=== PATIENT | male | born 1950 | race Caucasian/White ===

== ENCOUNTER 2016-12-11 07:31 | Emergency (ER) | payer MEDICARE, OTHER ==
[2016-12-11 07:42] VITALS: RESP 18
--- NOTE | 2016-12-11 08:14 | ED ---
Male Urogenital HPI - General Chief complaint: Urogenital Stated complaint: passing blood Time Seen by Provider: 12/11/16 08:03 Source: patient, family, RN notes reviewed Mode of arrival: ambulatory Limitations: no limitations - History of Present Illness Initial comments: 56-year-old male presents emergency Department with chief complaint of hematuria. Patient states that he woke up this morning felt fine states he was showering looked down and saw blood coming from his penis. Patient states he was not urinating sutures just dripping blood. Patient states this has continued up until coming to the emergency department. Patient states at this time appears to have stopped. Patient states that he did urinate this morning with no difficulty. Patient states that he has no abdominal pain denies any pain with urination denies fever, chills. Patient states that her prostate checked last year which was normal. Patient also colonoscopy with no abnormalities. Patient states she had no history of hematuria no history kidney stones. Denies any nausea, vomiting, diarrhea constipation. - Related Data Home Medications Medication Instructions Recorded Confirmed Carbidopa/Levodopa [Sinemet CR 1 tab PO HS 12/11/16 12/11/16 50-200 mg] Celecoxib 400 mg PO DAILY PRN 12/11/16 12/11/16 Citalopram Hydrobromide [CeleXA] 20 mg PO DAILY 12/11/16 12/11/16 Insulin NPL/Insulin Lispro 65 unit SQ BID 12/11/16 12/11/16 [humaLOG MIX 75-25 VIAL] Multivitamins, Thera [Multivitamin 1 tab PO DAILY 12/11/16 12/11/16 (formulary)] Simvastatin [Zocor] 20 mg PO DAILY 12/11/16 12/11/16 Ubidecarenone [Co Q-10] 200 mg PO DAILY 12/11/16 12/11/16 traMADol HCL [Ultram] 50 mg PO TID 12/11/16 12/11/16 Allergies Allergy/AdvReac Type Severity Reaction Status Date / Time No Known Allergies Allergy Unverified 12/11/16 08:56 Review of Systems ROS Statement: Those systems with pertinent positive or pertinent negative responses have been documented in the HPI. ROS Other: All systems not noted in ROS Statement are negative. Past Medical History Past Medical History: Diabetes Mellitus, Hyperlipidemia, Hypertension Additional Past Medical History / Comment(s): Neuropathy History of Any Multi-Drug Resistant Organisms: None Reported Past Surgical History: Adenoidectomy Additional Past Surgical History / Comment(s): Circumcision 2016 Past Psychological History: No Psychological Hx Reported Smoking Status: Former smoker Past Alcohol Use History: None Reported Past Drug Use History: None Reported General Exam Limitations: no limitations General appearance: alert, in no apparent distress Respiratory exam: Present: normal lung sounds bilaterally. Absent: respiratory distress, wheezes, rales, rhonchi, stridor Cardiovascular Exam: Present: regular rate, normal rhythm, normal heart sounds. Absent: systolic murmur, diastolic murmur, rubs, gallop, clicks GI/Abdominal exam: Present: soft, normal bowel sounds. Absent: distended, tenderness, guarding, rebound, rigid exam: Present: normal inspection. Absent: testicular tenderness, urethral discharge, scrotal swelling Back exam: Absent: CVA tenderness (R), CVA tenderness (L) Course Vital Signs 12/11/16 07:35 Temperature 98.1 F Pulse Rate 68 Respiratory 18 Rate Blood Pressure 156/74 O2 Sat by Pulse 97 Oximetry Medical Decision Making - Medical Decision Making 66-year-old male presented emergency department for blood from his penis. Patient lab work within normal other than hyperglycemia. Patient is known diabetic. Patient was informed his blood sugar was 336. Patient's urinalysis is essentially normal other than his ketones and glucose. He was informed of this also. Patient will follow-up with urology for cystoscopy and further workup as felt necessary. Patient agrees to plan return parameters were discussed. - Lab Data Result diagrams: 12/11/16 08:15 12/11/16 08:15 Lab Results 12/11/16 12/11/16 12/11/16 Range/Units 08:15 08:15 08:15 WBC 7.1 (3.8-10.6) k/uL RBC 5.34 (4.30-5.90) m/uL Hgb 16.5 (13.0-17.5) gm/dL Hct 49.7 (39.0-53.0) % MCV 93.0 (80.0-100.0) fL MCH 30.8 (25.0-35.0) pg MCHC 33.2 (31.0-37.0) g/dL RDW 13.5 (11.5-15.5) % Plt Count 183 (150-450) k/uL Neutrophils % 62 % Lymphocytes % 21 % Monocytes % 7 % Eosinophils % 5 % Basophils % 1 % Neutrophils # 4.4 (1.3-7.7) k/uL Lymphocytes # 1.5 (1.0-4.8) k/uL Monocytes # 0.5 (0-1.0) k/uL Eosinophils # 0.4 (0-0.7) k/uL Basophils # 0.1 (0-0.2) k/uL PT 10.8 (9.0-12.0) sec INR 1.1 (<1.1) APTT 23.0 (22.0-30.0) sec Sodium 136 L (137-145) mmol/L Potassium 4.5 (3.5-5.1) mmol/L Chloride 102 (98-107) mmol/L Carbon Dioxide 25 (22-30) mmol/L Anion Gap 9 mmol/L BUN 18 (9-20) mg/dL Creatinine 0.84 (0.66-1.25) mg/dL Est GFR (MDRD) Af Amer >60 (>60 ml/min/1.73 sqM) Est GFR (MDRD) Non-Af >60 (>60 ml/min/1.73 sqM) Glucose 336 H (74-99) mg/dL Calcium 8.7 (8.4-10.2) mg/dL Urine Color Urine Appearance (Clear) Urine pH (5.0-8.0) Ur Specific [place] (1.001-1.035) Urine Protein (Negative) Urine Glucose (UA) (Negative) Urine Ketones (Negative) Urine Blood (Negative) Urine Nitrite (Negative) Urine Bilirubin (Negative) Urine Urobilinogen (<2.0) mg/dL Ur Leukocyte Esterase (Negative) Urine RBC (0-5) /hpf Urine WBC (0-5) /hpf Urine Mucus (None) /hpf 12/11/16 Range/Units 08:21 WBC (3.8-10.6) k/uL RBC (4.30-5.90) m/uL Hgb (13.0-17.5) gm/dL Hct (39.0-53.0) % MCV (80.0-100.0) fL MCH (25.0-35.0) pg MCHC (31.0-37.0) g/dL RDW (11.5-15.5) % Plt Count (150-450) k/uL Neutrophils % % Lymphocytes % % Monocytes % % Eosinophils % % Basophils % % Neutrophils # (1.3-7.7) k/uL Lymphocytes # (1.0-4.8) k/uL Monocytes # (0-1.0) k/uL Eosinophils # (0-0.7) k/uL Basophils # (0-0.2) k/uL PT (9.0-12.0) sec INR (<1.1) APTT (22.0-30.0) sec Sodium (137-145) mmol/L Potassium (3.5-5.1) mmol/L Chloride (98-107) mmol/L Carbon Dioxide (22-30) mmol/L Anion Gap mmol/L BUN (9-20) mg/dL Creatinine (0.66-1.25) mg/dL Est GFR (MDRD) Af Amer (>60 ml/min/1.73 sqM) Est GFR (MDRD) Non-Af (>60 ml/min/1.73 sqM) Glucose (74-99) mg/dL Calcium (8.4-10.2) mg/dL Urine Color Yellow Urine Appearance Clear (Clear) Urine pH 5.5 (5.0-8.0) Ur Specific [place] 1.021 (1.001-1.035) Urine Protein Negative (Negative) Urine Glucose (UA) 4+ H (Negative) Urine Ketones 2+ H (Negative) Urine Blood Small H (Negative) Urine Nitrite Negative (Negative) Urine Bilirubin Negative (Negative) Urine Urobilinogen <2.0 (<2.0) mg/dL Ur Leukocyte Esterase Negative (Negative) Urine RBC 2 (0-5) /hpf Urine WBC 1 (0-5) /hpf Urine Mucus Rare H (None) /hpf Disposition Clinical Impression: Hematuria Disposition: HOME SELF-CARE Condition: Stable Instructions: Hematuria (ED) Additional Instructions: Please return to the Emergency Department if symptoms worsen or any other concerns. Referrals: Lacie Egan MD [Primary Care Provider] - 1-2 days José Miguel Osullivan MD [STAFF PHYSICIAN] - 1-2 days Time of Disposition: 09:22
[2016-12-11 08:26] LABS: Basophils # (A) 0.1 k/uL (0-0.2); Basophils % (A) 1 %; CH 30.8; CHCM 33.2; Eosinophils # (A) 0.4 k/uL (0-0.7); Eosinophils % (A) 5 %; HCT 49.7 % (39.0-53.0); HDW 2.32; HGB 16.5 gm/dL (13.0-17.5); Luc # (Auto) 0.22; Luc % (Auto) 3; Lymphocytes # (A) 1.5 k/uL (1.0-4.8); Lymphocytes % (A) 21 %; MCH 30.8 pg (25.0-35.0); MCHC 33.2 g/dL (31.0-37.0); Mean Platelet Volume 7.5; Monocytes # (A) 0.5 k/uL (0-1.0); Monocytes % (A) 7 %; Neutrophils # (A) 4.4 k/uL (1.3-7.7); Neutrophils % (A) 62 %; RBC 5.34 m/uL (4.30-5.90); RDW 13.5 % (11.5-15.5); WBC 7.1 k/uL (3.8-10.6); WBC (Perox) 6.95
[2016-12-11 08:40] LABS: Anion Gap 9 mmol/L; Blood Urea Nitrogen 18 mg/dL (9-20); Calcium 8.7 mg/dL (8.4-10.2); Carbon Dioxide 25 mmol/L (22-30); Chloride 102 mmol/L (98-107); Glucose 336 mg/dL (74-99); INR 1.1 (<1.1); Non-African American GFR(MDRD) >60 (>60 ml/min/1.73 sqM); Potassium 4.5 mmol/L (3.5-5.1); Prothrombin Time 10.8 sec (9.0-12.0); Sodium 136 mmol/L (137-145)
[2016-12-11 08:48] LABS: Appearance,Urine Clear (Clear); Bilirubin,Urine Negative (Negative); Glucose,Urine (UA) 4+ (Negative); Leukocyte Esterase,Urine Negative (Negative); Mucus,Urine Rare /hpf; Nitrite,Urine Negative (Negative); PH, Urine 5.5 (5.0-8.0); Particle Count 672; Protein,Urine Negative (Negative); RBC,Urine 2 /hpf (0-5); Specific Gravity,Urine 1.021 (1.001-1.035); UA Billing (MACRO vs. MICRO) MICRO; Urobilinogen,Urine <2.0 mg/dL (<2.0); WBC,Urine 1 /hpf (0-5)
[2016-12-11 08:51] LABS: Ketones,Urine 2+ (Negative)
[2016-12-11 09:31] VITALS: BP 137/79; PULSE 78; TEMP 98.2
== END 2016-12-11 09:31 | disposition home or self-care (01) ==
LOC: EC 07:31
DX: R31.9 Hematuria, unspecified (principal); E11.9 Type 2 diabetes mellitus without complications; E78.5 Hyperlipidemia, unspecified; Z87.891 Personal history of nicotine dependence; Z79.4 Long term (current) use of insulin; Z79.899 Other long term (current) drug therapy; Z79.891 Long term (current) use of opiate analgesic
CPT/HCPCS: 36415; 80048; 81001; 85025; 85610; 85730; 99283

== ENCOUNTER 2017-03-05 08:55 | Day surgery (SDC) | payer MEDICARE, OTHER ==
[2017-03-04 11:53] VITALS: BMI 42.7
[~2017-03-05 08:55] MED LIST: LACTATED RINGERS 1,000 ML IV SCH
[2017-03-05] MEDS ORDERED: LIDOCAINE 1% 20 ML VIAL (10MG/ML) FOR IV START INTRADERMA ONE (09:26)
[2017-03-05] MEDS: CYCLOPENTOLATE 1% OPHTH SOLN 2 ML BTL OP ONE ×3 (09:30→09:49)
[2017-03-05 09:33] VITALS: RESP 16; TEMP 98.6
[2017-03-05] MEDS: FLURBIPROFEN 0.03% OPHTH DROPS 2.5 ML BTL OP ONE ×3 (09:33→09:52)
[2017-03-05] MEDS: PHENYLEPHRINE 10% OPHTH DROPS 5 ML BTL OP ONE ×3 (09:36→09:57)
[2017-03-05 09:39] LABS: Glucose,Whole Blood 270 mg/dL (75-99)
[2017-03-05] MEDS ORDERED: INSULIN LISPRO (humaLOG) 300 UNIT/3 ML VIAL SQ ONE (09:57)
[2017-03-05] MEDS ORDERED: MIDAZOLAM 2 MG/2 ML VIAL ONE (10:22)
[2017-03-05] MEDS ORDERED: PROPOFOL 10 MG/ML 20 ML VIAL IV ONE (10:22)
[2017-03-05] MEDS ORDERED: fentaNYL (PF) 50 MCG/ML 2 ML AMP ONE (10:22)
[2017-03-05] MEDS ORDERED: BALANCED SALT IRRIG SOLN COMB2 15 ML IRRIG.SOLN INTRAOCULA ONE (10:28)
[2017-03-05] MEDS ORDERED: HYALURONATE SODIUM INTRAOCULAR 1 EACH SYRINGE (10MG/ML) INTRAOCULA ONE (10:29)
[2017-03-05] MEDS ORDERED: EPINEPHrine (PF) 0.5 ML in BALANCED SALT IRRIG SOLN COMB2 500 ML IRRIGATION ONE (10:30)
--- NOTE | 2017-03-05 10:43 | P.OP ---
Date of Procedure: 03/05/17 Preoperative Diagnosis: Postoperative Diagnosis: Procedure(s) Performed: PREOPERATIVE DIAGNOSIS: Cataract, right eye. POSTOPERATIVE DIAGNOSIS: Cataract, right eye. OPERATION: Phacoemulsification cataract, right eye. DESCRIPTION OF PROCEDURE: The patient was taken to the preoperative holding area. Intravenous Propofol was given so as to bring about adequate sedation. The following mixture was given for local anesthesia: 5 mL of 2% lidocaine, 5 mL of 0.75% Marcaine, and 1 mL of Wydase. Approximately 4 mL was injected in the retrobulbar space of the surgical eye. Additional 1 mL was then directed to the temporal area of the surgical eye. This was performed to allow adequate neurological block of the facial muscles. The patient was revived and then taken into the operative room. The patient was prepped and draped in the usual sterile manner for the operative eye. A lid speculum was put into position. The conjunctiva was resected back from the limbus in the 12 o'clock position. Bleeding was controlled with electrocautery. A #69 blade was then used and a half-thickness scleral incision approximately 1-mm posterior to the limbus was made on bare sclera. This was shelved in the clear cornea using a crescent knife. Next a 15-degree blade was used to make a stab incision at the 3 o' clock position at the corneolimbal interface. Keratome blade was then used and the superior wound was extended into the anterior chamber. Viscoelastic was injected into the anterior chamber and to maintain its form. Next, a cystotome was used and a continuous anterior capsulotomy was made without difficulty. Hydrodissection using a blunt cannula and BSS was performed. Phaco probe was then employed and a groove extending from 12 to 6 o'clock in the lens was created. A Miller wand was used through the stab incision so as to perform a divide and conquer technique. Next an irrigation aspiration probe was utilized and any residual cortex was removed from the eye. Again, viscoelastic was injected into the anterior chamber. An Clark posterior chamber lens implant was placed in the cartridge and injected into the anterior chamber without difficulty. The Accellosey hook was utilized to spin the lens into position and this was again performed without any difficulty. The irrigation and aspiration probe was again employed and any residual viscoelastic was removed from the eye. Then BSS was injected into the limbal stab incision and the anterior chamber re-inflated. The conjunctiva was reapproximated using electrocautery. One drop of 0.25% Timoptic was placed over the corneal along with TobraDex ophthalmic ointment. Two sterile patches and a Carmona eye shield were taped into position. The patient was transported to the recovery room in stable condition. Implants: Pathology: none sent Condition: stable Disposition: same day Indications for Procedure: Operative Findings: Description of Procedure:
[2017-03-05 11:04] VITALS: BP 130/69; PULSE 68
[2017-03-05 11:08] LABS: Glucose,Whole Blood 258 mg/dL (75-99)
[2017-03-05] MEDS ORDERED: TIMOLOL 0.5% OPHTH SOLN (PF) 0.2 ML DROPERETTE OP ONE (23:00)
[2017-03-05] MEDS ORDERED: GENTAMICIN/PREDNISOL AC OPHTH OINT 3.5GM OPHTHALMIC ONE (23:00)
[2017-03-05] MEDS ORDERED: BUPIVACAINE (PF) 0.75% 5 ML, LIDOCAINE 4% (PF) 5 ML, HYALURONIDASE, HUMAN RECOMB 150 UNIT MISCELLANE ONE ×3 (23:00)
== END 2017-03-05 11:19 | disposition home or self-care (01) ==
LOC: OR 08:55
PROVIDERS: ATTEND Ophthalmology
DX: H25.11 Age-related nuclear cataract, right eye (principal); E11.42 Type 2 diabetes mellitus with diabetic polyneuropathy; I10 Essential (primary) hypertension; M19.90 Unspecified osteoarthritis, unspecified site; E78.5 Hyperlipidemia, unspecified; Z79.4 Long term (current) use of insulin; Z79.899 Other long term (current) drug therapy; Z79.891 Long term (current) use of opiate analgesic; Z87.891 Personal history of nicotine dependence
CPT/HCPCS: 66984; V2632; J2001; J2250; J3470; J0171; J3010; J2704

== ENCOUNTER 2017-05-14 10:17 | Day surgery (SDC) | payer MEDICARE ==
[2017-05-13 12:04] VITALS: BMI 29.0
[~2017-05-14 10:17] MED LIST changes: +LIDOCAINE 1% 20 ML VIAL (10MG/ML) FOR IV START INTRADERMA PRN
[2017-05-14] MEDS: PHENYLEPHRINE 10% OPHTH DROPS 5 ML BTL OP ONE ×3 (11:30→11:42)
[2017-05-14] MEDS: CYCLOPENTOLATE 1% OPHTH SOLN 2 ML BTL OP ONE ×3 (11:32→11:44)
[2017-05-14] MEDS: KETOROLAC 0.5% OPHTH DROPS 3 ML BTL OP ONE ×3 (11:34→11:46)
[2017-05-14] MEDS ORDERED: LACTATED RINGERS 1,000 ML IV ONE (11:35)
[2017-05-14 11:36] VITALS: RESP 16; TEMP 98.2
[2017-05-14 11:36] LABS: Glucose,Whole Blood 328 mg/dL (75-99)
[2017-05-14] MEDS ORDERED: LIDOCAINE 1% 20 ML VIAL (10MG/ML) FOR IV START INTRADERMA ONE (11:42)
[2017-05-14] MEDS ORDERED: INSULIN LISPRO (humaLOG) 300 UNIT/3 ML VIAL SQ ONE (11:51)
[2017-05-14] MEDS ORDERED: MIDAZOLAM 2 MG/2 ML VIAL ONE (12:25)
[2017-05-14] MEDS ORDERED: PROPOFOL 10 MG/ML 20 ML VIAL IV ONE (12:25)
[2017-05-14] MEDS ORDERED: fentaNYL (PF) 50 MCG/ML 2 ML AMP ONE (12:25)
[2017-05-14] MEDS ORDERED: BALANCED SALT IRRIG SOLN COMB2 15 ML IRRIG.SOLN IRRIGATION ONE (12:38)
[2017-05-14] MEDS ORDERED: HYALURONATE SODIUM INTRAOCULAR 1 EACH SYRINGE (10MG/ML) INTRAOCULA ONE (12:38)
[2017-05-14] MEDS ORDERED: EPINEPHrine (PF) 0.5 ML in BALANCED SALT IRRIG SOLN COMB2 500 ML IRRIGATION ONE (12:39)
--- NOTE | 2017-05-14 12:49 | P.OP ---
Date of Procedure: 05/14/17 Procedure(s) Performed: PREOPERATIVE DIAGNOSIS: Cataract, left eye. POSTOPERATIVE DIAGNOSIS: Cataract, left eye. OPERATION: Phacoemulsification cataract, left eye. DESCRIPTION OF PROCEDURE: The patient was taken to the preoperative holding area. Intravenous Propofol was given so as to bring about adequate sedation. The following mixture was given for local anesthesia: 5 mL of 2% lidocaine, 5 mL of 0.75% Marcaine, and 1 mL of Wydase. Approximately 4 mL was injected in the retrobulbar space of the surgical eye. Additional 1 mL was then directed to the temporal area of the surgical eye. This was performed to allow adequate neurological block of the facial muscles. The patient was revived and then taken into the operative room. The patient was prepped and draped in the usual sterile manner for the operative eye. A lid speculum was put into position. The conjunctiva was resected back from the limbus in the 12 o'clock position. Bleeding was controlled with electrocautery. A #69 blade was then used and a half-thickness scleral incision approximately 1-mm posterior to the limbus was made on bare sclera. This was shelved in the clear cornea using a crescent knife. Next a 15-degree blade was used to make a stab incision at the 3 o' clock position at the corneolimbal interface. Keratome blade was then used and the superior wound was extended into the anterior chamber. Viscoelastic was injected into the anterior chamber and to maintain its form. Next, a cystotome was used and a continuous anterior capsulotomy was made without difficulty. Hydrodissection using a blunt cannula and BSS was performed. Phaco probe was then employed and a groove extending from 12 to 6 o'clock in the lens was created. A Miller wand was used through the stab incision so as to perform a divide and conquer technique. Next an irrigation aspiration probe was utilized and any residual cortex was removed from the eye. Again, viscoelastic was injected into the anterior chamber. An Clark posterior chamber lens implant was placed in the cartridge and injected into the anterior chamber without difficulty. The Sinmafringue.comey hook was utilized to spin the lens into position and this was again performed without any difficulty. The irrigation and aspiration probe was again employed and any residual viscoelastic was removed from the eye. Then BSS was injected into the limbal stab incision and the anterior chamber re-inflated. The conjunctiva was reapproximated using electrocautery. One drop of 0.25% Timoptic was placed over the corneal along with TobraDex ophthalmic ointment. Two sterile patches and a Carmona eye shield were taped into position. The patient was transported to the recovery room in stable condition. Pathology: none sent Condition: stable Disposition: same day
[2017-05-14 12:53] VITALS: PULSE 72
[2017-05-14 12:55] LABS: Glucose,Whole Blood 340 mg/dL (75-99)
[2017-05-14 13:13] VITALS: BP 133/79
[2017-05-14] MEDS ORDERED: BUPIVACAINE (PF) 0.75% 5 ML, LIDOCAINE 4% (PF) 5 ML, HYALURONIDASE, HUMAN RECOMB 150 UNIT MISCELLANE ONE ×3 (23:00)
[2017-05-14] MEDS ORDERED: GENTAMICIN/PREDNISOL AC OPHTH OINT 3.5GM OPHTHALMIC ONE (23:00)
[2017-05-14] MEDS ORDERED: TIMOLOL 0.5% OPHTH SOLN (PF) 0.2 ML DROPERETTE OP ONE (23:00)
== END 2017-05-14 13:46 | disposition home or self-care (01) ==
LOC: OR 10:17
PROVIDERS: ATTEND Ophthalmology
DX: H26.9 Unspecified cataract (principal); I10 Essential (primary) hypertension; Z87.891 Personal history of nicotine dependence; Z79.4 Long term (current) use of insulin; Z79.899 Other long term (current) drug therapy; E78.5 Hyperlipidemia, unspecified; E11.42 Type 2 diabetes mellitus with diabetic polyneuropathy
CPT/HCPCS: 66984; V2632; J2001; J2250; J3470; J0171; J3010; J2704

== ENCOUNTER 2020-05-28 19:52 | Inpatient (IN) | payer MEDICARE ==
[2020-05-28 20:00] LABS: Glucose,Whole Blood >600 mg/dL (75-99)
[2020-05-28] MEDS ORDERED: SODIUM CHLORIDE 0.9% 1,000 ML IV ONE ×2 (20:15→21:12)
[2020-05-28] MEDS ORDERED: DIPH,PERTUS(ACELL)TETVAC-LF 0.5 ML VIAL IM ONE (20:15)
[2020-05-28 20:18] LABS: Basophils % (A) 0 %; Eosinophils # (A) 0.1 k/uL (0-0.7); Eosinophils % (A) 1 %; HCT 53.9 % (39.0-53.0); HGB 16.4 gm/dL (13.0-17.5); Hypochromasia Moderate; Lymphocytes # (A) 0.9 k/uL (1.0-4.8); Lymphocytes % (A) 3 %; MCH 29.8 pg (25.0-35.0); MCHC 30.5 g/dL (31.0-37.0); MCV 97.8 fL (80.0-100.0); Mean Platelet Volume 8.2; Monocytes % (A) 8 %; Neutrophils # (A) 23.2 k/uL (1.3-7.7); Neutrophils % (A) 88 %; Platelet Count 312 k/uL (150-450); RBC 5.52 m/uL (4.30-5.90); RDW 13.4 % (11.5-15.5); WBC 26.5 k/uL (3.8-10.6)
--- NOTE | 2020-05-28 20:26 | ED ---
Medical Decision Making - Lab Data Result diagrams: 05/28/20 19:58 Lab Results 05/28/20 05/28/20 Range/Units 19:58 19:58 WBC 26.5 H (3.8-10.6) k/uL RBC 5.52 (4.30-5.90) m/uL Hgb 16.4 (13.0-17.5) gm/dL Hct 53.9 H (39.0-53.0) % MCV 97.8 (80.0-100.0) fL MCH 29.8 (25.0-35.0) pg MCHC 30.5 L (31.0-37.0) g/dL RDW 13.4 (11.5-15.5) % Plt Count 312 (150-450) k/uL Neutrophils % 88 % Lymphocytes % 3 % Monocytes % 8 % Eosinophils % 1 % Basophils % 0 % Neutrophils # 23.2 H (1.3-7.7) k/uL Lymphocytes # 0.9 L (1.0-4.8) k/uL Monocytes # 2.0 H (0-1.0) k/uL Eosinophils # 0.1 (0-0.7) k/uL Basophils # 0.0 (0-0.2) k/uL Hypochromasia Moderate POC Glucose (mg/dL) >600 H (75-99) mg/dL POC Glu [employer] Alcides Garcia Disposition Referrals: Lacie Egan MD [Primary Care Provider] - 1-2 days
--- NOTE | 2020-05-28 20:29 | ED ---
General Adult HPI - General Chief complaint: Arrhythmia/Palpitations Stated complaint: altered mental status Time Seen by Provider: 05/28/20 20:03 Source: patient, EMS Mode of arrival: EMS Limitations: altered mental status - History of Present Illness Initial comments: Patient presents the ED by ambulance for evaluation. Per EMS, the patient's neighbors checked on him today, and they found him on the ground with altered mental status, so they called for an ambulance. Per EMS, the patient was initially in normal sinus rhythm, but he converted to a rapid, regular, narrow complex tachycardia during ambulance transport. Per EMS, the patient denied falling when they asked him. EMS is unsure of how long the patient may have been on the ground, but they state that phone contact was made with the patient yesterday. Per EMS, the patient's blood glucose was in the 600s. Patient is alert and oriented to person, place and day of week on arrival to the ED, but he is not oriented to the month. Patient states that he feels "crappy". Patient denies having any pain, fever or chills, headache, focal neuro deficit, neck/back/extremity pain, chest pain, cough or cold symptoms, dyspnea, dizziness, abdominal pain, nausea/vomiting/diarrhea, bloody or melanotic stool, dysuria or urinary symptoms, or any other symptoms or complaints. Patient is unsure of his last tetanus shot. - Related Data Home Medications Medication Instructions Recorded Confirmed Carbidopa/Levodopa [Sinemet CR 1 tab PO HS 12/11/16 05/14/17 50-200 mg] Celecoxib 400 mg PO DAILY PRN 12/11/16 05/14/17 Citalopram Hydrobromide [CeleXA] 20 mg PO DAILY 12/11/16 05/14/17 Insulin NPL/Insulin Lispro 60 unit SQ BID 12/11/16 05/14/17 [humaLOG MIX 75-25 VIAL] Multivitamins, Thera [Multivitamin 1 tab PO DAILY 12/11/16 05/14/17 (formulary)] Simvastatin [Zocor] 20 mg PO DAILY 12/11/16 05/14/17 Ubidecarenone [Co Q-10] 200 mg PO DAILY 12/11/16 05/14/17 traMADol HCL [Ultram] 50 mg PO TID 12/11/16 05/14/17 Allergies Allergy/AdvReac Type Severity Reaction Status Date / Time No Known Allergies Allergy Verified 05/28/20 20:03 Review of Systems ROS Statement: Those systems with pertinent positive or pertinent negative responses have been documented in the HPI. ROS Other: All systems not noted in ROS Statement are negative. Past Medical History Past Medical History: Diabetes Mellitus, Hyperlipidemia, Hypertension Additional Past Medical History / Comment(s): Neuropathy History of Any Multi-Drug Resistant Organisms: None Reported Past Surgical History: Adenoidectomy Additional Past Surgical History / Comment(s): Circumcision 2016. Right cataract removal Past Anesthesia/Blood Transfusion Reactions: No Reported Reaction Past Psychological History: No Psychological Hx Reported Smoking Status: Unknown if ever smoked Past Alcohol Use History: None Reported Past Drug Use History: None Reported - Past Family History Father Family Medical History: Cancer Mother Family Medical History: Cancer Additional Family Medical History / Comment(s): skin CA General Exam Limitations: altered mental status General appearance: alert Head exam: Present: atraumatic, normocephalic Eye exam: Present: normal appearance, PERRL, EOMI ENT exam: Present: mucous membranes dry, TM's normal bilaterally Neck exam: Present: normal inspection, other (Trachea is in midline). Absent: tenderness Respiratory exam: Present: normal lung sounds bilaterally. Absent: respiratory distress, wheezes, rales, rhonchi Cardiovascular Exam: Present: normal rhythm, tachycardia, normal heart sounds, other (Normal radial pulses bilaterally) GI/Abdominal exam: Present: soft. Absent: distended, tenderness, guarding Extremities exam: Present: full ROM, other (A superficial abrasion is noted over right anterior knee without any surrounding tenderness; pelvis is stable and nontender). Absent: tenderness, pedal edema, calf tenderness Back exam: Present: other (An abrasion is noted over right lumbar back region). Absent: tenderness Neurological exam: Present: alert, CN II-XII intact, other (Patient is oriented to person, place and day of the week, but not to month). Absent: motor sensory deficit Psychiatric exam: Present: normal affect, normal mood Skin exam: Present: warm, dry, mottled Course Vital Signs 05/28/20 05/28/20 05/28/20 19:57 21:00 22:25 Temperature 97.9 F 97.4 F L Pulse Rate 216 H 118 H 120 H Respiratory 16 14 15 Rate Blood Pressure 110/74 120/77 111/80 O2 Sat by Pulse 99 99 94 L Oximetry - Reevaluation(s) Reevaluation #1: 05/28/20 20:02 Patient was hypotensive and somewhat confused on arrival to the ED. safety officer and EKG revealed SVT. Given the patient's unstable condition, patient was electrically cardioverted after sedation with IV Versed. Initial cardioversion with 150 J was unsuccessful. Subsequent cardioversion with 200 J was successful. Patient converted to what appeared to be a sinus rhythm with frequent PACs. 05/28/20 20:07 Case, H&P, EKG findings and EMS/ED treatment thus far were discussed with Dr. Martel (flag car driver). He recommends giving the patient an IV amiodarone bolus and starting the patient on an IV amiodarone drip at this time. He has no further recommendations at this time. 05/28/20 21:50 Patient is now in a sinus rhythm on the line installer repairer. Patient is is now A and O 3. Patient continues to be breathing comfortably. 05/28/20 23:02 Patient remains A and O x3 and breathing comfortably. Patient denies devel opment of any new symptoms while in the ED. Patient remains in a sinus rhythm on the line installer repairer. Patient is aware of his test results, and he agrees with hospital admission at this time. 05/28/20 23:03 Case, H&P, test results and ED management were discussed with Dr. Crow (wood tank erector). He agrees with ICU admission and consultation. He has no further recommendations at this time. 05/28/20 23:38 Case, H&P, test results, ED management and my discussion with Dr. Crow and Dr. Martel as above were discussed with Dr. Butler. He accepts ICU admission. He has no further recommendations at this time. EKG Findings - EKG Comments: EKG Findings:: 20:02 EKG- supraventricular tachycardia, ventricular rate of 169 bpm, normal QRS duration, normal QT interval, leftward axis. 20:03 EKG (post-cardioversion)- sinus tachycardia with frequent PACs, ventricular rate of 119 bpm, normal ME and QRS intervals, normal QT interval, leftward axis, no ST or T-wave abnormality. 22:46 EKG- sinus tachycardia with occasional PACs, ventricular rate of 122 bpm, normal ME and QRS intervals, normal QT interval, no ST or T-wave abnormality Medical Decision Making - Medical Decision Making Patient's imaging studies are negative for any traumatic or infectious findings. Patient is afebrile. I suspect that the patient's altered mental status was likely secondary to DKA and unstable SVT. Patient is now in a sinus rhythm. Patient is currently A and O [address] Crow was contacted and agrees to see the patient in consultation. Dr. Butler has accepted ICU admission. - Lab Data Result diagrams: 05/28/20 19:58 05/28/20 19:58 Lab Results 05/28/20 05/28/20 05/28/20 Range/Units 19:58 19:58 19:58 WBC 26.5 H (3.8-10.6) k/uL RBC 5.52 (4.30-5.90) m/uL Hgb 16.4 (13.0-17.5) gm/dL Hct 53.9 H (39.0-53.0) % MCV 97.8 (80.0-100.0) fL MCH 29.8 (25.0-35.0) pg MCHC 30.5 L (31.0-37.0) g/dL RDW 13.4 (11.5-15.5) % Plt Count 312 (150-450) k/uL Neutrophils % 88 % Lymphocytes % 3 % Monocytes % 8 % Eosinophils % 1 % Basophils % 0 % Neutrophils # 23.2 H (1.3-7.7) k/uL Lymphocytes # 0.9 L (1.0-4.8) k/uL Monocytes # 2.0 H (0-1.0) k/uL Eosinophils # 0.1 (0-0.7) k/uL Basophils # 0.0 (0-0.2) k/uL Hypochromasia Moderate PT 10.5 (9.0-12.0) sec INR 1.0 (<1.2) APTT 21.2 L (22.0-30.0) sec Sample Site ABG pH (7.35-7.45) ABG pCO2 (35-45) mmHg ABG pO2 (83-108) mmHg ABG HCO3 (21-25) mmol/L ABG Total CO2 (19-24) mmol/L ABG O2 Saturation (94-97) % ABG Base Excess mmol/L Roger Test FiO2 % Sodium (137-145) mmol/L Potassium (3.5-5.1) mmol/L Chloride (98-107) mmol/L Carbon Dioxide (22-30) mmol/L Anion Gap mmol/L BUN (9-20) mg/dL Creatinine (0.66-1.25) mg/dL Est GFR (CKD-EPI)AfAm (>60 ml/min/1.73 sqM) Est GFR (CKD-EPI)NonAf (>60 ml/min/1.73 sqM) Glucose (74-99) mg/dL POC Glucose (mg/dL) >600 H (75-99) mg/dL POC Glu Heat Treat Supervisor ID Alcides Clemons Calcium (8.4-10.2) mg/dL Total Bilirubin (0.2-1.3) mg/dL AST (17-59) U/L ALT (4-49) U/L Alkaline Phosphatase (38-126) U/L Ammonia (<30) umol/L Creatine Kinase (55-170) U/L Troponin I (0.000-0.034) ng/mL NT-Pro-B Natriuret Pep pg/mL Total Protein (6.3-8.2) g/dL Albumin (3.5-5.0) g/dL Serum Alcohol mg/dL Acetone, Qual (Negative) 05/28/20 05/28/20 05/28/20 Range/Units 19:58 19:58 19:58 WBC (3.8-10.6) k/uL RBC (4.30-5.90) m/uL Hgb (13.0-17.5) gm/dL Hct (39.0-53.0) % MCV (80.0-100.0) fL MCH (25.0-35.0) pg MCHC (31.0-37.0) g/dL RDW (11.5-15.5) % Plt Count (150-450) k/uL Neutrophils % % Lymphocytes % % Monocytes % % Eosinophils % % Basophils % % Neutrophils # (1.3-7.7) k/uL Lymphocytes # (1.0-4.8) k/uL Monocytes # (0-1.0) k/uL Eosinophils # (0-0.7) k/uL Basophils # (0-0.2) k/uL Hypochromasia PT (9.0-12.0) sec INR (<1.2) APTT (22.0-30.0) sec Sample Site ABG pH (7.35-7.45) ABG pCO2 (35-45) mmHg ABG pO2 (83-108) mmHg ABG HCO3 (21-25) mmol/L ABG Total CO2 (19-24) mmol/L ABG O2 Saturation (94-97) % ABG Base Excess mmol/L Roger Test FiO2 % Sodium 137 (137-145) mmol/L Potassium 4.2 (3.5-5.1) mmol/L Chloride 99 (98-107) mmol/L Carbon Dioxide 10 L (22-30) mmol/L Anion Gap 28 mmol/L BUN 42 H (9-20) mg/dL Creatinine 2.01 H (0.66-1.25) mg/dL Est GFR (CKD-EPI)AfAm 38 (>60 ml/min/1.73 sqM) Est GFR (CKD-EPI)NonAf 33 (>60 ml/min/1.73 sqM) Glucose 708 H* (74-99) mg/dL POC Glucose (mg/dL) (75-99) mg/dL POC Glu Heat Treat Supervisor ID Calcium 9.2 (8.4-10.2) mg/dL Total Bilirubin 1.0 (0.2-1.3) mg/dL AST 18 (17-59) U/L ALT 22 (4-49) U/L Alkaline Phosphatase 151 H (38-126) U/L Ammonia <9 (<30) umol/L Creatine Kinase 109 (55-170) U/L Troponin I 0.012 (0.000-0.034) ng/mL NT-Pro-B Natriuret Pep pg/mL Total Protein 6.1 L (6.3-8.2) g/dL Albumin 3.8 (3.5-5.0) g/dL Serum Alcohol <10 mg/dL Acetone, Qual Positive (Negative) 05/28/20 05/28/20 05/28/20 Range/Units 19:58 21:05 21:58 WBC (3.8-10.6) k/uL RBC (4.30-5.90) m/uL Hgb (13.0-17.5) gm/dL Hct (39.0-53.0) % MCV (80.0-100.0) fL MCH (25.0-35.0) pg MCHC (31.0-37.0) g/dL RDW (11.5-15.5) % Plt Count (150-450) k/uL Neutrophils % % Lymphocytes % % Monocytes % % Eosinophils % % Basophils % % Neutrophils # (1.3-7.7) k/uL Lymphocytes # (1.0-4.8) k/uL Monocytes # (0-1.0) k/uL Eosinophils # (0-0.7) k/uL Basophils # (0-0.2) k/uL Hypochromasia PT (9.0-12.0) sec INR (<1.2) APTT (22.0-30.0) sec Sample Site Right Radial ABG pH 7.15 L* (7.35-7.45) ABG pCO2 23 L (35-45) mmHg ABG pO2 107 (83-108) mmHg ABG HCO3 8 L* (21-25) mmol/L ABG Total CO2 9 L (19-24) mmol/L ABG O2 Saturation 97.5 H (94-97) % ABG Base Excess -21.0 mmol/L Roger Test Yes FiO2 30 % Sodium (137-145) mmol/L Potassium (3.5-5.1) mmol/L Chloride (98-107) mmol/L Carbon Dioxide (22-30) mmol/L Anion Gap mmol/L BUN (9-20) mg/dL Creatinine (0.66-1.25) mg/dL Est GFR (CKD-EPI)AfAm (>60 ml/min/1.73 sqM) Est GFR (CKD-EPI)NonAf (>60 ml/min/1.73 sqM) Glucose (74-99) mg/dL POC Glucose (mg/dL) >600 H (75-99) mg/dL POC Glu Heat Treat Supervisor ID Juice, Ivelisse Calcium (8.4-10.2) mg/dL Total Bilirubin (0.2-1.3) mg/dL AST (17-59) U/L ALT (4-49) U/L Alkaline Phosphatase (38-126) U/L Ammonia (<30) umol/L Creatine Kinase (55-170) U/L Troponin I (0.000-0.034) ng/mL NT-Pro-B Natriuret Pep 281 pg/mL Total Protein (6.3-8.2) g/dL Albumin (3.5-5.0) g/dL Serum Alcohol mg/dL Acetone, Qual (Negative) 05/28/20 Range/Units 22:59 WBC (3.8-10.6) k/uL RBC (4.30-5.90) m/uL Hgb (13.0-17.5) gm/dL Hct (39.0-53.0) % MCV (80.0-100.0) fL MCH (25.0-35.0) pg MCHC (31.0-37.0) g/dL RDW (11.5-15.5) % Plt Count (150-450) k/uL Neutrophils % % Lymphocytes % % Monocytes % % Eosinophils % % Basophils % % Neutrophils # (1.3-7.7) k/uL Lymphocytes # (1.0-4.8) k/uL Monocytes # (0-1.0) k/uL Eosinophils # (0-0.7) k/uL Basophils # (0-0.2) k/uL Hypochromasia PT (9.0-12.0) sec INR (<1.2) APTT (22.0-30.0) sec Sample Site ABG pH (7.35-7.45) ABG pCO2 (35-45) mmHg ABG pO2 (83-108) mmHg ABG HCO3 (21-25) mmol/L ABG Total CO2 (19-24) mmol/L ABG O2 Saturation (94-97) % ABG Base Excess mmol/L Roger Test FiO2 % Sodium (137-145) mmol/L Potassium (3.5-5.1) mmol/L Chloride (98-107) mmol/L Carbon Dioxide (22-30) mmol/L Anion Gap mmol/L BUN (9-20) mg/dL Creatinine (0.66-1.25) mg/dL Est GFR (CKD-EPI)AfAm (>60 ml/min/1.73 sqM) Est GFR (CKD-EPI)NonAf (>60 ml/min/1.73 sqM) Glucose (74-99) mg/dL POC Glucose (mg/dL) >600 H (75-99) mg/dL POC Glu Heat Treat Supervisor ID Ivelisse Bose Calcium (8.4-10.2) mg/dL Total Bilirubin (0.2-1.3) mg/dL AST (17-59) U/L ALT (4-49) U/L Alkaline Phosphatase (38-126) U/L Ammonia (<30) umol/L Creatine Kinase (55-170) U/L Troponin I (0.000-0.034) ng/mL NT-Pro-B Natriuret Pep pg/mL Total Protein (6.3-8.2) g/dL Albumin (3.5-5.0) g/dL Serum Alcohol mg/dL Acetone, Qual (Negative) - Radiology Data Radiology results: report reviewed (Chest x-ray: pulmonary fibrotic changes, no heart failure; pelvis x-ray: no acute abnormality of the pelvis; CT head and cervical spine are negative) Critical Care Time Critical Care Time: Yes Total Critical Care Time: 90 Disposition Clinical Impression: Altered mental status, SVT (supraventricular tachycardia), DKA (diabetic ketoacidoses), Renal insufficiency, Abrasions of multiple sites Disposition: ADMITTED IP TO THIS [facility] Condition: Stable When asked, does pt state using other controlled substances?: No Time of Disposition: 23:16
[2020-05-28 20:30] LABS: ALT 22 U/L (4-49); AST 18 U/L (17-59); African American GFR (CKD) 38 (>60 ml/min/1.73 sqM); Albumin 3.8 g/dL (3.5-5.0); Alcohol <10 mg/dL; Alkaline Phosphatase 151 U/L (38-126); Blood Urea Nitrogen 42 mg/dL (9-20); Calcium 9.2 mg/dL (8.4-10.2); Chloride 99 mmol/L (98-107); Creatine Kinase 109 U/L (55-170); Non-African American GFR(CKD) 33 (>60 ml/min/1.73 sqM); Potassium 4.2 mmol/L (3.5-5.1); Sodium 137 mmol/L (137-145); Total Protein 6.1 g/dL (6.3-8.2)
[2020-05-28 20:34] LABS: Anion Gap 28 mmol/L; Carbon Dioxide 10 mmol/L (22-30)
[2020-05-28] MEDS ORDERED: DEXTROSE 5% IN WATER 100 ML with AMIODARONE 150 MG IV ONE (20:35)
[2020-05-28] MEDS ORDERED: AMIODARONE 360 MG in DEXTROSE 5% IN WATER 200 ML IV ONE ×2 (20:36)
[2020-05-28] MEDS ORDERED: MIDAZOLAM 1 MG/ML 5 ML VIAL IV STA (20:36)
--- NOTE | 2020-05-28 20:36 | XR ---
EXAMINATION TYPE: XR chest 1V portable DATE OF EXAM: 05/28/2020 COMPARISON: NONE HISTORY: Altered mental status TECHNIQUE: Single view FINDINGS: There is coarsening of the lung markings. There is no heart failure. Thoracic aorta is athe romatous. There are chest leads. There is no evidence of pleural effusion. IMPRESSION: Pulmonary fibrotic changes. No heart failure.
[2020-05-28 20:37] LABS: Prothrombin Time 10.5 sec (9.0-12.0)
--- NOTE | 2020-05-28 20:37 | XR ---
EXAMINATION TYPE: XR pelvis AP view DATE OF EXAM: 05/28/2020 COMPARISON: NONE HISTORY: Pain TECHNIQUE: Single view FINDINGS: Pelvic ring is intact. Proximal femurs and hip joints are intact. Sacroiliac joints are int act. IMPRESSION: No acute abnormality of the pelvis.
[2020-05-28 20:45] LABS: Partial Thromboplastin Time 21.2 sec (22.0-30.0)
[2020-05-28 20:51] LABS: Glucose 708 mg/dL (74-99)
[2020-05-28 21:07] LABS: Glucose,Whole Blood >600 mg/dL (75-99)
[2020-05-28 21:56] LABS: ABG Oxygen Saturation 97.5 % (94-97); ABG PCO2 23 mmHg (35-45); ABG PO2 107 mmHg (83-108); ABG TCO2 9 mmol/L (19-24); Allen Test Performed? Yes
[2020-05-28 22:03] LABS: ABG HCO3 8 mmol/L (21-25); ABG PH 7.15 (7.35-7.45)
[2020-05-28] MEDS: INSULIN REGULAR 100 UNIT in SODIUM CHLORIDE 0.9% 100 ML IV STA (22:24)
--- NOTE | 2020-05-28 22:54 | CT ---
EXAMINATION TYPE: CT brain cspine wo con DATE OF EXAM: 05/28/2020 COMPARISON: None HISTORY: ams CT DLP: 1507.7 mGycm Automated exposure control for dose reduction was used. There is cerebral cortical atrophy. There is no mass effect nor midline shift. There is no sign of in tracranial hemorrhage. Calvarium is intact. Exam limited slightly by motion. There is normal aeration of the mastoid sinuses. Cervical vertebra have normal spacing and alignment. Posterior elements are intact. Facet joints are intact. There is no evidence of cervical spine compression fracture. Prevertebral soft tissues appear normal. IMPRESSION: Normal CT scan of the cervical spine. Cerebral atrophy. No acute intracranial abnormality.
[2020-05-28 23:01] LABS: Glucose,Whole Blood >600 mg/dL (75-99)
[2020-05-28 23:28] LABS: Glucose,Whole Blood 588 mg/dL (75-99)
[2020-05-29 00:05] LABS: Appearance,Urine Clear (Clear); Bilirubin,Urine Negative (Negative); Color,Urine Light Yellow; Glucose,Urine (UA) 4+ (Negative); Protein,Urine 1+ (Negative); Specific Gravity,Urine 1.024 (1.001-1.035)
[2020-05-29 00:06] LABS: Amorphous Sediment,Urine Rare /hpf; Bacteria,Urine Rare /hpf; Blood,Urine Small (Negative); Hyaline Casts,Urine 23 /lpf (0-2); Leukocyte Esterase,Urine Negative (Negative); Mucus,Urine Rare /hpf; Nitrite,Urine Negative (Negative); RBC,Urine <1 /hpf (0-5); Urobilinogen,Urine <2.0 mg/dL (<2.0); WBC,Urine 1 /hpf (0-5)
[2020-05-29 00:06] LABS: Glucose,Whole Blood 579 mg/dL (75-99)
[2020-05-29 00:17] LABS: African American GFR (CKD) 48 (>60 ml/min/1.73 sqM); Anion Gap 25 mmol/L; Blood Urea Nitrogen 41 mg/dL (9-20); Chloride 106 mmol/L (98-107); Non-African American GFR(CKD) 42 (>60 ml/min/1.73 sqM); Phosphorus 6.2 mg/dL (2.5-4.5); Potassium 4.6 mmol/L (3.5-5.1); Sodium 139 mmol/L (137-145)
[2020-05-29 00:26] LABS: Glucose 627 mg/dL (74-99)
[2020-05-29 00:26] LABS: Ketones,Urine 4+ (Negative)
[2020-05-29] MEDS: SODIUM CHLORIDE 0.9% 1,000 ML IV SCH (00:27)
[2020-05-29 00:28] LABS: Glucose,Whole Blood 546 mg/dL (75-99)
[2020-05-29 00:28] LABS: Carbon Dioxide 8 mmol/L (22-30)
[2020-05-29 00:38] LABS: Amphetamine Screen,Urine Not Detected (NotDetected); Barbiturate Screen,Urine Not Detected (NotDetected); Benzodiazepines Screen,Urine Not Detected (NotDetected); Cocaine Screen,Urine Not Detected (NotDetected); Methadone Screen, Urine Not Detected (NotDetected); Opiate Screen,Urine Not Detected (NotDetected); Oxycodone Screen, Urine Not Detected (NotDetected); Phencyclidine Screen,Urine Not Detected (NotDetected); Tricyclic Antidepressant,Urine Not Detected (NotDetected); Urn Cannabinoid Scrn Not Detected (NotDetected)
[2020-05-29 00:54] LABS: HCT 54.8 % (39.0-53.0); HGB 17.3 gm/dL (13.0-17.5); Hypochromasia Marked; MCH 31.4 pg (25.0-35.0); MCHC 31.6 g/dL (31.0-37.0); MCV 99.2 fL (80.0-100.0); Mean Platelet Volume 8.4; Platelet Count 270 k/uL (150-450); RBC 5.53 m/uL (4.30-5.90); RDW 13.3 % (11.5-15.5)
[2020-05-29 01:05] LABS: Glucose,Whole Blood 557 mg/dL (75-99)
[2020-05-29 01:34] LABS: Band Neutrophils % 10 %; Lymphocytes # (M) 0.93 k/uL (1.0-4.8); Monocytes # (M) 1.86 k/uL (0-1.0); Neutrophils % (M) 81 %; Nucleated Red Blood Cells 0 /100 WBC (0-0); Total Cells Counted 100
[2020-05-29 01:38] LABS: Large Platelets Present
[2020-05-29 02:00] LABS: Glucose,Whole Blood 479 mg/dL (75-99)
[2020-05-29] MEDS: HYDROmorphone 0.5 MG/0.5 ML SYRINGE IVP PRN ×2 (02:16→11:20)
[2020-05-29 02:55] LABS: Glucose,Whole Blood 316 mg/dL (75-99)
[2020-05-29] MEDS: AMIODARONE 300 MG in DEXTROSE 5% IN WATER 250 ML IV SCH ×4 (03:02→12:07)
[2020-05-29 04:19] LABS: Glucose,Whole Blood 285 mg/dL (75-99)
[2020-05-29 04:42] LABS: HCT 54.3 % (39.0-53.0); HGB 16.8 gm/dL (13.0-17.5); MCH 29.3 pg (25.0-35.0); MCV 94.5 fL (80.0-100.0); Mean Platelet Volume 8.3; Platelet Count 237 k/uL (150-450); RBC 5.74 m/uL (4.30-5.90); RDW 13.5 % (11.5-15.5); WBC 27.6 k/uL (3.8-10.6)
[2020-05-29] MEDS: D5-0.45% NACL WITH KCL 20MEQ/L 1,000 ML IV SCH ×3 (05:04→18:12)
[2020-05-29 05:05] LABS: Glucose,Whole Blood 287 mg/dL (75-99)
[2020-05-29 05:08] LABS: Calcium 9.4 mg/dL (8.4-10.2); Magnesium 2.4 mg/dL (1.6-2.3); Potassium 3.9 mmol/L (3.5-5.1)
[2020-05-29] MEDS ORDERED: NALOXONE 0.4 MG/ML 1 ML VIAL IV PRN (05:56)
[2020-05-29 06:08] LABS: Glucose,Whole Blood 273 mg/dL (75-99)
[2020-05-29 06:53] LABS: Glucose,Whole Blood 198 mg/dL (75-99)
[2020-05-29] MEDS: INSULIN REGULAR 100 UNIT in SODIUM CHLORIDE 0.9% 100 ML IV STA (07:18)
[2020-05-29 08:11] LABS: Glucose,Whole Blood 162 mg/dL (75-99)
[2020-05-29 08:55] LABS: Glucose,Whole Blood 153 mg/dL (75-99)
[2020-05-29] MEDS: ASPIRIN 81 MG PO SCH (09:33)
[2020-05-29] MEDS: PANTOPRAZOLE 40 MG/10 ML VIAL IV SCH (09:33)
[2020-05-29] MEDS: METOPROLOL TARTRATE 25 MG TAB PO SCH ×2 (09:33→21:36)
[2020-05-29 10:21] LABS: Glucose,Whole Blood 132 mg/dL (75-99)
--- NOTE | 2020-05-29 10:25 | CONS ---
CONSULTATION ATTENDING: Dr. Egan. Mr. Cruz is a 70-year-old male who presents to the emergency room, brought in by EMS after his neighbor checked on him and found him on the ground with altered mental status. He was noted to be tachycardic and had evidence of DKA. The patient was cardioverted because of the heart rate and was in sinus mechanism. He was started on IV amiodarone. He is awake with some element of confusion. He is hemodynamically stable. Continues on IV amiodarone that was initiated yesterday. He is on no vasopressor. He received sedation recently. I am not able to obtain significant other history, although the patient denies any symptoms of chest pain or dyspnea. Denies any dizziness or prior cardiac history, although the accuracy of the prior history is not too good. MEDICATIONS: His medication at home, according to the notes available, included insulin, Celexa, Sinemet, simvastatin, coenzyme Q10, and Ultram. SOCIAL HISTORY: The patient denies any history of smoking, although the nursing staff tells me that he used to smoke in the past. REVIEW OF SYSTEMS: Limited because of the mental status. RESPIRATORY SYSTEM: Patient denies any symptoms of cough or fever. Denies any wheezing or history of obstructive lung disease. GI SYSTEM: He denies any nausea or vomiting. No peptic ulcer disease. SYSTEM: No dysuria or hematuria. NERVOUS SYSTEM: He denies any stroke. PHYSICAL EXAMINATION: He is a 70-year-old male, somnolent, opening eyes to verbal stimulation, answering questions, but sometimes confused. VITAL SIGNS: Blood pressure 132/70 with a heart rate in 90s. HEAD: Normocephalic. Eyes: Sclerae anicteric. NECK: Good carotid upstroke. No bruit. No venous distention. LUNGS: Clear to auscultation. HEART: Regular rate and rhythm, S1, S2. No S3 with a systolic murmur heard at the base 2/6. No diastolic murmur. No rub. ABDOMEN: Soft, nontender, positive bowel sounds, no organomegaly. EXTREMITIES: No edema. LAB DATA: On presentation, his white blood cells are 26.5, hemoglobin of 16.4. His pH was 7.15. His BUN and creatinine are 42 and 2.01, potassium 4.0. His blood sugar was 708. His bicarb was 10. His troponin 0.012. He did have positive acetone. This morning his white blood cells are 27.6. His BUN and creatinine 39 and 1.19. Magnesium 2.4, potassium 3.9. IMAGING: His chest x-ray shows no evidence of heart failure. His initial EKG showed what appears to be multifocal atrial tachycardia, although it could represent atrial fibrillation. Subsequent EKG showed a heart rate of 169 with borderline intraventricular conduction delay, left axis deviation. This could represent SVT. Subsequent EKG revealed a sinus mechanism with nonspecific ST-T wave changes. This morning he is in sinus mechanism. IMPRESSION: 1. Severe diabetic ketoacidosis, improving. 2. Atrial arrhythmia, probably related to the acidosis and the electrolyte imbalance. 3. History of diabetes. 4. Hyperlipidemia. 5. Change in mental status, the baseline is clear. 6. Hyperlipidemia by medications. RECOMMENDATION: From the cardiac standpoint I will continue on the amiodarone until tomorrow morning and if he remains in sinus mechanism, I will stop it and will not switch him to oral medication. I will start him on a beta florentino. I will obtain an echocardiogram with Doppler. Depending on the results of his testing and his progress, further recommendation will be made. At this time I see no evidence for acute coronary syndrome. We will try to obtain more history once the patient is more awake and alert. Thank you for this consult. Will follow with you. DIONI / ORLIN: [id number] /
--- NOTE | 2020-05-29 10:27 | P.HPIM ---
History of Present Illness H&P Date: 05/29/20 Chief Complaint: DKA, This is a 70-year-old male patient of Dr. Egan. Patient presented to the ER via ambulance when neighbor found patient on the ground with altered mental status. According to ER record patient's blood glucose was found to be 600 upon arrival. Patient does have a past medical history of diabetes mellitus, hyperlipidemia and essential hypertension. Upon arrival to the ER patient was found to be in SVT. Patient was cardioverted in ER and started on amiodarone per cardiology services. Patient was also started on insulin drip. Patient had noted to have significant bruising around hip right side. Pelvis x-ray completed showing no acute abnormality of the pelvis. Chest x-ray completed showing pulmonary fibrotic changes noted failure. Head and cervical spine CT completed showing normal computed tomography scan of the cervical spine cerebral atrophy no acute intracranial abnormality. Upon arrival CO2 8 and anion gap 25. Patient managed to ICU Dr. Crow consulted for critical care. Cardiology services following 2-D echo ordered . Upon exam patient unable to remember events leading to incident. Patient denies any recent illness that he can remember. This time patient denies chest pain or shortness breath. Patient denies nausea vomiting or diarrhea. Patient denies any urinary burning or frequency. White blood cell count significantly elevated. Will order blood and culture and urine culture Review of Systems please refer to HPI otherwise unremarkable Past Medical History Past Medical History: Diabetes Mellitus, Hyperlipidemia, Hypertension Additional Past Medical History / Comment(s): Neuropathy History of Any Multi-Drug Resistant Organisms: None Reported Past Surgical History: Adenoidectomy Additional Past Surgical History / Comment(s): Circumcision 2016. Right cataract removal Past Anesthesia/Blood Transfusion Reactions: No Reported Reaction Past Psychological History: No Psychological Hx Reported Smoking Status: Unknown if ever smoked Past Alcohol Use History: None Reported Past Drug Use History: None Reported - Past Family History Father Family Medical History: Cancer Mother Family Medical History: Cancer Additional Family Medical History / Comment(s): skin CA Medications and Allergies Home Medications Medication Instructions Recorded Confirmed Type Carbidopa/Levodopa [Sinemet CR 1 tab PO HS 12/11/16 05/14/17 History 50-200 mg] Celecoxib 400 mg PO DAILY PRN 12/11/16 05/14/17 History Citalopram Hydrobromide [CeleXA] 20 mg PO DAILY 12/11/16 05/14/17 History Insulin NPL/Insulin Lispro 60 unit SQ BID 12/11/16 05/14/17 History [humaLOG MIX 75-25 VIAL] Multivitamins, Thera [Multivitamin 1 tab PO DAILY 12/11/16 05/14/17 History (formulary)] Simvastatin [Zocor] 20 mg PO DAILY 12/11/16 05/14/17 History Ubidecarenone [Co Q-10] 200 mg PO DAILY 12/11/16 05/14/17 History traMADol HCL [Ultram] 50 mg PO TID 12/11/16 05/14/17 History Allergies Allergy/AdvReac Type Severity Reaction Status Date / Time No Known Allergies Allergy Verified 05/28/20 20:03 Physical Exam Vitals: Vital Signs Temp Pulse Pulse Resp BP Pulse Ox 05/29/20 09:00 95 12 133/77 100 05/29/20 08:00 96 F L 96 23 130/74 100 05/29/20 07:00 98 17 132/70 98 05/29/20 06:00 99 14 125/77 100 05/29/20 05:00 98 19 119/70 100 05/29/20 04:00 97.9 F 98 16 114/69 97 05/29/20 03:00 103 H 14 111/77 89 L 05/29/20 02:00 100 16 142/97 100 05/29/20 01:00 112 H 15 148/88 100 05/28/20 23:26 97.9 F 116 H 18 111/80 96 05/28/20 22:25 120 H 15 111/80 94 L 05/28/20 21:00 97.4 F L 118 H 14 120/77 99 05/28/20 20:05 200 H 05/28/20 20:01 120 H 14 117/64 05/28/20 20:00 170 H 14 90/41 05/28/20 19:58 216 H 86/63 05/28/20 19:57 97.9 F 216 H 16 110/74 99 Intake and Output 05/28/20 05/29/20 05/29/20 22:59 06:59 14:59 Intake Total 3231.263 457.053 Output Total 1245 155 Balance 1986.263 302.053 Intake: IV 3150 450 D5-0.45% NaCl with KCl 150 450 20Meq/l 1,000 ml @ 150 mls/hr IV .Q6H40M [facility] Rx# :[id number] Sodium Chloride 0.9% 1, 1000 000 ml @ 200 mls/hr IV . Q5H [facility]IL[facility] Rx#:[id number] Sodium Chloride 0.9% 1, 1000 000 ml @ 999 mls/hr IV . Q1H1M ONE Rx#:[id number] Sodium Chloride 0.9% 1, 1000 000 ml @ 999 mls/hr IV . Q1H1M ONE Rx#:[id number] Intake, IV Titration 81.263 7.053 Amount Insulin Regular 100 unit 81.263 7.053 In Sodium Chloride 0.9% 100 ml @ 0.1 UNITS/KG/HR 9.85 mls/hr IV .[id number] STA Rx#:[id number] Output: Urine 1245 155 Other: Voiding Method Indwelling Catheter Indwelling Catheter # Voids 3 Weight 97.522 kg 95.9 kg Head normocephalic Neck supple Lungs clear to auscultation bilaterally no wheezing or crackles Heart regular rate and rhythm S1-S2, no rub or gallop Abdomen is soft nontender nondistended positive bowel sounds no hepatosplenomegaly Extremities no edema Neuro alert and orientated to 2. Sleepy but does follow commands Results CBC & Chem 7: 05/29/20 04:17 05/29/20 04:17 Labs: Abnormal Lab Results - Last 24 Hours (Table) 05/28/20 05/28/20 05/28/20 Range/Units 19:58 19:58 19:58 WBC 26.5 H (3.8-10.6) k/uL Hct 53.9 H (39.0-53.0) % MCHC 30.5 L (31.0-37.0) g/dL Neutrophils # 23.2 H (1.3-7.7) k/uL Neutrophils # (Manual) (1.3-7.7) k/uL Lymphocytes # 0.9 L (1.0-4.8) k/uL Lymphocytes # (Manual) (1.0-4.8) k/uL Monocytes # 2.0 H (0-1.0) k/uL Monocytes # (Manual) (0-1.0) k/uL APTT 21.2 L (22.0-30.0) sec ABG pH (7.35-7.45) ABG pCO2 (35-45) mmHg ABG HCO3 (21-25) mmol/L ABG Total CO2 (19-24) mmol/L ABG O2 Saturation (94-97) % Chloride (98-107) mmol/L Carbon Dioxide (22-30) mmol/L BUN (9-20) mg/dL Creatinine (0.66-1.25) mg/dL Glucose (74-99) mg/dL POC Glucose (mg/dL) >600 H (75-99) mg/dL Phosphorus (2.5-4.5) mg/dL Magnesium (1.6-2.3) mg/dL Alkaline Phosphatase (38-126) U/L Total Protein (6.3-8.2) g/dL Urine Protein (Negative) Urine Glucose (UA) (Negative) Urine Ketones (Negative) Urine Blood (Negative) Amorphous Sediment (None) /hpf Urine Bacteria (None) /hpf Hyaline Casts (0-2) /lpf Urine Mucus (None) /hpf 05/28/20 05/28/20 05/28/20 Range/Units 19:58 21:05 21:58 WBC (3.8-10.6) k/uL Hct (39.0-53.0) % MCHC (31.0-37.0) g/dL Neutrophils # (1.3-7.7) k/uL Neutrophils # (Manual) (1.3-7.7) k/uL Lymphocytes # (1.0-4.8) k/uL Lymphocytes # (Manual) (1.0-4.8) k/uL Monocytes # (0-1.0) k/uL Monocytes # (Manual) (0-1.0) k/uL APTT (22.0-30.0) sec ABG pH 7.15 L* (7.35-7.45) ABG pCO2 23 L (35-45) mmHg ABG HCO3 8 L* (21-25) mmol/L ABG Total CO2 9 L (19-24) mmol/L ABG O2 Saturation 97.5 H (94-97) % Chloride (98-107) mmol/L Carbon Dioxide 10 L (22-30) mmol/L BUN 42 H (9-20) mg/dL Creatinine 2.01 H (0.66-1.25) mg/dL Glucose 708 H* (74-99) mg/dL POC Glucose (mg/dL) >600 H (75-99) mg/dL Phosphorus (2.5-4.5) mg/dL Magnesium (1.6-2.3) mg/dL Alkaline Phosphatase 151 H (38-126) U/L Total Protein 6.1 L (6.3-8.2) g/dL Urine Protein (Negative) Urine Glucose (UA) (Negative) Urine Ketones (Negative) Urine Blood (Negative) Amorphous Sediment (None) /hpf Urine Bacteria (None) /hpf Hyaline Casts (0-2) /lpf Urine Mucus (None) /hpf 05/28/20 05/28/20 05/28/20 Range/Units 22:59 23:26 23:44 WBC 31.0 H (3.8-10.6) k/uL Hct 54.8 H (39.0-53.0) % MCHC (31.0-37.0) g/dL Neutrophils # (1.3-7.7) k/uL Neutrophils # (Manual) 28.20 H (1.3-7.7) k/uL Lymphocytes # (1.0-4.8) k/uL Lymphocytes # (Manual) 0.93 L (1.0-4.8) k/uL Monocytes # (0-1.0) k/uL Monocytes # (Manual) 1.86 H (0-1.0) k/uL APTT (22.0-30.0) sec ABG pH (7.35-7.45) ABG pCO2 (35-45) mmHg ABG HCO3 (21-25) mmol/L ABG Total CO2 (19-24) mmol/L ABG O2 Saturation (94-97) % Chloride (98-107) mmol/L Carbon Dioxide (22-30) mmol/L BUN (9-20) mg/dL Creatinine (0.66-1.25) mg/dL Glucose (74-99) mg/dL POC Glucose (mg/dL) >600 H 588 H (75-99) mg/dL Phosphorus (2.5-4.5) mg/dL Magnesium (1.6-2.3) mg/dL Alkaline Phosphatase (38-126) U/L Total Protein (6.3-8.2) g/dL Urine Protein (Negative) Urine Glucose (UA) (Negative) Urine Ketones (Negative) Urine Blood (Negative) Amorphous Sediment (None) /hpf Urine Bacteria (None) /hpf Hyaline Casts (0-2) /lpf Urine Mucus (None) /hpf 05/28/20 05/28/20 05/29/20 Range/Units 23:44 23:45 00:03 WBC (3.8-10.6) k/uL Hct (39.0-53.0) % MCHC (31.0-37.0) g/dL Neutrophils # (1.3-7.7) k/uL Neutrophils # (Manual) (1.3-7.7) k/uL Lymphocytes # (1.0-4.8) k/uL Lymphocytes # (Manual) (1.0-4.8) k/uL Monocytes # (0-1.0) k/uL Monocytes # (Manual) (0-1.0) k/uL APTT (22.0-30.0) sec ABG pH (7.35-7.45) ABG pCO2 (35-45) mmHg ABG HCO3 (21-25) mmol/L ABG Total CO2 (19-24) mmol/L ABG O2 Saturation (94-97) % Chloride (98-107) mmol/L Carbon Dioxide 8 L* (22-30) mmol/L BUN 41 H (9-20) mg/dL Creatinine 1.66 H (0.66-1.25) mg/dL Glucose 627 H* (74-99) mg/dL POC Glucose (mg/dL) 579 H (75-99) mg/dL Phosphorus 6.2 H (2.5-4.5) mg/dL Magnesium (1.6-2.3) mg/dL Alkaline Phosphatase (38-126) U/L Total Protein (6.3-8.2) g/dL Urine Protein 1+ H (Negative) Urine Glucose (UA) 4+ H (Negative) Urine Ketones 4+ H (Negative) Urine Blood Small H (Negative) Amorphous Sediment Rare H (None) /hpf Urine Bacteria Rare H (None) /hpf Hyaline Casts 23 H (0-2) /lpf Urine Mucus Rare H (None) /hpf 05/29/20 05/29/20 05/29/20 Range/Units 00:27 01:04 01:59 WBC (3.8-10.6) k/uL Hct (39.0-53.0) % MCHC (31.0-37.0) g/dL Neutrophils # (1.3-7.7) k/uL Neutrophils # (Manual) (1.3-7.7) k/uL Lymphocytes # (1.0-4.8) k/uL Lymphocytes # (Manual) (1.0-4.8) k/uL Monocytes # (0-1.0) k/uL Monocytes # (Manual) (0-1.0) k/uL APTT (22.0-30.0) sec ABG pH (7.35-7.45) ABG pCO2 (35-45) mmHg ABG HCO3 (21-25) mmol/L ABG Total CO2 (19-24) mmol/L ABG O2 Saturation (94-97) % Chloride (98-107) mmol/L Carbon Dioxide (22-30) mmol/L BUN (9-20) mg/dL Creatinine (0.66-1.25) mg/dL Glucose (74-99) mg/dL POC Glucose (mg/dL) 546 H 557 H 479 H (75-99) mg/dL Phosphorus (2.5-4.5) mg/dL Magnesium (1.6-2.3) mg/dL Alkaline Phosphatase (38-126) U/L Total Protein (6.3-8.2) g/dL Urine Protein (Negative) Urine Glucose (UA) (Negative) Urine Ketones (Negative) Urine Blood (Negative) Amorphous Sediment (None) /hpf Urine Bacteria (None) /hpf Hyaline Casts (0-2) /lpf Urine Mucus (None) /hpf 05/29/20 05/29/20 05/29/20 Range/Units 02:53 04:17 04:17 WBC 27.6 H (3.8-10.6) k/uL Hct 54.3 H (39.0-53.0) % MCHC (31.0-37.0) g/dL Neutrophils # (1.3-7.7) k/uL Neutrophils # (Manual) (1.3-7.7) k/uL Lymphocytes # (1.0-4.8) k/uL Lymphocytes # (Manual) (1.0-4.8) k/uL Monocytes # (0-1.0) k/uL Monocytes # (Manual) (0-1.0) k/uL APTT (22.0-30.0) sec ABG pH (7.35-7.45) ABG pCO2 (35-45) mmHg ABG HCO3 (21-25) mmol/L ABG Total CO2 (19-24) mmol/L ABG O2 Saturation (94-97) % Chloride 111 H (98-107) mmol/L Carbon Dioxide 13 L (22-30) mmol/L BUN 39 H (9-20) mg/dL Creatinine (0.66-1.25) mg/dL Glucose 371 H (74-99) mg/dL POC Glucose (mg/dL) 316 H (75-99) mg/dL Phosphorus (2.5-4.5) mg/dL Magnesium 2.4 H (1.6-2.3) mg/dL Alkaline Phosphatase (38-126) U/L Total Protein (6.3-8.2) g/dL Urine Protein (Negative) Urine Glucose (UA) (Negative) Urine Ketones (Negative) Urine Blood (Negative) Amorphous Sediment (None) /hpf Urine Bacteria (None) /hpf Hyaline Casts (0-2) /lpf Urine Mucus (None) /hpf 05/29/20 05/29/20 05/29/20 Range/Units 04:18 05:02 06:06 WBC (3.8-10.6) k/uL Hct (39.0-53.0) % MCHC (31.0-37.0) g/dL Neutrophils # (1.3-7.7) k/uL Neutrophils # (Manual) (1.3-7.7) k/uL Lymphocytes # (1.0-4.8) k/uL Lymphocytes # (Manual) (1.0-4.8) k/uL Monocytes # (0-1.0) k/uL Monocytes # (Manual) (0-1.0) k/uL APTT (22.0-30.0) sec ABG pH (7.35-7.45) ABG pCO2 (35-45) mmHg ABG HCO3 (21-25) mmol/L ABG Total CO2 (19-24) mmol/L ABG O2 Saturation (94-97) % Chloride (98-107) mmol/L Carbon Dioxide (22-30) mmol/L BUN (9-20) mg/dL Creatinine (0.66-1.25) mg/dL Glucose (74-99) mg/dL POC Glucose (mg/dL) 285 H 287 H 273 H (75-99) mg/dL Phosphorus (2.5-4.5) mg/dL Magnesium (1.6-2.3) mg/dL Alkaline Phosphatase (38-126) U/L Total Protein (6.3-8.2) g/dL Urine Protein (Negative) Urine Glucose (UA) (Negative) Urine Ketones (Negative) Urine Blood (Negative) Amorphous Sediment (None) /hpf Urine Bacteria (None) /hpf Hyaline Casts (0-2) /lpf Urine Mucus (None) /hpf 05/29/20 05/29/20 05/29/20 Range/Units 06:52 08:09 08:53 WBC (3.8-10.6) k/uL Hct (39.0-53.0) % MCHC (31.0-37.0) g/dL Neutrophils # (1.3-7.7) k/uL Neutrophils # (Manual) (1.3-7.7) k/uL Lymphocytes # (1.0-4.8) k/uL Lymphocytes # (Manual) (1.0-4.8) k/uL Monocytes # (0-1.0) k/uL Monocytes # (Manual) (0-1.0) k/uL APTT (22.0-30.0) sec ABG pH (7.35-7.45) ABG pCO2 (35-45) mmHg ABG HCO3 (21-25) mmol/L ABG Total CO2 (19-24) mmol/L ABG O2 Saturation (94-97) % Chloride (98-107) mmol/L Carbon Dioxide (22-30) mmol/L BUN (9-20) mg/dL Creatinine (0.66-1.25) mg/dL Glucose (74-99) mg/dL POC Glucose (mg/dL) 198 H 162 H 153 H (75-99) mg/dL Phosphorus (2.5-4.5) mg/dL Magnesium (1.6-2.3) mg/dL Alkaline Phosphatase (38-126) U/L Total Protein (6.3-8.2) g/dL Urine Protein (Negative) Urine Glucose (UA) (Negative) Urine Ketones (Negative) Urine Blood (Negative) Amorphous Sediment (None) /hpf Urine Bacteria (None) /hpf Hyaline Casts (0-2) /lpf Urine Mucus (None) /hpf Thrombosis Risk Factor Assmnt - Choose All That Apply Each Risk Factor Represents 2 Points: Age 61-74 years, Patient confined to bed Thrombosis Risk Factor Assessment Total Risk Factor Score: 4 Thrombosis Risk Factor Assessment Level: Moderate Risk Assessment and Plan Assessment: 1. Altered mental status likely secondary to DKA. Patient currently on insulin drip. Patient has been admitted to the intensive care unit critical care following. Initial CO2 13 and anion gap 25. 2. Supraventricular tachycardia. Patient was cardioverted in emergency room. Cardiology services following. Patient currently on amiodarone 3. Renal insufficiency. Initial creatinine 1.66 and bun 41. These do appear to be improving 4. Elevated white blood cell count. Urine and blood cultures ordered 5. History of diabetes mellitus 6. History of Hyperlipidemia 7. Essential hypertension DVT prophylaxis heparin. GI prophylaxis Protonix Patient currently admitted to intensive care unit Critical care and cardiology currently following remains on insulin and amiodarone drips Blood and urine culture ordered Time with Patient: Greater than 30 (Greater than 60% of the total time spent in counseling and coordination of care. I performed an examination of the patient and discussed their management with the Nurse Practitioner. I have reviewed the Nurse Practitioner's notes and agree with the documented findings and plan of care)
[2020-05-29] MEDS ORDERED: INSULIN REGULAR 100 UNIT in SODIUM CHLORIDE 0.9% 100 ML IV SCH (10:30)
[2020-05-29 11:19] LABS: Glucose,Whole Blood 104 mg/dL (75-99)
[2020-05-29 11:58] LABS: Glucose,Whole Blood 129 mg/dL (75-99)
[2020-05-29 12:10] LABS: African American GFR (CKD) >90 (>60 ml/min/1.73 sqM); Anion Gap 6 mmol/L; Blood Urea Nitrogen 34 mg/dL (9-20); Calcium 8.9 mg/dL (8.4-10.2); Carbon Dioxide 20 mmol/L (22-30); Chloride 116 mmol/L (98-107); Glucose 143 mg/dL (74-99); Non-African American GFR(CKD) >90 (>60 ml/min/1.73 sqM); Potassium 3.6 mmol/L (3.5-5.1); Sodium 142 mmol/L (137-145)
[2020-05-29] MEDS ORDERED: INSULIN NPH 300 UNIT/3 ML VIAL SQ ONE (12:52)
--- NOTE | 2020-05-29 13:48 | CONS ---
CONSULTATION PULMONARY/CRITICAL CARE CONSULTATION: DATE OF SERVICE: 05/29/2020 This is a 70-year-old gentleman who presented to the emergency department on May 28 at 19:52. He apparently was brought in by EMS. Apparently his neighbor checked on him on the day of admission and found him on the ground with altered mental status. They called for an ambulance. Apparently, EMS noted initially a normal sinus rhythm. He, after that, converted to a rapid regular narrow complex tachycardia during ambulance transport. The patient is unsure how long he was on the ground for, maybe up to 18 hours. His blood glucose was 600. His laboratory data suggested DKA. In addition, he was thought to have a narrow complex tachycardia and received Versed in the emergency room and was cardioverted. He was placed on amiodarone per Cardiology. He himself is a bit lethargic right now and cannot give much history. According to the ER leigh ann, he denied any pain, fever, chills, headache, dizziness, abdominal pain, nausea, vomiting, diarrhea, or any other complaints for that matter. Currently, he is on 2 L nasal cannula. He is getting D5 0.45 with 20 potassium at 150 an hour, amiodarone at 0.5 mg/minute and insulin drip a 10.8 units an hour. The patient's bicarbonate concentration is only 13. Anion gap is 17, which is wide. His glucose is 153. CURRENT HOME MEDICATIONS: Include Sinemet, Celebrex, citalopram, insulin, multivitamins, Zocor, coenzyme Q, and Tramadol. ALLERGIES: Denied. MEDICAL HISTORY: Diabetes with diabetic neuropathy, hyperlipidemia, and hypertension. He apparently also has a history of Parkinson's disease. SURGICAL HISTORY: Includes a previous adenoidectomy, circumcision, and right cataract removal. SOCIAL HISTORY: Apparently negative for tobacco as well as alcohol and illicit drug use. FAMILY HISTORY: Positive for father with cancer and mother with skin cancer. REVIEW OF SYSTEMS: CONSTITUTIONAL: Weakness. NEUROLOGIC: Negative. HEENT: Negative. CARDIOVASCULAR: Palpitations, tachycardia. PULMONARY: Negative. GI: Negative. : Negative. RHEUMATOLOGIC: Negative. IMMUNOLOGIC: Negative. ENDOCRINOLOGIC: Negative. DERMATOLOGIC: Negative. PHYSICAL EXAMINATION: VITAL SIGNS: Current vital signs are reviewed. His current temperature is 96, heart rate 67, respiratory rate 12, blood pressure 122/77, mean 92, saturations on 2 L is 100%. Appears in no acute distress. A bit lethargic and somnolent. He does arouse. HEENT: Examination is grossly unremarkable. Nasal O2 noted. NECK: Supple. Full range of motion. No adenopathy. Neck veins are flat. CARDIOVASCULAR: Examination reveals regular rhythm and rate. Heart rate mid 60s. S1, S2 normal. LUNGS: Reveal a few scattered rhonchi. No wheezes or crackles. ABDOMEN: Soft. EXTREMITIES: Reveal some mottling and livedo reticularis. There is also some areas of ecchymoses in the anterior legs may be from laying at home for 18 hours. SKIN is otherwise without rash. NEUROLOGIC: Examination is difficult to assess but he does move all four extremities and does arouse appropriately. LABS: Reviewed. White count 27.6 down from 31, hemoglobin 16.8, hematocrit 54.3, platelet count 337,000. PT/INR normal. PTT is 21.2. Initial blood gases on 30% oxygen show pO2 of 107, pCO2 of 23, and a 7.15. This is consistent with mild hyperoxia and severe metabolic acidosis. Current labs include a sodium 141, potassium 3.9, chloride 111, CO2 of 13. Anion gap is 17 down from 25. BUN and creatinine were 39 and 1.19 compared to 41 and 1.66 earlier and sugar is down to 153. The rest of the labs look okay. Magnesium 2.4. TSH 0.671. N terminal proBNP is normal. Urine shows 1+ protein, 4+ glucose, 4+ ketones, small amount of blood, negative nitrite, leukocyte esterase, and rare bacteria. Drug screen was positive only for acetone. Microbiologic studies are negative. Head and cervical spine CT showed no abnormality. A pelvic x-ray showed no acute abnormality. Likewise, a chest x-ray showed no heart failure, but some pulmonary fibrotic changes. Current medications are reviewed. The patient is currently on amiodarone 0.5 mg/minute, aspirin, D5 0.45 with 20 of potassium at 150 an hour, subcu heparin, Dilaudid, insulin drip, metoprolol, Narcan, and Protonix. ASSESSMENT: 1. Diabetic ketoacidosis with severe lactic acidemia and metabolic acidosis. 2. History of hyperlipidemia. 3. Hypertension. 4. History of diabetic neuropathy. 5. Supraventricular tachycardia, status post cardioversion. PLAN: Currently, the patient seems to be doing better. He has been seen by Cardiology. He remains on the amiodarone drip and the insulin drip. Currently, he is not ready to come off the insulin drip. Her bicarbonate concentration is only 13. Anion gap is still wide at 17. Glucose though is only 153. We will continue to follow closely. The nurse will continue with the appropriate DKA protocol. MMODL / IJN: [id number] /
[2020-05-29] MEDS ORDERED: POTASSIUM CHLORIDE ER 20 MEQ TAB.ER PO SCH (14:00)
[2020-05-29 15:01] LABS: Glucose,Whole Blood 194 mg/dL (75-99)
[2020-05-29 16:50] LABS: Glucose,Whole Blood 255 mg/dL (75-99)
[2020-05-29] MEDS: INSULIN ASPART (NovoLOG) 100 UNIT/ML VIAL SQ SCH ×2 (16:53→21:39)
[2020-05-29 20:45] LABS: ALT 17 U/L (4-49); AST 17 U/L (17-59); African American GFR (CKD) >90 (>60 ml/min/1.73 sqM); Alkaline Phosphatase 122 U/L (38-126); Anion Gap 9 mmol/L; Blood Urea Nitrogen 28 mg/dL (9-20); Calcium 8.9 mg/dL (8.4-10.2); Carbon Dioxide 18 mmol/L (22-30); Chloride 111 mmol/L (98-107); Glucose 296 mg/dL (74-99); Magnesium 2.3 mg/dL (1.6-2.3); Non-African American GFR(CKD) >90 (>60 ml/min/1.73 sqM); Phosphorus 2.6 mg/dL (2.5-4.5); Potassium 4.1 mmol/L (3.5-5.1); Sodium 138 mmol/L (137-145); Total Bilirubin 0.7 mg/dL (0.2-1.3); Total Protein 5.4 g/dL (6.3-8.2)
[2020-05-29 21:20] LABS: Glucose,Whole Blood 271 mg/dL (75-99)
[2020-05-29] MEDS: HEPARIN SODIUM,PORCINE 5,000 UNIT/ML 1 ML VIAL SQ SCH (21:38)
[2020-05-29] MEDS ORDERED: AMIODARONE 300 MG in DEXTROSE 5% IN WATER 250 ML IV SCH ×2 (22:45)
--- NOTE | 2020-05-29 23:48 | P.CONS ---
History of Present Illness - Reason for Consult Consult date: 05/29/20 Leukocytosis Requesting physician: Mey Butler - Chief Complaint Unresponsive and elevated blood sugar x one day - History of Present Illness Patient is 70-year-old male with a past medical history significant for diabetes mellitus patient was brought into the ER by EMS after the patient was found to be on the floor with altered mental status by the neighbor patient on arrival to the ER was noticed to be in SVT patient was cardioverted in the ER and was started on amiodarone drip in addition to the insulin drip patient was noticed to have elevated blood sugar of more than 600 the patient has been afebrile on presentation to the hospital however he was noticed to have elevated white count of 26,000 repeat was 31,000, the patient did have a normal UA, chest x-ray with pulmonary fibrotic changes patient has been admitted to the ICU infection was concerned because of his elevated white count, patient currently denies having any headache no chest pain or shortness of breath or cough denies any nausea no vomiting no abdominal pain or any diarrhea Review of Systems Positive point has been mentioned in the HPI rest of the systems are negative Past Medical History Past Medical History: Diabetes Mellitus, Hyperlipidemia, Hypertension Additional Past Medical History / Comment(s): Neuropathy History of Any Multi-Drug Resistant Organisms: None Reported Past Surgical History: Adenoidectomy Additional Past Surgical History / Comment(s): Circumcision 2016. Right cataract removal Past Anesthesia/Blood Transfusion Reactions: No Reported Reaction Past Psychological History: No Psychological Hx Reported Smoking Status: Unknown if ever smoked Past Alcohol Use History: None Reported Past Drug Use History: None Reported - Past Family History Father Family Medical History: Cancer Mother Family Medical History: Cancer Additional Family Medical History / Comment(s): skin CA Medications and Allergies Home Medications Medication Instructions Recorded Confirmed Type Carbidopa/Levodopa [Sinemet CR 1 tab PO HS 12/11/16 05/14/17 History 50-200 mg] Celecoxib 400 mg PO DAILY PRN 12/11/16 05/14/17 History Citalopram Hydrobromide [CeleXA] 20 mg PO DAILY 12/11/16 05/14/17 History Insulin NPL/Insulin Lispro 60 unit SQ BID 12/11/16 05/14/17 History [humaLOG MIX 75-25 VIAL] Multivitamins, Thera [Multivitamin 1 tab PO DAILY 12/11/16 05/14/17 History (formulary)] Simvastatin [Zocor] 20 mg PO DAILY 12/11/16 05/14/17 History Ubidecarenone [Co Q-10] 200 mg PO DAILY 12/11/16 05/14/17 History traMADol HCL [Ultram] 50 mg PO TID 12/11/16 05/14/17 History Allergies Allergy/AdvReac Type Severity Reaction Status Date / Time No Known Allergies Allergy Verified 05/28/20 20:03 Physical Exam Vitals: Vital Signs Temp Pulse Pulse Resp BP Pulse Ox 05/29/20 16:00 97.2 F L 73 16 121/69 95 05/29/20 15:00 64 15 119/63 96 05/29/20 14:00 64 14 105/59 96 05/29/20 13:00 63 11 L 105/63 95 05/29/20 12:00 97.2 F L 62 14 117/67 100 05/29/20 11:00 67 12 122/77 100 05/29/20 10:00 96 16 127/76 99 05/29/20 09:00 95 12 133/77 100 05/29/20 08:00 96 F L 96 23 130/74 100 05/29/20 07:00 98 17 132/70 98 05/29/20 06:00 99 14 125/77 100 05/29/20 05:00 98 19 119/70 100 05/29/20 04:00 97.9 F 98 16 114/69 97 05/29/20 03:00 103 H 14 111/77 89 L 05/29/20 02:00 100 16 142/97 100 05/29/20 01:00 112 H 15 148/88 100 05/28/20 23:26 97.9 F 116 H 18 111/80 96 05/28/20 22:25 120 H 15 111/80 94 L 05/28/20 21:00 97.4 F L 118 H 14 120/77 99 05/28/20 20:05 200 H 05/28/20 20:01 120 H 14 117/64 05/28/20 20:00 170 H 14 90/41 05/28/20 19:58 216 H 86/63 05/28/20 19:57 97.9 F 216 H 16 110/74 99 Intake and Output 05/29/20 05/29/20 05/29/20 06:59 14:59 22:59 Intake Total 3231.263 1612.193 187.885 Output Total 1245 375 125 Balance 1651.635 7610.193 62.885 Intake: IV 3150 1000 100 D5-0.45% NaCl with KCl 150 1000 100 20Meq/l 1,000 ml @ 50 mls /hr IV .Q20H [facility] Rx#: [id number] Sodium Chloride 0.9% 1, 1000 000 ml @ 200 mls/hr IV . Q5H [facility] Rx#:[id number] Sodium Chloride 0.9% 1, 1000 000 ml @ 999 mls/hr IV . Q1H1M [facility] Rx#:[id number] Sodium Chloride 0.9% 1, 1000 000 ml @ 999 mls/hr IV . Q1H1M [facility] Rx#:[id number] Intake, IV Titration 81.263 237.193 87.885 Amount Amiodarone 300 mg In 227.083 Dextrose 5% in Water 250 ml @ 0.5 MG/MIN 25 mls/hr IV .Q10H [facility] Rx#: [id number] Insulin Regular 100 unit 3.057 In Sodium Chloride 0.9% 100 ml @ 0.1 UNITS/KG/HR 9.686 mls/hr IV .[id number] [facility] Rx#:[id number] Insulin Regular 100 unit 81.263 7.053 87.885 In Sodium Chloride 0.9% 100 ml @ 0.1 UNITS/KG/HR 9.85 mls/hr IV .[id number] [facility] Rx#:[id number] Oral 375 Output: Urine 1245 375 125 Other: Voiding Method Indwelling Catheter Indwelling Catheter Indwelling Catheter # Voids 3 Weight 95.9 kg 95.9 kg GENERAL DESCRIPTION: An elderly male lying in bed, no distress. No tachypnea or accessory muscle of respiration use. HEENT: Shows Pallor , no scleral icterus. Oral mucous membrane is dry. No pharyngeal erythema or thrush NECK: Trachea central, no thyromegaly. LUNGS: Unlabored breathing. Clear to auscultation anteriorly. No wheeze or crackle. HEART: S1, S2, regular rate and rhythm. No loud murmur ABDOMEN: Soft, no tenderness , guarding or rigidity, no organomegaly EXTREMITIES: No edema of feet. SKIN: No rash, no masses palpable. NEUROLOGICAL: The patient is awake, alert, oriented x3, mood and affect normal. Results CBC & Chem 7: 05/29/20 04:17 05/29/20 20:10 Labs: Abnormal Lab Results - Last 24 Hours (Table) 05/28/20 05/28/20 05/28/20 Range/Units 19:58 19:58 19:58 WBC 26.5 H (3.8-10.6) k/uL Hct 53.9 H (39.0-53.0) % MCHC 30.5 L (31.0-37.0) g/dL Neutrophils # 23.2 H (1.3-7.7) k/uL Neutrophils # (Manual) (1.3-7.7) k/uL Lymphocytes # 0.9 L (1.0-4.8) k/uL Lymphocytes # (Manual) (1.0-4.8) k/uL Monocytes # 2.0 H (0-1.0) k/uL Monocytes # (Manual) (0-1.0) k/uL APTT 21.2 L (22.0-30.0) sec ABG pH (7.35-7.45) ABG pCO2 (35-45) mmHg ABG HCO3 (21-25) mmol/L ABG Total CO2 (19-24) mmol/L ABG O2 Saturation (94-97) % Chloride (98-107) mmol/L Carbon Dioxide (22-30) mmol/L BUN (9-20) mg/dL Creatinine (0.66-1.25) mg/dL Glucose (74-99) mg/dL POC Glucose (mg/dL) >600 H (75-99) mg/dL Phosphorus (2.5-4.5) mg/dL Magnesium (1.6-2.3) mg/dL Alkaline Phosphatase (38-126) U/L Total Protein (6.3-8.2) g/dL Urine Protein (Negative) Urine Glucose (UA) (Negative) Urine Ketones (Negative) Urine Blood (Negative) Amorphous Sediment (None) /hpf Urine Bacteria (None) /hpf Hyaline Casts (0-2) /lpf Urine Mucus (None) /hpf 1005/28/20 05/28/20 Range/Units 19:58 21:05 21:58 WBC (3.8-10.6) k/uL Hct (39.0-53.0) % MCHC (31.0-37.0) g/dL Neutrophils # (1.3-7.7) k/uL Neutrophils # (Manual) (1.3-7.7) k/uL Lymphocytes # (1.0-4.8) k/uL Lymphocytes # (Manual) (1.0-4.8) k/uL Monocytes # (0-1.0) k/uL Monocytes # (Manual) (0-1.0) k/uL APTT (22.0-30.0) sec ABG pH 7.15 L* (7.35-7.45) ABG pCO2 23 L (35-45) mmHg ABG HCO3 8 L* (21-25) mmol/L ABG Total CO2 9 L (19-24) mmol/L ABG O2 Saturation 97.5 H (94-97) % Chloride (98-107) mmol/L Carbon Dioxide 10 L (22-30) mmol/L BUN 42 H (9-20) mg/dL Creatinine 2.01 H (0.66-1.25) mg/dL Glucose 708 H* (74-99) mg/dL POC Glucose (mg/dL) >600 H (75-99) mg/dL Phosphorus (2.5-4.5) mg/dL Magnesium (1.6-2.3) mg/dL Alkaline Phosphatase 151 H (38-126) U/L Total Protein 6.1 L (6.3-8.2) g/dL Urine Protein (Negative) Urine Glucose (UA) (Negative) Urine Ketones (Negative) Urine Blood (Negative) Amorphous Sediment (None) /hpf Urine Bacteria (None) /hpf Hyaline Casts (0-2) /lpf Urine Mucus (None) /hpf 05/28/20 05/28/20 05/28/20 Range/Units 22:59 23:26 23:44 WBC 31.0 H (3.8-10.6) k/uL Hct 54.8 H (39.0-53.0) % MCHC (31.0-37.0) g/dL Neutrophils # (1.3-7.7) k/uL Neutrophils # (Manual) 28.20 H (1.3-7.7) k/uL Lymphocytes # (1.0-4.8) k/uL Lymphocytes # (Manual) 0.93 L (1.0-4.8) k/uL Monocytes # (0-1.0) k/uL Monocytes # (Manual) 1.86 H (0-1.0) k/uL APTT (22.0-30.0) sec ABG pH (7.35-7.45) ABG pCO2 (35-45) mmHg ABG HCO3 (21-25) mmol/L ABG Total CO2 (19-24) mmol/L ABG O2 Saturation (94-97) % Chloride (98-107) mmol/L Carbon Dioxide (22-30) mmol/L BUN (9-20) mg/dL Creatinine (0.66-1.25) mg/dL Glucose (74-99) mg/dL POC Glucose (mg/dL) >600 H 588 H (75-99) mg/dL Phosphorus (2.5-4.5) mg/dL Magnesium (1.6-2.3) mg/dL Alkaline Phosphatase (38-126) U/L Total Protein (6.3-8.2) g/dL Urine Protein (Negative) Urine Glucose (UA) (Negative) Urine Ketones (Negative) Urine Blood (Negative) Amorphous Sediment (None) /hpf Urine Bacteria (None) /hpf Hyaline Casts (0-2) /lpf Urine Mucus (None) /hpf 05/28/20 05/28/20 05/29/20 Range/Units 23:44 23:45 00:03 WBC (3.8-10.6) k/uL Hct (39.0-53.0) % MCHC (31.0-37.0) g/dL Neutrophils # (1.3-7.7) k/uL Neutrophils # (Manual) (1.3-7.7) k/uL Lymphocytes # (1.0-4.8) k/uL Lymphocytes # (Manual) (1.0-4.8) k/uL Monocytes # (0-1.0) k/uL Monocytes # (Manual) (0-1.0) k/uL APTT (22.0-30.0) sec ABG pH (7.35-7.45) ABG pCO2 (35-45) mmHg ABG HCO3 (21-25) mmol/L ABG Total CO2 (19-24) mmol/L ABG O2 Saturation (94-97) % Chloride (98-107) mmol/L Carbon Dioxide 8 L* (22-30) mmol/L BUN 41 H (9-20) mg/dL Creatinine 1.66 H (0.66-1.25) mg/dL Glucose 627 H* (74-99) mg/dL POC Glucose (mg/dL) 579 H (75-99) mg/dL Phosphorus 6.2 H (2.5-4.5) mg/dL Magnesium (1.6-2.3) mg/dL Alkaline Phosphatase (38-126) U/L Total Protein (6.3-8.2) g/dL Urine Protein 1+ H (Negative) Urine Glucose (UA) 4+ H (Negative) Urine Ketones 4+ H (Negative) Urine Blood Small H (Negative) Amorphous Sediment Rare H (None) /hpf Urine Bacteria Rare H (None) /hpf Hyaline Casts 23 H (0-2) /lpf Urine Mucus Rare H (None) /hpf 05/29/20 05/29/20 05/29/20 Range/Units 00:27 01:04 01:59 WBC (3.8-10.6) k/uL Hct (39.0-53.0) % MCHC (31.0-37.0) g/dL Neutrophils # (1.3-7.7) k/uL Neutrophils # (Manual) (1.3-7.7) k/uL Lymphocytes # (1.0-4.8) k/uL Lymphocytes # (Manual) (1.0-4.8) k/uL Monocytes # (0-1.0) k/uL Monocytes # (Manual) (0-1.0) k/uL APTT (22.0-30.0) sec ABG pH (7.35-7.45) ABG pCO2 (35-45) mmHg ABG HCO3 (21-25) mmol/L ABG Total CO2 (19-24) mmol/L ABG O2 Saturation (94-97) % Chloride (98-107) mmol/L Carbon Dioxide (22-30) mmol/L BUN (9-20) mg/dL Creatinine (0.66-1.25) mg/dL Glucose (74-99) mg/dL POC Glucose (mg/dL) 546 H 557 H 479 H (75-99) mg/dL Phosphorus (2.5-4.5) mg/dL Magnesium (1.6-2.3) mg/dL Alkaline Phosphatase (38-126) U/L Total Protein (6.3-8.2) g/dL Urine Protein (Negative) Urine Glucose (UA) (Negative) Urine Ketones (Negative) Urine Blood (Negative) Amorphous Sediment (None) /hpf Urine Bacteria (None) /hpf Hyaline Casts (0-2) /lpf Urine Mucus (None) /hpf 05/29/20 05/29/20 05/29/20 Range/Units 02:53 04:17 04:17 WBC 27.6 H (3.8-10.6) k/uL Hct 54.3 H (39.0-53.0) % MCHC (31.0-37.0) g/dL Neutrophils # (1.3-7.7) k/uL Neutrophils # (Manual) (1.3-7.7) k/uL Lymphocytes # (1.0-4.8) k/uL Lymphocytes # (Manual) (1.0-4.8) k/uL Monocytes # (0-1.0) k/uL Monocytes # (Manual) (0-1.0) k/uL APTT (22.0-30.0) sec ABG pH (7.35-7.45) ABG pCO2 (35-45) mmHg ABG HCO3 (21-25) mmol/L ABG Total CO2 (19-24) mmol/L ABG O2 Saturation (94-97) % Chloride 111 H (98-107) mmol/L Carbon Dioxide 13 L (22-30) mmol/L BUN 39 H (9-20) mg/dL Creatinine (0.66-1.25) mg/dL Glucose 371 H (74-99) mg/dL POC Glucose (mg/dL) 316 H (75-99) mg/dL Phosphorus (2.5-4.5) mg/dL Magnesium 2.4 H (1.6-2.3) mg/dL Alkaline Phosphatase (38-126) U/L Total Protein (6.3-8.2) g/dL Urine Protein (Negative) Urine Glucose (UA) (Negative) Urine Ketones (Negative) Urine Blood (Negative) Amorphous Sediment (None) /hpf Urine Bacteria (None) /hpf Hyaline Casts (0-2) /lpf Urine Mucus (None) /hpf 05/29/20 05/29/20 05/29/20 Range/Units 04:18 05:02 06:06 WBC (3.8-10.6) k/uL Hct (39.0-53.0) % MCHC (31.0-37.0) g/dL Neutrophils # (1.3-7.7) k/uL Neutrophils # (Manual) (1.3-7.7) k/uL Lymphocytes # (1.0-4.8) k/uL Lymphocytes # (Manual) (1.0-4.8) k/uL Monocytes # (0-1.0) k/uL Monocytes # (Manual) (0-1.0) k/uL APTT (22.0-30.0) sec ABG pH (7.35-7.45) ABG pCO2 (35-45) mmHg ABG HCO3 (21-25) mmol/L ABG Total CO2 (19-24) mmol/L ABG O2 Saturation (94-97) % Chloride (98-107) mmol/L Carbon Dioxide (22-30) mmol/L BUN (9-20) mg/dL Creatinine (0.66-1.25) mg/dL Glucose (74-99) mg/dL POC Glucose (mg/dL) 285 H 287 H 273 H (75-99) mg/dL Phosphorus (2.5-4.5) mg/dL Magnesium (1.6-2.3) mg/dL Alkaline Phosphatase (38-126) U/L Total Protein (6.3-8.2) g/dL Urine Protein (Negative) Urine Glucose (UA) (Negative) Urine Ketones (Negative) Urine Blood (Negative) Amorphous Sediment (None) /hpf Urine Bacteria (None) /hpf Hyaline Casts (0-2) /lpf Urine Mucus (None) /hpf 05/29/20 05/29/20 05/29/20 Range/Units 06:52 08:09 08:53 WBC (3.8-10.6) k/uL Hct (39.0-53.0) % MCHC (31.0-37.0) g/dL Neutrophils # (1.3-7.7) k/uL Neutrophils # (Manual) (1.3-7.7) k/uL Lymphocytes # (1.0-4.8) k/uL Lymphocytes # (Manual) (1.0-4.8) k/uL Monocytes # (0-1.0) k/uL Monocytes # (Manual) (0-1.0) k/uL APTT (22.0-30.0) sec ABG pH (7.35-7.45) ABG pCO2 (35-45) mmHg ABG HCO3 (21-25) mmol/L ABG Total CO2 (19-24) mmol/L ABG O2 Saturation (94-97) % Chloride (98-107) mmol/L Carbon Dioxide (22-30) mmol/L BUN (9-20) mg/dL Creatinine (0.66-1.25) mg/dL Glucose (74-99) mg/dL POC Glucose (mg/dL) 198 H 162 H 153 H (75-99) mg/dL Phosphorus (2.5-4.5) mg/dL Magnesium (1.6-2.3) mg/dL Alkaline Phosphatase (38-126) U/L Total Protein (6.3-8.2) g/dL Urine Protein (Negative) Urine Glucose (UA) (Negative) Urine Ketones (Negative) Urine Blood (Negative) Amorphous Sediment (None) /hpf Urine Bacteria (None) /hpf Hyaline Casts (0-2) /lpf Urine Mucus (None) /hpf 05/29/20 05/29/20 05/29/20 Range/Units 10:20 10:59 11:32 WBC (3.8-10.6) k/uL Hct (39.0-53.0) % MCHC (31.0-37.0) g/dL Neutrophils # (1.3-7.7) k/uL Neutrophils # (Manual) (1.3-7.7) k/uL Lymphocytes # (1.0-4.8) k/uL Lymphocytes # (Manual) (1.0-4.8) k/uL Monocytes # (0-1.0) k/uL Monocytes # (Manual) (0-1.0) k/uL APTT (22.0-30.0) sec ABG pH (7.35-7.45) ABG pCO2 (35-45) mmHg ABG HCO3 (21-25) mmol/L ABG Total CO2 (19-24) mmol/L ABG O2 Saturation (94-97) % Chloride 116 H (98-107) mmol/L Carbon Dioxide 20 L (22-30) mmol/L BUN 34 H (9-20) mg/dL Creatinine (0.66-1.25) mg/dL Glucose 143 H (74-99) mg/dL POC Glucose (mg/dL) 132 H 104 H (75-99) mg/dL Phosphorus (2.5-4.5) mg/dL Magnesium (1.6-2.3) mg/dL Alkaline Phosphatase (38-126) U/L Total Protein (6.3-8.2) g/dL Urine Protein (Negative) Urine Glucose (UA) (Negative) Urine Ketones (Negative) Urine Blood (Negative) Amorphous Sediment (None) /hpf Urine Bacteria (None) /hpf Hyaline Casts (0-2) /lpf Urine Mucus (None) /hpf 05/29/20 05/29/20 05/29/20 Range/Units 11:56 15:00 16:48 WBC (3.8-10.6) k/uL Hct (39.0-53.0) % MCHC (31.0-37.0) g/dL Neutrophils # (1.3-7.7) k/uL Neutrophils # (Manual) (1.3-7.7) k/uL Lymphocytes # (1.0-4.8) k/uL Lymphocytes # (Manual) (1.0-4.8) k/uL Monocytes # (0-1.0) k/uL Monocytes # (Manual) (0-1.0) k/uL APTT (22.0-30.0) sec ABG pH (7.35-7.45) ABG pCO2 (35-45) mmHg ABG HCO3 (21-25) mmol/L ABG Total CO2 (19-24) mmol/L ABG O2 Saturation (94-97) % Chloride (98-107) mmol/L Carbon Dioxide (22-30) mmol/L BUN (9-20) mg/dL Creatinine (0.66-1.25) mg/dL Glucose (74-99) mg/dL POC Glucose (mg/dL) 129 H 194 H 255 H (75-99) mg/dL Phosphorus (2.5-4.5) mg/dL Magnesium (1.6-2.3) mg/dL Alkaline Phosphatase (38-126) U/L Total Protein (6.3-8.2) g/dL Urine Protein (Negative) Urine Glucose (UA) (Negative) Urine Ketones (Negative) Urine Blood (Negative) Amorphous Sediment (None) /hpf Urine Bacteria (None) /hpf Hyaline Casts (0-2) /lpf Urine Mucus (None) /hpf Microbiology - Last 24 Hours (Table) 05/29/20 10:10 Urine Culture - Preliminary Urine,Catheterized Assessment and Plan Assessment: 1- patient with elevated white count in this patient admitted to the hospital after he was noticed to be on the floor with mental status changes, patient with no fever, and no obvious focus of infection more likely elevated white count is related to his diabetic ketoacidosis (1) Leukocytosis Current Visit: Yes Status: Acute Code(s): D72.829 - ELEVATED WHITE BLOOD CELL COUNT, UNSPECIFIED SNOMED Code(s): 134602259 Plan: 1- we will check blood cultures CRP to complete the workup 2- continue empiric Rocephin 3-IV fluids We will follow on clinical condition and cultures to further adjust medication if needed Thank you for this consultation will follow this patient with you Time with Patient: Greater than 30
[2020-05-30] MEDS: HYDROmorphone 0.5 MG/0.5 ML SYRINGE IVP PRN ×5 (02:10→23:56)
[2020-05-30 03:01] LABS: Glucose,Whole Blood 244 mg/dL (75-99)
[2020-05-30 04:36] LABS: Basophils % (A) 0 %; Eosinophils # (A) 0.1 k/uL (0-0.7); Eosinophils % (A) 0 %; HCT 44.9 % (39.0-53.0); HGB 14.5 gm/dL (13.0-17.5); Hypochromasia Slight; Lymphocytes # (A) 1.7 k/uL (1.0-4.8); Lymphocytes % (A) 8 %; MCH 30.8 pg (25.0-35.0); MCHC 32.2 g/dL (31.0-37.0); MCV 95.8 fL (80.0-100.0); Mean Platelet Volume 8.1; Monocytes # (A) 1.5 k/uL (0-1.0); Monocytes % (A) 7 %; Neutrophils # (A) 19.3 k/uL (1.3-7.7); Neutrophils % (A) 85 %; Platelet Count 172 k/uL (150-450); RBC 4.69 m/uL (4.30-5.90); RDW 13.8 % (11.5-15.5); WBC 22.8 k/uL (3.8-10.6)
[2020-05-30 05:02] LABS: African American GFR (CKD) >90 (>60 ml/min/1.73 sqM); Anion Gap 10 mmol/L; Blood Urea Nitrogen 21 mg/dL (9-20); C Reactive Protein 75.8 mg/L (<10.0); Calcium 8.8 mg/dL (8.4-10.2); Carbon Dioxide 15 mmol/L (22-30); Chloride 109 mmol/L (98-107); Glucose 296 mg/dL (74-99); Non-African American GFR(CKD) >90 (>60 ml/min/1.73 sqM); Potassium 4.1 mmol/L (3.5-5.1); Sodium 134 mmol/L (137-145)
[2020-05-30 06:44] LABS: Glucose,Whole Blood 319 mg/dL (75-99)
[2020-05-30] MEDS: INSULIN ASPART (NovoLOG) 100 UNIT/ML VIAL SQ SCH ×4 (07:02→20:50)
[2020-05-30] MEDS: INSULIN DETEMIR (LEVEMIR) 100 UNIT/ML SYR SQ SCH (07:02)
[2020-05-30] MEDS ORDERED: SODIUM BICARB 8.4% 50 ML SYR (1 MEQ/ML) IV STA (07:31)
[2020-05-30] MEDS: D5-0.45% NACL WITH KCL 20MEQ/L 1,000 ML IV SCH ×2 (07:45→18:25)
--- NOTE | 2020-05-30 09:06 | XR ---
EXAMINATION TYPE: XR chest 1V portable DATE OF EXAM: 05/30/2020 HISTORY: Shortness of breath. COMPARISON: 05/28/2020 TECHNIQUE: Single view of the chest is submitted. FINDINGS: Demonstrated are scattered senescent parenchymal change. There is no evidence for focal infiltrate. The heart is stable. Hilar and mediastinal structures are within normal limits. Degenerative changes are seen of the dorsal spine. IMPRESSION: 1. Chronic changes without evidence for acute pulmonary disease.
[2020-05-30] MEDS: HEPARIN SODIUM,PORCINE 5,000 UNIT/ML 1 ML VIAL SQ SCH ×2 (09:54→20:53)
[2020-05-30] MEDS: ASPIRIN 81 MG PO SCH (09:54)
[2020-05-30] MEDS: PANTOPRAZOLE 40 MG/10 ML VIAL IV SCH (09:55)
[2020-05-30] MEDS: METOPROLOL TARTRATE 25 MG TAB PO SCH ×2 (09:55→20:54)
[2020-05-30 12:24] LABS: African American GFR (CKD) >90 (>60 ml/min/1.73 sqM); Anion Gap 6 mmol/L; Blood Urea Nitrogen 17 mg/dL (9-20); Calcium 8.6 mg/dL (8.4-10.2); Carbon Dioxide 22 mmol/L (22-30); Chloride 106 mmol/L (98-107); Glucose 244 mg/dL (74-99); Non-African American GFR(CKD) >90 (>60 ml/min/1.73 sqM); Potassium 3.7 mmol/L (3.5-5.1); Sodium 134 mmol/L (137-145)
--- NOTE | 2020-05-30 12:55 | CDI ---
Documentation Clarification Form Date: 05/30/2020 12:25:53 PM From: Rose Jose RN, CCDS Admit Date: 05/28/2020 11:06:00 PM Patient Name: Adria Cruz Visit Number: [id number] Discharge Date: ATTENTION: The Clinical Documentation Specialists (CDI) and [facility] Coding Staff appreciate your assistance in clarifying documentation. Please respond to the clarification below the line at the bottom and electronically sign. The CDI & [facility] Coding staff will review the response and follow-up if needed. Please note: Queries are made part of the Legal Health Record. If you have any questions, please contact the author of this message via ITS. Dr. Mey Butler Altered Mental Status was documented in the ED assessment and in the H/P. Please provide further specificity of the altered mental status. History/Risk Factors: Diabetes mellitus, Hyperlipidemia, Hypertension Clinical Indicators: 70-year-old male who present to ED on 05/28 via EMS found on ground with altered mental status. Per EMS, the patient's blood glucose was in the 600s. and was 708 with positive acetones in ED on arrival. EKG: showing SVT 169 and was cardioverted with 200 j and given IV amiodarone bolus and starting amiodarone drip. 05/28 Labs: WBC 26.3, UA: 4+ Glucose, 4+ Ketones; Glucose 708, 627, Co2 8, Blood Gas pH 7.15, pCO2 23, HCO3 8 05/28 Acetone Positive 05/28 Chest x- Ray: Pulmonary fibrotic changes head/spine CT: Normal CT spine. Cerebral atrophy, no ac intracranial abnormality Treatment: ICU/Telemetry monitoring Monitor blood sugar AC/HS (titrate) Insulin drip (dc10/4 Amiodarone drip (dc 10/4 Rocephin 1 gm ivpb q 12 hrs In your professional opinion, please clarify the etiology of the Altered Mental Status, if known. Metabolic Encephalopathy secondary to DKA Other condition (please specify) Unable to determine (Last Revision: November 2017) metabolic encephalopathy secondary to DKA MTDD
--- NOTE | 2020-05-30 13:00 | ECHOF ---
Referral Reason:svt MEASUREMENTS -------- HEIGHT: 182.9 cm WEIGHT: 102.1 kg BP: 110/57 RVIDd: 4.6 cm (< 3.3) IVSd: 1.2 cm (0.6 - 1.1) LVIDd: 4.0 cm (3.9 - 5.3) LVPWd: 1.6 cm (0.6 - 1.1) IVSs: 1.6 cm LVIDs: 3.5 cm LVPWs: 1.7 cm Ao Diam: 3.9 cm (2.0 - 3.7) AV Cusp: 1.2 cm (1.5 - 2.6) MV EXCURSION: 10.152 mm (> 18.000) MV EF SLOPE: 46 mm/s (70 - 150) EPSS: 0.7 cm AV maxP.64 mmHg AV meanP.74 mmHg FINDINGS -------- Sinus rhythm. This was a techncally difficult study with suboptimal views, , Lumason utilized for enhancement of im ages. The left ventricular size is normal. There is mild concentric left ventricular hypertrophy. Overa ll left ventricular systolic function is low-normal with, an EF between 50 - 55 %. The right ventricle is mild to moderately enlarged. The left atrial size is normal. The right atrial size is normal. The aortic valve was not well visualized. There is mild aortic stenosis present. Peak/mean gradie nt across the Aortic Valve is 15.64mmHg / 9.74mmHg. The mitral valve was not well visualized. The tricuspid valve was not well visualized. The pulmonic valve was not well visualized. The aortic root size is normal. There is no pericardial effusion. CONCLUSIONS -------- 1. This was a techncally difficult study with suboptimal views, , Lumason utilized for enhancement of images. 2. The left ventricular size is normal. 3. There is mild concentric left ventricular hypertrophy. 4. Overall left ventricular systolic function is low-normal with, an EF between 50 - 55 %. 5. The right ventricle is mild to moderately enlarged. 6. The left atrial size is normal. 7. The right atrial size is normal. 8. The aortic valve was not well visualized. 9. There is mild aortic stenosis present. 10. Peak/mean gradient across the Aortic Valve is 15.64mmHg / 9.74mmHg. 11. The mitral valve was not well visualized. 12. The tricuspid valve was not well visualized. 13. The pulmonic valve was not well visualized. 14. The aortic root size is normal. 15. There is no pericardial effusion. MANAGER OF TRAINING AND DEVELOPMENT: Chrissie Mendez RDCS
--- NOTE | 2020-05-30 13:21 | P.PN ---
<Sophie Stratton Sarina - Last Filed: 05/30/20 13:19> Subjective HISTORY OF PRESENTING ILLNESS This is a pleasant 70-year-old male past medical history significant for diabetes mellitus and dyslipidemia. He denies coronary artery disease and does not follow with a vocational nursing instructor for any reason. He is seen and examined resting comfortably laying flat in bed. He complains of low back discomfort. He has no chest discomfort, shortness of breath, dizziness or palpitations. He is maintaining sinus mechanism with heart rate in the 60s. Blood pressure 110/59. Amiodarone infusion discontinued this morning by the pulmonary team. According to the patient he is quite active physically and never has exertional chest discomfort or shortness of breath. He does not follow with a vocational nursing instructor and has never been diagnosed with coronary artery disease or heart failure in the past. He follows only with his primary care physician and even that is very sporadic according to the patient. Laboratory data reviewed, WBC 22.8, hemog lobin 14.5, platelets 172, sodium 134, potassium 4.1, creatinine 0.68 currently maintained on aspirin 81 mg daily and metoprolol 25 mg twice a day. Echocardiogram obtained reveals preserved LV systolic function with ejection fraction 50-55%, mild aortic stenosis with a mean gradient of 9 mmHg. PHYSICAL EXAMINATION CONSTITUTIONAL: No apparent distress. HEENT: Head is normocephalic. Pupils are equal, round. Sclerae anicteric. Mucous membranes of the mouth are moist. No JVD. No carotid bruit. CHEST EXAMINATION: Lungs are clear to auscultation. No chest wall tenderness is noted on palpation or with deep breathing. HEART EXAMINATION: Regular rate and rhythm. S1, S2 heard. Systolic ejection murmur at the base, no gallops or rub. EXTREMITIES: 2+ peripheral pulses, no lower extremity edema and no calf tenderness. ASSESSMENT Diabetic ketoacidosis Multifocal atrial tachycardia Altered mental status on admission, improved Leukocytosis Diabetes mellitus Dyslipidemia PLAN Resume simvastatin at home dose. We will follow along as needed. Follow up with Dr. Martel upon discharge. Nurse Practitioner note has been reviewed, I agree with a documented findings and plan of care. Patient was seen and examined. Objective - Vital Signs Vital signs: Vital Signs Temp 98.8 F 05/30/20 08:00 Pulse 74 05/30/20 08:00 Resp 12 05/30/20 08:00 BP 142/71 05/30/20 08:00 Pulse Ox 96 05/30/20 08:00 Intake & Output 05/29/20 05/30/20 05/30/20 18:59 06:59 18:59 Intake Total 2150.078 900 100 Output Total 690 1135 195 Balance 1460.078 -235 -95 Weight 95.9 kg 102.3 kg Intake: IV 1200 650 100 D5-0.45% NaCl with KCl 1200 600 100 20Meq/l 1,000 ml @ 50 mls /hr IV .Q20H [facility] Rx#: [id number] cefTRIAXone 1 gm In 50 Sodium Chloride 0.9% 50 ml @ 100 mls/hr IVPB Q12HR [facility] Rx#:[id number] Intake, IV Titration 325.078 Amount Amiodarone 300 mg In 227.083 Dextrose 5% in Water 250 ml @ 0.5 MG/MIN 25 mls/hr IV .Q10H [facility] Rx#: [id number] Insulin Regular 100 unit 3.057 In Sodium Chloride 0.9% 100 ml @ 0.1 UNITS/KG/HR 9.686 mls/hr IV .[id number] [facility] Rx#:[id number] Insulin Regular 100 unit 94.938 In Sodium Chloride 0.9% 100 ml @ 0.1 UNITS/KG/HR 9.85 mls/hr IV .[id number] [facility] Rx#:[id number] Oral 625 250 Output: Urine 690 1135 195 Other: Voiding Method Indwelling Catheter Indwelling Catheter # Bowel Movements 1 - Labs CBC & Chem 7: 05/30/20 03:39 05/30/20 11:52 Labs: Abnormal Lab Results - Last 24 Hours (Table) 05/29/20 05/29/20 05/29/20 Range/Units 10:20 10:59 11:32 WBC (3.8-10.6) k/uL Neutrophils # (1.3-7.7) k/uL Monocytes # (0-1.0) k/uL Sodium (137-145) mmol/L Chloride 116 H (98-107) mmol/L Carbon Dioxide 20 L (22-30) mmol/L BUN 34 H (9-20) mg/dL Glucose 143 H (74-99) mg/dL POC Glucose (mg/dL) 132 H 104 H (75-99) mg/dL C-Reactive Protein (<10.0) mg/L Total Protein (6.3-8.2) g/dL Albumin (3.5-5.0) g/dL 05/29/20 05/29/20 05/29/20 Range/Units 11:56 15:00 16:48 WBC (3.8-10.6) k/uL Neutrophils # (1.3-7.7) k/uL Monocytes # (0-1.0) k/uL Sodium (137-145) mmol/L Chloride (98-107) mmol/L Carbon Dioxide (22-30) mmol/L BUN (9-20) mg/dL Glucose (74-99) mg/dL POC Glucose (mg/dL) 129 H 194 H 255 H (75-99) mg/dL C-Reactive Protein (<10.0) mg/L Total Protein (6.3-8.2) g/dL Albumin (3.5-5.0) g/dL 05/29/20 05/29/20 05/30/20 Range/Units 20:10 21:17 02:56 WBC (3.8-10.6) k/uL Neutrophils # (1.3-7.7) k/uL Monocytes # (0-1.0) k/uL Sodium (137-145) mmol/L Chloride 111 H (98-107) mmol/L Carbon Dioxide 18 L (22-30) mmol/L BUN 28 H (9-20) mg/dL Glucose 296 H (74-99) mg/dL POC Glucose (mg/dL) 271 H 244 H (75-99) mg/dL C-Reactive Protein (<10.0) mg/L Total Protein 5.4 L (6.3-8.2) g/dL Albumin 3.0 L (3.5-5.0) g/dL 05/30/20 05/30/20 05/30/20 Range/Units 03:39 03:39 06:42 WBC 22.8 H (3.8-10.6) k/uL Neutrophils # 19.3 H (1.3-7.7) k/uL Monocytes # 1.5 H (0-1.0) k/uL Sodium 134 L (137-145) mmol/L Chloride 109 H (98-107) mmol/L Carbon Dioxide 15 L (22-30) mmol/L BUN 21 H (9-20) mg/dL Glucose 296 H (74-99) mg/dL POC Glucose (mg/dL) 319 H (75-99) mg/dL C-Reactive Protein 75.8 H (<10.0) mg/L Total Protein (6.3-8.2) g/dL Albumin (3.5-5.0) g/dL Microbiology - Last 24 Hours (Table) 05/29/20 10:10 Urine Culture - Preliminary Urine,Catheterized <Tima Gunter - Last Filed: 05/30/20 14:49> Subjective No evidence of AFib or AFlutter on prior EKG's. 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 Echo showed normal EF, mild . No further workup from a cardiology standpoint at this time. Please call with questions. Objective - Vital Signs Vital signs: Vital Signs Temp 98.6 F 05/30/20 13:00 Pulse 67 05/30/20 13:00 Resp 15 05/30/20 13:00 BP 130/66 05/30/20 13:00 Pulse Ox 96 05/30/20 13:00 Intake & Output 05/29/20 05/30/20 05/30/20 18:59 06:59 18:59 Intake Total 2150.078 900 640 Output Total 690 1135 795 Balance 1460.078 -235 -155 Weight 95.9 kg 102.3 kg Intake: IV 1200 650 400 D5-0.45% NaCl with KCl 1200 600 350 20Meq/l 1,000 ml @ 50 mls /hr IV .Q20H [facility] Rx#: [id number] cefTRIAXone 1 gm In 50 50 Sodium Chloride 0.9% 50 ml @ 100 mls/hr IVPB Q12HR [facility] Rx#:[id number] Intake, IV Titration 325.078 Amount Amiodarone 300 mg In 227.083 Dextrose 5% in Water 250 ml @ 0.5 MG/MIN 25 mls/hr IV .Q10H [facility] Rx#: [id number] Insulin Regular 100 unit 3.057 In Sodium Chloride 0.9% 100 ml @ 0.1 UNITS/KG/HR 9.686 mls/hr IV .[id number] [facility] Rx#:[id number] Insulin Regular 100 unit 94.938 In Sodium Chloride 0.9% 100 ml @ 0.1 UNITS/KG/HR 9.85 mls/hr IV .[id number] [facility] Rx#:[id number] Oral 625 250 240 Output: Urine 690 1135 795 Other: Voiding Method Indwelling Catheter Indwelling Catheter Indwelling Catheter # Voids 3 # Bowel Movements 1 1 - Labs CBC & Chem 7: 05/30/20 03:39 05/30/20 11:52 Labs: Abnormal Lab Results - Last 24 Hours (Table) 05/29/20 05/29/20 05/29/20 Range/Units 15:00 16:48 20:10 WBC (3.8-10.6) k/uL Neutrophils # (1.3-7.7) k/uL Monocytes # (0-1.0) k/uL Sodium (137-145) mmol/L Chloride 111 H (98-107) mmol/L Carbon Dioxide 18 L (22-30) mmol/L BUN 28 H (9-20) mg/dL Glucose 296 H (74-99) mg/dL POC Glucose (mg/dL) 194 H 255 H (75-99) mg/dL C-Reactive Protein (<10.0) mg/L Total Protein 5.4 L (6.3-8.2) g/dL Albumin 3.0 L (3.5-5.0) g/dL 05/29/20 05/30/20 05/30/20 Range/Units 21:17 02:56 03:39 WBC (3.8-10.6) k/uL Neutrophils # (1.3-7.7) k/uL Monocytes # (0-1.0) k/uL Sodium 134 L (137-145) mmol/L Chloride 109 H (98-107) mmol/L Carbon Dioxide 15 L (22-30) mmol/L BUN 21 H (9-20) mg/dL Glucose 296 H (74-99) mg/dL POC Glucose (mg/dL) 271 H 244 H (75-99) mg/dL C-Reactive Protein 75.8 H (<10.0) mg/L Total Protein (6.3-8.2) g/dL Albumin (3.5-5.0) g/dL 05/30/20 05/30/20 05/30/20 Range/Units 03:39 06:42 11:52 WBC 22.8 H (3.8-10.6) k/uL Neutrophils # 19.3 H (1.3-7.7) k/uL Monocytes # 1.5 H (0-1.0) k/uL Sodium 134 L (137-145) mmol/L Chloride (98-107) mmol/L Carbon Dioxide (22-30) mmol/L BUN (9-20) mg/dL Glucose 244 H (74-99) mg/dL POC Glucose (mg/dL) 319 H (75-99) mg/dL C-Reactive Protein (<10.0) mg/L Total Protein (6.3-8.2) g/dL Albumin (3.5-5.0) g/dL Microbiology - Last 24 Hours (Table) 05/29/20 11:32 Blood Culture - Preliminary Blood No Growth after 24 hours 05/29/20 10:10 Urine Culture - Final Urine,Catheterized
[2020-05-30] MEDS: ATORVASTATIN 10 MG TAB PO SCH (13:22)
--- NOTE | 2020-05-30 13:24 | P.PN ---
Subjective Progress Note Date: 05/29/20 This is a 70-year-old male patient, diabetic with known history of hypertension and hyperlipidemia and peripheral neuropathy, came in to the emergency department yesterday because of altered mental status and the patient was diagnosed having a DKA. The patient blood sugar was above 600. The patient was treated according to the DKA protocol in the intensive care unit. He was started on insulin drip as the patient was found to have a positive anion gap and serum bicarb level of 13. The patient was also found to be in a narrow complex tachycardia. He did get cardioverted in the emergency department following that he was placed on amiodarone and currently amiodarone is running at 0.5 mg per minute. Cardiac rhythm is back to sinus at this point in time. No fever. No chills. No headaches. No neck stiffness. No nausea vomiting abdominal pain or diarrhea. The patient had a white cell count of 27.6 and time of admission. His current albumin oxygen with a pulse ox of 96-97%. The chest x-ray at a time of admission showed no acute abnormalities. CAT scan of the head and cervical spine was also done that showed normal C-spine and some limited cerebral atrophy. The patient is currently in the intensive care units. On today's evaluation of 05/30/2020, the patient is awake and alert. The patient is on room air oxygen with a pulse is a 96%. Cultures of been negative. The patient remains on D5 half-normal saline at the rate of 50 mL an hour. The patient is also still on amiodarone drip at 0.5 mg per minute and the patient's cardiac rhythm is sinus at this point in time. Echocardiogram is still pending for now. No other significant events. Serum bicarb is still low at 15 and the patient was given a 50 mEq of sodium bicarb IV push. White cell count is improved down to 22. The patient is on Levemir insulin 29 units on a daily basis and addition to a standing scale coverage. Objective - Vital Signs Vital signs: Vital Signs Temp 97.2 F L 05/29/20 16:00 Pulse 81 05/29/20 19:00 Resp 14 05/29/20 19:00 BP 122/62 05/29/20 19:00 Pulse Ox 97 05/29/20 19:00 Intake & Output 05/29/20 05/29/2005/30/20 06:59 18:59 06:59 Intake Total 3231.263 2150.078 300 Output Total 1245 690 100 Balance 3703.946 4982.078 200 Weight 95.9 kg 95.9 kg Intake: IV 3150 1200 50 D5-0.45% NaCl with KCl 150 1200 50 20Meq/l 1,000 ml @ 50 mls /hr IV .Q20H [facility] Rx#: [id number] Sodium Chloride 0.9% 1, 1000 000 ml @ 200 mls/hr IV . Q5H [facility] Rx#:[id number] Sodium Chloride 0.9% 1, 1000 000 ml @ 999 mls/hr IV . Q1H1M ONE Rx#:[id number] Sodium Chloride 0.9% 1, 1000 000 ml @ 999 mls/hr IV . Q1H1M ONE Rx#:[id number] Intake, IV Titration 81.263 325.078 Amount Amiodarone 300 mg In 227.083 Dextrose 5% in Water 250 ml @ 0.5 MG/MIN 25 mls/hr IV .Q10H [facility] Rx#: [id number] Insulin Regular 100 unit 3.057 In Sodium Chloride 0.9% 100 ml @ 0.1 UNITS/KG/HR 9.686 mls/hr IV .[id number] [facility] Rx#:[id number] Insulin Regular 100 unit 81.263 94.938 In Sodium Chloride 0.9% 100 ml @ 0.1 UNITS/KG/HR 9.85 mls/hr IV .[id number] [facility] Rx#:[id number] Oral 625 250 Output: Urine 1245 690 100 Other: Voiding Method Indwelling Catheter Indwelling Catheter # Voids 3 - Exam The patient appeared well nourished and normally developed. Vital signs as documented. Head exam is unremarkable. No scleral icterus or corneal arcus noted. Neck is without jugular venous distension, thyromegaly, or carotid bruits. Carotid upstrokes are brisk bilaterally. Lungs are clear to auscultation and percussion. Cardiac exam reveals the PMI to be normally sized and situated. Rhythm is regular. First and second heart sounds normal. No murmurs, rubs or gallops. Abdominal exam reveals normal bowel sounds, no masses, no organomegaly and no aortic enlargement. Extremities are nonedematous and both femoral and pedal pulses are normal.Examination of the skin revealed no evidence of significant rashes, suspicious appearing nevi or other concerning l esions.Neurologically, the patient is awake and alert and the patient does not have any focal neurological deficit. Cranial nerves are essentially intact. - Labs CBC & Chem 7: 05/30/20 03:39 05/30/20 11:52 Labs: Abnormal Lab Results - Last 24 Hours (Table) 05/28/20 05/28/20 05/28/20 Range/Units 19:58 19:58 19:58 WBC 26.5 H (3.8-10.6) k/uL Hct 53.9 H (39.0-53.0) % MCHC 30.5 L (31.0-37.0) g/dL Neutrophils # 23.2 H (1.3-7.7) k/uL Neutrophils # (Manual) (1.3-7.7) k/uL Lymphocytes # 0.9 L (1.0-4.8) k/uL Lymphocytes # (Manual) (1.0-4.8) k/uL Monocytes # 2.0 H (0-1.0) k/uL Monocytes # (Manual) (0-1.0) k/uL APTT 21.2 L (22.0-30.0) sec ABG pH (7.35-7.45) ABG pCO2 (35-45) mmHg ABG HCO3 (21-25) mmol/L ABG Total CO2 (19-24) mmol/L ABG O2 Saturation (94-97) % Chloride (98-107) mmol/L Carbon Dioxide (22-30) mmol/L BUN (9-20) mg/dL Creatinine (0.66-1.25) mg/dL Glucose (74-99) mg/dL POC Glucose (mg/dL) >600 H (75-99) mg/dL Phosphorus (2.5-4.5) mg/dL Magnesium (1.6-2.3) mg/dL Alkaline Phosphatase (38-126) U/L Total Protein (6.3-8.2) g/dL Urine Protein (Negative) Urine Glucose (UA) (Negative) Urine Ketones (Negative) Urine Blood (Negative) Amorphous Sediment (None) /hpf Urine Bacteria (None) /hpf Hyaline Casts (0-2) /lpf Urine Mucus (None) /hpf 05/28/20 05/28/20 05/28/20 Range/Units 19:58 21:05 21:58 WBC (3.8-10.6) k/uL Hct (39.0-53.0) % MCHC (31.0-37.0) g/dL Neutrophils # (1.3-7.7) k/uL Neutrophils # (Manual) (1.3-7.7) k/uL Lymphocytes # (1.0-4.8) k/uL Lymphocytes # (Manual) (1.0-4.8) k/uL Monocytes # (0-1.0) k/uL Monocytes # (Manual) (0-1.0) k/uL APTT (22.0-30.0) sec ABG pH 7.15 L* (7.35-7.45) ABG pCO2 23 L (35-45) mmHg ABG HCO3 8 L* (21-25) mmol/L ABG Total CO2 9 L (19-24) mmol/L ABG O2 Saturation 97.5 H (94-97) % Chloride (98-107) mmol/L Carbon Dioxide 10 L (22-30) mmol/L BUN 42 H (9-20) mg/dL Creatinine 2.01 H (0.66-1.25) mg/dL Glucose 708 H* (74-99) mg/dL POC Glucose (mg/dL) >600 H (75-99) mg/dL Phosphorus (2.5-4.5) mg/dL Magnesium (1.6-2.3) mg/dL Alkaline Phosphatase 151 H (38-126) U/L Total Protein 6.1 L (6.3-8.2) g/dL Urine Protein (Negative) Urine Glucose (UA) (Negative) Urine Ketones (Negative) Urine Blood (Negative) Amorphous Sediment (None) /hpf Urine Bacteria (None) /hpf Hyaline Casts (0-2) /lpf Urine Mucus (None) /hpf 05/28/20 05/28/20 05/28/20 Range/Units 22:59 23:26 23:44 WBC 31.0 H (3.8-10.6) k/uL Hct 54.8 H (39.0-53.0) % MCHC (31.0-37.0) g/dL Neutrophils # (1.3-7.7) k/uL Neutrophils # (Manual) 28.20 H (1.3-7.7) k/uL Lymphocytes # (1.0-4.8) k/uL Lymphocytes # (Manual) 0.93 L (1.0-4.8) k/uL Monocytes # (0-1.0) k/uL Monocytes # (Manual) 1.86 H (0-1.0) k/uL APTT (22.0-30.0) sec ABG pH (7.35-7.45) ABG pCO2 (35-45) mmHg ABG HCO3 (21-25) mmol/L ABG Total CO2 (19-24) mmol/L ABG O2 Saturation (94-97) % Chloride (98-107) mmol/L Carbon Dioxide (22-30) mmol/L BUN (9-20) mg/dL Creatinine (0.66-1.25) mg/dL Glucose (74-99) mg/dL POC Glucose (mg/dL) >600 H 588 H (75-99) mg/dL Phosphorus (2.5-4.5) mg/dL Magnesium (1.6-2.3) mg/dL Alkaline Phosphatase (38-126) U/L Total Protein (6.3-8.2) g/dL Urine Protein (Negative) Urine Glucose (UA) (Negative) Urine Ketones (Negative) Urine Blood (Negative) Amorphous Sediment (None) /hpf Urine Bacteria (None) /hpf Hyaline Casts (0-2) /lpf Urine Mucus (None) /hpf 05/28/20 05/28/20 05/29/20 Range/Units 23:44 23:45 00:03 WBC (3.8-10.6) k/uL Hct (39.0-53.0) % MCHC (31.0-37.0) g/dL Neutrophils # (1.3-7.7) k/uL Neutrophils # (Manual) (1.3-7.7) k/uL Lymphocytes # (1.0-4.8) k/uL Lymphocytes # (Manual) (1.0-4.8) k/uL Monocytes # (0-1.0) k/uL Monocytes # (Manual) (0-1.0) k/uL APTT (22.0-30.0) sec ABG pH (7.35-7.45) ABG pCO2 (35-45) mmHg ABG HCO3 (21-25) mmol/L ABG Total CO2 (19-24) mmol/L ABG O2 Saturation (94-97) % Chloride (98-107) mmol/L Carbon Dioxide 8 L* (22-30) mmol/L BUN 41 H (9-20) mg/dL Creatinine 1.66 H (0.66-1.25) mg/dL Glucose 627 H* (74-99) mg/dL POC Glucose (mg/dL) 579 H (75-99) mg/dL Phosphorus 6.2 H (2.5-4.5) mg/dL Magnesium (1.6-2.3) mg/dL Alkaline Phosphatase (38-126) U/L Total Protein (6.3-8.2) g/dL Urine Protein 1+ H (Negative) Urine Glucose (UA) 4+ H (Negative) Urine Ketones 4+ H (Negative) Urine Blood Small H (Negative) Amorphous Sediment Rare H (None) /hpf Urine Bacteria Rare H (None) /hpf Hyaline Casts 23 H (0-2) /lpf Urine Mucus Rare H (None) /hpf 05/29/20 05/29/20 05/29/20 Range/Units 00:27 01:04 01:59 WBC (3.8-10.6) k/uL Hct (39.0-53.0) % MCHC (31.0-37.0) g/dL Neutrophils # (1.3-7.7) k/uL Neutrophils # (Manual) (1.3-7.7) k/uL Lymphocytes # (1.0-4.8) k/uL Lymphocytes # (Manual) (1.0-4.8) k/uL Monocytes # (0-1.0) k/uL Monocytes # (Manual) (0-1.0) k/uL APTT (22.0-30.0) sec ABG pH (7.35-7.45) ABG pCO2 (35-45) mmHg ABG HCO3 (21-25) mmol/L ABG Total CO2 (19-24) mmol/L ABG O2 Saturation (94-97) % Chloride (98-107) mmol/L Carbon Dioxide (22-30) mmol/L BUN (9-20) mg/dL Creatinine (0.66-1.25) mg/dL Glucose (74-99) mg/dL POC Glucose (mg/dL) 546 H 557 H 479 H (75-99) mg/dL Phosphorus (2.5-4.5) mg/dL Magnesium (1.6-2.3) mg/dL Alkaline Phosphatase (38-126) U/L Total Protein (6.3-8.2) g/dL Urine Protein (Negative) Urine Glucose (UA) (Negative) Urine Ketones (Negative) Urine Blood (Negative) Amorphous Sediment (None) /hpf Urine Bacteria (None) /hpf Hyaline Casts (0-2) /lpf Urine Mucus (None) /hpf 05/29/20 05/29/20 05/29/20 Range/Units 02:53 04:17 04:17 WBC 27.6 H (3.8-10.6) k/uL Hct 54.3 H (39.0-53.0) % MCHC (31.0-37.0) g/dL Neutrophils # (1.3-7.7) k/uL Neutrophils # (Manual) (1.3-7.7) k/uL Lymphocytes # (1.0-4.8) k/uL Lymphocytes # (Manual) (1.0-4.8) k/uL Monocytes # (0-1.0) k/uL Monocytes # (Manual) (0-1.0) k/uL APTT (22.0-30.0) sec ABG pH (7.35-7.45) ABG pCO2 (35-45) mmHg ABG HCO3 (21-25) mmol/L ABG Total CO2 (19-24) mmol/L ABG O2 Saturation (94-97) % Chloride 111 H (98-107) mmol/L Carbon Dioxide 13 L (22-30) mmol/L BUN 39 H (9-20) mg/dL Creatinine (0.66-1.25) mg/dL Glucose 371 H (74-99) mg/dL POC Glucose (mg/dL) 316 H (75-99) mg/dL Phosphorus (2.5-4.5) mg/dL Magnesium 2.4 H (1.6-2.3) mg/dL Alkaline Phosphatase (38-126) U/L Total Protein (6.3-8.2) g/dL Urine Protein (Negative) Urine Glucose (UA) (Negative) Urine Ketones (Negative) Urine Blood (Negative) Amorphous Sediment (None) /hpf Urine Bacteria (None) /hpf Hyaline Casts (0-2) /lpf Urine Mucus (None) /hpf 05/29/20 05/29/20 05/29/20 Range/Units 04:18 05:02 06:06 WBC (3.8-10.6) k/uL Hct (39.0-53.0) % MCHC (31.0-37.0) g/dL Neutrophils # (1.3-7.7) k/uL Neutrophils # (Manual) (1.3-7.7) k/uL Lymphocytes # (1.0-4.8) k/uL Lymphocytes # (Manual) (1.0-4.8) k/uL Monocytes # (0-1.0) k/uL Monocytes # (Manual) (0-1.0) k/uL APTT (22.0-30.0) sec ABG pH (7.35-7.45) ABG pCO2 (35-45) mmHg ABG HCO3 (21-25) mmol/L ABG Total CO2 (19-24) mmol/L ABG O2 Saturation (94-97) % Chloride (98-107) mmol/L Carbon Dioxide (22-30) mmol/L BUN (9-20) mg/dL Creatinine (0.66-1.25) mg/dL Glucose (74-99) mg/dL POC Glucose (mg/dL) 285 H 287 H 273 H (75-99) mg/dL Phosphorus (2.5-4.5) mg/dL Magnesium (1.6-2.3) mg/dL Alkaline Phosphatase (38-126) U/L Total Protein (6.3-8.2) g/dL Urine Protein (Negative) Urine Glucose (UA) (Negative) Urine Ketones (Negative) Urine Blood (Negative) Amorphous Sediment (None) /hpf Urine Bacteria (None) /hpf Hyaline Casts (0-2) /lpf Urine Mucus (None) /hpf 05/29/20 05/29/20 05/29/20 Range/Units 06:52 08:09 08:53 WBC (3.8-10.6) k/uL Hct (39.0-53.0) % MCHC (31.0-37.0) g/dL Neutrophils # (1.3-7.7) k/uL Neutrophils # (Manual) (1.3-7.7) k/uL Lymphocytes # (1.0-4.8) k/uL Lymphocytes # (Manual) (1.0-4.8) k/uL Monocytes # (0-1.0) k/uL Monocytes # (Manual) (0-1.0) k/uL APTT (22.0-30.0) sec ABG pH (7.35-7.45) ABG pCO2 (35-45) mmHg ABG HCO3 (21-25) mmol/L ABG Total CO2 (19-24) mmol/L ABG O2 Saturation (94-97) % Chloride (98-107) mmol/L Carbon Dioxide (22-30) mmol/L BUN (9-20) mg/dL Creatinine (0.66-1.25) mg/dL Glucose (74-99) mg/dL POC Glucose (mg/dL) 198 H 162 H 153 H (75-99) mg/dL Phosphorus (2.5-4.5) mg/dL Magnesium (1.6-2.3) mg/dL Alkaline Phosphatase (38-126) U/L Total Protein (6.3-8.2) g/dL Urine Protein (Negative) Urine Glucose (UA) (Negative) Urine Ketones (Negative) Urine Blood (Negative) Amorphous Sediment (None) /hpf Urine Bacteria (None) /hpf Hyaline Casts (0-2) /lpf Urine Mucus (None) /hpf 05/29/20 05/29/20 05/29/20 Range/Units 10:20 10:59 11:32 WBC (3.8-10.6) k/uL Hct (39.0-53.0) % MCHC (31.0-37.0) g/dL Neutrophils # (1.3-7.7) k/uL Neutrophils # (Manual) (1.3-7.7) k/uL Lymphocytes # (1.0-4.8) k/uL Lymphocytes # (Manual) (1.0-4.8) k/uL Monocytes # (0-1.0) k/uL Monocytes # (Manual) (0-1.0) k/uL APTT (22.0-30.0) sec ABG pH (7.35-7.45) ABG pCO2 (35-45) mmHg ABG HCO3 (21-25) mmol/L ABG Total CO2 (19-24) mmol/L ABG O2 Saturation (94-97) % Chloride 116 H (98-107) mmol/L Carbon Dioxide 20 L (22-30) mmol/L BUN 34 H (9-20) mg/dL Creatinine (0.66-1.25) mg/dL Glucose 143 H (74-99) mg/dL POC Glucose (mg/dL) 132 H 104 H (75-99) mg/dL Phosphorus (2.5-4.5) mg/dL Magnesium (1.6-2.3) mg/dL Alkaline Phosphatase (38-126) U/L Total Protein (6.3-8.2) g/dL Urine Protein (Negative) Urine Glucose (UA) (Negative) Urine Ketones (Negative) Urine Blood (Negative) Amorphous Sediment (None) /hpf Urine Bacteria (None) /hpf Hyaline Casts (0-2) /lpf Urine Mucus (None) /hpf 05/29/20 05/29/20 05/29/20 Range/Units 11:56 15:00 16:48 WBC (3.8-10.6) k/uL Hct (39.0-53.0) % MCHC (31.0-37.0) g/dL Neutrophils # (1.3-7.7) k/uL Neutrophils # (Manual) (1.3-7.7) k/uL Lymphocytes # (1.0-4.8) k/uL Lymphocytes # (Manual) (1.0-4.8) k/uL Monocytes # (0-1.0) k/uL Monocytes # (Manual) (0-1.0) k/uL APTT (22.0-30.0) sec ABG pH (7.35-7.45) ABG pCO2 (35-45) mmHg ABG HCO3 (21-25) mmol/L ABG Total CO2 (19-24) mmol/L ABG O2 Saturation (94-97) % Chloride (98-107) mmol/L Carbon Dioxide (22-30) mmol/L BUN (9-20) mg/dL Creatinine (0.66-1.25) mg/dL Glucose (74-99) mg/dL POC Glucose (mg/dL) 129 H 194 H 255 H (75-99) mg/dL Phosphorus (2.5-4.5) mg/dL Magnesium (1.6-2.3) mg/dL Alkaline Phosphatase (38-126) U/L Total Protein (6.3-8.2) g/dL Urine Protein (Negative) Urine Glucose (UA) (Negative) Urine Ketones (Negative) Urine Blood (Negative) Amorphous Sediment (None) /hpf Urine Bacteria (None) /hpf Hyaline Casts (0-2) /lpf Urine Mucus (None) /hpf Microbiology - Last 24 Hours (Table) 05/29/20 10:10 Urine Culture - Preliminary Urine,Catheterized Assessment and Plan Plan: 1 altered mental status secondary to DKA. The patient had an anion gap metabolic acidosis, admission and the patient was started on nitroglycerin drip and IV fluids. CAT scan of the brain is negative. CAT scan of the cervical spine is negative. Neurologic exam is nonfocal. Neurologic exam is improved and the patient is back to his baseline for now. 2 SVT post-cardioversion currently on amiodarone drip at 0.5 mg per minute, cardiac rhythm is sinus. His cath the case with cardiology. Echocardiogram still pending. 3 acute kidney injury, improved with fluid resuscitation 4 leukocytosis, consider reactive leukocytosis, improving 5 diabetes mellitus, maintained on his outpatient basis including NPH units twice a day 6 hypertension 7 hyperlipidemia Plan Management of DKA and the patient has close anion gap. A bicarb still low at 15 and the patient will be given a bicarb push and will going to monitor the serum bicarb level and anion gap. Stop the amiodarone drip Echocardiogram Start the patient on long-acting insulin 25 units on a daily basis. IV fluids to KVO Cardiology follow-up Monitor mental status
--- NOTE | 2020-05-30 13:24 | P.PN ---
Subjective Progress Note Date: 05/30/20 This is a 70-year-old male patient, diabetic with known history of hypertension and hyperlipidemia and peripheral neuropathy, came in to the emergency department yesterday because of altered mental status and the patient was diagnosed having a DKA. The patient blood sugar was above 600. The patient was treated according to the DKA protocol in the intensive care unit. He was started on insulin drip as the patient was found to have a positive anion gap and serum bicarb level of 13. The patient was also found to be in a narrow complex tachycardia. He did get cardioverted in the emergency department following that he was placed on amiodarone and currently amiodarone is running at 0.5 mg per minute. Cardiac rhythm is back to sinus at this point in time. No fever. No chills. No headaches. No neck stiffness. No nausea vomiting abdominal pain or diarrhea. The patient had a white cell count of 27.6 and time of admission. His current albumin oxygen with a pulse ox of 96-97%. The chest x-ray at a time of admission showed no acute abnormalities. CAT scan of the head and cervical spine was also done that showed normal C-spine and some limited cerebral atrophy. The patient is currently in the intensive care units. On today's evaluation of 05/30/2020, the patient is awake and alert. The patient is on room air oxygen with a pulse is a 96%. Cultures of been negative. The patient remains on D5 half-normal saline at the rate of 50 mL an hour. The patient is also still on amiodarone drip at 0.5 mg per minute and the patient's cardiac rhythm is sinus at this point in time. Echocardiogram is still pending for now. No other significant events. Serum bicarb is still low at 15 and the patient was given a 50 mEq of sodium bicarb IV push. White cell count is improved down to 22. The patient is on Levemir insulin 29 units on a daily basis and addition to a standing scale coverage. Objective - Vital Signs Vital signs: Vital Signs Temp 98.6 F 05/30/20 13:00 Pulse 67 05/30/20 13:00 Resp 15 05/30/20 13:00 BP 130/66 05/30/20 13:00 Pulse Ox 96 05/30/20 13:00 Intake & Output 05/29/20 05/30/2020 18:59 06:59 18:59 Intake Total 2150.078 900 640 Output Total 690 1135 795 Balance 1460.078 -235 -155 Weight 95.9 kg 102.3 kg Intake: IV 1200 650 400 D5-0.45% NaCl with KCl 1200 600 350 20Meq/l 1,000 ml @ 50 mls /hr IV .Q20H [facility]ILDA Rx#: [id number] cefTRIAXone 1 gm In 50 50 Sodium Chloride 0.9% 50 ml @ 100 mls/hr IVPB Q12HR [facility]ILDA Rx#:[id number] Intake, IV Titration 325.078 Amount Amiodarone 300 mg In 227.083 Dextrose 5% in Water 250 ml @ 0.5 MG/MIN 25 mls/hr IV .Q10H [facility]ILDA Rx#: [id number] Insulin Regular 100 unit 3.057 In Sodium Chloride 0.9% 100 ml @ 0.1 UNITS/KG/HR 9.686 mls/hr IV .[id number] [facility]ILDA Rx#:[id number] Insulin Regular 100 unit 94.938 In Sodium Chloride 0.9% 100 ml @ 0.1 UNITS/KG/HR 9.85 mls/hr IV .[id number] STA Rx#:[id number] Oral 625 250 240 Output: Urine 690 1135 795 Other: Voiding Method Indwelling Catheter Indwelling Catheter Indwelling Catheter # Voids 3 # Bowel Movements 1 1 - Exam The patient appeared well nourished and normally developed. Vital signs as documented. Head exam is unremarkable. No scleral icterus or corneal arcus noted. Neck is without jugular venous distension, thyromegaly, or carotid bruits. Carotid upstrokes are brisk bilaterally. Lungs are clear to auscultation and percussion. Cardiac exam reveals the PMI to be normally sized and situated. Rhythm is regular. First and second heart sounds normal. No murmurs, rubs or gallops. Abdominal exam reveals normal bowel sounds, no masses, no organomegaly and no aortic enlargement. Extremities are nonedematous and both femoral and pedal pulses are normal.Examination of the skin revealed no evidence of significant rashes, suspicious appearing nevi or other concerning lesions.Neurologically, the patient is awake and alert and the patient does not have any focal neurological deficit. Cranial nerves are essentially intact. - Labs CBC & Chem 7: 05/30/20 03:39 05/30/20 11:52 Labs: Abnormal Lab Results - Last 24 Hours (Table) 05/29/20 05/29/20 05/29/20 Range/Units 15:00 16:48 20:10 WBC (3.8-10.6) k/uL Neutrophils # (1.3-7.7) k/uL Monocytes # (0-1.0) k/uL Sodium (137-145) mmol/L Chloride 111 H (98-107) mmol/L Carbon Dioxide 18 L (22-30) mmol/L BUN 28 H (9-20) mg/dL Glucose 296 H (74-99) mg/dL POC Glucose (mg/dL) 194 H 255 H (75-99) mg/dL C-Reactive Protein (<10.0) mg/L Total Protein 5.4 L (6.3-8.2) g/dL Albumin 3.0 L (3.5-5.0) g/dL 05/29/20 05/30/20 05/30/20 Range/Units 21:17 02:56 03:39 WBC (3.8-10.6) k/uL Neutrophils # (1.3-7.7) k/uL Monocytes # (0-1.0) k/uL Sodium 134 L (137-145) mmol/L Chloride 109 H (98-107) mmol/L Carbon Dioxide 15 L (22-30) mmol/L BUN 21 H (9-20) mg/dL Glucose 296 H (74-99) mg/dL POC Glucose (mg/dL) 271 H 244 H (75-99) mg/dL C-Reactive Protein 75.8 H (<10.0) mg/L Total Protein (6.3-8.2) g/dL Albumin (3.5-5.0) g/dL 05/30/20 05/30/20 05/30/20 Range/Units 03:39 06:42 11:52 WBC 22.8 H (3.8-10.6) k/uL Neutrophils # 19.3 H (1.3-7.7) k/uL Monocytes # 1.5 H (0-1.0) k/uL Sodium 134 L (137-145) mmol/L Chloride (98-107) mmol/L Carbon Dioxide (22-30) mmol/L BUN (9-20) mg/dL Glucose 244 H (74-99) mg/dL POC Glucose (mg/dL) 319 H (75-99) mg/dL C-Reactive Protein (<10.0) mg/L Total Protein (6.3-8.2) g/dL Albumin (3.5-5.0) g/dL Microbiology - Last 24 Hours (Table) 05/29/20 10:10 Urine Culture - Final Urine,Catheterized Assessment and Plan Plan: 1 altered mental status secondary to DKA. The patient had an anion gap metabolic acidosis, admission and the patient was started on nitroglycerin drip and IV fluids. CAT scan of the brain is negative. CAT scan of the cervical spine is negative. Neurologic exam is nonfocal. Neurologic exam is improved and the patient is back to his baseline for now. 2 SVT post-cardioversion currently on amiodarone drip at 0.5 mg per minute, cardiac rhythm is sinus. His cath the case with cardiology. Echocardiogram still pending. 3 acute kidney injury, improved with fluid resuscitation 4 leukocytosis, consider reactive leukocytosis, improving 5 diabetes mellitus, maintained on his outpatient basis including NPH units twice a day 6 hypertension 7 hyperlipidemia Plan Management of DKA and the patient has close anion gap. A bicarb still low at 15 and the patient will be given a bicarb push and will going to monitor the serum bicarb level and anion gap. Stop the amiodarone drip Echocardiogram Start the patient on long-acting insulin 25 units on a daily basis. IV fluids to KVO Cardiology follow-up Monitor mental status
--- NOTE | 2020-05-30 13:33 | CDI ---
Documentation Clarification Form Date: 05/30/2020 12:58:38 PM From: Rose Jose RN, CCDS Admit Date: 05/28/2020 11:06:00 PM Patient Name: Adria Cruz Visit Number: [id number] Discharge Date: ATTENTION: The Clinical Documentation Specialists (CDI) and [facility] Coding Staff appreciate your assistance in clarifying documentation. Please respond to the clarification below the line at the bottom and electronically sign. The CDI & [facility] Coding staff will review the response and follow-up if needed. Please note: Queries are made part of the Legal Health Record. If you have any questions, please contact the author of this message via ITS. Dr. Mey Butler 05/29 H/P documented renal insufficiency. In order to capture the severity of the condition please review and render your opinion. History/Risk Factors: Diabetes Mellitus, Hyperlipidemia, Hypertension 05/28 16:00 BUN 42, Cr 2.01 GFR 33 20:00 BUN 41, Cr 1.66 GFR 42 Clinical Indicators: 70-year-old male who present to ED on 05/28 via EMS found on ground with altered mental status. Per EMS, the patient's blood glucose was in the 600s, and was 708 with positive acetones in ED on arrival. EKG: showing SVT 169 and was cardioverted with 200 j and given IV amiodarone bolus and starting amiodarone drip. Renal insufficiency. These do appear to be improving documented in H/P. 05/29 07:59 BUN 39 Cr 1.19, GFR 63 11:59 BUN 6 Cr 0.80 GFR >90 05/30 08:00 BUN 17, Cr 0.73 GFR >90 Treatment: ICU/Telemetry monitoring Sodium bicarbonate 50 ml iv once sta Potassiium cl/dextrose 20 meq @50 mls/hr Monitor BUN CR GFR .9 NS 1,000 mls bolus x2 (05/28) In order to capture the severity of condition, please clarify if the condition signifies: Acute renal failure, Please specify etiology (if known): Cortical Necrosis Medullary Necrosis Tubular Necrosis Acute kidney injury Other, please specify Unable to determine (Last Revision: November 2017) Acute kidney injury MTDD
[2020-05-30 16:36] LABS: Hemoglobin A1C 14.9 % (4.0-6.0)
[2020-05-30 16:59] LABS: Glucose,Whole Blood 113 mg/dL (75-99)
[2020-05-30] MEDS: traMADol 50 MG TAB PO PRN (18:29)
--- NOTE | 2020-05-30 18:45 | P.PN ---
Subjective Progress Note Date: 05/30/20 This is a 70-year-old male patient of Dr. Egan. Patient presented to the ER via ambulance when neighbor found patient on the ground with altered mental status. According to ER record patient's blood glucose was found to be 600 upon arrival. Patient does have a past medical history of diabetes mellitus, hyperlipidemia and essential hypertension. Upon arrival to the ER patient was found to be in SVT. Patient was cardioverted in ER and started on amiodarone per cardiology services. Patient was also started on insulin drip. Patient had noted to have significant bruising around hip right side. Pelvis x-ray completed showing no acute abnormality of the pelvis. Chest x-ray completed showing pulmonary fibrotic changes noted failure. Head and cervical spine CT completed showing normal computed tomography scan of the cervical spine cerebral atrophy no acute intracranial abnormality. Upon arrival CO2 8 and anion gap 25. Patient managed to ICU Dr. Crow consulted for critical care. Cardiology services following 2-D echo ordered . Upon exam patient unable to remember events leading to incident. Patient denies any recent illness that he can remember. This time patient denies chest pain or shortness breath. Patient denies nausea vomiting or diarrhea. Patient denies any urinary burning or frequency. White blood cell count significantly elevated. Will order blood and culture and urine culture On 05/30/2020 patient was seen and examined in the ICU he is alert and oriented 3 in no apparent distress he is complaining of mid and low back pain otherwise he denies any complaint, there is no fever or chills no headache or dizziness no chest pain no shortness of breath no cough no nausea or vomiting no abdominal pain no diarrhea no blood in the stools no burning with urination no frequency or urgency and no hematuria Objective - Vital Signs Vital signs: Vital Signs Temp 98.6 F 05/30/20 13:00 Pulse 76 05/30/20 18:00 Resp 13 05/30/20 18:00 BP 146/75 05/30/20 18:00 Pulse Ox 98 05/30/20 18:00 Intake & Output 05/29/20 05/30/20 05/30/20 18:59 06:59 18:59 Intake Total 2150.078 900 840 Output Total 690 1135 1160 Balance 1460.078 -235 -320 Weight 95.9 kg 102.3 kg Intake: IV 1200 650 600 D5-0.45% NaCl with KCl 1200 600 550 20Meq/l 1,000 ml @ 50 mls /hr IV .Q20H [facility]ILDA Rx#: [id number] cefTRIAXone 1 gm In 50 50 Sodium Chloride 0.9% 50 ml @ 100 mls/hr IVPB Q12HR [facility]ILDA Rx#:[id number] Intake, IV Titration 325.078 Amount Amiodarone 300 mg In 227.083 Dextrose 5% in Water 250 ml @ 0.5 MG/MIN 25 mls/hr IV .Q10H [facility]ILDA Rx#: [id number] Insulin Regular 100 unit 3.057 In Sodium Chloride 0.9% 100 ml @ 0.1 UNITS/KG/HR 9.686 mls/hr IV .[id number] HILDA Rx#:[id number] Insulin Regular 100 unit 94.938 In Sodium Chloride 0.9% 100 ml @ 0.1 UNITS/KG/HR 9.85 mls/hr IV .[id number] STA Rx#:[id number] Oral 625 250 240 Output: Urine 690 1135 1160 Other: Voiding Method Indwelling Catheter Indwelling Catheter Indwelling Catheter # Voids 3 # Bowel Movements 1 1 - Exam In general patient is alert and oriented 3 in no apparent distress HEENT head normocephalic and atraumatic Neck is supple no JVD no goiter no lymphadenopathy Chest exam reveals a scattered crackles in both lung bases no wheezing Cardiac exam reveals regular heart sounds S1 and S2 no gallops no murmurs Abdomen is soft nontender no organomegaly with normal bowel sounds Extremity exam reveals no edema no cyanosis or clubbing Neurological examination reveals no gross focal deficit - Labs CBC & Chem 7: 05/30/20 03:39 05/30/20 11:52 Labs: Abnormal Lab Results - Last 24 Hours (Table) 05/29/20 05/29/20 05/30/20 Range/Units 20:10 21:17 02:56 WBC (3.8-10.6) k/uL Neutrophils # (1.3-7.7) k/uL Monocytes # (0-1.0) k/uL Sodium (137-145) mmol/L Chloride 111 H (98-107) mmol/L Carbon Dioxide 18 L (22-30) mmol/L BUN 28 H (9-20) mg/dL Glucose 296 H (74-99) mg/dL POC Glucose (mg/dL) 271 H 244 H (75-99) mg/dL Hemoglobin A1c (4.0-6.0) % C-Reactive Protein (<10.0) mg/L Total Protein 5.4 L (6.3-8.2) g/dL Albumin 3.0 L (3.5-5.0) g/dL 05/30/20 05/30/20 05/30/20 Range/Units 03:39 03:39 03:39 WBC 22.8 H (3.8-10.6) k/uL Neutrophils # 19.3 H (1.3-7.7) k/uL Monocytes # 1.5 H (0-1.0) k/uL Sodium 134 L (137-145) mmol/L Chloride 109 H (98-107) mmol/L Carbon Dioxide 15 L (22-30) mmol/L BUN 21 H (9-20) mg/dL Glucose 296 H (74-99) mg/dL POC Glucose (mg/dL) (75-99) mg/dL Hemoglobin A1c 14.9 H (4.0-6.0) % C-Reactive Protein 75.8 H (<10.0) mg/L Total Protein (6.3-8.2) g/dL Albumin (3.5-5.0) g/dL 05/30/20 05/30/20 05/30/20 Range/Units 06:42 11:52 16:57 WBC (3.8-10.6) k/uL Neutrophils # (1.3-7.7) k/uL Monocytes # (0-1.0) k/uL Sodium 134 L (137-145) mmol/L Chloride (98-107) mmol/L Carbon Dioxide (22-30) mmol/L BUN (9-20) mg/dL Glucose 244 H (74-99) mg/dL POC Glucose (mg/dL) 319 H 113 H (75-99) mg/dL Hemoglobin A1c (4.0-6.0) % C-Reactive Protein (<10.0) mg/L Total Protein (6.3-8.2) g/dL Albumin (3.5-5.0) g/dL Microbiology - Last 24 Hours (Table) 05/29/20 11:32 Blood Culture - Preliminary Blood No Growth after 24 hours 05/29/20 10:10 Urine Culture - Final Urine,Catheterized Assessment and Plan Plan: 1. Altered mental status likely secondary to DKA. Patient currently on insulin drip. Patient has been admitted to the intensive care unit critical care following. Initial CO2 13 and anion gap 25. 2. Supraventricular tachycardia. Patient was cardioverted in emergency room. Cardiology services following. Patient currently on amiodarone 3. Renal insufficiency. Initial creatinine 1.66 and bun 41. These do appear to be improving 4. Elevated white blood cell count. Urine and blood cultures ordered 5. History of diabetes mellitus 6. History of Hyperlipidemia 7. Essential hypertension 8. low back pain, will check x-ray DVT prophylaxis heparin. GI prophylaxis Protonix Patient currently admitted to intensive care unit Critical care and cardiology currently following remains on insulin and amiodarone drips Blood and urine culture ordered At this time patient is improving he is maintaining in normal sinus rhythm, will continue to monitor closely
[2020-05-30 20:51] LABS: Glucose,Whole Blood 117 mg/dL (75-99)
--- NOTE | 2020-05-30 21:35 | XR ---
Lumbar spine HISTORY: Low back pain 3 views of the lumbar spine Bone mineralization is reduced which limits sensitivity. Lateral exam is suboptimal. There is some jalloh perior endplate loss of height at L4. Facet arthropathy changes present. IMPRESSION: Exam is limited. Possible osteoporotic compression fracture L4.
--- NOTE | 2020-05-30 21:37 | XR ---
Thoracic spine HISTORY: Back pain Frontal and lateral views of the thoracic spine on 4 images Bone mineralization is reduced. There is multilevel spondylosis. Flowing anterior osteophytes along t he thoracic vertebral bodies with relative preservation of the disc spaces consistent with diffuse id iopathic skeletal hyperostosis. Upper thoracic spine not well seen on the lateral view. IMPRESSION: Low bone mineralization, consider diffuse idiopathic skeletal hyperostosis. Limited exam.
--- NOTE | 2020-05-30 23:33 | PN ---
PROGRESS NOTE DATE OF SERVICE: 05/30/2020 REASON FOR FOLLOWUP: Leukocytosis, possibly reactive. INTERVAL HISTORY: The patient is currently afebrile. The patient is breathing comfortably. The patient denies having any chest pain or shortness of breath or cough. No nausea, no vomiting. No abdominal pain or diarrhea. PHYSICAL EXAMINATION: Blood pressure 152/70 with a pulse of 70, temperature 98.7. He is 94% on room air. General description is an elderly male lying in bed in no distress. RESPIRATORY SYSTEM: Unlabored breathing with decreased breath sounds at the base. No wheeze. HEART: S1, S2. Regular rate and rhythm. ABDOMEN: Soft. No tenderness. LABS/IMAGING: Hemoglobin is 14.5, white count 22.8, creatinine 0.73. Blood culture so far negative. Urine is negative. Chest x-ray: no pneumonia. DIAGNOSTIC IMPRESSION AND PLAN: Patient with elevated white count and concern for it being possibly reactive in this patient who presented to hospital with significantly elevated glucose, possibly diabetic ketoacidosis, with no fever or any obvious focus of infection, on empiric Rocephin. White count is showing a downward trend. Will continue and monitor his clinical course closely. MMODL / IJN: [id number] /
[2020-05-31 02:16] LABS: Glucose,Whole Blood 153 mg/dL (75-99)
[2020-05-31 04:23] LABS: Basophils % (A) 0 %; Eosinophils # (A) 0.1 k/uL (0-0.7); Eosinophils % (A) 0 %; HCT 41.6 % (39.0-53.0); HGB 14.1 gm/dL (13.0-17.5); Lymphocytes # (A) 1.2 k/uL (1.0-4.8); Lymphocytes % (A) 11 %; MCH 31.9 pg (25.0-35.0); MCHC 33.9 g/dL (31.0-37.0); Mean Platelet Volume 8.2; Monocytes # (A) 0.7 k/uL (0-1.0); Monocytes % (A) 7 %; Neutrophils # (A) 8.7 k/uL (1.3-7.7); Neutrophils % (A) 81 %; Platelet Count 157 k/uL (150-450); RBC 4.43 m/uL (4.30-5.90); RDW 13.3 % (11.5-15.5); WBC 10.8 k/uL (3.8-10.6)
[2020-05-31 04:39] LABS: ALT 13 U/L (4-49); AST 17 U/L (17-59); African American GFR (CKD) >90 (>60 ml/min/1.73 sqM); Albumin 2.6 g/dL (3.5-5.0); Alkaline Phosphatase 100 U/L (38-126); Anion Gap 4 mmol/L; Blood Urea Nitrogen 14 mg/dL (9-20); Calcium 8.3 mg/dL (8.4-10.2); Carbon Dioxide 25 mmol/L (22-30); Chloride 104 mmol/L (98-107); Glucose 179 mg/dL (74-99); Non-African American GFR(CKD) >90 (>60 ml/min/1.73 sqM); Potassium 3.3 mmol/L (3.5-5.1); Sodium 133 mmol/L (137-145); Total Bilirubin 0.8 mg/dL (0.2-1.3); Total Protein 4.8 g/dL (6.3-8.2)
[2020-05-31] MEDS ORDERED: Potassium Replacement Protocol 1 EACH MISC MISCELLANE PRN (05:11)
[2020-05-31] MEDS: POTASSIUM CHLORIDE ER 20 MEQ TAB.ER PO SCH (05:23)
[2020-05-31] MEDS: HYDROmorphone 0.5 MG/0.5 ML SYRINGE IVP PRN ×4 (06:22→22:40)
[2020-05-31 06:27] LABS: Glucose,Whole Blood 193 mg/dL (75-99)
[2020-05-31] MEDS: INSULIN ASPART (NovoLOG) 100 UNIT/ML VIAL SQ SCH ×4 (06:29→21:08)
[2020-05-31] MEDS: INSULIN DETEMIR (LEVEMIR) 100 UNIT/ML SYR SQ SCH (06:29)
[2020-05-31] MEDS: PANTOPRAZOLE 40 MG TABLET PO SCH (06:29)
[2020-05-31] MEDS: traMADol 50 MG TAB PO PRN ×3 (09:40→22:40)
[2020-05-31] MEDS: ASPIRIN 81 MG PO SCH (09:41)
[2020-05-31] MEDS: ATORVASTATIN 10 MG TAB PO SCH (09:41)
[2020-05-31] MEDS: METOPROLOL TARTRATE 25 MG TAB PO SCH ×2 (09:42→20:31)
[2020-05-31] MEDS: HEPARIN SODIUM,PORCINE 5,000 UNIT/ML 1 ML VIAL SQ SCH ×2 (09:42→20:31)
--- NOTE | 2020-05-31 11:13 | P.PN ---
Subjective Progress Note Date: 05/31/20 This is a 70-year-old male patient, diabetic with known history of hypertension and hyperlipidemia and peripheral neuropathy, came in to the emergency department yesterday because of altered mental status and the patient was diagnosed having a DKA. The patient blood sugar was above 600. The patient was treated according to the DKA protocol in the intensive care unit. He was started on insulin drip as the patient was found to have a positive anion gap and serum bicarb level of 13. The patient was also found to be in a narrow complex tachycardia. He did get cardioverted in the emergency department following that he was placed on amiodarone and currently amiodarone is running at 0.5 mg per minute. Cardiac rhythm is back to sinus at this point in time. No fever. No chills. No headaches. No neck stiffness. No nausea vomiting abdominal pain or diarrhea. The patient had a white cell count of 27.6 and time of admission. His current albumin oxygen with a pulse ox of 96-97%. The chest x-ray at a time of admission showed no acute abnormalities. CAT scan of the head and cervical spine was also done that showed normal C-spine and some limited cerebral atrophy. The patient is currently in the intensive care units. On today's evaluation of 05/30/2020, the patient is awake and alert. The patient is on room air oxygen with a pulse is a 96%. Cultures of been negative. The patient remains on D5 half-normal saline at the rate of 50 mL an hour. The patient is also still on amiodarone drip at 0.5 mg per minute and the patient's cardiac rhythm is sinus at this point in time. Echocardiogram is still pending for now. No other significant events. Serum bicarb is still low at 15 and the patient was given a 50 mEq of sodium bicarb IV push. White cell count is improved down to 22. The patient is on Levemir insulin 29 units on a daily basis and addition to a standing scale coverage. 05/31/2020, the patient is doing well. No specific complaints. Resting comfortably in bed currently on 2 L about 2 by nasal cannula. No cardiac arrhythmia and the rhythm is sinus at the rate of 70. Echo of the heart was within normal limits. HbA1c was 14 and the patient will obviously need long- acting insulin. The patient was started on Levemir insulin 29 units daily along with ascites get coverage. The blood work from today shows closure of the anion gap and the patient's anion gap is currently at 4 with a bicarb of 25. Most recent was at 194. The patient is tolerating diet. No nausea. No vomiting for now without pain. No fever or chills. No significant metabolic acidosis. White cell count is at 10.8. He is following commands and answering questions appropriately. Objective - Vital Signs Vital signs: Vital Signs Temp 98.2 F 05/31/20 04:00 Pulse 66 05/31/20 04:00 Resp 14 05/31/20 04:00 BP 133/73 05/31/20 04:00 Pulse Ox 96 05/31/20 07:43 Intake & Output 05/30/20 05/31/20 05/31/20 18:59 06:59 18:59 Intake Total 840 50 Output Total 1210 515 Balance -370 -465 Weight 100.6 kg Intake: IV 600 50 D5-0.45% NaCl with KCl 550 20Meq/l 1,000 ml @ 50 mls /hr IV .Q20H [facility]ILDA Rx#: [id number] cefTRIAXone 1 gm In 50 50 Sodium Chloride 0.9% 50 ml @ 100 mls/hr IVPB Q12HR HILDA Rx#:[id number] Oral 240 Output: Urine 1210 515 Other: Voiding Method Indwelling Catheter Indwelling Catheter Indwelling Catheter # Voids 3 # Bowel Movements 1 1 - Exam The patient appeared well nourished and normally developed. Vital signs as documented. Head exam is unremarkable. No scleral icterus or corneal arcus noted. Neck is without jugular venous distension, thyromegaly, or carotid bruits. Carotid upstrokes are brisk bilaterally. Lungs are clear to auscultation and percussion. Cardiac exam reveals the PMI to be normally sized and situated. Rhythm is regular. First and second heart sounds normal. No murmurs, rubs or gallops. Abdominal exam reveals normal bowel sounds, no masses, no organomegaly and no aortic enlargement. Extremities are nonedematous and both femoral and pedal pulses are normal.Examination of the skin revealed no evidence of significant rashes, suspicious appearing nevi or other concerning lesions.Neurologically, the patient is awake and alert and the patient does not have any focal neurological deficit. Cranial nerves are essentially intact. - Labs CBC & Chem 7: 05/31/20 03:19 05/31/20 03:19 Labs: Abnormal Lab Results - Last 24 Hours (Table) 05/30/20 05/30/20 05/30/20 Range/Units 03:39 11:52 16:57 WBC (3.8-10.6) k/uL Neutrophils # (1.3-7.7) k/uL Sodium 134 L (137-145) mmol/L Potassium (3.5-5.1) mmol/L Creatinine (0.66-1.25) mg/dL Glucose 244 H (74-99) mg/dL POC Glucose (mg/dL) 113 H (75-99) mg/dL Hemoglobin A1c 14.9 H (4.0-6.0) % Calcium (8.4-10.2) mg/dL Total Protein (6.3-8.2) g/dL Albumin (3.5-5.0) g/dL 05/30/20 05/31/20 05/31/20 Range/Units 20:49 02:13 03:19 WBC 10.8 H (3.8-10.6) k/uL Neutrophils # 8.7 H (1.3-7.7) k/uL Sodium (137-145) mmol/L Potassium (3.5-5.1) mmol/L Creatinine (0.66-1.25) mg/dL Glucose (74-99) mg/dL POC Glucose (mg/dL) 117 H 153 H (75-99) mg/dL Hemoglobin A1c (4.0-6.0) % Calcium (8.4-10.2) mg/dL Total Protein (6.3-8.2) g/dL Albumin (3.5-5.0) g/dL 05/31/20 05/31/20 Range/Units 03:19 06:26 WBC (3.8-10.6) k/uL Neutrophils # (1.3-7.7) k/uL Sodium 133 L (137-145) mmol/L Potassium 3.3 L (3.5-5.1) mmol/L Creatinine 0.54 L (0.66-1.25) mg/dL Glucose 179 H (74-99) mg/dL POC Glucose (mg/dL) 193 H (75-99) mg/dL Hemoglobin A1c (4.0-6.0) % Calcium 8.3 L (8.4-10.2) mg/dL Total Protein 4.8 L (6.3-8.2) g/dL Albumin 2.6 L (3.5-5.0) g/dL Microbiology - Last 24 Hours (Table) 05/29/20 11:32 Blood Culture - Preliminary Blood No Growth after 24 hours 05/29/20 10:10 Urine Culture - Final Urine,Catheterized Assessment and Plan Plan: 1 altered mental status secondary to DKA. DKA as well treated and recovered and the patient is currently on Levemir 29 units daily along with ascites care coverage. Anion gap is within normal limits 2 SVT post-cardioversion currently off amiodarone and the patient is currently on a beta florentino, cardiac rhythm is sinus. His cath the case with cardiology. Echocardiogram is within normal limits 3 acute kidney injury, improved with fluid resuscitation 4 leukocytosis, consider reactive leukocytosis, improving 5 diabetes mellitus, maintained on his outpatient basis including NPH units twice a day 6 hypertension 7 hyperlipidemia Plan Patient recovered from DKA Continue long-acting insulin Monitor blood sugar and cover the patient was flaccid coverage Advance diet as tolerated IV fluids to [facility] Transfer this patient out of the intensive care unit today. Condition is stable for now.
[2020-05-31 12:09] LABS: Glucose,Whole Blood 173 mg/dL (75-99)
[2020-05-31 16:30] LABS: Glucose,Whole Blood 106 mg/dL (75-99)
--- NOTE | 2020-05-31 16:58 | PN ---
PROGRESS NOTE DATE OF SERVICE: 05/31/2020 REASON FOR FOLLOWUP: Leukocytosis, possible reactive. INTERVAL HISTORY: The patient is currently afebrile. Patient is breathing comfortably. The patient denies having any chest pain or shortness of breath, no cough. No nausea, no vomiting. No abdominal pain, no diarrhea. PHYSICAL EXAMINATION: Blood pressure 119/73 with a pulse of 72, temperature of 98.5, he is 97% on 2 L nasal cannula. General description is an elderly male, lying in bed in no distress. RESPIRATORY SYSTEM: Unlabored breathing, decreased breath sounds at bases, no wheeze. HEART: S1, S2. Regular rate and rhythm. ABDOMEN: Soft, no tenderness. LABS: Hemoglobin is 14.1, white count 10.8. BUN of 14, creatinine 0.54. Blood urine has been negative. Chest x-ray negative for any pneumonia. DIAGNOSTIC IMPRESSION AND PLAN: Patient with elevated white count, more likely reactive in this patient with possible reactive leukocytosis. Patient white count normal and culture has been negative. Antibiotic Rocephin, continue supportive care. MMODL / IJN: [id number] /
--- NOTE | 2020-05-31 18:48 | P.PN ---
Subjective Progress Note Date: 05/31/20 This is a 70-year-old male patient of Dr. Egan. Patient presented to the ER via ambulance when neighbor found patient on the ground with altered mental status. According to ER record patient's blood glucose was found to be 600 upon arrival. Patient does have a past medical history of diabetes mellitus, hyperlipidemia and essential hypertension. Upon arrival to the ER patient was found to be in SVT. Patient was cardioverted in ER and started on amiodarone per cardiology services. Patient was also started on insulin drip. Patient had noted to have significant bruising around hip right side. Pelvis x-ray completed showing no acute abnormality of the pelvis. Chest x-ray completed showing pulmonary fibrotic changes noted failure. Head and cervical spine CT completed showing normal computed tomography scan of the cervical spine cerebral atrophy no acute intracranial abnormality. Upon arrival CO2 8 and anion gap 25. Patient managed to ICU Dr. Crow consulted for critical care. Cardiology services following 2-D echo ordered . Upon exam patient unable to remember events leading to incident. Patient denies any recent illness that he can remember. This time patient denies chest pain or shortness breath. Patient denies nausea vomiting or diarrhea. Patient denies any urinary burning or frequency. White blood cell count significantly elevated. Will order blood and culture and urine culture On 05/30/2020 patient was seen and examined in the ICU he is alert and oriented 3 in no apparent distress he is complaining of mid and low back pain otherwise he denies any complaint, there is no fever or chills no headache or dizziness no chest pain no shortness of breath no cough no nausea or vomiting no abdominal pain no diarrhea no blood in the stools no burning with urination no frequency or urgency and no hematuria. On 05/31/2020 patient was seen and examined in the ICU, is alert and oriented in no distress, is still complaining of back pain otherwise he denies any c omplaints there is no fever or chills no headache or dizziness no chest pain no shortness of breath no cough no nausea or vomiting no diarrhea no blood in the stools no burning with urination no frequency or urgency and no hematuria, glucose level is better controlled on insulin, patient was counseled in length in regards to importance of taking medication and insulin injections at home to avoid recurrence of his symptoms and readmission. Objective - Vital Signs Vital signs: Vital Signs Temp 98.4 F 05/31/20 16:00 Pulse 64 05/31/20 16:00 Resp 14 05/31/20 16:00 BP 140/80 05/31/20 16:00 Pulse Ox 95 05/31/20 16:00 Intake & Output 05/30/20 05/31/20 05/31/20 18:59 06:59 18:59 Intake Total 840 50 400 Output Total 1210 515 600 Balance -370 -465 -200 Weight 100.6 kg Intake: IV 600 50 50 D5-0.45% NaCl with KCl 550 20Meq/l 1,000 ml @ 50 mls /hr IV .Q20H [facility] Rx#: [id number] cefTRIAXone 1 gm In 50 50 50 Sodium Chloride 0.9% 50 ml @ 100 mls/hr IVPB Q12HR [facility] Rx#:[id number] Oral 240 350 Output: Urine 1210 515 600 Other: Voiding Method Indwelling Catheter Indwelling Catheter Indwelling Catheter # Voids 3 # Bowel Movements 1 1 - Exam In general patient is alert and oriented 3 in no apparent distress HEENT head normocephalic and atraumatic Neck is supple no JVD no goiter no lymphadenopathy Chest exam reveals a scattered crackles in both lung bases no wheezing Cardiac exam reveals regular heart sounds S1 and S2 no gallops no murmurs Abdomen is soft nontender no organomegaly with normal bowel sounds Extremity exam reveals no edema no cyanosis or clubbing Neurological examination reveals no gross focal deficit - Labs CBC & Chem 7: 05/31/20 03:19 05/31/20 03:19 Labs: Abnormal Lab Results - Last 24 Hours (Table) 05/30/20 05/31/20 05/31/20 Range/Units 20:49 02:13 03:19 WBC 10.8 H (3.8-10.6) k/uL Neutrophils # 8.7 H (1.3-7.7) k/uL Sodium (137-145) mmol/L Potassium (3.5-5.1) mmol/L Creatinine (0.66-1.25) mg/dL Glucose (74-99) mg/dL POC Glucose (mg/dL) 117 H 153 H (75-99) mg/dL Calcium (8.4-10.2) mg/dL Total Protein (6.3-8.2) g/dL Albumin (3.5-5.0) g/dL 05/31/20 05/31/20 05/31/20 Range/Units 03:19 06:26 12:07 WBC (3.8-10.6) k/uL Neutrophils # (1.3-7.7) k/uL Sodium 133 L (137-145) mmol/L Potassium 3.3 L (3.5-5.1) mmol/L Creatinine 0.54 L (0.66-1.25) mg/dL Glucose 179 H (74-99) mg/dL POC Glucose (mg/dL) 193 H 173 H (75-99) mg/dL Calcium 8.3 L (8.4-10.2) mg/dL Total Protein 4.8 L (6.3-8.2) g/dL Albumin 2.6 L (3.5-5.0) g/dL 05/31/20 Range/Units 16:28 WBC (3.8-10.6) k/uL Neutrophils # (1.3-7.7) k/uL Sodium (137-145) mmol/L Potassium (3.5-5.1) mmol/L Creatinine (0.66-1.25) mg/dL Glucose (74-99) mg/dL POC Glucose (mg/dL) 106 H (75-99) mg/dL Calcium (8.4-10.2) mg/dL Total Protein (6.3-8.2) g/dL Albumin (3.5-5.0) g/dL Microbiology - Last 24 Hours (Table) 05/29/20 11:32 Blood Culture - Preliminary Blood No Growth after 48 hours Assessment and Plan Plan: 1. Altered mental status likely secondary to DKA. Patient currently on insulin drip. Patient has been admitted to the intensive care unit critical care following. Initial CO2 13 and anion gap 25. 2. Supraventricular tachycardia. Patient was cardioverted in emergency room. Cardiology services following. Patient currently on amiodarone 3. Renal insufficiency. Initial creatinine 1.66 and bun 41. These do appear to be improving 4. Elevated white blood cell count. Urine and blood cultures ordered 5. History of diabetes mellitus 6. History of Hyperlipidemia 7. Essential hypertension 8. low back pain, will check x-ray DVT prophylaxis heparin. GI prophylaxis Protonix Patient currently admitted to intensive care unit Critical care and cardiology currently following remains on insulin and amiodarone drips Blood and urine culture ordered At this time patient is improving he is maintaining in normal sinus rhythm, will continue to monitor closely
[2020-05-31 21:00] LABS: Glucose,Whole Blood 107 mg/dL (75-99)
[2020-06-01] MEDS ORDERED: DILTIAZEM DRIP BOLUS FROM BAG 1 MG SOLN IV ONE (01:22)
[2020-06-01] MEDS: DILTIAZEM 125 MG in SODIUM CHLORIDE 0.9% 100 ML IV SCH ×2 (01:37→15:25)
[2020-06-01 03:49] LABS: Basophils # (A) 0.1 k/uL (0-0.2); Basophils % (A) 1 %; Eosinophils # (A) 0.2 k/uL (0-0.7); Eosinophils % (A) 2 %; HCT 44.6 % (39.0-53.0); HGB 14.6 gm/dL (13.0-17.5); Lymphocytes # (A) 1.5 k/uL (1.0-4.8); Lymphocytes % (A) 14 %; MCHC 32.7 g/dL (31.0-37.0); MCV 91.6 fL (80.0-100.0); Mean Platelet Volume 8.9; Monocytes # (A) 0.8 k/uL (0-1.0); Monocytes % (A) 8 %; Neutrophils # (A) 7.7 k/uL (1.3-7.7); Neutrophils % (A) 73 %; Platelet Count 166 k/uL (150-450); RBC 4.87 m/uL (4.30-5.90); RDW 13.5 % (11.5-15.5); WBC 10.4 k/uL (3.8-10.6)
[2020-06-01] MEDS: traMADol 50 MG TAB PO PRN ×2 (03:56→17:27)
[2020-06-01 04:01] LABS: ALT 12 U/L (4-49); AST 18 U/L (17-59); African American GFR (CKD) >90 (>60 ml/min/1.73 sqM); Albumin 2.5 g/dL (3.5-5.0); Alkaline Phosphatase 90 U/L (38-126); Anion Gap 6 mmol/L; Blood Urea Nitrogen 12 mg/dL (9-20); Calcium 8.3 mg/dL (8.4-10.2); Carbon Dioxide 26 mmol/L (22-30); Chloride 101 mmol/L (98-107); Glucose 152 mg/dL (74-99); Non-African American GFR(CKD) >90 (>60 ml/min/1.73 sqM); Potassium 3.4 mmol/L (3.5-5.1); Sodium 133 mmol/L (137-145); Total Bilirubin 0.9 mg/dL (0.2-1.3)
[2020-06-01] MEDS: HYDROmorphone 0.5 MG/0.5 ML SYRINGE IVP PRN ×3 (05:01→15:24)
[2020-06-01] MEDS: POTASSIUM CHLORIDE ER 20 MEQ TAB.ER PO SCH ×4 (06:24→12:02)
[2020-06-01 06:37] LABS: Glucose,Whole Blood 197 mg/dL (75-99)
[2020-06-01] MEDS: INSULIN DETEMIR (LEVEMIR) 100 UNIT/ML SYR SQ SCH (06:57)
[2020-06-01] MEDS: INSULIN ASPART (NovoLOG) 100 UNIT/ML VIAL SQ SCH ×4 (06:57→20:31)
[2020-06-01] MEDS: PANTOPRAZOLE 40 MG TABLET PO SCH (06:59)
[2020-06-01] MEDS ORDERED: APIXABAN 5 MG TAB PO SCH (09:00)
[2020-06-01] MEDS ORDERED: Potassium Replacement Protocol 1 EACH MISC MISCELLANE PRN (10:03)
[2020-06-01] MEDS: ASPIRIN 81 MG PO SCH (10:30)
[2020-06-01] MEDS: ATORVASTATIN 10 MG TAB PO SCH (10:31)
[2020-06-01] MEDS: METOPROLOL TARTRATE 50 MG TAB PO SCH ×2 (10:31→20:36)
[2020-06-01] MEDS: APIXABAN 5 MG TAB PO SCH ×2 (10:32→20:36)
[2020-06-01 11:33] LABS: Glucose,Whole Blood 168 mg/dL (75-99)
--- NOTE | 2020-06-01 11:45 | P.PN ---
Subjective Progress Note Date: 06/01/20 This is a 70-year-old male patient, diabetic with known history of hypertension and hyperlipidemia and peripheral neuropathy, came in to the emergency department yesterday because of altered mental status and the patient was diagnosed having a DKA. The patient blood sugar was above 600. The patient was treated according to the DKA protocol in the intensive care unit. He was started on insulin drip as the patient was found to have a positive anion gap and serum bicarb level of 13. The patient was also found to be in a narrow complex tachycardia. He did get cardioverted in the emergency department following that he was placed on amiodarone and currently amiodarone is running at 0.5 mg per minute. Cardiac rhythm is back to sinus at this point in time. No fever. No chills. No headaches. No neck stiffness. No nausea vomiting abdominal pain or diarrhea. The patient had a white cell count of 27.6 and time of admission. His current albumin oxygen with a pulse ox of 96-97%. The chest x-ray at a time of admission showed no acute abnormalities. CAT scan of the head and cervical spine was also done that showed normal C-spine and some limited cerebral atrophy. The patient is currently in the intensive care units. On today's evaluation of 05/30/2020, the patient is awake and alert. The patient is on room air oxygen with a pulse is a 96%. Cultures of been negative. The patient remains on D5 half-normal saline at the rate of 50 mL an hour. The patient is also still on amiodarone drip at 0.5 mg per minute and the patient's cardiac rhythm is sinus at this point in time. Echocardiogram is still pending for now. No other significant events. Serum bicarb is still low at 15 and the patient was given a 50 mEq of sodium bicarb IV push. White cell count is improved down to 22. The patient is on Levemir insulin 29 units on a daily basis and addition to a standing scale coverage. 05/31/2020, the patient is doing well. No specific complaints. Resting comfortably in bed currently on 2 L about 2 by nasal cannula. No cardiac arrhythmia and the rhythm is sinus at the rate of 70. Echo of the heart was within normal limits. HbA1c was 14 and the patient will obviously need long- acting insulin. The patient was started on Levemir insulin 29 units daily along with ascites get coverage. The blood work from today shows closure of the anion gap and the patient's anion gap is currently at 4 with a bicarb of 25. Most recent was at 194. The patient is tolerating diet. No nausea. No vomiting for now without pain. No fever or chills. No significant metabolic acidosis. White cell count is at 10.8. He is following commands and answering questions appropriately. 06/01/2020 and seeing the patient for a follow-up in the intensive care unit. The patient has recovered from his diabetic ketoacidosis. The patient is currently on long-acting insulin and the patient is currently on Levemir 29 units daily. No anion gap metabolic acidosis. Overnight, the patient went into atrial fibrillation with rapid ventricular response. Heart rate was as high as 170. The patient was started on Cardizem drip which is currently running at 10 mg an hour. He converted spontaneously and his current rhythm is back to sinus. Note that he is also on metoprolol 25 mg by mouth twice a day. Another issue is that the patient had a similar event in time of admission that was also treated with mineral resources inspector mainly in the form of amiodarone. Echocardiogram is within normal limits. No focal neurological deficits. Moving all 4 extremities without any limitation. He is complaining of back pain. He was found to have an L1 compression fracture of the lumbar spine. Surgical consultation was requested. The patient has no specific complaints. Hemodynamically stable. Tolerating diet. No anion gap metabolic acidosis this point in time. Objective - Vital Signs Vital signs: Vital Signs Temp 98 F 06/01/20 08:00 Pulse 73 06/01/20 08:00 Resp 18 06/01/20 08:00 BP 110/74 06/01/20 08:00 Pulse Ox 99 06/01/20 08:00 Intake & Output 05/31/20 06/01/20 06/01/20 18:59 06:59 18:59 Intake Total 400 Output Total 600 750 400 Balance -200 -750 -400 Weight 102.5 kg Intake: IV 50 cefTRIAXone 1 gm In 50 Sodium Chloride 0.9% 50 ml @ 100 mls/hr IVPB Q12HR [facility] Rx#:[id number] Oral 350 Output: Urine 600 750 400 Other: Voiding Method Indwelling Catheter Indwelling Catheter Indwelling Catheter - Exam The patient appeared well nourished and normally developed. Vital signs as documented. Head exam is unremarkable. No scleral icterus or corneal arcus noted. Neck is without jugular venous distension, thyromegaly, or carotid bruits. Carotid upstrokes are brisk bilaterally. Lungs are clear to auscultation and percussion. Cardiac exam reveals the PMI to be normally sized and situated. Rhythm is regular. First and second heart sounds normal. No murmurs, rubs or gallops. Abdominal exam reveals normal bowel sounds, no masses, no organomegaly and no aortic enlargement. Extremities are nonedematous and both femoral and pedal pulses are normal.Examination of the skin revealed no evidence of significant rashes, suspicious appearing nevi or other concerning lesions.Neurologically, the patient is awake and alert and the patient does not have any focal neurological deficit. Cranial nerves are essentially intact. - Labs CBC & Chem 7: 06/01/20 03:05 06/01/20 03:05 Labs: Abnormal Lab Results - Last 24 Hours (Table) 05/31/20 05/31/20 05/31/20 Range/Units 12:07 16:28 20:58 Sodium (137-145) mmol/L Potassium (3.5-5.1) mmol/L Creatinine (0.66-1.25) mg/dL Glucose (74-99) mg/dL POC Glucose (mg/dL) 173 H 106 H 107 H (75-99) mg/dL Calcium (8.4-10.2) mg/dL Total Protein (6.3-8.2) g/dL Albumin (3.5-5.0) g/dL 06/01/20 06/01/20 06/01/20 Range/Units 03:05 06:36 11:32 Sodium 133 L (137-145) mmol/L Potassium 3.4 L (3.5-5.1) mmol/L Creatinine 0.47 L (0.66-1.25) mg/dL Glucose 152 H (74-99) mg/dL POC Glucose (mg/dL) 197 H 168 H (75-99) mg/dL Calcium 8.3 L (8.4-10.2) mg/dL Total Protein 5.0 L (6.3-8.2) g/dL Albumin 2.5 L (3.5-5.0) g/dL Microbiology - Last 24 Hours (Table) 05/29/20 11:32 Blood Culture - Preliminary Blood No Growth after 48 hours Assessment and Plan Plan: 1 altered mental status secondary to DKA. DKA as well treated and recovered and the patient is currently on Levemir 29 units daily along with ascites care coverage. Anion gap is within normal limits 2 SVT post-cardioversion currently off amiodarone and the patient is currently on a beta flornetino, cardiac rhythm is sinus. His cath the case with cardiology. Echocardiogram is within normal limits 3 acute kidney injury, improved with fluid resuscitation 4 leukocytosis, consider reactive leukocytosis, improving 5 diabetes mellitus, maintained on his outpatient basis including NPH units twice a day 6 hypertension 7 hyperlipidemia 8 compression fracture of the L1 spine with secondary back pain 9 proximal atrial fibrillation. The patient had another bout of A. fib overnight requiring Cardizem drip which is still running at 10 mg an hour Plan Patient recovered from DKA, and suggest continuing long-acting insulin for now along with a sliding scale coverage. No anion gap metabolic acidosis. Continue long-acting insulin Pain control with tramadol regarding chronic back pain and compression fracture of the spine and the patient would obviously need a orthopedic surgery evaluation Wean off the Cardizem drip and discontinue and switch this patient to 50 mg of metoprolol twice a day. The patient was also started on anti-coagulation with Eliquis 5 mg by mouth twice a day. Transfer this patient out of the intensive care unit today. Condition is stable for now.
--- NOTE | 2020-06-01 12:20 | P.PN ---
Subjective Progress Note Date: 06/01/20 This is a 70-year-old male patient of Dr. Egan. Patient presented to the ER via ambulance when neighbor found patient on the ground with altered mental status. According to ER record patient's blood glucose was found to be 600 upon arrival. Patient does have a past medical history of diabetes mellitus, hyperlipidemia and essential hypertension. Upon arrival to the ER patient was found to be in SVT. Patient was cardioverted in ER and started on amiodarone per cardiology services. Patient was also started on insulin drip. Patient had noted to have significant bruising around hip right side. Pelvis x-ray completed showing no acute abnormality of the pelvis. Chest x-ray completed showing pulmonary fibrotic changes noted failure. Head and cervical spine CT completed showing normal computed tomography scan of the cervical spine cerebral atrophy no acute intracranial abnormality. Upon arrival CO2 8 and anion gap 25. Patient managed to ICU Dr. Crow consulted for critical care. Cardiology services following 2-D echo ordered . Upon exam patient unable to remember events leading to incident. Patient denies any recent illness that he can remember. This time patient denies chest pain or shortness breath. Patient denies nausea vomiting or diarrhea. Patient denies any urinary burning or frequency. White blood cell count significantly elevated. Will order blood and culture and urine culture On 05/30/2020 patient was seen and examined in the ICU he is alert and oriented 3 in no apparent distress he is complaining of mid and low back pain otherwise he denies any complaint, there is no fever or chills no headache or dizziness no chest pain no shortness of breath no cough no nausea or vomiting no abdominal pain no diarrhea no blood in the stools no burning with urination no frequency or urgency and no hematuria. On 05/31/2020 patient was seen and examined in the ICU, is alert and oriented in no distress, is still complaining of back pain otherwise he denies any co mplaints there is no fever or chills no headache or dizziness no chest pain no shortness of breath no cough no nausea or vomiting no diarrhea no blood in the stools no burning with urination no frequency or urgency and no hematuria, glucose level is better controlled on insulin, patient was counseled in length in regards to importance of taking medication and insulin injections at home to avoid recurrence of his symptoms and readmission. On 06/01/2020 patient alert and oriented 3 patient remains in the intensive care unit. Patient remains on Cardizem drip. Blood sugars have improved. At this time patient denies chest pain or shortness of breath. Patient denies nausea vomiting or diarrhea. Patient denies any urinary burning or frequency Objective - Vital Signs Vital signs: Vital Signs Temp 98.1 F 06/01/20 12:00 Pulse 66 06/01/20 12:00 Resp 16 06/01/20 12:00 BP 110/74 06/01/20 12:00 Pulse Ox 98 06/01/20 12:00 Intake & Output 05/31/20 06/01/20 06/01/20 18:59 06:59 18:59 Intake Total 400 350 Output Total 600 750 500 Balance -200 -750 -150 Weight 102.5 kg Intake: IV 50 cefTRIAXone 1 gm In 50 Sodium Chloride 0.9% 50 ml @ 100 mls/hr IVPB Q12HR [facility] Rx#:[id number] Oral 350 350 Output: Urine 600 750 500 Other: Voiding Method Indwelling Catheter Indwelling Catheter Indwelling Catheter - Exam In general patient is alert and oriented 3 in no apparent distress HEENT head normocephalic and atraumatic Neck is supple no JVD no goiter no lymphadenopathy Chest exam reveals a scattered crackles in both lung bases no wheezing Cardiac exam reveals regular heart sounds S1 and S2 no gallops no murmurs Abdomen is soft nontender no organomegaly with normal bowel sounds Extremity exam reveals no edema no cyanosis or clubbing Neurological examination reveals no gross focal deficit - Labs CBC & Chem 7: 06/01/20 03:05 06/01/20 03:05 Labs: Abnormal Lab Results - Last 24 Hours (Table) 05/31/20 05/31/20 05/31/20 Range/Units 12:07 16:28 20:58 Sodium (137-145) mmol/L Potassium (3.5-5.1) mmol/L Creatinine (0.66-1.25) mg/dL Glucose (74-99) mg/dL POC Glucose (mg/dL) 173 H 106 H 107 H (75-99) mg/dL Calcium (8.4-10.2) mg/dL Total Protein (6.3-8.2) g/dL Albumin (3.5-5.0) g/dL 06/01/20 06/01/20 06/01/20 Range/Units 03:05 06:36 11:32 Sodium 133 L (137-145) mmol/L Potassium 3.4 L (3.5-5.1) mmol/L Creatinine 0.47 L (0.66-1.25) mg/dL Glucose 152 H (74-99) mg/dL POC Glucose (mg/dL) 197 H 168 H (75-99) mg/dL Calcium 8.3 L (8.4-10.2) mg/dL Total Protein 5.0 L (6.3-8.2) g/dL Albumin 2.5 L (3.5-5.0) g/dL Microbiology - Last 24 Hours (Table) 05/29/20 11:32 Blood Culture - Preliminary Blood No Growth after 48 hours Assessment and Plan Assessment: 1. Altered mental status likely secondary to DKA. Patient has been transitioned to sliding scale insulin plus long-acting insulin 2. Supraventricular tachycardia. Patient was cardioverted in emergency room. Cardiology services following. currently on Cardizem drip. 2-D echo completed showing an EF of 50-55%. 3. Renal insufficiency. Initial creatinine 1.66 and bun 41. These do appear to be improving 4. Elevated white blood cell count. Urine and blood cultures ordered. Per infectious disease elevated white count most likely reactive cultures have been added. Patient remains on Rocephin. Urine and blood cultures currently showing no growth. 5. History of diabetes mellitus. Hemoglobin A1c 14.9. Patient educated that he will be going home on insulin and will need close monitoring due to elevated A1c level. 6. History of Hyperlipidemia. Patient started on statin 7. Essential hypertension. Lopressor added 8. low back pain, will check x-ray. Lumbar x-ray completed showing possible osteoporotic compression fracture L4. Thoracic spine completed showing low bone mineralization consider diffuse idiopathic skeletal hyperostosis. 9. Proximal atrial fibrillation. Patient is currently on Cardizem drip cardiology services are following. Patient on eliquis for anticoagulation DVT prophylaxis eliquis. GI prophylaxis Protonix PT OT consulted I performed an examination of the patient and discussed their management with the Nurse Practitioner. I have reviewed the Nurse Practitioner's notes and agree with the documented findings and plan of care
[2020-06-01 16:37] LABS: Glucose,Whole Blood 179 mg/dL (75-99)
[2020-06-01 20:29] LABS: Glucose,Whole Blood 124 mg/dL (75-99)
[2020-06-01] MEDS: HYDROmorphone 1 MG/ML 1 ML SYRINGE IVP PRN (20:36)
--- NOTE | 2020-06-01 22:14 | PN ---
PROGRESS NOTE DATE OF SERVICE: 06/01/2020 REASON FOR FOLLOWUP: Leukocytosis, possibly reactive. INTERVAL HISTORY: The patient is currently afebrile. The patient is breathing comfortably. Denies having any chest pain, shortness of breath or cough. No nausea, no vomiting. No abdominal pain or diarrhea. PHYSICAL EXAMINATION: Blood pressure 148/76, pulse of 71, temperature 98.8. He is 96% on 2 L nasal cannula. General description is an elderly male lying in bed in no distress. RESPIRATORY SYSTEM: Unlabored breathing with decreased breath sounds at the base. No wheeze. HEART: S1, S2. Regular rate and rhythm. ABDOMEN: Soft. No tenderness. LABS: Hemoglobin is 14.6, white count 10.4, BUN of 20, creatinine 0.47. Culture has been negative. DIAGNOSTIC IMPRESSION AND PLAN: Patient with leukocytosis, possibly reactive in this patient admitted to hospital with diabetic ketoacidosis and elevated blood sugar. The patient's white count has normalized. Cultures have been negative. Antibiotics discontinued. To monitor the patient closely off antibiotic therapy. MMODL / IJN: [id number] /
[2020-06-02] MEDS: HYDROmorphone 1 MG/ML 1 ML SYRINGE IVP PRN ×6 (00:40→21:02)
[2020-06-02 04:12] LABS: Basophils # (A) 0.1 k/uL (0-0.2); Basophils % (A) 1 %; Eosinophils # (A) 0.5 k/uL (0-0.7); Eosinophils % (A) 5 %; HCT 45.2 % (39.0-53.0); HGB 14.8 gm/dL (13.0-17.5); Lymphocytes # (A) 1.8 k/uL (1.0-4.8); Lymphocytes % (A) 19 %; MCH 30.9 pg (25.0-35.0); MCHC 32.8 g/dL (31.0-37.0); MCV 94.4 fL (80.0-100.0); Mean Platelet Volume 7.8; Monocytes # (A) 0.9 k/uL (0-1.0); Monocytes % (A) 10 %; Neutrophils # (A) 5.9 k/uL (1.3-7.7); Neutrophils % (A) 62 %; Platelet Count 219 k/uL (150-450); RBC 4.79 m/uL (4.30-5.90); RDW 13.3 % (11.5-15.5); WBC 9.4 k/uL (3.8-10.6)
[2020-06-02 04:28] LABS: ALT 11 U/L (4-49); AST 16 U/L (17-59); African American GFR (CKD) >90 (>60 ml/min/1.73 sqM); Albumin 2.7 g/dL (3.5-5.0); Alkaline Phosphatase 93 U/L (38-126); Anion Gap 5 mmol/L; Blood Urea Nitrogen 13 mg/dL (9-20); Calcium 8.3 mg/dL (8.4-10.2); Carbon Dioxide 31 mmol/L (22-30); Chloride 97 mmol/L (98-107); Glucose 150 mg/dL (74-99); Non-African American GFR(CKD) >90 (>60 ml/min/1.73 sqM); Potassium 3.6 mmol/L (3.5-5.1); Sodium 133 mmol/L (137-145); Total Protein 5.1 g/dL (6.3-8.2)
[2020-06-02] MEDS: DILTIAZEM 125 MG in SODIUM CHLORIDE 0.9% 100 ML IV SCH (04:31)
--- NOTE | 2020-06-02 06:34 | XR ---
EXAMINATION TYPE: XR chest 1V portable DATE OF EXAM: 06/02/2020 CLINICAL HISTORY: Difficulty breathing and pneumonia progress study. TECHNIQUE: Single AP portable supine view of the chest is obtained. COMPARISON: Chest x-ray from 3 days earlier FINDINGS: Chronic parenchymal changes with slightly elevated left hemidiaphragm and left basilar justin ear scarring and/or atelectasis redemonstrated . The right lung remains clear. Cardiac silhouette siz e stable and upper limits of normal. Osseous structures are demineralized with underlying scoliotic c urvature redemonstrated. Suspect old anterolateral left lower rib fractures. IMPRESSION: Overall stable findings, chronic parenchymal changes without new suspicious acute infil trate identified.
[2020-06-02 06:50] LABS: Glucose,Whole Blood 177 mg/dL (75-99)
[2020-06-02] MEDS: INSULIN DETEMIR (LEVEMIR) 100 UNIT/ML SYR SQ SCH (06:56)
[2020-06-02] MEDS: PANTOPRAZOLE 40 MG TABLET PO SCH (06:56)
[2020-06-02] MEDS: INSULIN ASPART (NovoLOG) 100 UNIT/ML VIAL SQ SCH ×4 (06:56→21:01)
[2020-06-02] MEDS: ASPIRIN 81 MG PO SCH (08:59)
[2020-06-02] MEDS: APIXABAN 5 MG TAB PO SCH ×2 (08:59→21:01)
[2020-06-02] MEDS: ATORVASTATIN 10 MG TAB PO SCH (08:59)
[2020-06-02] MEDS: METOPROLOL TARTRATE 50 MG TAB PO SCH ×2 (09:00→21:01)
[2020-06-02 11:49] LABS: Glucose,Whole Blood 177 mg/dL (75-99)
--- NOTE | 2020-06-02 12:11 | P.PN ---
Subjective Progress Note Date: 06/02/20 This is a 70-year-old male patient, diabetic with known history of hypertension and hyperlipidemia and peripheral neuropathy, came in to the emergency department yesterday because of altered mental status and the patient was diagnosed having a DKA. The patient blood sugar was above 600. The patient was treated according to the DKA protocol in the intensive care unit. He was started on insulin drip as the patient was found to have a positive anion gap and serum bicarb level of 13. The patient was also found to be in a narrow complex tachycardia. He did get cardioverted in the emergency department following that he was placed on amiodarone and currently amiodarone is running at 0.5 mg per minute. Cardiac rhythm is back to sinus at this point in time. No fever. No chills. No headaches. No neck stiffness. No nausea vomiting abdominal pain or diarrhea. The patient had a white cell count of 27.6 and time of admission. His current albumin oxygen with a pulse ox of 96-97%. The chest x-ray at a time of admission showed no acute abnormalities. CAT scan of the head and cervical spine was also done that showed normal C-spine and some limited cerebral atrophy. The patient is currently in the intensive care units. On today's evaluation of 05/30/2020, the patient is awake and alert. The patient is on room air oxygen with a pulse is a 96%. Cultures of been negative. The patient remains on D5 half-normal saline at the rate of 50 mL an hour. The patient is also still on amiodarone drip at 0.5 mg per minute and the patient's cardiac rhythm is sinus at this point in time. Echocardiogram is still pending for now. No other significant events. Serum bicarb is still low at 15 and the patient was given a 50 mEq of sodium bicarb IV push. White cell count is improved down to 22. The patient is on Levemir insulin 29 units on a daily basis and addition to a standing scale coverage. 05/31/2020, the patient is doing well. No specific complaints. Resting comfortably in bed currently on 2 L about 2 by nasal cannula. No cardiac arrhythmia and the rhythm is sinus at the rate of 70. Echo of the heart was within normal limits. HbA1c was 14 and the patient will obviously need long- acting insulin. The patient was started on Levemir insulin 29 units daily along with ascites get coverage. The blood work from today shows closure of the anion gap and the patient's anion gap is currently at 4 with a bicarb of 25. Most recent was at 194. The patient is tolerating diet. No nausea. No vomiting for now without pain. No fever or chills. No significant metabolic acidosis. White cell count is at 10.8. He is following commands and answering questions appropriately. 06/01/2020 and seeing the patient for a follow-up in the intensive care unit. The patient has recovered from his diabetic ketoacidosis. The patient is currently on long-acting insulin and the patient is currently on Levemir 29 units daily. No anion gap metabolic acidosis. Overnight, the patient went into atrial fibrillation with rapid ventricular response. Heart rate was as high as 170. The patient was started on Cardizem drip which is currently running at 10 mg an hour. He converted spontaneously and his current rhythm is back to sinus. Note that he is also on metoprolol 25 mg by mouth twice a day. Another issue is that the patient had a similar event in time of admission that was also treated with rvda master certified rv technician mainly in the form of amiodarone. Echocardiogram is within normal limits. No focal neurological deficits. Moving all 4 extremities without any limitation. He is complaining of back pain. He was found to have an L1 compression fracture of the lumbar spine. Surgical consultation was requested. The patient has no specific complaints. Hemodynamically stable. Tolerating diet. No anion gap metabolic acidosis this point in time. On 06/02/2020, seeing the patient for a follow-up. Doing well and his main complaint is pain in his back which is limiting his mobility. He is laying in bed most of the time. An x-ray was done that showed compression fracture of the spine. Surgical consultation was obtained. MRI of the lumbosacral spine will be also ordered. He has no radiculopathy. No significant weakness in lower extremities. Nevertheless, he is refusing to get up because of the excruciating pain that he is complaining of. His cardiac rhythm is sinus. He was started on long-term and to coagulation with Eliquis. He is also on beta blockers 50 mg by mouth twice a day. Blood sugars are under adequate control. His DKA has recovered. No altered mentation. No other new complaints otherwise for now. He is a selective overflow. His chest x-ray from today showing chronic parenchymal changes without any new suspicious pulmonary infiltrates. Objective - Vital Signs Vital signs: Vital Signs Temp 97.7 F 06/02/20 04:00 Pulse 58 L 06/02/20 04:00 Resp 10 L 06/02/20 04:00 BP 118/77 06/02/20 04:00 Pulse Ox 97 06/02/20 04:00 Intake & Output 06/01/20 06/02/20 06/02/20 18:59 06:59 18:59 Intake Total 550 120 Output Total 900 305 Balance -350 -185 Weight 96.1 kg Intake: Oral 550 120 Output: Urine 900 305 Other: Voiding Method Indwelling Catheter Indwelling Catheter - Exam The patient appeared well nourished and normally developed. Vital signs as documented. Head exam is unremarkable. No scleral icterus or corneal arcus noted. Neck is without jugular venous distension, thyromegaly, or carotid bruits. Carotid upstrokes are brisk bilaterally. Lungs are clear to auscultation and percussion. Cardiac exam reveals the PMI to be normally sized and situated. Rhythm is regular. First and second heart sounds normal. No murmurs, rubs or gallops. Abdominal exam reveals normal bowel sounds, no masses, no organomegaly and no aortic enlargement. Extremities are nonedematous and both femoral and pedal pulses are normal.Examination of the skin revealed no evidence of significant rashes, suspicious appearing nevi or other concerning lesions.Neurologically, the patient is awake and alert and the patient does not have any focal neurological deficit. Cranial nerves are essentially intact. - Labs CBC & Chem 7: 06/02/20 03:24 06/02/20 03:24 Labs: Abnormal Lab Results - Last 24 Hours (Table) 06/01/20 06/01/20 06/02/20 Range/Units 16:36 20:28 03:24 Sodium 133 L (137-145) mmol/L Chloride 97 L (98-107) mmol/L Carbon Dioxide 31 H (22-30) mmol/L Creatinine 0.57 L (0.66-1.25) mg/dL Glucose 150 H (74-99) mg/dL POC Glucose (mg/dL) 179 H 124 H (75-99) mg/dL Calcium 8.3 L (8.4-10.2) mg/dL AST 16 L (17-59) U/L Total Protein 5.1 L (6.3-8.2) g/dL Albumin 2.7 L (3.5-5.0) g/dL 06/02/20 06/02/20 Range/Units 06:49 11:48 Sodium (137-145) mmol/L Chloride (98-107) mmol/L Carbon Dioxide (22-30) mmol/L Creatinine (0.66-1.25) mg/dL Glucose (74-99) mg/dL POC Glucose (mg/dL) 177 H 177 H (75-99) mg/dL Calcium (8.4-10.2) mg/dL AST (17-59) U/L Total Protein (6.3-8.2) g/dL Albumin (3.5-5.0) g/dL Microbiology - Last 24 Hours (Table) 05/29/20 11:32 Blood Culture - Preliminary Blood No Growth after 72 hours Assessment and Plan Plan: 1 DKA with secondary altered mental status , recovered and the patient is currently on Levemir 29 units daily along with ascites care coverage. Anion gap is within normal limits 2 SVT post-cardioversion currently off amiodarone and the patient is currently on a beta florentino, cardiac rhythm is sinus. His cath the case with cardiology. Echocardiogram is within normal limits 3 acute kidney injury, improved with fluid resuscitation 4 leukocytosis, consider reactive leukocytosis, improving 5 diabetes mellitus, maintained on insulin outpatient basis 6 hypertension 7 hyperlipidemia 8 compression fracture of the L1 spine with secondary back pain. The the patient continues to have significant amount of pain in his lower back. Surgical consultation has been obtained. MRI of the spine will be also done. 9 proximal atrial fibrillation. The patient had another bout of A. fib overnight requiring Cardizem drip which is still running at 10 mg an hour Plan Continue long-acting insulin, currently on Levemir insulin 29 units daily. He is also on sliding scale coverage. Pain control with tramadol regarding chronic back pain and compression fracture of the spine and the patient would obviously need a orthopedic surgery evaluation Proceed with MRI of the lumbosacral spine continue metoprolol and Eliquis for long-term anticoagulation Awaiting surgical consultation regarding his chronic back pain Transfer this patient out of the intensive care unit today. Condition is stable for now.
[2020-06-02] MEDS: traMADol 50 MG TAB PO PRN (12:59)
--- NOTE | 2020-06-02 13:39 | P.CNOR ---
History of Present Illness - [facility] Consult date: 06/02/20 Consult reason: low back pain History of present illness: Patient is a pleasant 70-year-old male who is admitted to the hospital in regards to his diabetic ketoacidosis and altered mental status. He has workup for multiple medical issues and was transferred out of the intensive care unit today over to the telemetry floor. We are asked to see him in regards to his low back pain. He's been having pain in his lower back for the past few weeks. He said he did sustain a fall a few weeks ago and started having pain then. He denies prior pain in his low back. He denies any weakness in his lower extremities. He denies numbness tingling in his lower extremity is. He had been having some urinary frequency but is not having any other changes in his bowel bladder function. Review of Systems he denies chest pain or shortness of breath currently. Denies numbness tingling his lower extremity. Currently he says he is not having changes in bowel bladder function. he states that he did have pain. Weeks ago and that he has started having pain in his lower back. He denies any loss of consciousness at that point. Past Medical History Past Medical History: Diabetes Mellitus, Hyperlipidemia, Hypertension Additional Past Medical History / Comment(s): Neuropathy History of Any Multi-Drug Resistant Organisms: None Reported Past Surgical History: Adenoidectomy Additional Past Surgical History / Comment(s): Circumcision 2016. Right cat aract removal Past Anesthesia/Blood Transfusion Reactions: No Reported Reaction Past Psychological History: No Psychological Hx Reported Smoking Status: Unknown if ever smoked Past Alcohol Use History: None Reported Past Drug Use History: None Reported - Past Family History Father Family Medical History: Cancer Mother Family Medical History: Cancer Additional Family Medical History / Comment(s): skin CA Medications and Allergies Home Medications Medication Instructions Recorded Confirmed Type Unable To Assess [Unable to Assess] 05/30/20 05/30/20 History Allergies Allergy/AdvReac Type Severity Reaction Status Date / Time No Known Allergies Allergy Verified 05/28/20 20:03 Physical Examination Osteopathic Statement: *. No significant issues noted on an osteopathic structural exam other than those noted in the History and Physical/Consult. - L Spine: dermatomal strength & reflexes bilateral Strength: hip flexion: 5/5 (on exam he is currently on a stretcher waiting for his MRI of his lumbar spine. He has some tenderness at his lower back diffusely. His some paravertebral spasm. He has 5 out of 5 muscle strength his bilateral lower extremities with dorsiflexion plantar flexion and EHL.) Strength: hip extension: 5/5 (his thighs and calves are soft and nontender. He has no saddle paresthesias. His upper extremities have good active and passive range of motion.) Results - Labs Labs: Abnormal Lab Results - Last 24 Hours (Table) 06/01/20 06/01/20 06/02/20 Range/Units 16:36 20:28 03:24 Sodium 133 L (137-145) mmol/L Chloride 97 L (98-107) mmol/L Carbon Dioxide 31 H (22-30) mmol/L Creatinine 0.57 L (0.66-1.25) mg/dL Glucose 150 H (74-99) mg/dL POC Glucose (mg/dL) 179 H 124 H (75-99) mg/dL Calcium 8.3 L (8.4-10.2) mg/dL AST 16 L (17-59) U/L Total Protein 5.1 L (6.3-8.2) g/dL Albumin 2.7 L (3.5-5.0) g/dL 06/02/20 06/02/20 Range/Units 06:49 11:48 Sodium (137-145) mmol/L Chloride (98-107) mmol/L Carbon Dioxide (22-30) mmol/L Creatinine (0.66-1.25) mg/dL Glucose (74-99) mg/dL POC Glucose (mg/dL) 177 H 177 H (75-99) mg/dL Calcium (8.4-10.2) mg/dL AST (17-59) U/L Total Protein (6.3-8.2) g/dL Albumin (3.5-5.0) g/dL Microbiology - Last 24 Hours (Table) 05/29/20 11:32 Blood Culture - Preliminary Blood No Growth after 72 hours H & H 05/28/20 05/28/20 05/29/20 Range/Units 19:58 23:44 04:17 Hgb 16.4 17.3 16.8 (13.0-17.5) gm/dL Hct 53.9 H 54.8 H 54.3 H (39.0-53.0) % 05/30/20 05/31/20 06/01/20 Range/Units 03:39 03:19 03:05 Hgb 14.5 14.1 14.6 (13.0-17.5) gm/dL Hct 44.9 41.6 44.6 (39.0-53.0) % 06/02/20 Range/Units 03:24 Hgb 14.8 (13.0-17.5) gm/dL Hct 45.2 (39.0-53.0) % Coagulation 05/28/20 Range/Units 19:58 INR 1.0 (<1.2) Result Diagrams: 06/02/20 03:24 06/02/20 03:24 - Diagnostic results Lumbar AP/lateral x-ray: report reviewed (imaging of his lumbar spine and th oracic spine show a compression deformity at L4 with about 25% height loss. At his thoracic spine there is marginal syndesmophytes with likely ankylosing spondylitis), image reviewed Assessment and Plan Assessment: subacute low back pain status post fall a few weeks ago Subacute L4 compression fracture likely due to fall Diabetic ketoacidosis with altered mental status which is improving Plan: subacute low back pain status post fall a few weeks ago Subacute L4 compression fracture likely due to fall Diabetic ketoacidosis with altered mental status which is improving the patient medical status is improving with his medical management as per critical care and medicine service. He is continuing with his medical management. Regards the patient's lower back he has new pain since his fall and this seems likely due to an L4 compression fracture. He is not having neurologic decline at this point. He does have some evidence of ankylosing spondylitis as thoracic spine the but that appears to be stable. He is currently awaiting his MRI which I think is appropriate to further evaluate the chronicity of the fracture part icular given his other medical issues. He does not have acute neurologic deficit at his lower extremities. I will go ahead and order a TLSO brace for him to be worn when he mobilizes and gets out of bed. He does not need to use the brace while in bed or elevated less than 45. He can remove the brace for showering and bathing. He will likely help him to mobilize with her brace on and payroll administrative assistant his physical therapy has he continues to recondition. I also discussed with him the possibility of other procedures such as surgical kyphoplasty if he is continuing to have significant problem is with his back despite brace use. It is okay to attempt brace use over the next few weeks potentially as an outpatient basis if patient is medically able. we will evaluate the MRI once completed and We will continue to follow him along with you.
--- NOTE | 2020-06-02 14:35 | MR ---
EXAMINATION TYPE: MR lumbar spine wo/w con DATE OF EXAM: 06/02/2020 COMPARISON: Lumbar spine x-ray 3 days ago. HISTORY: Severe lower back pain TECHNIQUE: Multiplanar, multisequence images of the lumbar spine is performed without and with IV contrast, util izing 9.5 mL intravenous Gadavist FINDINGS: Sagittal images of the lumbar spine show alignment to appear satisfactory. Multilevel disc desiccation is present. Disc space heights are fairly well-maintained. The conus medullaris is mony l in position and signal ending L1-L2 disc space level. There is hemangioma involving the inferior L1 vertebra sagittal image 7. There is mild height loss with abnormal diminished T1 and increased T2 si gnal through the L4 vertebra fairly rectangular in shape without postcontrast enhancement though ther e appears to be some enhancement of the adjacent L4 bone. Axial images degraded by patient's body habitus, the T12-L1, L1-L2, L2-L3, and L3-L4 levels all appea r within normal limits. There is effacement of the anterior thecal sac due to slight posterior retropulsion of the mid to inf erior aspect of the L4 vertebra measuring roughly 4 mm sagittal image 8. Axial images at L4-L5 level mild broad-based posterior disc protrusion and facet degenerative changes bilaterally. Anterior spinal canal minimally effaced. Bilateral neural foramina show asymmetric mode rate right-sided neural foraminal narrowing due to facet arthropathy. Axial images at L5-S1 level shows central disc protrusion and annular tear minimally effacing anterio r thecal sac along with mild to moderate facet uropathy. Patent bilateral neural foramina noted. There is asymmetric enlargement of the left iliopsoas versus right side with subtle increased T2 sign al medial aspect of the muscle and heterogeneous enhancement. IMPRESSION: Abnormality L4 vertebra as detailed above. Possible subacute fracture with posterior retr opulsion. I'm concerned for underlying infection as there is some vertebral enhancement and adjacent edema/enhancement of the medial aspect left iliopsoas muscle. Correlate clinically. Patient may benef it with CT correlation particularly to assess fracture better. A Yellow level critical message alert has been initiated for Mey Butler MD via the [employer] Critical Results System on 06/02/2020 2:32 PM. This message alert has been sent to Mey Butler MD via the preferences provided by the clinician for the receipt of Radiology Critical Findings. Message ID [id number].
[2020-06-02 17:03] LABS: Glucose,Whole Blood 157 mg/dL (75-99)
--- NOTE | 2020-06-02 18:21 | P.PN ---
Subjective Progress Note Date: 06/02/20 This is a 70-year-old male patient of Dr. Egan. Patient presented to the ER via ambulance when neighbor found patient on the ground with altered mental status. According to ER record patient's blood glucose was found to be 600 upon arrival. Patient does have a past medical history of diabetes mellitus, hyperlipidemia and essential hypertension. Upon arrival to the ER patient was found to be in SVT. Patient was cardioverted in ER and started on amiodarone per cardiology services. Patient was also started on insulin drip. Patient had noted to have significant bruising around hip right side. Pelvis x-ray completed showing no acute abnormality of the pelvis. Chest x-ray completed showing pulmonary fibrotic changes noted failure. Head and cervical spine CT completed showing normal computed tomography scan of the cervical spine cerebral atrophy no acute intracranial abnormality. Upon arrival CO2 8 and anion gap 25. Patient managed to ICU Dr. Crow consulted for critical care. Cardiology services following 2-D echo ordered . Upon exam patient unable to remember events leading to incident. Patient denies any recent illness that he can remember. This time patient denies chest pain or shortness breath. Patient denies nausea vomiting or diarrhea. Patient denies any urinary burning or frequency. White blood cell count significantly elevated. Will order blood and culture and urine culture On 05/30/2020 patient was seen and examined in the ICU he is alert and oriented 3 in no apparent distress he is complaining of mid and low back pain otherwise he denies any complaint, there is no fever or chills no headache or dizziness no chest pain no shortness of breath no cough no nausea or vomiting no abdominal pain no diarrhea no blood in the stools no burning with urination no frequency or urgency and no hematuria. On 05/31/2020 patient was seen and examined in the ICU, is alert and oriented in no distress, is still complaining of back pain otherwise he denies any c omplaints there is no fever or chills no headache or dizziness no chest pain no shortness of breath no cough no nausea or vomiting no diarrhea no blood in the stools no burning with urination no frequency or urgency and no hematuria, glucose level is better controlled on insulin, patient was counseled in length in regards to importance of taking medication and insulin injections at home to avoid recurrence of his symptoms and readmission. On 06/01/2020 patient alert and oriented 3 patient remains in the intensive care unit. Patient remains on Cardizem drip. Blood sugars have improved. At this time patient denies chest pain or shortness of breath. Patient denies nausea vomiting or diarrhea. Patient denies any urinary burning or frequency On 06/02/2020 patient was seen and examined on the medical floor he is alert and oriented 3 in no apparent distress he is complaining of back pain otherwise he denies any complaints there is no fever or chills no headache or dizziness no chest pain no shortness of breath no cough no nausea or vomiting no abdominal pain no diarrhea no blood in the stools no burning with urination no frequency or urgency and no hematuria. Lumbar spine MRI results reviewed, awaiting further recommendation from neurosurgery and infectious disease. Objective - Vital Signs Vital signs: Vital Signs Temp 97.7 F 06/02/20 04:00 Pulse 58 L 06/02/20 04:00 Resp 10 L 06/02/20 04:00 BP 118/77 06/02/20 04:00 Pulse Ox 97 06/02/20 04:00 Intake & Output 06/01/20 06/02/20 06/02/20 18:59 06:59 18:59 Intake Total 550 120 Output Total 900 305 Balance -350 -185 Weight 96.1 kg Intake: Oral 550 120 Output: Urine 900 305 Other: Voiding Method Indwelling Catheter Indwelling Catheter - Exam In general patient is alert and oriented 3 in no apparent distress HEENT head normocephalic and atraumatic Neck is supple no JVD no goiter no lymphadenopathy Chest exam reveals a scattered crackles in both lung bases no wheezing Cardiac exam reveals regular heart sounds S1 and S2 no gallops no murmurs Abdomen is soft nontender no organomegaly with normal bowel sounds Extremity exam reveals no edema no cyanosis or clubbing Neurological examination reveals no gross focal deficit - Labs CBC & Chem 7: 06/02/20 03:24 06/02/20 03:24 Labs: Abnormal Lab Results - Last 24 Hours (Table) 06/01/20 06/01/20 06/01/20 Range/Units 11:32 16:36 20:28 Sodium (137-145) mmol/L Chloride (98-107) mmol/L Carbon Dioxide (22-30) mmol/L Creatinine (0.66-1.25) mg/dL Glucose (74-99) mg/dL POC Glucose (mg/dL) 168 H 179 H 124 H (75-99) mg/dL Calcium (8.4-10.2) mg/dL AST (17-59) U/L Total Protein (6.3-8.2) g/dL Albumin (3.5-5.0) g/dL 06/02/20 06/02/20 Range/Units 03:24 06:49 Sodium 133 L (137-145) mmol/L Chloride 97 L (98-107) mmol/L Carbon Dioxide 31 H (22-30) mmol/L Creatinine 0.57 L (0.66-1.25) mg/dL Glucose 150 H (74-99) mg/dL POC Glucose (mg/dL) 177 H (75-99) mg/dL Calcium 8.3 L (8.4-10.2) mg/dL AST 16 L (17-59) U/L Total Protein 5.1 L (6.3-8.2) g/dL Albumin 2.7 L (3.5-5.0) g/dL Microbiology - Last 24 Hours (Table) 05/29/20 11:32 Blood Culture - Preliminary Blood No Growth after 72 hours Assessment and Plan Plan: 1. Altered mental status likely secondary to DKA. Patient currently on insulin drip. Patient has been admitted to the intensive care unit critical care following. Initial CO2 13 and anion gap 25. 2. Supraventricular tachycardia. Patient was cardioverted in emergency room. Cardiology services following. Patient currently on amiodarone 3. Renal insufficiency. Initial creatinine 1.66 and bun 41. These do appear to be improving 4. Elevated white blood cell count. Urine and blood cultures ordered 5. History of diabetes mellitus 6. History of Hyperlipidemia 7. Essential hypertension 8. low back pain, will check x-ray DVT prophylaxis heparin. GI prophylaxis Protonix Patient currently admitted to intensive care unit Critical care and cardiology currently following remains on insulin and amiodarone drips Blood and urine culture ordered At this time patient is improving he is maintaining in normal sinus rhythm, will continue to monitor closely
[2020-06-02 20:13] LABS: Glucose,Whole Blood 187 mg/dL (75-99)
--- NOTE | 2020-06-02 22:33 | PN ---
PROGRESS NOTE DATE OF SERVICE: 06/02/2020 REASON FOR FOLLOWUP: Leukocytosis, likely reactive. INTERVAL HISTORY: The patient is currently afebrile. The patient has been breathing comfortably. Denies having any chest pain or shortness of breath or cough. No nausea, no vomiting, no abdominal pain. No diarrhea. He does not complain of constipation. PHYSICAL EXAMINATION: Blood pressure 142/84 with a pulse of 59, temperature 98.6. He is 97% on room air. General description is an elderly male lying in bed in no distress. RESPIRATORY SYSTEM: Unlabored breathing. Clear to auscultation anteriorly. HEART: S1, S2. Regular rate and rhythm. ABDOMEN: Soft. No tenderness. LABS: Hemoglobin 14.8, white count 9.4, BUN of 13, creatinine 0.57. Blood and urine cultures have been negative. DIAGNOSTIC IMPRESSION AND PLAN: Patient with leukocytosis which is likely multifactorial, now with abnormal MRI suggestive of a L4 vertebral subacute fracture with some enhancement with concern for infection. Blood cultures will be repeated. The patient started on Rocephin, as initially the patient's white count responded to the Rocephin. Continue with supportive care. MMODL / IJN: [id number] /
[2020-06-03] MEDS: traMADol 50 MG TAB PO PRN ×3 (00:04→18:32)
[2020-06-03] MEDS: HYDROmorphone 1 MG/ML 1 ML SYRINGE IVP PRN ×7 (01:58→22:21)
[2020-06-03 02:05] LABS: Glucose,Whole Blood 136 mg/dL (75-99)
[2020-06-03 06:11] LABS: Glucose,Whole Blood 187 mg/dL (75-99)
[2020-06-03] MEDS: INSULIN DETEMIR (LEVEMIR) 100 UNIT/ML SYR SQ SCH (06:56)
[2020-06-03] MEDS: PANTOPRAZOLE 40 MG TABLET PO SCH (06:57)
[2020-06-03] MEDS: INSULIN ASPART (NovoLOG) 100 UNIT/ML VIAL SQ SCH ×4 (06:57→20:11)
[2020-06-03 08:15] LABS: Basophils # (A) 0.1 k/uL (0-0.2); Basophils % (A) 1 %; Eosinophils # (A) 0.5 k/uL (0-0.7); Eosinophils % (A) 5 %; HCT 47.1 % (39.0-53.0); Lymphocytes # (A) 1.6 k/uL (1.0-4.8); Lymphocytes % (A) 16 %; MCHC 31.9 g/dL (31.0-37.0); Mean Platelet Volume 7.5; Monocytes # (A) 0.9 k/uL (0-1.0); Monocytes % (A) 9 %; Neutrophils # (A) 6.8 k/uL (1.3-7.7); Neutrophils % (A) 68 %; Platelet Count 244 k/uL (150-450); RBC 5.01 m/uL (4.30-5.90); RDW 13.2 % (11.5-15.5)
[2020-06-03 08:21] LABS: ALT 11 U/L (4-49); AST 17 U/L (17-59); African American GFR (CKD) >90 (>60 ml/min/1.73 sqM); Albumin 2.6 g/dL (3.5-5.0); Alkaline Phosphatase 95 U/L (38-126); Anion Gap 7 mmol/L; Blood Urea Nitrogen 12 mg/dL (9-20); Calcium 8.2 mg/dL (8.4-10.2); Carbon Dioxide 31 mmol/L (22-30); Chloride 93 mmol/L (98-107); Glucose 201 mg/dL (74-99); Non-African American GFR(CKD) >90 (>60 ml/min/1.73 sqM); Potassium 3.2 mmol/L (3.5-5.1); Sodium 131 mmol/L (137-145); Total Bilirubin 1.2 mg/dL (0.2-1.3)
[2020-06-03 11:49] LABS: Glucose,Whole Blood 166 mg/dL (75-99)
--- NOTE | 2020-06-03 12:28 | P.PN ---
Subjective Progress Note Date: 06/03/20 Principal diagnosis: DK with secondary altered mental status, recovered, compression fracture of L1 spine with secondary back pain This is a 70-year-old male patient, diabetic with known history of hypertension and hyperlipidemia and peripheral neuropathy, came in to the emergency department yesterday because of altered mental status and the patient was diagnosed having a DKA. The patient blood sugar was above 600. The patient was treated according to the DKA protocol in the intensive care unit. He was started on insulin drip as the patient was found to have a positive anion gap and serum bicarb level of 13. The patient was also found to be in a narrow complex tachycardia. He did get cardioverted in the emergency department following that he was placed on amiodarone and currently amiodarone is running at 0.5 mg per minute. Cardiac rhythm is back to sinus at this point in time. No fever. No chills. No headaches. No neck stiffness. No nausea vomiting abdominal pain or diarrhea. The patient had a white cell count of 27.6 and time of admission. His current albumin oxygen with a pulse ox of 96-97%. The chest x-ray at a time of admission showed no acute abnormalities. CAT scan of the head and cervical spine was also done that showed normal C-spine and some limited cerebral atrophy. The patient is currently in the intensive care units. On today's evaluation of 05/30/2020, the patient is awake and alert. The patient is on room air oxygen with a pulse is a 96%. Cultures of been negative. The patient remains on D5 half-normal saline at the rate of 50 mL an hour. The patient is also still on amiodarone drip at 0.5 mg per minute and the patient's cardiac rhythm is sinus at this point in time. Echocardiogram is still pending for now. No other significant events. Serum bicarb is still low at 15 and the patient was given a 50 mEq of sodium bicarb IV push. White cell count is improved down to 22. The patient is on Levemir insulin 29 units on a daily basis and addition to a standing scale coverage. 05/31/2020, the patient is doing well. No specific complaints. Resting comfortably in bed currently on 2 L about 2 by nasal cannula. No cardiac arrhythmia and the rhythm is sinus at the rate of 70. Echo of the heart was within normal limits. HbA1c was 14 and the patient will obviously need long- acting insulin. The patient was started on Levemir insulin 29 units daily along with ascites get coverage. The blood work from today shows closure of the anion gap and the patient's anion gap is currently at 4 with a bicarb of 25. Most recent was at 194. The patient is tolerating diet. No nausea. No vomiting for now without pain. No fever or chills. No significant metabolic acidosis. White cell count is at 10.8. He is following commands and answering questions appropriately. 06/01/2020 and seeing the patient for a follow-up in the intensive care unit. The patient has recovered from his diabetic ketoacidosis. The patient is currently on long-acting insulin and the patient is currently on Levemir 29 units daily. No anion gap metabolic acidosis. Overnight, the patient went into atrial fibrillation with rapid ventricular response. Heart rate was as high as 170. The patient was started on Cardizem drip which is currently running at 10 mg an hour. He converted spontaneously and his current rhythm is back to sinus. Note that he is also on metoprolol 25 mg by mouth twice a day. Another issue is that the patient had a similar event in time of admission that was also treated with muffle operator mainly in the form of amiodarone. Echocardiogram is within normal limits. No focal neurological deficits. Moving all 4 extremities without any limitation. He is complaining of back pain. He was found to have an L1 compression fracture of the lumbar spine. Surgical consultation was requested. The patient has no specific complaints. Hemodynamically stable. Tolerating diet. No anion gap metabolic acidosis this point in time. On 06/02/2020, seeing the patient for a follow-up. Doing well and his main complaint is pain in his back which is limiting his mobility. He is laying in bed most of the time. An x-ray was done that showed compression fracture of the spine. Surgical consultation was obtained. MRI of the lumbosacral spine will be also ordered. He has no radiculopathy. No significant weakness in lower extremities. Nevertheless, he is refusing to get up because of the excruciating pain that he is complaining of. His cardiac rhythm is sinus. He was started on long-term and to coagulation with Eliquis. He is also on beta blockers 50 mg by mouth twice a day. Blood sugars are under adequate control. His DKA has recovered. No altered mentation. No other new complaints otherwise for now. He is a selective overflow. His chest x-ray from today showing chronic parenchymal changes without any new suspicious pulmonary infiltrates. On 06/03/2020 patient seen in follow-up on selective care unit, he was transferred out of intensive care unit yesterday, is currently laying flat in bed, still having significant amount of back discomfort with any repositioning were sitting upright, he denies any sensory deficits and lower extremities, no loss of bowel control, Singh catheter is in place. He had MRI of the lumbar spine was reviewed, showing possible subacute fracture with posterior retropulsion, and there was a concern for underlying infection as there was some vertebral enhancement and adjacent edema/enhancement of the medial aspect left iliopsoas muscle. Orthopedic surgery is following. From pulmonary perspective he is denying any pulmonary complaints, lung sounds are clear, he is in sinus mechanism, he is tolerating oral diet, although it's very uncomfortable for him to eat anything laying down completely flat. She is on Rocephin, ID service is following, his had no fever, his blood sugars are managed with a sliding scale in addition to Levemir currently 29 units daily. Last sugar was 201. Objective - Vital Signs Vital signs: Vital Signs Temp 98.0 F 06/03/20 07:42 Pulse 69 06/03/20 07:42 Resp 18 06/03/20 09:20 BP 152/77 06/03/20 07:42 Pulse Ox 97 06/03/20 07:42 Intake & Output 06/02/20 06/03/20 06/03/20 18:59 06:59 18:59 Intake Total 100 600 120 Output Total 625 600 Balance -525 0 120 Weight 96.1 kg 98 kg Intake: Oral 100 600 120 Output: Urine 625 600 Other: Voiding Method Indwelling Catheter Indwelling Catheter Indwelling Catheter # Voids 1 0 - Exam GENERAL EXAM: Alert, very pleasant, 70-year-old white male, laying flat in bed, in view of significant lumbar back discomfort with any repositioning was sitting upright comfortable in no apparent distress. HEAD: Normocephalic/atraumatic. EYES: Normal reaction of pupils, equal size. Conjunctiva pink, sclera white. NOSE: Clear with pink turbinates. THROAT: No erythema or exudates. NECK: No masses, no JVD, no thyroid enlargement, no adenopathy. CHEST: No chest wall deformity. Symmetrical expansion. LUNGS: Equal air entry with no crackles, wheeze, rhonchi or dullness. CVS: Regular rate and rhythm, normal S1 and S2, no gallops, no murmurs, no rubs ABDOMEN: Soft, nontender. No hepatosplenomegaly, normal bowel sounds, no guarding or rigidity. EXTREMITIES: No clubbing, no edema, no cyanosis, 2+ pulses and upper and lower extremities. MUSCULOSKELETAL: Muscle strength and tone normal. SPINE: No scoliosis or deformity SKIN: No rashes CENTRAL NERVOUS SYSTEM: Alert and oriented -3. No focal deficits, tone is normal in all 4 extremities. PSYCHIATRIC: Alert and oriented -3. Appropriate affect. Intact judgment and insight. - Labs CBC & Chem 7: 06/03/20 07:33 06/03/20 07:33 Labs: Abnormal Lab Results - Last 24 Hours (Table) 06/02/20 06/02/20 06/02/20 Range/Units 16:59 20:09 22:18 ESR 24 H (0-15) mm/hr Sodium (137-145) mmol/L Potassium (3.5-5.1) mmol/L Chloride (98-107) mmol/L Carbon Dioxide (22-30) mmol/L Creatinine (0.66-1.25) mg/dL Glucose (74-99) mg/dL POC Glucose (mg/dL) 157 H 187 H (75-99) mg/dL Calcium (8.4-10.2) mg/dL C-Reactive Protein (<10.0) mg/L Total Protein (6.3-8.2) g/dL Albumin (3.5-5.0) g/dL 06/02/20 06/03/20 06/03/20 Range/Units 22:18 02:03 06:10 ESR (0-15) mm/hr Sodium (137-145) mmol/L Potassium (3.5-5.1) mmol/L Chloride (98-107) mmol/L Carbon Dioxide (22-30) mmol/L Creatinine (0.66-1.25) mg/dL Glucose (74-99) mg/dL POC Glucose (mg/dL) 136 H 187 H (75-99) mg/dL Calcium (8.4-10.2) mg/dL C-Reactive Protein 62.3 H (<10.0) mg/L Total Protein (6.3-8.2) g/dL Albumin (3.5-5.0) g/dL 06/03/20 06/03/20 Range/Units 07:33 11:46 ESR (0-15) mm/hr Sodium 131 L (137-145) mmol/L Potassium 3.2 L (3.5-5.1) mmol/L Chloride 93 L (98-107) mmol/L Carbon Dioxide 31 H (22-30) mmol/L Creatinine 0.60 L (0.66-1.25) mg/dL Glucose 201 H (74-99) mg/dL POC Glucose (mg/dL) 166 H (75-99) mg/dL Calcium 8.2 L (8.4-10.2) mg/dL C-Reactive Protein (<10.0) mg/L Total Protein 5.0 L (6.3-8.2) g/dL Albumin 2.6 L (3.5-5.0) g/dL Microbiology - Last 24 Hours (Table) 05/29/20 11:32 Blood Culture - Preliminary Blood No Growth after 96 hours Assessment and Plan Plan: Assessment: 1 DKA with secondary altered mental status , recovered and the patient is currently on Levemir 29 units daily along with ascites care coverage. Anion gap is within normal limits, altered mental status has improved, patient is back to baseline. 2 SVT post-cardioversion currently off amiodarone and the patient is currently on a beta florentino, cardiac rhythm is sinus. His cath the case with cardiology. Echocardiogram is within normal limits 3 acute kidney injury, improved with fluid resuscitation 4 leukocytosis, consider reactive leukocytosis, improving 5 diabetes mellitus, maintained on insulin outpatient basis 6 hypertension 7 hyperlipidemia 8 compression fracture of the L1 spine with secondary back pain. The the patient continues to have significant amount of pain in his lower back. Surgic al consultation has been obtained. MRI of the spine was done, showing subacute fracture with posterior retropulsion of the L4 vertebra, and there was a concern for underlying infection 9 proximal atrial fibrillation. Has converted, and the patient is currently in sinus mechanism with a controlled rate Plan: No pulmonary complaints at this time, patient continues to have significant back discomfort, MRI of the lumbar spine was reviewed, orthopedic surgery is following, will await their further input, blood sugars are controlled with a combination of sliding scale and Levemir. Maintain aspiration precautions. We'll continue to follow will await further recommendations from orthopedic jalloh rgdannie in regards to patient's back pain I performed a history & physical examination of the patient and discussed their management with my nurse practitioner, Carmen Morales. I reviewed the nurse pr actitioner's note and agree with the documented findings and plan of care. Lung sounds are positive for clear breath sounds. The findings and the impression was discussed with the patient. I attest to the documentation by the nurse practitioner. Time with Patient: Less than 30
[2020-06-03] MEDS: METOPROLOL TARTRATE 50 MG TAB PO SCH ×2 (12:51→20:10)
[2020-06-03] MEDS: APIXABAN 5 MG TAB PO SCH ×2 (12:51→20:10)
[2020-06-03] MEDS: ASPIRIN 81 MG PO SCH (12:51)
[2020-06-03] MEDS: ATORVASTATIN 10 MG TAB PO SCH (12:51)
--- NOTE | 2020-06-03 15:39 | P.PN ---
Subjective Progress Note Date: 06/03/20 This is a 70-year-old male patient of Dr. Egan. Patient presented to the ER via ambulance when neighbor found patient on the ground with altered mental status. According to ER record patient's blood glucose was found to be 600 upon arrival. Patient does have a past medical history of diabetes mellitus, hyperlipidemia and essential hypertension. Upon arrival to the ER patient was found to be in SVT. Patient was cardioverted in ER and started on amiodarone per cardiology services. Patient was also started on insulin drip. Patient had noted to have significant bruising around hip right side. Pelvis x-ray completed showing no acute abnormality of the pelvis. Chest x-ray completed showing pulmonary fibrotic changes noted failure. Head and cervical spine CT completed showing normal computed tomography scan of the cervical spine cerebral atrophy no acute intracranial abnormality. Upon arrival CO2 8 and anion gap 25. Patient managed to ICU Dr. Crow consulted for critical care. Cardiology services following 2-D echo ordered . Upon exam patient unable to remember events leading to incident. Patient denies any recent illness that he can remember. This time patient denies chest pain or shortness breath. Patient denies nausea vomiting or diarrhea. Patient denies any urinary burning or frequency. White blood cell count significantly elevated. Will order blood and culture and urine culture On 05/30/2020 patient was seen and examined in the ICU he is alert and oriented 3 in no apparent distress he is complaining of mid and low back pain otherwise he denies any complaint, there is no fever or chills no headache or dizziness no chest pain no shortness of breath no cough no nausea or vomiting no abdominal pain no diarrhea no blood in the stools no burning with urination no frequency or urgency and no hematuria. On 05/31/2020 patient was seen and examined in the ICU, is alert and oriented in no distress, is still complaining of back pain otherwise he denies any c omplaints there is no fever or chills no headache or dizziness no chest pain no shortness of breath no cough no nausea or vomiting no diarrhea no blood in the stools no burning with urination no frequency or urgency and no hematuria, glucose level is better controlled on insulin, patient was counseled in length in regards to importance of taking medication and insulin injections at home to avoid recurrence of his symptoms and readmission. On 06/01/2020 patient alert and oriented 3 patient remains in the intensive care unit. Patient remains on Cardizem drip. Blood sugars have improved. At this time patient denies chest pain or shortness of breath. Patient denies nausea vomiting or diarrhea. Patient denies any urinary burning or frequency On 06/02/2020 patient was seen and examined on the medical floor he is alert and oriented 3 in no apparent distress he is complaining of back pain otherwise he denies any complaints there is no fever or chills no headache or dizziness no chest pain no shortness of breath no cough no nausea or vomiting no abdominal pain no diarrhea no blood in the stools no burning with urination no frequency or urgency and no hematuria. Lumbar spine MRI results reviewed, awaiting further recommendation from neurosurgery and infectious disease. On 06/03/2020 patient was seen and examined on the medical floor, he is alert and oriented 3 in no apparent distress he is still complaining of back pain otherwise no complaints there is no fever or chills no headache or dizziness no chest pain no shortness of breath no cough no nausea or vomiting no abdominal pain no diarrhea and no urinary symptoms, MRI of the lumbar spine raises the possibility of acute infection, patient remains on IV Rocephin, infectious disease following, awaiting culture results and further recommendation from infectious disease Objective - Vital Signs Vital signs: Vital Signs Temp 98.1 F 06/03/20 12:50 Pulse 83 06/03/20 12:50 Resp 18 06/03/20 12:50 BP 118/68 06/03/20 12:50 Pulse Ox 98 06/03/20 12:50 Intake & Output 06/02/20 06/03/20 06/03/20 18:59 06:59 18:59 Intake Total 100 600 120 Output Total 625 600 Balance -525 0 120 Weight 96.1 kg 98 kg Intake: Oral 100 600 120 Output: Urine 625 600 Other: Voiding Method Indwelling Catheter Indwelling Catheter Indwelling Catheter # Voids 1 0 - Exam In general patient is alert and oriented 3 in no apparent distress HEENT head normocephalic and atraumatic Neck is supple no JVD no goiter no lymphadenopathy Chest exam reveals a scattered crackles in both lung bases no wheezing Cardiac exam reveals regular heart sounds S1 and S2 no gallops no murmurs Abdomen is soft nontender no organomegaly with normal bowel sounds Extremity exam reveals no edema no cyanosis or clubbing Neurological examination reveals no gross focal deficit - Labs CBC & Chem 7: 10/09/20 07:33 06/03/20 07:33 Labs: Abnormal Lab Results - Last 24 Hours (Table) 06/02/20 06/02/20 06/02/20 Range/Units 16:59 20:09 22:18 ESR 24 H (0-15) mm/hr Sodium (137-145) mmol/L Potassium (3.5-5.1) mmol/L Chloride (98-107) mmol/L Carbon Dioxide (22-30) mmol/L Creatinine (0.66-1.25) mg/dL Glucose (74-99) mg/dL POC Glucose (mg/dL) 157 H 187 H (75-99) mg/dL Calcium (8.4-10.2) mg/dL C-Reactive Protein (<10.0) mg/L Total Protein (6.3-8.2) g/dL Albumin (3.5-5.0) g/dL 06/02/20 06/03/20 06/03/20 Range/Units 22:18 02:03 06:10 ESR (0-15) mm/hr Sodium (137-145) mmol/L Potassium (3.5-5.1) mmol/L Chloride (98-107) mmol/L Carbon Dioxide (22-30) mmol/L Creatinine (0.66-1.25) mg/dL Glucose (74-99) mg/dL POC Glucose (mg/dL) 136 H 187 H (75-99) mg/dL Calcium (8.4-10.2) mg/dL C-Reactive Protein 62.3 H (<10.0) mg/L Total Protein (6.3-8.2) g/dL Albumin (3.5-5.0) g/dL 06/03/20 06/03/20 Range/Units 07:33 11:46 ESR (0-15) mm/hr Sodium 131 L (137-145) mmol/L Potassium 3.2 L (3.5-5.1) mmol/L Chloride 93 L (98-107) mmol/L Carbon Dioxide 31 H (22-30) mmol/L Creatinine 0.60 L (0.66-1.25) mg/dL Glucose 201 H (74-99) mg/dL POC Glucose (mg/dL) 166 H (75-99) mg/dL Calcium 8.2 L (8.4-10.2) mg/dL C-Reactive Protein (<10.0) mg/L Total Protein 5.0 L (6.3-8.2) g/dL Albumin 2.6 L (3.5-5.0) g/dL Microbiology - Last 24 Hours (Table) 05/29/20 11:32 Blood Culture - Preliminary Blood No Growth after 120 hours Assessment and Plan Plan: 1. Altered mental status likely secondary to DKA. Patient currently on insulin drip. Patient has been admitted to the intensive care unit critical care following. Initial CO2 13 and anion gap 25. 2. Supraventricular tachycardia. Patient was cardioverted in emergency room. Cardiology services following. Patient currently on amiodarone 3. Renal insufficiency. Initial creatinine 1.66 and bun 41. These do appear to be improving 4. Elevated white blood cell count. Urine and blood cultures ordered 5. History of diabetes mellitus 6. History of Hyperlipidemia 7. Essential hypertension 8. low back pain, will check x-ray DVT prophylaxis heparin. GI prophylaxis Protonix Patient currently admitted to intensive care unit Critical care and cardiology currently following remains on insulin and amiodarone drips Blood and urine culture ordered At this time patient is improving he is maintaining in normal sinus rhythm, will continue to monitor closely
[2020-06-03 16:47] LABS: Glucose,Whole Blood 133 mg/dL (75-99)
--- NOTE | 2020-06-03 17:21 | PN ---
PROGRESS NOTE DATE OF SERVICE: 06/03/2020 REASON FOR FOLLOWUP: Abnormal MRI and a question of osteomyelitis of the L2-3 spine. INTERVAL HISTORY: The patient is currently afebrile. He is still complaining of pain to the low back, though slightly improved. Denies having any chest pain or shortness of breath or cough. No nausea, no vomiting. No abdominal pain, no diarrhea. PHYSICAL EXAMINATION: Blood pressure 118/60 with a pulse of 83, temperature 98.1, he is 98% on room air. General description is a middle-aged male, lying in bed in no distress. RESPIRATORY SYSTEM: Unlabored breathing, clear to auscultation anteriorly. HEART: S1, S2. Regular rate and rhythm. ABDOMEN: Soft, no tenderness. LABS: Hemoglobin is 15, white count 10.0, creatinine 0.60. Sedimentation rate of 24. CRP 62.3. MRI was reviewed with radiologist and concern for possible osteomyelitis. No significant diskitis or any paraspinal abscess. DIAGNOSTIC IMPRESSION AND PLAN: Patient with abnormal MRI of the lumbar spine in this patient in the hospital. He did have a fall with concern for possible fracture. However, the findings are more suspicious for infection per the radiologist. Will discuss with the spine surgeon if he can do a CT-guided aspirate of this area for culture. For now continue with empiric Rocephin and monitor his clinical course closely. MMODL / IJN: [id number] /
[2020-06-03] MEDS: SODIUM CHLORIDE 0.9% 1,000 ML IV SCH (18:39)
[2020-06-03 20:05] LABS: Glucose,Whole Blood 184 mg/dL (75-99)
[2020-06-04] MEDS: traMADol 50 MG TAB PO PRN ×5 (00:52→22:58)
[2020-06-04 02:18] LABS: Glucose,Whole Blood 152 mg/dL (75-99)
[2020-06-04] MEDS: HYDROmorphone 1 MG/ML 1 ML SYRINGE IVP PRN ×5 (03:49→20:11)
[2020-06-04 06:06] LABS: Glucose,Whole Blood 191 mg/dL (75-99)
[2020-06-04] MEDS: INSULIN ASPART (NovoLOG) 100 UNIT/ML VIAL SQ SCH ×4 (06:25→20:07)
[2020-06-04] MEDS: PANTOPRAZOLE 40 MG TABLET PO SCH (06:25)
[2020-06-04] MEDS: INSULIN DETEMIR (LEVEMIR) 100 UNIT/ML SYR SQ SCH (07:11)
[2020-06-04] MEDS: APIXABAN 5 MG TAB PO SCH ×2 (08:21→20:11)
[2020-06-04] MEDS: ATORVASTATIN 10 MG TAB PO SCH (08:21)
[2020-06-04] MEDS: ASPIRIN 81 MG PO SCH (08:21)
[2020-06-04] MEDS: METOPROLOL TARTRATE 50 MG TAB PO SCH ×2 (08:21→20:11)
--- NOTE | 2020-06-04 10:07 | P.PN ---
Subjective Progress Note Date: 06/04/20 This is a 70-year-old male was admitted for management of diabetic ketoacidosis and altered mental status. Orthopedics is following due to low back pain. Patient is seen and evaluated at bedside today. An MRI of the lumbar spine dated 06/02/2020 shows possible subacute fracture of the L4 vertebra with p osterior retropulsion. Patient states that he has been using his TLSO brace. Patient states that he currently has pain at rest and with activity. Patient states that because of this pain he has not been able to get out of bed. Patient denies any fever/chills, numbness, weakness or tingling. Objective - Vital Signs Vital signs: Vital Signs Temp 97.7 F 06/04/20 08:15 Pulse 73 06/04/20 08:15 Resp 18 06/04/20 08:15 BP 154/74 06/04/20 08:15 Pulse Ox 99 06/04/20 08:15 Intake & Output 06/03/20 06/04/20 06/04/20 18:59 06:59 18:59 Intake Total 240 250 90 Output Total 400 400 Balance -160 -150 90 Weight 98.5 kg Intake: Oral 240 250 90 Output: Urine 400 400 Other: Voiding Method Indwelling Catheter Indwelling Catheter # Voids 0 - Exam On exam patient is resting comfortably in bed in no acute distress. Patient is alert and oriented 3. TLSO brace is intact. Patient has full range of motion of bilateral upper and lower extremities. 5/5 strength in bilateral upper and lower extremities. Sensation intact. Neurovascular status and circulatory status are intact. - Labs CBC & Chem 7: 06/03/20 07:33 06/03/20 07:33 Labs: Abnormal Lab Results - Last 24 Hours (Table) 06/03/20 06/03/20 06/03/20 Range/Units 11:46 16:43 20:01 POC Glucose (mg/dL) 166 H 133 H 184 H (75-99) mg/dL 06/04/20 06/04/20 Range/Units 02:17 06:04 POC Glucose (mg/dL) 152 H 191 H (75-99) mg/dL Microbiology - Last 24 Hours (Table) 06/02/20 22:18 Blood Culture - Preliminary Blood No Growth after 24 hours 05/29/20 11:32 Blood Culture - Preliminary Blood No Growth after 120 hours Assessment and Plan Assessment: Subacute L4 compression fracture likely due to fall (1) Low back pain Current Visit: Yes Status: Acute Code(s): M54.5 - LOW BACK PAIN SNOMED Code(s): 014219450 Plan: 1. Recommend continuation of TLSO brace to be worn when the patient is out of bed. 2. Patient may remove brace when he was in bed or when head of bed is elevated to less than 45. 3. Patient may remove the brace for showering and bathing. 4. Physical therapy for mobilization. 5. If the patient's pain continues and is not controlled with bracing and physical therapy, kyphoplasty may be considered. 6. Will continue to follow the patient closely.
--- NOTE | 2020-06-04 11:05 | P.PN ---
Subjective Progress Note Date: 06/04/20 This is a 70-year-old male patient of Dr. Egan. Patient presented to the ER via ambulance when neighbor found patient on the ground with altered mental status. According to ER record patient's blood glucose was found to be 600 upon arrival. Patient does have a past medical history of diabetes mellitus, hyperlipidemia and essential hypertension. Upon arrival to the ER patient was found to be in SVT. Patient was cardioverted in ER and started on amiodarone per cardiology services. Patient was also started on insulin drip. Patient had noted to have significant bruising around hip right side. Pelvis x-ray completed showing no acute abnormality of the pelvis. Chest x-ray completed showing pulmonary fibrotic changes noted failure. Head and cervical spine CT completed showing normal computed tomography scan of the cervical spine cerebral atrophy no acute intracranial abnormality. Upon arrival CO2 8 and anion gap 25. Patient managed to ICU Dr. Crow consulted for critical care. Cardiology services following 2-D echo ordered . Upon exam patient unable to remember events leading to incident. Patient denies any recent illness that he can remember. This time patient denies chest pain or shortness breath. Patient denies nausea vomiting or diarrhea. Patient denies any urinary burning or frequency. White blood cell count significantly elevated. Will order blood and culture and urine culture On 05/30/2020 patient was seen and examined in the ICU he is alert and oriented 3 in no apparent distress he is complaining of mid and low back pain otherwise he denies any complaint, there is no fever or chills no headache or dizziness no chest pain no shortness of breath no cough no nausea or vomiting no abdominal pain no diarrhea no blood in the stools no burning with urination no frequency or urgency and no hematuria. On 05/31/2020 patient was seen and examined in the ICU, is alert and oriented in no distress, is still complaining of back pain otherwise he denies any c omplaints there is no fever or chills no headache or dizziness no chest pain no shortness of breath no cough no nausea or vomiting no diarrhea no blood in the stools no burning with urination no frequency or urgency and no hematuria, glucose level is better controlled on insulin, patient was counseled in length in regards to importance of taking medication and insulin injections at home to avoid recurrence of his symptoms and readmission. On 06/01/2020 patient alert and oriented 3 patient remains in the intensive care unit. Patient remains on Cardizem drip. Blood sugars have improved. At this time patient denies chest pain or shortness of breath. Patient denies nausea vomiting or diarrhea. Patient denies any urinary burning or frequency On 06/02/2020 patient was seen and examined on the medical floor he is alert and oriented 3 in no apparent distress he is complaining of back pain otherwise he denies any complaints there is no fever or chills no headache or dizziness no chest pain no shortness of breath no cough no nausea or vomiting no abdominal pain no diarrhea no blood in the stools no burning with urination no frequency or urgency and no hematuria. Lumbar spine MRI results reviewed, awaiting further recommendation from neurosurgery and infectious disease. On 06/03/2020 patient was seen and examined on the medical floor, he is alert and oriented 3 in no apparent distress he is still complaining of back pain otherwise no complaints there is no fever or chills no headache or dizziness no chest pain no shortness of breath no cough no nausea or vomiting no abdominal pain no diarrhea and no urinary symptoms, MRI of the lumbar spine raises the possibility of acute infection, patient remains on IV Rocephin, infectious disease following, awaiting culture results and further recommendation from infectious disease. On 06/04/2020 patient was seen and examined on the telemetry floor he is alert and oriented 3 in no apparent distress, he is complaining of back pain and is complaining of difficulty standing and walking otherwise he denies any complaints there is no fever or chills no headache or dizziness no chest pain no shortness of breath no cough no nausea or vomiting no abdominal pain no diarrhea no blood in the stools no burning with urination no frequency or urgency and no hematuria Objective - Vital Signs Vital signs: Vital Signs Temp 97.7 F 06/04/20 08:15 Pulse 73 06/04/20 08:15 Resp 18 06/04/20 08:15 BP 154/74 06/04/20 08:15 Pulse Ox 99 06/04/20 08:15 Intake & Output 06/03/20 06/04/20 06/04/20 18:59 06:59 18:59 Intake Total 240 250 90 Output Total 400 400 Balance -160 -150 90 Weight 98.5 kg Intake: Oral 240 250 90 Output: Urine 400 400 Other: Voiding Method Indwelling Catheter Indwelling Catheter # Voids 0 - Exam In general patient is alert and oriented 3 in no apparent distress HEENT head normocephalic and atraumatic Neck is supple no JVD no goiter no lymphadenopathy Chest exam reveals a scattered crackles in both lung bases no wheezing Cardiac exam reveals regular heart sounds S1 and S2 no gallops no murmurs Abdomen is soft nontender no organomegaly with normal bowel sounds Extremity exam reveals no edema no cyanosis or clubbing Neurological examination reveals no gross focal deficit - Labs CBC & Chem 7: 06/03/20 07:33 06/03/20 07:33 Labs: Abnormal Lab Results - Last 24 Hours (Table) 06/03/20 06/03/20 06/03/20 Range/Units 11:46 16:43 20:01 POC Glucose (mg/dL) 166 H 133 H 184 H (75-99) mg/dL 06/04/20 06/04/20 Range/Units 02:17 06:04 POC Glucose (mg/dL) 152 H 191 H (75-99) mg/dL Microbiology - Last 24 Hours (Table) 06/03/20 07:33 Blood Culture - Preliminary Blood No Growth after 24 hours 06/02/20 22:18 Blood Culture - Preliminary Blood No Growth after 24 hours 05/29/20 11:32 Blood Culture - Preliminary Blood No Growth after 120 hours Assessment and Plan Plan: 1. Altered mental status likely secondary to DKA. Patient currently on insulin drip. Patient has been admitted to the intensive care unit critical care following. Initial CO2 13 and anion gap 25. Patient improved, currently maintained on Levemir and sliding scale glucose is well-controlled, mental status is back to normal. 2. Supraventricular tachycardia. Patient was cardioverted in emergency room. Cardiology services following. 3. Acute Renal insufficiency. Initial creatinine 1.66 and bun 41. This has resolved, creatinine now is 0.6 4. Elevated white blood cell count. Urine and blood cultures ordered, patient is maintained on ceftriaxone infectious disease following 5. History of diabetes mellitus, patient stopped taking all medications at home, glucose now is well-controlled on Levemir and insulin sliding scale 6. History of Hyperlipidemia 7. Essential hypertension 8. low back pain, MRI reveals subacute fracture in L4 neurosurgery following day ordered a brace and physical therapy patient is still having significant pain and inability to stand or walk physical therapy consulted, patient will need to go to a rehab unit at the time of discharge. Possibility of vertebral infection raised by the radiologist, Dr. Salinas is aware patient is maintained on IV Rocephin awaiting further recommendation. DVT prophylaxis Patient is on Eliquis. GI prophylaxis Protonix At this time patient is improving he is maintaining in normal sinus rhythm, will continue to monitor closely
[2020-06-04 11:58] LABS: Glucose,Whole Blood 176 mg/dL (75-99)
--- NOTE | 2020-06-04 12:43 | P.PN ---
Subjective Progress Note Date: 06/04/20 On 06/04/2020 the patient is being seen in on the medical floor. The patient was transferred out of the intensive care unit yesterday. DKA has recovered. Blood sugars under good control. The patient has no cardiac arrhythmias. The patient on long-term and coagulation with Eliquis. Cardiac rhythm is sinus. The patient is currently on Levemir insulin 2009 units daily in addition to sliding scale coverage. Back pain is still present and the patient is being seen by spine surgery. MRI of the spine was noted. The patient has a L4 vertebral abnormality, possibly subacute fracture with posterior retropulsion. There is also concern of an underlying infection as the patient has some edema and enhancement of the medial aspect of the left iliopsoas muscle. Objective - Vital Signs Vital signs: Vital Signs Temp 97.7 F 06/04/20 08:15 Pulse 73 06/04/20 08:15 Resp 18 06/04/20 08:15 BP 154/74 06/04/20 08:15 Pulse Ox 99 06/04/20 08:15 Intake & Output 06/03/20 06/04/20 06/04/20 18:59 06:59 18:59 Intake Total 240 250 90 Output Total 400 400 Balance -160 -150 90 Weight 98.5 kg Intake: Oral 240 250 90 Output: Urine 400 400 Other: Voiding Method Indwelling Catheter Indwelling Catheter Indwelling Catheter # Voids 0 - Exam The patient appeared well nourished and normally developed. Vital signs as documented. Head exam is unremarkable. No scleral icterus or corneal arcus noted. Neck is without jugular venous distension, thyromegaly, or carotid bruits. Carotid upstrokes are brisk bilaterally. Lungs are clear to auscultation and percussion. Cardiac exam reveals the PMI to be normally sized and situated. Rhythm is regular. First and second heart sounds normal. No murmurs, rubs or gallops. Abdominal exam reveals normal bowel sounds, no masses, no organomegaly and no aortic enlargement. Extremities are nonedematous and both femoral and pedal pulses are normal.Examination of the skin revealed no evidence of signifi cant rashes, suspicious appearing nevi or other concerning lesions.Neurologically, the patient is awake and alert and the patient does not have any focal neurological deficit. Cranial nerves are essentially intact. - Labs CBC & Chem 7: 06/03/20 07:33 06/03/20 07:33 Labs: Abnormal Lab Results - Last 24 Hours (Table) 06/03/20 06/03/20 06/04/20 Range/Units 16:43 20:01 02:17 POC Glucose (mg/dL) 133 H 184 H 152 H (75-99) mg/dL 06/04/20 06/04/20 Range/Units 06:04 11:47 POC Glucose (mg/dL) 191 H 176 H (75-99) mg/dL Microbiology - Last 24 Hours (Table) 06/03/20 07:33 Blood Culture - Preliminary Blood No Growth after 24 hours 06/02/20 22:18 Blood Culture - Preliminary Blood No Growth after 24 hours 05/29/20 11:32 Blood Culture - Preliminary Blood No Growth after 120 hours Assessment and Plan Plan: 1 DKA with secondary altered mental status , recovered 2 SVT post-cardioversion currently off amiodarone and the patient is currently on a beta florentino, cardiac rhythm is sinus. His cath the case with cardiology. Echocardiogram is within normal limits 3 acute kidney injury, improved with fluid resuscitation 4 leukocytosis, consider reactive leukocytosis, improving 5 diabetes mellitus, maintained on insulin outpatient basis 6 hypertension 7 hyperlipidemia 8 compression fracture of the L1 spine with secondary back pain. The the patient continues to have significant amount of pain in his lower back. Surgical consultation has been obtained. MRI of the spine was done and the kristian ent was found to have abnormalities in level of L4 with possible subacute fracture and posterior retropulsion. There was also a concern for a edema/enhancement of the medial aspect of the left psoas muscle, possibly infection. Plan The cardiac rhythm is sinus Continue long-acting insulin, currently on Levemir insulin 29 units daily. He is also on sliding scale coverage. Pain control with tramadol regarding chronic back pain and compression fracture of the spine and the patient would obviously need a orthopedic surgery evaluation Spine surgery to follow-up on MRI of the back We will sign off the case.
--- NOTE | 2020-06-04 16:00 | P.PN ---
Progress Note - Text Progress Note Date: 06/04/20 the patient is seen and examined at bedside. He saw having significant pain across his lower back. He has been trying to use his LSO brace and has had some minimal relief with using the brace. He denies any new numbness tingling in his lower extremities. Denies any weakness in his lower extremities. Denies any changes bowel bladder function. He describes his fall out of bed a Minh 2 weeks ago when his backside hurting. He said he had some aches and pains before that but nothing like this. On exam he is conversant and afebrile. He appears comfortable while lying flat but has pain in his back because of around He is wearing his LSO brace which appears to be fitting appropriately. His abdomen soft nontender. His lower extremity she has sustained dorsal flexion plantar flexion and EHL intact. He is able flex and extend his knees lift his legs up off the bed but his pain is back which has lift his legs off the bed. His thighs and calves soft nontender. His MRI of his lumbar spine shows L4 compression deformity with fluid within the L4 vertebral body. There is a small to 3 mm of retropulsion without significant canal compromise. There is some increased intensity at the psoas on the left. Assessment and plan Subacute L4 compression fracture status post fall Low back pain Increased signal at the L4 vertebral body and near the psoas without evidence of obvious abscess. In terms of patient's lower back he has evidence of a subacute compression fracture. There is some fluid within the vertebral body and at the adjacent soft tissues. It is difficult to determine if there is obvious infection at the space. He is having minimal relief with brace use. I discussed case with Dr. Salinas with infectious disease as well. I think the patient could have benefit with a vertebral body biopsy and culture of L4 along with a vertebral kyphoplasty at that space. We could use antibiotic cement for the kyphoplasty which would help treat if there is any infectious process. The biopsy and culture with help to lead further treatment plans and the kyphoplasty could do well to allow relief of pain symptoms at the patient's lumbar spine due to his fracture and allow quicker mobility position. I discussed this with him at bedside at length. I discussed the risk of occasions alternatives and benefits of surgical biopsy and culture kyphoplasty at L4. The patient like to think about this option. We could consider surgical intervention on Saturday afternoon patient chooses to pursue further treatment in this manner. I will go ahead and make him nothing by mouth after midnight in case he chooses to pursue surgical biopsy culture and kyphoplasty of L4
[2020-06-04 17:12] LABS: Glucose,Whole Blood 120 mg/dL (75-99)
--- NOTE | 2020-06-04 20:04 | PN ---
PROGRESS NOTE DATE OF SERVICE: 06/04/2020 REASON FOR FOLLOWUP: Abnormal MRI and a question of osteomyelitis. INTERVAL HISTORY: Patient is currently afebrile. The patient has been breathing comfortably. Still complaining of pain to the low back area, more with movement. No chest pain, shortness of breath or cough. No abdominal pain or diarrhea. PHYSICAL EXAMINATION: Blood pressure is 134/72 with a pulse of 52, temperature 98.2. He is 98% on room air. General description is an elderly male lying in bed in no distress. Respiratory system: Unlabored breathing, clear to auscultation anteriorly. Heart S1, S2. Regular rate and rhythm. ABDOMEN: Soft, no tenderness. LABS: No new labs have been obtained today. DIAGNOSTIC IMPRESSION AND PLAN: Patient with fall and back pain with abnormal MRI, likely fracture, but clinically not behaving as an osteomyelitis in this patient with no fever. Detailed discussion with Spine surgery yesterday and plan for kyphoplasty on Saturday. We will discontinue the antibiotic as we will request cultures at time of kyphoplasty to rule out any infection and to increase the yield of those cultures and will monitor the patient closely. Continue supportive care. MMODL / IJN: [id number] /
[2020-06-04 20:08] LABS: Glucose,Whole Blood 112 mg/dL (75-99)
[2020-06-05 02:07] LABS: Glucose,Whole Blood 140 mg/dL (75-99)
[2020-06-05] MEDS: HYDROmorphone 1 MG/ML 1 ML SYRINGE IVP PRN ×5 (03:25→20:17)
[2020-06-05 06:16] LABS: Glucose,Whole Blood 136 mg/dL (75-99)
[2020-06-05] MEDS: traMADol 50 MG TAB PO PRN ×3 (06:31→18:29)
[2020-06-05] MEDS: PANTOPRAZOLE 40 MG TABLET PO SCH (06:31)
[2020-06-05] MEDS: INSULIN ASPART (NovoLOG) 100 UNIT/ML VIAL SQ SCH ×4 (06:32→20:23)
[2020-06-05] MEDS: INSULIN DETEMIR (LEVEMIR) 100 UNIT/ML SYR SQ SCH (06:58)
[2020-06-05 07:45] LABS: ALT 10 U/L (4-49); AST 18 U/L (17-59); African American GFR (CKD) >90 (>60 ml/min/1.73 sqM); Albumin 2.5 g/dL (3.5-5.0); Alkaline Phosphatase 100 U/L (38-126); Anion Gap 5 mmol/L; Basophils # (A) 0.1 k/uL (0-0.2); Basophils % (A) 1 %; Blood Urea Nitrogen 10 mg/dL (9-20); Calcium 8.2 mg/dL (8.4-10.2); Carbon Dioxide 33 mmol/L (22-30); Chloride 93 mmol/L (98-107); Eosinophils # (A) 0.6 k/uL (0-0.7); Eosinophils % (A) 7 %; Glucose 156 mg/dL (74-99); HCT 44.7 % (39.0-53.0); HGB 14.7 gm/dL (13.0-17.5); Lymphocytes # (A) 1.8 k/uL (1.0-4.8); Lymphocytes % (A) 23 %; MCH 29.6 pg (25.0-35.0); MCHC 32.8 g/dL (31.0-37.0); MCV 90.3 fL (80.0-100.0); Mean Platelet Volume 7.2; Monocytes % (A) 12 %; Neutrophils # (A) 4.2 k/uL (1.3-7.7); Neutrophils % (A) 54 %; Non-African American GFR(CKD) >90 (>60 ml/min/1.73 sqM); Platelet Count 285 k/uL (150-450); Potassium 3.3 mmol/L (3.5-5.1); RBC 4.95 m/uL (4.30-5.90); RDW 13.7 % (11.5-15.5); Sodium 131 mmol/L (137-145); Total Bilirubin 1.1 mg/dL (0.2-1.3); Total Protein 4.9 g/dL (6.3-8.2); WBC 7.8 k/uL (3.8-10.6)
[2020-06-05] MEDS: POTASSIUM CHLORIDE ER 20 MEQ TAB.ER PO SCH ×2 (08:09→10:09)
[2020-06-05] MEDS: ASPIRIN 81 MG PO SCH (08:09)
[2020-06-05] MEDS: METOPROLOL TARTRATE 50 MG TAB PO SCH ×2 (08:10→20:16)
[2020-06-05] MEDS: ATORVASTATIN 10 MG TAB PO SCH (08:10)
[2020-06-05] MEDS: APIXABAN 5 MG TAB PO SCH ×2 (08:10→20:16)
--- NOTE | 2020-06-05 11:03 | P.PN ---
Subjective Progress Note Date: 06/05/20 This is a 70-year-old male patient of Dr. Egan. Patient presented to the ER via ambulance when neighbor found patient on the ground with altered mental status. According to ER record patient's blood glucose was found to be 600 upon arrival. Patient does have a past medical history of diabetes mellitus, hyperlipidemia and essential hypertension. Upon arrival to the ER patient was found to be in SVT. Patient was cardioverted in ER and started on amiodarone per cardiology services. Patient was also started on insulin drip. Patient had noted to have significant bruising around hip right side. Pelvis x-ray completed showing no acute abnormality of the pelvis. Chest x-ray completed showing pulmonary fibrotic changes noted failure. Head and cervical spine CT completed showing normal computed tomography scan of the cervical spine cerebral atrophy no acute intracranial abnormality. Upon arrival CO2 8 and anion gap 25. Patient managed to ICU Dr. Crow consulted for critical care. Cardiology services following 2-D echo ordered . Upon exam patient unable to remember events leading to incident. Patient denies any recent illness that he can remember. This time patient denies chest pain or shortness breath. Patient denies nausea vomiting or diarrhea. Patient denies any urinary burning or frequency. White blood cell count significantly elevated. Will order blood and culture and urine culture On 05/30/2020 patient was seen and examined in the ICU he is alert and oriented 3 in no apparent distress he is complaining of mid and low back pain otherwise he denies any complaint, there is no fever or chills no headache or dizziness no chest pain no shortness of breath no cough no nausea or vomiting no abdominal pain no diarrhea no blood in the stools no burning with urination no frequency or urgency and no hematuria. On 05/31/2020 patient was seen and examined in the ICU, is alert and oriented in no distress, is still complaining of back pain otherwise he denies any c omplaints there is no fever or chills no headache or dizziness no chest pain no shortness of breath no cough no nausea or vomiting no diarrhea no blood in the stools no burning with urination no frequency or urgency and no hematuria, glucose level is better controlled on insulin, patient was counseled in length in regards to importance of taking medication and insulin injections at home to avoid recurrence of his symptoms and readmission. On 06/01/2020 patient alert and oriented 3 patient remains in the intensive care unit. Patient remains on Cardizem drip. Blood sugars have improved. At this time patient denies chest pain or shortness of breath. Patient denies nausea vomiting or diarrhea. Patient denies any urinary burning or frequency On 06/02/2020 patient was seen and examined on the medical floor he is alert and oriented 3 in no apparent distress he is complaining of back pain otherwise he denies any complaints there is no fever or chills no headache or dizziness no chest pain no shortness of breath no cough no nausea or vomiting no abdominal pain no diarrhea no blood in the stools no burning with urination no frequency or urgency and no hematuria. Lumbar spine MRI results reviewed, awaiting further recommendation from neurosurgery and infectious disease. On 06/03/2020 patient was seen and examined on the medical floor, he is alert and oriented 3 in no apparent distress he is still complaining of back pain otherwise no complaints there is no fever or chills no headache or dizziness no chest pain no shortness of breath no cough no nausea or vomiting no abdominal pain no diarrhea and no urinary symptoms, MRI of the lumbar spine raises the possibility of acute infection, patient remains on IV Rocephin, infectious disease following, awaiting culture results and further recommendation from infectious disease. On 06/04/2020 patient was seen and examined on the telemetry floor he is alert and oriented 3 in no apparent distress, he is complaining of back pain and is complaining of difficulty standing and walking otherwise he denies any complaints there is no fever or chills no headache or dizziness no chest pain no shortness of breath no cough no nausea or vomiting no abdominal pain no diarrhea no blood in the stools no burning with urination no frequency or urgency and no hematuria on 06/05/2020 patient was seen and examined on the telemetry floor he is alert and oriented 3 in no distress, he is still complaining of back pain, complaining of difficulty standing and walking, and complaining of constipation, otherwise he denies any complaints there is no fever or chills no headache or dizziness no chest pain no shortness of breath no cough no nausea or vomiting no abdominal pain no diarrhea no blood in the stools no burning with urination no frequency or urgency and no hematuria, at this time will continue was physical therapy continue with back brace, consult Dr. Kan for possible rehab admission. Objective - Vital Signs Vital signs: Vital Signs Temp 98.2 F 06/05/20 08:00 Pulse 70 06/05/20 08:00 Resp 16 06/05/20 08:00 BP 138/72 06/05/20 08:00 Pulse Ox 98 06/05/20 08:00 Intake & Output 06/04/20 06/05/20 06/05/20 18:59 06:59 18:59 Intake Total 390 120 Output Total 250 300 Balance 140 -300 120 Weight 99 kg Intake: Intake, IV Titration 50 Amount cefTRIAXone 2 gm In 50 Sodium Chloride 0.9% 50 ml @ 100 mls/hr IVPB Q24HR [facility] Rx#:[id number] Oral 340 120 Output: Urine 250 300 Other: Voiding Method Indwelling Catheter Indwelling Catheter # Voids 0 - Exam In general patient is alert and oriented 3 in no apparent distress HEENT head normocephalic and atraumatic Neck is supple no JVD no goiter no lymphadenopathy Chest exam reveals a scattered crackles in both lung bases no wheezing Cardiac exam reveals regular heart sounds S1 and S2 no gallops no murmurs Abdomen is soft nontender no organomegaly with normal bowel sounds Extremity exam reveals no edema no cyanosis or clubbing Neurological examination reveals no gross focal deficit - Labs CBC & Chem 7: 06/05/20 06:55 06/05/20 06:55 Labs: Abnormal Lab Results - Last 24 Hours (Table) 06/04/20 06/04/20 06/04/20 Range/Units 11:47 17:08 20:07 Sodium (137-145) mmol/L Potassium (3.5-5.1) mmol/L Chloride (98-107) mmol/L Carbon Dioxide (22-30) mmol/L Creatinine (0.66-1.25) mg/dL Glucose (74-99) mg/dL POC Glucose (mg/dL) 176 H 120 H 112 H (75-99) mg/dL Calcium (8.4-10.2) mg/dL Total Protein (6.3-8.2) g/dL Albumin (3.5-5.0) g/dL 06/05/20 06/05/20 06/05/20 Range/Units 02:06 06:15 06:55 Sodium 131 L (137-145) mmol/L Potassium 3.3 L (3.5-5.1) mmol/L Chloride 93 L (98-107) mmol/L Carbon Dioxide 33 H (22-30) mmol/L Creatinine 0.64 L (0.66-1.25) mg/dL Glucose 156 H (74-99) mg/dL POC Glucose (mg/dL) 140 H 136 H (75-99) mg/dL Calcium 8.2 L (8.4-10.2) mg/dL Total Protein 4.9 L (6.3-8.2) g/dL Albumin 2.5 L (3.5-5.0) g/dL Microbiology - Last 24 Hours (Table) 06/02/20 22:18 Blood Culture - Preliminary Blood No Growth after 48 hours 05/29/20 11:32 Blood Culture - Final Blood No Growth after 144 hours 06/03/20 07:33 Blood Culture - Preliminary Blood No Growth after 24 hours Assessment and Plan Plan: 1. Altered mental status likely secondary to DKA. Patient currently on insulin drip. Patient has been admitted to the intensive care unit critical care following. Initial CO2 13 and anion gap 25. Patient improved, currently maintained on Levemir and sliding scale glucose is well-controlled, mental status is back to normal. 2. Supraventricular tachycardia. Patient was cardioverted in emergency room. Cardiology services following. 3. Acute Renal insufficiency. Initial creatinine 1.66 and bun 41. This has resolved, creatinine now is 0.6 4. Elevated white blood cell count. Urine and blood cultures ordered, patient is maintained on ceftriaxone infectious disease following 5. History of diabetes mellitus, patient stopped taking all medications at home, glucose now is well-controlled on Levemir and insulin sliding scale 6. History of Hyperlipidemia 7. Essential hypertension 8. low back pain, MRI reveals subacute fracture in L4 neurosurgery following day ordered a brace and physical therapy patient is still having significant pain and inability to stand or walk physical therapy consulted, patient will need to go to a rehab unit at the time of discharge. Possibility of vertebral infection raised by the radiologist, Dr. Salinas is aware patient is maintained on IV Rocephin awaiting further recommendation. DVT prophylaxis Patient is on Eliquis. GI prophylaxis Protonix At this time patient is improving he is maintaining in normal sinus rhythm, will continue to monitor closely
[2020-06-05] MEDS ORDERED: Potassium Replacement Protocol 1 EACH MISC MISCELLANE PRN (11:05)
--- NOTE | 2020-06-05 11:06 | P.PN ---
Subjective Progress Note Date: 06/05/20 This is a 70-year-old male was admitted for management of diabetic ketoacidosis and altered mental status. Orthopedics is following due to low back pain. Patient is seen and evaluated at bedside today. An MRI of the lumbar spine dated 06/02/2020 shows possible subacute fracture of the L4 vertebra with p osterior retropulsion. Patient states that he has been utilizing his back brace and his pain is better controlled today. Patient denies any new complaints today. Patient denies any fever/chills, numbness, weakness or tingling. Objective - Vital Signs Vital signs: Vital Signs Temp 98.2 F 06/05/20 08:00 Pulse 70 06/05/20 08:00 Resp 16 06/05/20 08:00 BP 138/72 06/05/20 08:00 Pulse Ox 98 06/05/20 08:00 Intake & Output 06/04/20 06/05/20 06/05/20 18:59 06:59 18:59 Intake Total 390 120 Output Total 250 300 Balance 140 -300 120 Weight 99 kg Intake: Intake, IV Titration 50 Amount cefTRIAXone 2 gm In 50 Sodium Chloride 0.9% 50 ml @ 100 mls/hr IVPB Q24HR [facility] Rx#:[id number] Oral 340 120 Output: Urine 250 300 Other: Voiding Method Indwelling Catheter Indwelling Catheter Indwelling Catheter # Voids 0 - Exam On exam patient is resting comfortably in bed in no acute distress. Patient is alert and oriented 3. TLSO brace is intact. Patient has full range of motion of bilateral upper and lower extremities. 5/5 strength in bilateral upper and lower extremities. Sensation intact. Neurovascular status and circulatory status are intact. - Labs CBC & Chem 7: 06/05/20 06:55 06/05/20 06:55 Labs: Abnormal Lab Results - Last 24 Hours (Table) 06/04/20 06/04/20 06/04/20 Range/Units 11:47 17:08 20:07 Sodium (137-145) mmol/L Potassium (3.5-5.1) mmol/L Chloride (98-107) mmol/L Carbon Dioxide (22-30) mmol/L Creatinine (0.66-1.25) mg/dL Glucose (74-99) mg/dL POC Glucose (mg/dL) 176 H 120 H 112 H (75-99) mg/dL Calcium (8.4-10.2) mg/dL Total Protein (6.3-8.2) g/dL Albumin (3.5-5.0) g/dL 06/05/20 06/05/20 06/05/20 Range/Units 02:06 06:15 06:55 Sodium 131 L (137-145) mmol/L Potassium 3.3 L (3.5-5.1) mmol/L Chloride 93 L (98-107) mmol/L Carbon Dioxide 33 H (22-30) mmol/L Creatinine 0.64 L (0.66-1.25) mg/dL Glucose 156 H (74-99) mg/dL POC Glucose (mg/dL) 140 H 136 H (75-99) mg/dL Calcium 8.2 L (8.4-10.2) mg/dL Total Protein 4.9 L (6.3-8.2) g/dL Albumin 2.5 L (3.5-5.0) g/dL Microbiology - Last 24 Hours (Table) 06/03/20 07:33 Blood Culture - Preliminary Blood No Growth after 48 hours 06/02/20 22:18 Blood Culture - Preliminary Blood No Growth after 48 hours 05/29/20 11:32 Blood Culture - Final Blood No Growth after 144 hours Assessment and Plan Assessment: Subacute L4 compression fracture likely due to fall (1) Low back pain Current Visit: Yes Status: Acute Code(s): M54.5 - LOW BACK PAIN SNOMED Code(s): 003813745 Plan: 1. Recommend continuation of TLSO brace to be worn when the patient is out of bed. 2. Patient may remove brace when he was in bed or when head of bed is elevated to less than 45. 3. Patient may remove the brace for showering and bathing. 4. Physical therapy for mobilization. 5. Patient is to be nothing by mouth after midnight. Possible surgical biopsy culture and kyphoplasty of L4 on 06/06/2020. 6. Will continue to follow the patient closely.
[2020-06-05 11:59] LABS: Glucose,Whole Blood 126 mg/dL (75-99)
[2020-06-05 16:55] LABS: Glucose,Whole Blood 117 mg/dL (75-99)
[2020-06-05] MEDS ORDERED: LIDOCAINE 1% INJ 10MG/ML (20 ML MDV) ONE (17:44)
[2020-06-05] MEDS ORDERED: fentaNYL (PF) 50 MCG/ML 2 ML AMP ONE (17:44)
[2020-06-05] MEDS ORDERED: MIDAZOLAM 2 MG/2 ML VIAL ONE (17:44)
[2020-06-05] MEDS ORDERED: SUCCINYLCHOLINE CHLORIDE 100 MG/5 ML SYR IV ONE (17:44)
[2020-06-05] MEDS ORDERED: PROPOFOL 10 MG/ML 20 ML VIAL IV ONE (17:44)
[2020-06-05] MEDS ORDERED: PHENYLEPHRINE-0.9% NACL SYG 1 MG/10 ML SYRINGE ONE (17:44)
[2020-06-05 20:13] LABS: Glucose,Whole Blood 118 mg/dL (75-99)
[2020-06-06] MEDS: HYDROmorphone 1 MG/ML 1 ML SYRINGE IVP PRN ×5 (01:44→22:12)
[2020-06-06 02:06] LABS: Glucose,Whole Blood 148 mg/dL (75-99)
--- NOTE | 2020-06-06 02:56 | PN ---
PROGRESS NOTE DATE OF SERVICE: 06/05/2020 REASON FOR FOLLOWUP: Abnormal MRI, possible fracture and question of infection. INTERVAL HISTORY: The patient is currently afebrile. He is still complaining of pain to the low back area. No worsening though. No chest pain, shortness of breath or cough. No abdominal pain or diarrhea. PHYSICAL EXAMINATION: Blood pressure 137/71 with a pulse of 60, temperature 98.2. He is 98% on room air. General description is an elderly male lying in bed in no distress. RESPIRATORY SYSTEM: Unlabored breathing, clear to auscultation anteriorly. HEART: S1, S2. Regular rate and rhythm. ABDOMEN: Soft, no tenderness. LABS: Hemoglobin is 14.7, white count 7.8, creatinine 0.64. Blood culture has been negative. DIAGNOSTIC IMPRESSION AND PLAN: Patient with abnormal MRI of the lumbar spine. Possible fracture with secondary edema from the bleeding. Clinically not behaving as osteomyelitis. at which time cultures will be obtained. We will hold on any systemic antibiotic therapy at this point obvious cultures. His questions and concerns were answered. MMODL / IJN: [id number] /
[2020-06-06 06:04] LABS: Glucose,Whole Blood 179 mg/dL (75-99)
--- NOTE | 2020-06-06 06:19 | P.CONS ---
History of Present Illness - Chief Complaint Medical debility - History of Present Illness I had the opportunity to see patient for inpatient rehab consultation with regard to medical debility. He was admitted to [facility] May 28 with a mental status change and DKA. Seen by Dr. Saab for pulmonary as well as Dr. Salinas. Patient had complaints of back pain. Lumbar x-ray demonstrates L4 compression, subacute. T-spine x-ray demonstrates osteoporosis and consistent with idiopathic hyperostosis. Chest x-rays followed for chronic changes. Lumbar MRI with subacute L4 compression. Seen by Dr. Estes for the subacute L4 compression.PT reports two-person total assistance for bed mobility and no si tting balance. OT prescribed. Previous functional history as elicited from patient: 70-year-old right-handed white male who is lives in one floor home alone. Retired. Describes independent with own cooking, laundry, driving, standing shower and gait without device. PMD Dr. Egan. Denies tobacco or alcohol. Family history both parents with cancer. Review of Systems Review of systems: ENT: Denies sneezes or discharge. Eyes: Denies discharge or photophobia. Cardiac: Denies chest pain or palpitation. Pulmonary: Denies cough or shortness of breath. Gastrointestinal: Denies nausea, emesis, constipation, diarrhea. Genitourinary: Denies discharge or frequency. Musculoskeletal: back pain. Neurologic: Denies motor or sensory change. Endocrine: Denies shakes or sweats. Oncology: Denies cancers. Dermatologic: Denies rash, itching, pruritus. ALLERGY/immunology: Denies sneezes, rashes. Past Medical History Past Medical History: Diabetes Mellitus, Hyperlipidemia, Hypertension Additional Past Medical History / Comment(s): Neuropathy History of Any Multi-Drug Resistant Organisms: None Reported Past Surgical History: Adenoidectomy Additional Past Surgical History / Comment(s): Circumcision 2016. Right cataract removal Past Anesthesia/Blood Transfusion Reactions: No Reported Reaction Past Psychological History: No Psychological Hx Reported Smoking Status: Unknown if ever smoked Past Alcohol Use History: None Reported Past Drug Use History: None Reported - Past Family History Father Family Medical History: Cancer Mother Family Medical History: Cancer Additional Family Medical History / Comment(s): skin CA Medications and Allergies Home Medications Medication Instructions Recorded Confirmed Type Unable To Assess [Unable to Assess] 05/30/20 05/30/20 History Allergies Allergy/AdvReac Type Severity Reaction Status Date / Time No Known Allergies Allergy Verified 05/28/20 20:03 Physical Exam Vitals: Vital Signs Temp Pulse Resp BP Pulse Ox 06/06/20 04:00 63 18 106/59 98 06/06/20 00:00 98.5 F 71 17 120/65 97 06/05/20 20:00 97.9 F 65 17 126/68 96 06/05/20 15:30 98.2 F 60 16 137/71 98 06/05/20 11:40 66 16 105/63 97 06/05/20 08:00 98.2 F 70 16 138/72 98 Intake and Output 06/05/20 06/05/20 06/06/20 14:59 22:59 06:59 Intake Total 240 620 Output Total 650 100 Balance 240 -30 -100 Intake: Oral 240 620 Output: Urine 650 100 Other: Voiding Method Indwelling Catheter Indwelling Catheter Indwelling Catheter # Voids 0 Weight 100 kg Skin: atrophic, intact. General: Medium build and comfortable appearance. Head: Normocephalic, atraumatic. Eyes: Symmetric. Pupils equal round. Ears: Symmetric. Hearing within normal limits. Mouth: Clear. Neck: Supple. Carotid without bruit. Cardiac: Regular rate and rhythm. Lungs: Clear anteriorly and posteriorly. Abdomen: Soft active nontender. Extremities: Normal tone. Neurological: Mental status: Alert, cooperative, pleasant. Cranial nerves: Symmetric facial tone and trapezius. Motor: can elevate arms off of bed but at best antigravity. Legs are definitely less than antigravity. Sensation: Intact throughout. DTRs: Symmetric and equal throughout. Mobility: requires physical assist for bed mobility. Results CBC & Chem 7: 06/05/20 06:55 06/05/20 06:55 Labs: Abnormal Lab Results - Last 24 Hours (Table) 06/05/20 06/05/20 06/05/20 Range/Units 06:15 06:55 11:50 Sodium 131 L (137-145) mmol/L Potassium 3.3 L (3.5-5.1) mmol/L Chloride 93 L (98-107) mmol/L Carbon Dioxide 33 H (22-30) mmol/L Creatinine 0.64 L (0.66-1.25) mg/dL Glucose 156 H (74-99) mg/dL POC Glucose (mg/dL) 136 H 126 H (75-99) mg/dL Calcium 8.2 L (8.4-10.2) mg/dL Total Protein 4.9 L (6.3-8.2) g/dL Albumin 2.5 L (3.5-5.0) g/dL 06/05/20 06/05/20 06/06/20 Range/Units 16:53 20:11 02:05 Sodium (137-145) mmol/L Potassium (3.5-5.1) mmol/L Chloride (98-107) mmol/L Carbon Dioxide (22-30) mmol/L Creatinine (0.66-1.25) mg/dL Glucose (74-99) mg/dL POC Glucose (mg/dL) 117 H 118 H 148 H (75-99) mg/dL Calcium (8.4-10.2) mg/dL Total Protein (6.3-8.2) g/dL Albumin (3.5-5.0) g/dL 06/06/20 Range/Units 06:03 Sodium (137-145) mmol/L Potassium (3.5-5.1) mmol/L Chloride (98-107) mmol/L Carbon Dioxide (22-30) mmol/L Creatinine (0.66-1.25) mg/dL Glucose (74-99) mg/dL POC Glucose (mg/dL) 179 H (75-99) mg/dL Calcium (8.4-10.2) mg/dL Total Protein (6.3-8.2) g/dL Albumin (3.5-5.0) g/dL Microbiology - Last 24 Hours (Table) 06/02/20 22:18 Blood Culture - Preliminary Blood No Growth after 72 hours 06/03/20 07:33 Blood Culture - Preliminary Blood No Growth after 48 hours Assessment and Plan (1) Low back pain Current Visit: Yes Status: Acute Code(s): M54.5 - LOW BACK PAIN SNOMED Code(s): 378265242 (2) Abrasions of multiple sites Current Visit: No Status: Acute Code(s): T07.XXXA - UNSPECIFIED MULTIPLE INJURIES, INITIAL ENCOUNTER SNOMED Code(s): 351979748 (3) DKA (diabetic ketoacidoses) Current Visit: No Status: Acute Code(s): E11.10 - TYPE 2 DIABETES MELLITUS WITH KETOACIDOSIS WITHOUT COMA SNOMED Code(s): 159486953 Plan: Impression: 1. Medical debility. 2. Diabetic ketoacidosis. 3. Low back pain with subacute L4 compression. 4. Hypertension. 5. Dyslipidemia. Comments and plan: At this time PT ongoing but patient has no sitting balance and is not currently ready for inpatient rehab. OT prescribed. Would await PT and OT notes today though.
[2020-06-06] MEDS: PANTOPRAZOLE 40 MG TABLET PO SCH (06:35)
[2020-06-06] MEDS: INSULIN ASPART (NovoLOG) 100 UNIT/ML VIAL SQ SCH ×4 (06:35→20:37)
[2020-06-06 07:32] LABS: ALT 10 U/L (4-49); AST 17 U/L (17-59); African American GFR (CKD) >90 (>60 ml/min/1.73 sqM); Albumin 2.5 g/dL (3.5-5.0); Alkaline Phosphatase 102 U/L (38-126); Anion Gap 5 mmol/L; Blood Urea Nitrogen 12 mg/dL (9-20); Calcium 8.1 mg/dL (8.4-10.2); Carbon Dioxide 31 mmol/L (22-30); Chloride 94 mmol/L (98-107); Glucose 203 mg/dL (74-99); Non-African American GFR(CKD) >90 (>60 ml/min/1.73 sqM); Potassium 3.5 mmol/L (3.5-5.1); Sodium 130 mmol/L (137-145); Total Bilirubin 1.2 mg/dL (0.2-1.3); Total Protein 4.8 g/dL (6.3-8.2)
[2020-06-06 08:00] LABS: Basophils # (A) 0.1 k/uL (0-0.2); Basophils % (A) 1 %; Eosinophils # (A) 0.4 k/uL (0-0.7); Eosinophils % (A) 5 %; HCT 44.4 % (39.0-53.0); HGB 14.6 gm/dL (13.0-17.5); Lymphocytes # (A) 2.3 k/uL (1.0-4.8); Lymphocytes % (A) 30 %; MCH 29.4 pg (25.0-35.0); MCHC 32.8 g/dL (31.0-37.0); MCV 89.5 fL (80.0-100.0); Mean Platelet Volume 7.2; Monocytes # (A) 1.1 k/uL (0-1.0); Monocytes % (A) 14 %; Neutrophils # (A) 3.8 k/uL (1.3-7.7); Neutrophils % (A) 49 %; Platelet Count 326 k/uL (150-450); RBC 4.96 m/uL (4.30-5.90); RDW 13.7 % (11.5-15.5); WBC 7.8 k/uL (3.8-10.6)
--- NOTE | 2020-06-06 09:02 | P.PN ---
Progress Note - Text Progress Note Date: 06/06/20 Orthopedic spine: History of present illness: Patient is a very pleasant 70-year-old male who seems at the bedside for follow up evaluation for his lumbar spine. He is known have an L4 compression fracture deformity. He continues to have pain at his fracture site. He states his pain is most significant to the right side of his lumbar spine. He is not currently experiencing any significant lower extremity radiculopathy or weakness. He states he has not been out of bed much due to his pain. He does have difficulties with activities due to his pain. Patient currently has an LSO brace intact. He is afebrile. His WBC is currently 7.8. Patient states he is still unsure what he would like to proceed forward with surgical intervention at his L4 compression fracture site. He is nothing by mouth status currently in anticipation for surgical intervention later today. He continues to be seen by multiple medical providers. He has been seen by pulmonology, medicine, and infectious disease. Patient has been seen by Dr. Kan to discuss inpatient rehab does not feel the patient is currently ready for inpatient rehab. Patient's medical history includes diabetes mellitus, hypertension, and dyslipidemia. Patient continues to have a Singh catheter intact. Patient is currently being treated for acute renal insufficiency and altered mental status secondary to diabetic ketoacidosis. He is awake, alert, and oriented the bedside. He continues to be seen by infectious disease who states patient does not clinically appear to have osteomyelitis. Antibiotic medication has been held. Cultures have been negative. He does have evidence of changes over the anterior bilateral lower extremities which he states is due to infection of the bilateral lower extremities after a previous fishing trip. During his admission to the emergency department patient was found to be an SVT and was cardioverted. Patient has been on Eliquis but received his last dose yesterday, 06/05/2020, at 8 PM in anticipation for surgical intervention. Cultures have remained negative. Physical exam: Patient is awake, alert, and oriented 3 Vital signs stable Good chest excursion with deep inspiration and expiration Abdomen soft nontender Examination of lumbar spine reveals skin is intact with no abrasions, lacerations, or bruises; no erythema, purulence or signs of infection Patient does have difficulty rolling over in bed due to his back pain No specific pain with palpation over the lumbar spine Dorsiflexion, plantarflexion, and extensor hallucis longus positive sustained bilaterally Evidence of skin changes over the anterior lower extremities bilaterally Patient is able to perform some active range of motion in bilateral lower extremities but generally slower No signs or symptoms of DVT; no calf pain No pain with internal and external rotation of the hips bilaterally Neurovascularly intact Singh catheter intact Assessment: L4 subacute compression fracture deformity status post fall Right-sided low back pain Increased signal at the L4 vertebral body near the psoas without evidence of obvious abscess Diabetic ketoacidosis Diabetes mellitus Hypertension Dyslipidemia Status post cardioversion for SVT on anticoagulation with Eliquis Plan: 1. It was again discussed with the patient by the possibility of undergoing an L4 kyphoplasty with vertebral body biopsy and culture. Patient is currently nothing by mouth status in anticipation for surgical intervention. He states he has continued to think about his treatment options and is unsure whether he wants to proceed forward with surgical intervention. He does admit to continued difficulty with increased activities including ambulation. He is continue to wear an LSO brace. He has remained afebrile. His WBC is currently 7.8. We discussed will currently planned to have him continue nothing by mouth status. We will plan to follow up with him early this afternoon to discuss whether he would like to proceed forward with surgical intervention as scheduled. In the meantime, he'll continue seeing them by other medical providers including medicine and infectious disease. Infectious disease states patient does not clinically appear to have osteomyelitis. Antibiotic medication has been held.
[2020-06-06] MEDS: ATORVASTATIN 10 MG TAB PO SCH (09:10)
[2020-06-06] MEDS: traMADol 50 MG TAB PO PRN (09:10)
[2020-06-06] MEDS: METOPROLOL TARTRATE 50 MG TAB PO SCH ×2 (09:10→20:19)
[2020-06-06 12:07] LABS: Glucose,Whole Blood 198 mg/dL (75-99)
[2020-06-06] MEDS ORDERED: LACTATED RINGERS 1,000 ML IV ONE (16:41)
[2020-06-06 16:42] LABS: Glucose,Whole Blood 229 mg/dL (75-99)
--- NOTE | 2020-06-06 17:21 | PN ---
PROGRESS NOTE DATE OF SERVICE: 06/06/2020 REASON FOR FOLLOWUP: Abnormal MRI with question of fracture versus osteomyelitis. INTERVAL HISTORY: The patient was seen on rounds this afternoon. The patient overall is feeling better. Still some significant pain to the low back area. Denies having any chest pain. No shortness of breath or cough. No nausea. No vomiting, no abdominal pain. Now is waiting for surgery. PHYSICAL EXAMINATION: Blood pressure 160/76, pulse of 73, temperature 99.1. He is 99% on room air. General description is an elderly male lying in bed, in no distress. RESPIRATORY SYSTEM: Unlabored breathing, clear to auscultation anteriorly. HEART S1, S2. Regular rate and rhythm. ABDOMEN: Soft, no tenderness. LABS: Hemoglobin is 40, white count 7.8, creatinine 0.65. DIAGNOSTIC IMPRESSION AND PLAN: Patient with abnormal MRI in this patient did have recent fall with concern for possible fracture and since the edema clinically not behaving as osteomyelitis, even scheduled for kyphoplasty and cultures. Continue to monitor patient closely, off antibiotic therapy and monitor clinical course closely. MMODL / IJN: [id number] /
[2020-06-06] MEDS ORDERED: MIDAZOLAM 2 MG/2 ML VIAL ONE (17:44)
[2020-06-06] MEDS ORDERED: SUCCINYLCHOLINE CHLORIDE 100 MG/5 ML SYR IV ONE (17:44)
[2020-06-06] MEDS ORDERED: PHENYLEPHRINE-0.9% NACL SYG 1 MG/10 ML SYRINGE ONE (17:44)
[2020-06-06] MEDS ORDERED: LIDOCAINE 1% INJ 10MG/ML (20 ML MDV) ONE (17:44)
[2020-06-06] MEDS ORDERED: PROPOFOL 10 MG/ML 20 ML VIAL IV ONE (17:44)
[2020-06-06] MEDS ORDERED: fentaNYL (PF) 50 MCG/ML 2 ML AMP ONE (17:44)
[2020-06-06] MEDS ORDERED: LIDOCAINE 1%-EPI 1:100,000 20 ML VIAL SQ ONE ×2 (18:20)
[2020-06-06] MEDS ORDERED: SODIUM CHLORIDE 0.9% 100 ML with ceFAZolin 2,000 MG IV ONE ×2 (18:22)
[2020-06-06] MEDS ORDERED: VANCOMYCIN 1,000 MG VIAL MISCELLANE ONE (18:22)
[2020-06-06] MEDS ORDERED: IOPAMIDOL M200 10 ML VIAL MISCELLANE ONE (18:22)
--- NOTE | 2020-06-06 18:42 | P.OP ---
Date of Procedure: 06/06/20 Preoperative Diagnosis: L4 vertebral compression fracture, subacute due to fall Abnormal bony signal of L4 on MRI rule out infectious process Postoperative Diagnosis: Same Anesthesia: GETA Pathology: other (L4 vertebral body aspirate sent for culture 2, L4 vertebral body biopsy scant amount sent for pathology) Condition: stable Disposition: PACU Description of Procedure: BRIEF OPERATIVE NOTE Preoperative Diagnosis: L4 vertebral compression fracture, subacute due to fall Abnormal bony signal of L4 on MRI rule out infectious process Postoperative Diagnosis: Same Procedure: Kyphoplasty of L4 Vertebral body biopsy of L4 Aspirate of vertebral body of L4 sent for culture 2 Use of biplanar fluoroscopic guidance Surgeon: Dr. Squires Cab Supervisor: Patrick Andrews is present throughout the entire the case persistence during positioning, dissection, exposure, visualization, and all crucial elements of the case as well as closure. Anesthesia: General anesthesia per Dr. Mcpherson Estimated blood loss: Less than 10 mL Specimen: Vertebral body biopsy sent to pathology in formalin, aspirin vertebral body of L4 sent for culture 2 Complications: None apparent Components implanted: Bone cement impregnated with vancomycin Disposition: To recovery room in good stable condition. OPERATIVE INDICATIONS The patient has been having issues in their back ever since sustaining an injury a few weeks ago. Been having severe back pain and has been having significant difficulty with his mobilization. The patient has been through conservative treatment for his low back with bracing. They attempted conservative care with bracing however they're not having any benefit despite brace use. They continue to have significant pain and debility due to their fracture. Patient was admitted to the hospital on this admission due to his diabetic ketoacidosis and multiple medical issues with possible sepsis. He had evaluation was found have an L4 compression fracture and further evaluation with MRI showed significant abnormal signal and a burst component of L4. It was unclear as to whether there was an infectious process at the L4 vertebral body as a result increased signal at the paravertebral psoas muscle. Infectious disease was interested bur performing biopsy for purpose of tissue evaluation for infectious process. Given the patient's significant pain and inability to make good progress despite conservative treatment for his fracture as well as his possible infectious process we felt that vertebral body biopsy and culture with kyphoplasty with address multiple needs for him. We discussed various treatment options including surgery, and the patient wishes to proceed with surgery We discussed the risk, patient's alternatives and benefits of surgery including but not limited to, risk of bleeding risk of infection, risk of need for further surgery, risk of decreased, loss of motion, loss of function, cement extravasation, nerve damage, paralysis, heart attack, blindness and . OPERATIVE SUMMARY After discussing all the risks, patient alternatives and benefits at length, the patient elected to proceed with surgical intervention, signed informed consent, and presented for their procedure. The patient was seen and examined in the preoperative holding area and the surgical site was marked. The patient was given antibiotics and brought to the operating room. The patient was sedated and intubated by anesthesia in standard fashion. The patient was positioned on to the operating room table in a prone position on the appropriate well-padded and well molded bilateral chest rolls. We were careful to pad any bony prominences and pressure points. We were careful to maintain the patient's cervical spine and good neutral alignment and position throughout. We used 2 C-arm machines to establish biplanar fluoroscopic guidance in AP and lateral positions. We were able to localize the fractures appropriately. The patient was prepped and draped in a normal standard fashion. An appropriate timeout and keystone protocol performed. We were able to proceed with the surgery. The local wound area was infiltrated with local anesthetic. An incision was made over the lateral aspect of the pedicle over the appropriate levels with a small 2 mm stab incision over the right side at L4 pedicle. Intraoperative fluoroscopy was taken which showed a marker at the appropriate level of L4. With the appropriate level positively confirmed, I was able to position a sharp trocar over the lateral aspect of the pedicle. As able to advance the trocar into the pedicle and into the posterior aspect of vertebral body being careful to avoid penetration cephalad caudad or medially. The trocar was placed appropriately into the posterior aspect of vertebral body at the appropriate levels. This was confirmed with C-arm guidance. With the trocar intact I was then able to take a bone biopsy with a biopsy punch and a bony drill. There is very scant amount of material, but The biopsy specimen was passed off to be sent to pathology in formalin. Through the biopsy punch I also did aspiration of the vertebral body with some findings of blood which were cultured and sent to microbiology 2 I was then able to place the kyphoplasty balloon within the vertebral body. The position was checked on C-arm. When we prepared the cement we mixed 0.5 g of vancomycin powder with the 20 g of powdered cement mix area I was able to inflate the balloon under low pressure and visualization with C-arm. The balloon was well enclosed within the vertebral body. The cement was prepared. With the cement at appropriate working condition the balloons were deflated and removed. I was able to place bony cement with trocar with the cement delivery device under low pressure. The bone was significantly soft and we replaced approximate 9 mL of vancomycin impregnated bone cement into the vertebral body. It had good fill within the vertebral body. There is no evidence of any extravasation of the cement posteriorly toward the canal. The cement was well contained at the appropriate levels. The cement was allowed to cure appropriately. The trochars removed and final images were taken on C-arm. This showed the cement at the appropriate levels. We were able to proceed with closure. The wound was cleaned and dried and dressed with the appropriate dressing. The drapes were broken down. The patient was gently rolled back onto their hospital bed being careful to maintain their cervical spine and good neutral alignment and position. They were woken up by anesthesia, extubated, and brought to the recovery room in good stable condition. The patient will be admitted to the hospital for observation and for appropriate postoperative care, medical management and monitoring. We will continue to follow them closely about the postoperative course.
--- NOTE | 2020-06-06 18:43 | P.PN ---
Subjective Progress Note Date: 06/06/20 This is a 70-year-old male patient of Dr. Egan. Patient presented to the ER via ambulance when neighbor found patient on the ground with altered mental status. According to ER record patient's blood glucose was found to be 600 upon arrival. Patient does have a past medical history of diabetes mellitus, hyperlipidemia and essential hypertension. Upon arrival to the ER patient was found to be in SVT. Patient was cardioverted in ER and started on amiodarone per cardiology services. Patient was also started on insulin drip. Patient had noted to have significant bruising around hip right side. Pelvis x-ray completed showing no acute abnormality of the pelvis. Chest x-ray completed showing pulmonary fibrotic changes noted failure. Head and cervical spine CT completed showing normal computed tomography scan of the cervical spine cerebral atrophy no acute intracranial abnormality. Upon arrival CO2 8 and anion gap 25. Patient managed to ICU Dr. Crow consulted for critical care. Cardiology services following 2-D echo ordered . Upon exam patient unable to remember events leading to incident. Patient denies any recent illness that he can remember. This time patient denies chest pain or shortness breath. Patient denies nausea vomiting or diarrhea. Patient denies any urinary burning or frequency. White blood cell count significantly elevated. Will order blood and culture and urine culture On 05/30/2020 patient was seen and examined in the ICU he is alert and oriented 3 in no apparent distress he is complaining of mid and low back pain otherwise he denies any complaint, there is no fever or chills no headache or dizziness no chest pain no shortness of breath no cough no nausea or vomiting no abdominal pain no diarrhea no blood in the stools no burning with urination no frequency or urgency and no hematuria. On 05/31/2020 patient was seen and examined in the ICU, is alert and oriented in no distress, is still complaining of back pain otherwise he denies any c omplaints there is no fever or chills no headache or dizziness no chest pain no shortness of breath no cough no nausea or vomiting no diarrhea no blood in the stools no burning with urination no frequency or urgency and no hematuria, glucose level is better controlled on insulin, patient was counseled in length in regards to importance of taking medication and insulin injections at home to avoid recurrence of his symptoms and readmission. On 06/01/2020 patient alert and oriented 3 patient remains in the intensive care unit. Patient remains on Cardizem drip. Blood sugars have improved. At this time patient denies chest pain or shortness of breath. Patient denies nausea vomiting or diarrhea. Patient denies any urinary burning or frequency On 06/02/2020 patient was seen and examined on the medical floor he is alert and oriented 3 in no apparent distress he is complaining of back pain otherwise he denies any complaints there is no fever or chills no headache or dizziness no chest pain no shortness of breath no cough no nausea or vomiting no abdominal pain no diarrhea no blood in the stools no burning with urination no frequency or urgency and no hematuria. Lumbar spine MRI results reviewed, awaiting further recommendation from neurosurgery and infectious disease. On 06/03/2020 patient was seen and examined on the medical floor, he is alert and oriented 3 in no apparent distress he is still complaining of back pain otherwise no complaints there is no fever or chills no headache or dizziness no chest pain no shortness of breath no cough no nausea or vomiting no abdominal pain no diarrhea and no urinary symptoms, MRI of the lumbar spine raises the possibility of acute infection, patient remains on IV Rocephin, infectious disease following, awaiting culture results and further recommendation from infectious disease. On 06/04/2020 patient was seen and examined on the telemetry floor he is alert and oriented 3 in no apparent distress, he is complaining of back pain and is complaining of difficulty standing and walking otherwise he denies any complaints there is no fever or chills no headache or dizziness no chest pain no shortness of breath no cough no nausea or vomiting no abdominal pain no diarrhea no blood in the stools no burning with urination no frequency or urgency and no hematuria on 06/05/2020 patient was seen and examined on the telemetry floor he is alert and oriented 3 in no distress, he is still complaining of back pain, complaining of difficulty standing and walking, and complaining of constipation, otherwise he denies any complaints there is no fever or chills no headache or dizziness no chest pain no shortness of breath no cough no nausea or vomiting no abdominal pain no diarrhea no blood in the stools no burning with urination no frequency or urgency and no hematuria, at this time will continue was physical therapy continue with back brace, consult Dr. Kan for possible rehab admission. On 06/06/2020 patient was seen and examined on the medical floor he is alert and oriented 3 in no distress he is still complaining of back pain and difficulty standing and walking otherwise he denies any complaints there is no fever or chills no headache or dizziness no chest pain no shortness of breath no cough no nausea or vomiting no abdominal pain no diarrhea no blood in the stools no burning with urination no frequency or urgency no hematuria. He is scheduled for L4 kyphoplasty was possible biopsy for culture today Objective - Vital Signs Vital signs: Vital Signs Temp 99.1 F 06/06/20 16:35 Pulse 63 06/06/20 16:35 Resp 16 06/06/20 16:35 BP 162/76 06/06/20 16:35 Pulse Ox 99 06/06/20 16:35 Intake & Output 06/05/20 06/06/20 06/06/20 18:59 06:59 18:59 Intake Total 860 150 Output Total 350 600 700 Balance 510 -600 -550 Weight 100 kg Intake: IV 150 Oral 860 Output: Urine 350 600 700 Other: Voiding Method Indwelling Catheter Indwelling Catheter Indwelling Catheter # Voids 0 - Exam In general patient is alert and oriented 3 in no apparent distress HEENT head normocephalic and atraumatic Neck is supple no JVD no goiter no lymphadenopathy Chest exam reveals a scattered crackles in both lung bases no wheezing Cardiac exam reveals regular heart sounds S1 and S2 no gallops no murmurs Abdomen is soft nontender no organomegaly with normal bowel sounds Extremity exam reveals no edema no cyanosis or clubbing Neurological examination reveals no gross focal deficit - Labs CBC & Chem 7: 06/06/20 06:48 06/06/20 06:48 Labs: Abnormal Lab Results - Last 24 Hours (Table) 06/05/20 06/06/20 06/06/20 Range/Units 20:11 02:05 06:03 Monocytes # (0-1.0) k/uL Sodium (137-145) mmol/L Chloride (98-107) mmol/L Carbon Dioxide (22-30) mmol/L Creatinine (0.66-1.25) mg/dL Glucose (74-99) mg/dL POC Glucose (mg/dL) 118 H 148 H 179 H (75-99) mg/dL Calcium (8.4-10.2) mg/dL Total Protein (6.3-8.2) g/dL Albumin (3.5-5.0) g/dL 06/06/20 06/06/20 06/06/20 Range/Units 06:48 06:48 12:04 Monocytes # 1.1 H (0-1.0) k/uL Sodium 130 L (137-145) mmol/L Chloride 94 L (98-107) mmol/L Carbon Dioxide 31 H (22-30) mmol/L Creatinine 0.65 L (0.66-1.25) mg/dL Glucose 203 H (74-99) mg/dL POC Glucose (mg/dL) 198 H (75-99) mg/dL Calcium 8.1 L (8.4-10.2) mg/dL Total Protein 4.8 L (6.3-8.2) g/dL Albumin 2.5 L (3.5-5.0) g/dL 06/06/20 Range/Units 16:39 Monocytes # (0-1.0) k/uL Sodium (137-145) mmol/L Chloride (98-107) mmol/L Carbon Dioxide (22-30) mmol/L Creatinine (0.66-1.25) mg/dL Glucose (74-99) mg/dL POC Glucose (mg/dL) 229 H (75-99) mg/dL Calcium (8.4-10.2) mg/dL Total Protein (6.3-8.2) g/dL Albumin (3.5-5.0) g/dL Microbiology - Last 24 Hours (Table) 06/03/20 07:33 Blood Culture - Preliminary Blood No Growth after 72 hours 06/02/20 22:18 Blood Culture - Preliminary Blood No Growth after 72 hours Assessment and Plan Plan: 1. Altered mental status likely secondary to DKA. Patient currently on insulin drip. Patient has been admitted to the intensive care unit critical care following. Initial CO2 13 and anion gap 25. Patient improved, currently maintained on Levemir and sliding scale glucose is well-controlled, mental status is back to normal. 2. Supraventricular tachycardia. Patient was cardioverted in emergency room. Cardiology services following. 3. Acute Renal insufficiency. Initial creatinine 1.66 and bun 41. This has resolved, creatinine now is 0.6 4. Elevated white blood cell count. Urine and blood cultures ordered, patient is maintained on ceftriaxone infectious disease following 5. History of diabetes mellitus, patient stopped taking all medications at home, glucose now is well-controlled on Levemir and insulin sliding scale 6. History of Hyperlipidemia 7. Essential hypertension 8. low back pain, MRI reveals subacute fracture in L4 neurosurgery following day ordered a brace and physical therapy patient is still having significant pain and inability to stand or walk physical therapy consulted, patient will need to go to a rehab unit at the time of discharge. Possibility of vertebral infection raised by the radiologist, Dr. Salinas is aware patient is maintained on IV Rocephin awaiting further recommendation. DVT prophylaxis Patient is on Eliquis. GI prophylaxis Protonix At this time patient is improving he is maintaining in normal sinus rhythm, will continue to monitor closely
[2020-06-06] MEDS: HYDROmorphone 1 MG/ML 1 ML SYRINGE IVP ONE ×2 (19:04→19:11)
[2020-06-06 19:10] LABS: Glucose,Whole Blood 219 mg/dL (75-99)
[2020-06-06] MEDS ORDERED: INSULIN ASPART (NovoLOG) 100 UNIT/ML VIAL SQ ONE (19:11)
[2020-06-06] MEDS ORDERED: HYDROmorphone 1 MG/ML 1 ML SYRINGE IVP ONE (19:19)
[2020-06-06 20:20] LABS: Glucose,Whole Blood 205 mg/dL (75-99)
[2020-06-06] MEDS: APIXABAN 5 MG TAB PO SCH (20:20)
[2020-06-06] MEDS: ASPIRIN 81 MG PO SCH (20:20)
[2020-06-06] MEDS: INSULIN DETEMIR (LEVEMIR) 100 UNIT/ML SYR SQ SCH (20:20)
[2020-06-07] MEDS: APIXABAN 5 MG TAB PO SCH (01:17)
[2020-06-07 01:56] LABS: Glucose,Whole Blood 334 mg/dL (75-99)
[2020-06-07] MEDS: HYDROcodone/APAP 5-325MG 1 EACH TAB PO PRN ×3 (01:59→14:13)
[2020-06-07] MEDS: HYDROmorphone 1 MG/ML 1 ML SYRINGE IVP PRN ×3 (04:25→20:29)
[2020-06-07 06:25] LABS: Glucose,Whole Blood 284 mg/dL (75-99)
[2020-06-07] MEDS: PANTOPRAZOLE 40 MG TABLET PO SCH (06:31)
[2020-06-07] MEDS: INSULIN ASPART (NovoLOG) 100 UNIT/ML VIAL SQ SCH ×3 (06:31→17:22)
[2020-06-07] MEDS: INSULIN DETEMIR (LEVEMIR) 100 UNIT/ML SYR SQ SCH (06:32)
[2020-06-07 07:53] LABS: Basophils # (A) 0.1 k/uL (0-0.2); Basophils % (A) 1 %; Eosinophils # (A) 0.4 k/uL (0-0.7); Eosinophils % (A) 5 %; HCT 42.3 % (39.0-53.0); HGB 14.1 gm/dL (13.0-17.5); Lymphocytes # (A) 1.7 k/uL (1.0-4.8); Lymphocytes % (A) 20 %; MCH 30.9 pg (25.0-35.0); MCHC 33.3 g/dL (31.0-37.0); MCV 92.8 fL (80.0-100.0); Monocytes % (A) 12 %; Neutrophils # (A) 5.2 k/uL (1.3-7.7); Neutrophils % (A) 61 %; Platelet Count 325 k/uL (150-450); RBC 4.56 m/uL (4.30-5.90); RDW 13.3 % (11.5-15.5); WBC 8.6 k/uL (3.8-10.6)
[2020-06-07] MEDS: METOPROLOL TARTRATE 50 MG TAB PO SCH ×2 (08:51→20:28)
[2020-06-07] MEDS: ASPIRIN 81 MG PO SCH (08:51)
[2020-06-07] MEDS: ATORVASTATIN 10 MG TAB PO SCH (08:52)
--- NOTE | 2020-06-07 09:17 | XR ---
Fluoroscopy INDICATION: Pain FINDINGS: Fluoroscopy time: 1 minute 19 seconds. Images obtained: 6. Images document vertebroplasty. IMPRESSIONS: 1. Documentation of fluoroscopy.
[2020-06-07 12:02] LABS: Glucose,Whole Blood 199 mg/dL (75-99)
--- NOTE | 2020-06-07 13:29 | P.PN ---
Progress Note - Text Progress Note Date: 06/07/20 Orthopedic spine: History of present illness: Patient is a very pleasant 70-year-old male who seems at the bedside for follow up evaluation for his lumbar spine. He is known have an L4 compression fracture deformity. He underwent an L4 kyphoplasty with biopsy and culture yesterday. Preliminary results for Gram stain showed no organisms. Results are not finalized. Since that time, he states he has not had any significant improvement of his symptoms. He continues to experience back pain more towards the right side. He states he did attempt to get out of bed with assistance this morning but was unable to due to his pain. He is not currently experiencing any significant lower extremity radiculopathy or weakness. He states he has not been out of bed much due to his pain. He does have difficulties with activities due to his pain. His LSO brace is not currently intact. He continues to be seen by multiple medical providers. He has been seen by pulmonology, medicine, etiology and infectious disease. Patient was previously seen by Dr. Kan to discuss inpatient rehab does not feel the patient is currently ready for inpatient rehab. Patient's medical history includes diabetes mellitus, hypertension, and dyslipidemia. Patient continues to have a Singh catheter intact. Patient is currently being treated for acute renal insufficiency and altered mental status secondary to diabetic ketoacidosis. He is awake, alert, and oriented the bedside. He does have evidence of changes over the anterior bilateral lower extremities which he states is due to infection of the bilateral lower extremities after a previous fishing trip. During his admission to the emergency department patient was found to be an SVT and was cardioverted. Physical exam: Patient is awake, alert, and oriented 3 Vital signs stable Good chest excursion with deep inspiration and expiration Abdomen soft nontender Examination of lumbar spine reveals skin is intact with no abrasions, lacerations, or bruises; no erythema, purulence or signs of infection Wrestling over the surgical site at the L4 kyphoplasty site is clean, dry, and intact Patient does have difficulty rolling over in bed due to his back pain No specific pain with palpation over the lumbar spine Dorsiflexion, plantarflexion, and extensor hallucis longus positive sustained bilaterally Evidence of skin changes over the anterior lower extremities bilaterally Patient is able to perform some active range of motion in bilateral lower extremities but generally slower No signs or symptoms of DVT; no calf pain No pain with internal and external rotation of the hips bilaterally Neurovascularly intact Singh catheter intact Assessment: Status post L4 kyphoplasty with biopsy and culture L4 subacute compression fracture deformity status post fall Right-sided low back pain Increased signal at the L4 vertebral body near the psoas without evidence of obvious abscess Diabetic ketoacidosis Diabetes mellitus Hypertension Dyslipidemia Status post cardioversion for SVT Plan: 1. Patient underwent L4 kyphoplasty with biopsy and culture performed yesterday, 06/06/2020. We discussed his fracture site is stable following the kyphoplasty. He does continue to experience significant right-sided low back pain. We did discuss we need to work to increase his mobility and ambulation. He did have difficulty getting out of bed this morning with assistance. We discussed he should attempt to work with physical therapy again later today to try to at least get to a bedside chair. Patient may ambulate to his tolerance. 2. We will continue to follow patient closely. Culture and biopsy results are still pending. 3. Continue pain control medications as needed as prescribed 4. Patient may be planning for discharge to inpatient rehabilitation pending meeting inpatient criteria 5. Patient will continue seeing him by multiple other medical providers including medicine, pulmonology, infectious disease, and cardiology
[2020-06-07] MEDS: traMADol 50 MG TAB PO PRN (15:48)
[2020-06-07 17:26] LABS: Glucose,Whole Blood 100 mg/dL (75-99)
--- NOTE | 2020-06-07 18:05 | P.PN ---
Subjective Progress Note Date: 06/07/20 This is a 70-year-old male patient of Dr. Egan. Patient presented to the ER via ambulance when neighbor found patient on the ground with altered mental status. According to ER record patient's blood glucose was found to be 600 upon arrival. Patient does have a past medical history of diabetes mellitus, hyperlipidemia and essential hypertension. Upon arrival to the ER patient was found to be in SVT. Patient was cardioverted in ER and started on amiodarone per cardiology services. Patient was also started on insulin drip. Patient had noted to have significant bruising around hip right side. Pelvis x-ray completed showing no acute abnormality of the pelvis. Chest x-ray completed showing pulmonary fibrotic changes noted failure. Head and cervical spine CT completed showing normal computed tomography scan of the cervical spine cerebral atrophy no acute intracranial abnormality. Upon arrival CO2 8 and anion gap 25. Patient managed to ICU Dr. Crow consulted for critical care. Cardiology services following 2-D echo ordered . Upon exam patient unable to remember events leading to incident. Patient denies any recent illness that he can remember. This time patient denies chest pain or shortness breath. Patient denies nausea vomiting or diarrhea. Patient denies any urinary burning or frequency. White blood cell count significantly elevated. Will order blood and culture and urine culture On 05/30/2020 patient was seen and examined in the ICU he is alert and oriented 3 in no apparent distress he is complaining of mid and low back pain otherwise he denies any complaint, there is no fever or chills no headache or dizziness no chest pain no shortness of breath no cough no nausea or vomiting no abdominal pain no diarrhea no blood in the stools no burning with urination no frequency or urgency and no hematuria. On 05/31/2020 patient was seen and examined in the ICU, is alert and oriented in no distress, is still complaining of back pain otherwise he denies any c omplaints there is no fever or chills no headache or dizziness no chest pain no shortness of breath no cough no nausea or vomiting no diarrhea no blood in the stools no burning with urination no frequency or urgency and no hematuria, glucose level is better controlled on insulin, patient was counseled in length in regards to importance of taking medication and insulin injections at home to avoid recurrence of his symptoms and readmission. On 06/01/2020 patient alert and oriented 3 patient remains in the intensive care unit. Patient remains on Cardizem drip. Blood sugars have improved. At this time patient denies chest pain or shortness of breath. Patient denies nausea vomiting or diarrhea. Patient denies any urinary burning or frequency On 06/02/2020 patient was seen and examined on the medical floor he is alert and oriented 3 in no apparent distress he is complaining of back pain otherwise he denies any complaints there is no fever or chills no headache or dizziness no chest pain no shortness of breath no cough no nausea or vomiting no abdominal pain no diarrhea no blood in the stools no burning with urination no frequency or urgency and no hematuria. Lumbar spine MRI results reviewed, awaiting further recommendation from neurosurgery and infectious disease. On 06/03/2020 patient was seen and examined on the medical floor, he is alert and oriented 3 in no apparent distress he is still complaining of back pain otherwise no complaints there is no fever or chills no headache or dizziness no chest pain no shortness of breath no cough no nausea or vomiting no abdominal pain no diarrhea and no urinary symptoms, MRI of the lumbar spine raises the possibility of acute infection, patient remains on IV Rocephin, infectious disease following, awaiting culture results and further recommendation from infectious disease. On 06/04/2020 patient was seen and examined on the telemetry floor he is alert and oriented 3 in no apparent distress, he is complaining of back pain and is complaining of difficulty standing and walking otherwise he denies any complaints there is no fever or chills no headache or dizziness no chest pain no shortness of breath no cough no nausea or vomiting no abdominal pain no diarrhea no blood in the stools no burning with urination no frequency or urgency and no hematuria on 06/05/2020 patient was seen and examined on the telemetry floor he is alert and oriented 3 in no distress, he is still complaining of back pain, complaining of difficulty standing and walking, and complaining of constipation, otherwise he denies any complaints there is no fever or chills no headache or dizziness no chest pain no shortness of breath no cough no nausea or vomiting no abdominal pain no diarrhea no blood in the stools no burning with urination no frequency or urgency and no hematuria, at this time will continue was physical therapy continue with back brace, consult Dr. Kan for possible rehab admission. On 06/06/2020 patient was seen and examined on the medical floor he is alert and oriented 3 in no distress he is still complaining of back pain and difficulty standing and walking otherwise he denies any complaints there is no fever or chills no headache or dizziness no chest pain no shortness of breath no cough no nausea or vomiting no abdominal pain no diarrhea no blood in the stools no burning with urination no frequency or urgency no hematuria. He is scheduled for L4 kyphoplasty was possible biopsy for culture today. n 06/07/2020 patient was seen and examined on the medical floor he is alert and oriented 3 in no apparent distress he is complaining of back pain otherwise he denies any complaints at this time there is no fever or chills no headache or dizziness no chest pain no shortness of breath no cough no nausea or vomiting no diarrhea no blood in the stools no burning with urination no frequency or urgency and no hematuria. Yesterday patient underwent L4 aspiration for culture, biopsy and kyphoplasty. Objective - Vital Signs Vital signs: Vital Signs Temp 98 F 06/06/20 18:44 Pulse 69 06/07/20 02:16 Resp 17 06/07/20 02:16 BP 135/71 06/06/20 19:30 Pulse Ox 98 06/06/20 19:30 Intake & Output 06/06/20 06/07/20 06/07/20 18:59 06:59 18:59 Intake Total 700 100 125 Output Total 705 580 Balance -5 -480 125 Weight 99.6 kg Intake: IV 700 100 Oral 125 Output: Urine 700 580 Estimated Blood Loss 5 Other: Voiding Method Indwelling Catheter Indwelling Catheter Indwelling Catheter - Exam In general patient is alert and oriented 3 in no apparent distress HEENT head normocephalic and atraumatic Neck is supple no JVD no goiter no lymphadenopathy Chest exam reveals a scattered crackles in both lung bases no wheezing Cardiac exam reveals regular heart sounds S1 and S2 no gallops no murmurs Abdomen is soft nontender no organomegaly with normal bowel sounds Extremity exam reveals no edema no cyanosis or clubbing Neurological examination reveals no gross focal deficit - Labs CBC & Chem 7: 06/07/20 07:09 06/06/20 06:48 Labs: Abnormal Lab Results - Last 24 Hours (Table) 06/06/20 06/06/20 06/06/20 Range/Units 12:04 16:39 19:08 POC Glucose (mg/dL) 198 H 229 H 219 H (75-99) mg/dL 06/06/20 06/07/20 06/07/20 Range/Units 20:19 01:55 06:24 POC Glucose (mg/dL) 205 H 334 H 284 H (75-99) mg/dL Microbiology - Last 24 Hours (Table) 06/03/20 07:33 Blood Culture - Preliminary Blood No Growth after 96 hours 06/06/20 18:30 Gram Stain - Preliminary Back Wound Culture - Preliminary 06/06/20 18:29 Gram Stain - Preliminary Back Wound Culture - Preliminary 06/06/20 18:29 Anaerobic Culture - Preliminary Back 06/06/20 18:30 Anaerobic Culture - Preliminary Back 06/02/20 22:18 Blood Culture - Preliminary Blood No Growth after 96 hours Assessment and Plan Plan: 1. Altered mental status likely secondary to DKA. Patient currently on insulin drip. Patient has been admitted to the intensive care unit critical care [facility]. Initial CO2 13 and anion gap 25. Patient improved, currently maintained on Levemir and sliding scale glucose is well-controlled, mental status is back to normal. 2. Supraventricular tachycardia. Patient was cardioverted in emergency room. Cardiology services following. 3. Acute Renal insufficiency. Initial creatinine 1.66 and bun 41. This has resolved, creatinine now is 0.6 4. Elevated white blood cell count. Urine and blood cultures ordered, patient is maintained on ceftriaxone infectious disease following 5. History of diabetes mellitus, patient stopped taking all medications at home, glucose now is well-controlled on Levemir and insulin sliding scale 6. History of Hyperlipidemia 7. Essential hypertension 8. low back pain, MRI reveals subacute fracture in L4 neurosurgery following day ordered a brace and physical therapy patient is still having significant pain and inability to stand or walk physical therapy consulted, patient will need to go to a rehab unit at the time of discharge. Possibility of vertebral infection raised by the radiologist, Dr. Salinas is aware patient is maintained on IV Rocephin awaiting further recommendation. DVT prophylaxis Patient is on Eliquis. GI prophylaxis Protonix At this time patient is improving he is maintaining in normal sinus rhythm, will continue to monitor closely
[2020-06-07 20:48] LABS: Glucose,Whole Blood 135 mg/dL (75-99)
--- NOTE | 2020-06-07 23:25 | PN ---
PROGRESS NOTE DATE OF SERVICE: 06/07/2020 REASON FOR FOLLOWUP: Abnormal MRI, possible fracture and question of osteomyelitis. INTERVAL HISTORY: The patient is currently afebrile. The patient is status post repair of his lumbar fracture, but no evidence of any purulence. Patient tolerated the procedure. Pain is currently controlled. No chest pain, shortness of breath or cough. PHYSICAL EXAMINATION: Blood pressure is 155/84 with a pulse of 58, temperature of 98. He is 99% on 2 L nasal cannula. General description is an elderly male lying in bed in no distress. RESPIRATORY SYSTEM: Unlabored breathing, clear to auscultation anteriorly. HEART: S1, S2. Regular rate and rhythm. ABDOMEN: Soft, no tenderness. LABS: Hemoglobin is 14.1, white count 8.6. Lumbar culture so far negative. DIAGNOSTIC IMPRESSION AND PLAN: Patient with a recent fall with resistant L4 compression fracture and abnormal MRI, likely because of the fracture. Clinically not behaving as an osteomyelitis. The patient is afebrile. Cultures are negative. Will continue to monitor the patient closely off antibiotic therapy. MMODL / IJN: [id number] /
[2020-06-08] MEDS: INSULIN ASPART (NovoLOG) 100 UNIT/ML VIAL SQ SCH ×5 (00:22→21:29)
[2020-06-08 06:15] LABS: Glucose,Whole Blood 156 mg/dL (75-99)
[2020-06-08] MEDS: INSULIN DETEMIR (LEVEMIR) 100 UNIT/ML SYR SQ SCH (06:25)
[2020-06-08] MEDS: PANTOPRAZOLE 40 MG TABLET PO SCH (06:25)
[2020-06-08] MEDS: ASPIRIN 81 MG PO SCH (08:07)
[2020-06-08] MEDS: METOPROLOL TARTRATE 50 MG TAB PO SCH ×2 (08:07→21:29)
[2020-06-08] MEDS: ATORVASTATIN 10 MG TAB PO SCH (08:07)
[2020-06-08] MEDS: traMADol 50 MG TAB PO PRN ×3 (08:07→22:44)
[2020-06-08 11:33] LABS: Basophils # (A) 0.1 k/uL (0-0.2); Basophils % (A) 1 %; Eosinophils # (A) 0.3 k/uL (0-0.7); Eosinophils % (A) 3 %; HCT 45.2 % (39.0-53.0); HGB 15.2 gm/dL (13.0-17.5); Lymphocytes # (A) 1.3 k/uL (1.0-4.8); Lymphocytes % (A) 12 %; MCH 31.2 pg (25.0-35.0); MCHC 33.5 g/dL (31.0-37.0); MCV 92.9 fL (80.0-100.0); Mean Platelet Volume 7.8; Monocytes % (A) 9 %; Neutrophils # (A) 8.6 k/uL (1.3-7.7); Neutrophils % (A) 75 %; Platelet Count 333 k/uL (150-450); RBC 4.87 m/uL (4.30-5.90); RDW 13.3 % (11.5-15.5); WBC 11.4 k/uL (3.8-10.6)
[2020-06-08 11:33] LABS: Glucose,Whole Blood 152 mg/dL (75-99)
[2020-06-08] MEDS: HYDROcodone/APAP 5-325MG 1 EACH TAB PO PRN ×2 (12:46→21:28)
[2020-06-08 13:42] LABS: ALT 8 U/L (4-49); AST 17 U/L (17-59); African American GFR (CKD) >90 (>60 ml/min/1.73 sqM); Albumin 2.5 g/dL (3.5-5.0); Alkaline Phosphatase 127 U/L (38-126); Anion Gap 6 mmol/L; Blood Urea Nitrogen 11 mg/dL (9-20); Calcium 7.9 mg/dL (8.4-10.2); Carbon Dioxide 27 mmol/L (22-30); Chloride 97 mmol/L (98-107); Glucose 191 mg/dL (74-99); Non-African American GFR(CKD) >90 (>60 ml/min/1.73 sqM); Potassium 3.6 mmol/L (3.5-5.1); Sodium 130 mmol/L (137-145); Total Protein 4.9 g/dL (6.3-8.2)
--- NOTE | 2020-06-08 14:02 | PN ---
PROGRESS NOTE DATE OF SERVICE: 06/08/2020 REASON FOR FOLLOWUP: Abnormal MRI, possible fracture. INTERVAL HISTORY: Patient is currently afebrile. Still complaining of pain in the low back, but no worsening. Denies having any chest pain. No shortness of breath or cough. No abdominal pain, no diarrhea. PHYSICAL EXAMINATION: Blood pressure 118/86, pulse of 59, temperature is 98.3, he is 99% on room air. General description is an elderly male, lying in bed in no distress. RESPIRATORY SYSTEM: Unlabored breathing, clear to auscultation anteriorly. HEART S1, S2. Regular rate and rhythm. ABDOMEN: Soft, no tenderness. LABS: Hemoglobin is 15, white count 11.4. His OR cultures remain to be negative, blood culture negative. DIAGNOSTIC IMPRESSION AND PLAN: Patient with a fall with resultant lumbar spine fracture on MRI and likely fracture as no evidence of any purulence at time of surgery. The patient is status post kyphoplasty and post culture has been negative. The patient is off antibiotic for 4-5 days now. Recommend no antibiotic on discharge. This was discussed with the nurse practitioner for admitting team. MMODL / IJN: [id number] /
--- NOTE | 2020-06-08 14:22 | P.DS ---
Providers Date of admission: 05/28/20 23:06 Expected date of discharge: 06/08/20 Attending physician: Mey Butler Consults: 05/28/20 23:13 Consult Physician Urgent Consulting Provider: Pierre Crow Consult Reason/Comments: DKA Do you want consulting provider notified?: Already Contacted 05/28/20 23:14 Consult Physician Urgent Consulting Provider: Silvai Martel Consult Reason/Comments: SVT Do you want consulting provider notified?: Already Contacted 05/29/20 12:01 Consult Physician Routine Consulting Provider: Sobia Salinas Consult Reason/Comments: Elevated white count Do you want consulting provider notified?: Yes 06/01/20 13:41 Consult Physician Routine Consulting Provider: Tirso Squires Consult Reason/Comments: Compression fracture of L4 Do you want consulting provider notified?: Yes 06/05/20 10:57 Consult Physician Routine Consulting Provider: Chandra Kan Consult Reason/Comments: possible rehab admission Do you want consulting provider notified?: Yes Primary care physician: Lacie Egan Hospital Course: Discharge diagnosis 1. Altered mental status likely secondary to DKA. Patient currently on insulin drip. Patient has been admitted to the intensive care unit critical care following. Initial CO2 13 and anion gap 25. Patient improved, currently maintained on Levemir and sliding scale glucose is well-controlled, mental status is back to normal. 2. Multifocal atrial tachycardia . Patient was cardioverted in emergency room. Cardiology services following. Patient was started on eliquis during hosp italization per cardiology 3. Acute Renal insufficiency. Initial creatinine 1.66 and bun 41. This has resolved, creatinine now is 0.6 4. Elevated white blood cell count. Urine and blood cultures ordered, patient is maintained on ceftriaxone infectious disease following 5. History of diabetes mellitus, patient stopped taking all medications at home, glucose now is well-controlled on Levemir and insulin sliding scale 6. History of Hyperlipidemia 7. Essential hypertension 8. low back pain, MRI reveals subacute fracture in L4 neurosurgery following day ordered a brace and physical therapy patient is still having significant pain and inability to stand or walk physical therapy consulted, patient will need to go to a rehab unit at the time of discharge. Possibility of vertebral infection raised by the radiologist, Dr. Salinas is aware patient is maintained on IV Rocephin awaiting further recommendation. That culture showing no growth after 24 hours. Discussed case with infectious disease. No need for antibiotics Hospital course This is a 70-year-old male patient of Dr. Egan. Patient presented to the ER via ambulance when neighbor found patient on the ground with altered mental status. According to ER record patient's blood glucose was found to be 600 upon arrival. Patient does have a past medical history of diabetes mellitus, hyperlipidemia and essential hypertension. Upon arrival to the ER patient was found to be in SVT. Patient was cardioverted in ER and started on amiodarone per cardiology services. Patient was also started on insulin drip. Patient had noted to have significant bruising around hip right side. Pelvis x-ray co mpleted showing no acute abnormality of the pelvis. Chest x-ray completed showing pulmonary fibrotic changes noted failure. Head and cervical spine CT completed showing normal computed tomography scan of the cervical spine cerebral atrophy no acute intracranial abnormality. Upon arrival CO2 8 and anion gap 25. Patient managed to ICU Dr. Crow consulted for critical care. Cardiology services following 2-D echo ordered . Upon exam patient unable to remember events leading to incident. Patient denies any recent illness that he can remember. This time patient denies chest pain or shortness breath. Patient denies nausea vomiting or diarrhea. Patient denies any urinary burning or frequency. White blood cell count significantly elevated. Will order blood and culture and urine culture On 05/30/2020 patient was seen and examined in the ICU he is alert and oriented 3 in no apparent distress he is complaining of mid and low back pain otherwise he denies any complaint, there is no fever or chills no headache or dizziness no chest pain no shortness of breath no cough no nausea or vomiting no abdominal pain no diarrhea no blood in the stools no burning with urination no frequency or urgency and no hematuria. On 05/31/2020 patient was seen and examined in the ICU, is alert and oriented in no distress, is still complaining of back pain otherwise he denies any complaints there is no fever or chills no headache or dizziness no chest pain no shortness of breath no cough no nausea or vomiting no diarrhea no blood in the stools no burning with urination no frequency or urgency and no hematuria, glucose level is better controlled on insulin, patient was counseled in length in regards to importance of taking medication and insulin injections at home to avoid recurrence of his symptoms and readmission. On 06/01/2020 patient alert and oriented 3 patient remains in the intensive care unit. Patient remains on Cardizem drip. Blood sugars have improved. At this time patient denies chest pain or shortness of breath. Patient denies nausea vomiting or diarrhea. Patient denies any urinary burning or frequency On 06/02/2020 patient was seen and examined on the medical floor he is alert and oriented 3 in no apparent distress he is complaining of back pain otherwise he denies any complaints there is no fever or chills no headache or dizziness no chest pain no shortness of breath no cough no nausea or vomiting no abdominal pain no diarrhea no blood in the stools no burning with urination no frequency or urgency and no hematuria. Lumbar spine MRI results reviewed, awaiting further recommendation from neurosurgery and infectious disease. On 06/03/2020 patient was seen and examined on the medical floor, he is alert and oriented 3 in no apparent distress he is still complaining of back pain otherwise no complaints there is no fever or chills no headache or dizziness no chest pain no shortness of breath no cough no nausea or vomiting no abdominal pain no diarrhea and no urinary symptoms, MRI of the lumbar spine raises the possibility of acute infection, patient remains on IV Rocephin, infectious disease following, awaiting culture results and further recommendation from infectious disease. On 06/04/2020 patient was seen and examined on the telemetry floor he is alert and oriented 3 in no apparent distress, he is complaining of back pain and is complaining of difficulty standing and walking otherwise he denies any complaints there is no fever or chills no headache or dizziness no chest pain no shortness of breath no cough no nausea or vomiting no abdominal pain no diarrhea no blood in the stools no burning with urination no frequency or urgency and no hematuria on 06/05/2020 patient was seen and examined on the telemetry floor he is alert and oriented 3 in no distress, he is still complaining of back pain, complaining of difficulty standing and walking, and complaining of constipation, otherwise he denies any complaints there is no fever or chills no headache or dizziness no chest pain no shortness of breath no cough no nausea or vomiting no abdominal pain no diarrhea no blood in the stools no burning with urination no frequency or urgency and no hematuria, at this time will continue was physical therapy continue with back brace, consult Dr. Kan for possible rehab admission. On 06/06/2020 patient was seen and examined on the medical floor he is alert and oriented 3 in no distress he is still complaining of back pain and difficulty standing and walking otherwise he denies any complaints there is no fever or chills no headache or dizziness no chest pain no shortness of breath no cough no nausea or vomiting no abdominal pain no diarrhea no blood in the stools no burning with urination no frequency or urgency no hematuria. He is scheduled for L4 kyphoplasty was possible biopsy for culture today. n 06/07/2020 patient was seen and examined on the medical floor he is alert and oriented 3 in no apparent distress he is complaining of back pain otherwise he denies any complaints at this time there is no fever or chills no headache or dizziness no chest pain no shortness of breath no cough no nausea or vomiting no diarrhea no blood in the stools no burning with urination no frequency or urgency and no hematuria. Yesterday patient underwent L4 aspiration for culture, biopsy and kyphoplasty. On 06/08/2020 patient is alert and oriented 3. Did discuss case with infectious disease no need for antibiotics back culture currently negative. Patient will be discharged to [facility] for rehab at this time patient denies chest pain or shortness breath. Patient denies nausea vomiting or diarrhea. Patient denies any urinary burning or frequency. I performed an examination of the patient and discussed their management with the Nurse Practitioner. I have reviewed the Nurse Practitioner's notes and agree with the documented findings and plan of care Patient Condition at Discharge: Stable Plan - Discharge Summary Discharge Rx Participant: Yes New Discharge Prescriptions: New Aspirin 81 mg PO DAILY chew Insulin Detemir (Levemir) [Levemir] 29 unit SQ DAILY@0700 syr Atorvastatin [Lipitor] 10 mg PO DAILY tab Metoprolol Tartrate [Lopressor] 50 mg PO BID tab HYDROcodone/APAP 5-325MG [Marvell 5-325] 1 each PO Q4HR PRN 3 Days #18 tab PRN Reason: Moderate Pain INSULIN ASPART (NovoLOG) [NovoLOG (formulary)] 0 unit SQ ACHS vial traMADol HCl [Ultram] 50 mg PO QID PRN 3 Days #12 tab PRN Reason: Mild To Moderate Pain Discharge Medication List Aspirin 81 mg PO DAILY chew 06/08/20 [Rx] Atorvastatin [Lipitor] 10 mg PO DAILY tab 06/08/20 [Rx] HYDROcodone/APAP 5-325MG [Marvell 5-325] 1 each PO Q4HR PRN 3 Days #18 tab 06/08/20 [Rx] INSULIN ASPART (NovoLOG) [NovoLOG (formulary)] 0 unit SQ ACHS vial 06/08/20 [Rx] Insulin Detemir (Levemir) [Levemir] 29 unit SQ DAILY@0700 syr 06/08/20 [Rx] Metoprolol Tartrate [Lopressor] 50 mg PO BID tab 06/08/20 [Rx] traMADol HCl [Ultram] 50 mg PO QID PRN 3 Days #12 tab 06/08/20 [Rx] Follow up Appointment(s)/Referral(s): Silvia Martel MD [STAFF PHYSICIAN] - 2 Weeks Lacie Egan MD [Primary Care Provider] - 1-2 days Patrick Rivera PAC [PHYSICIAN PSYCHIATRIC THERAPIST] - 2 Weeks (Patient may follow-up with Patrick Rivera PA-C or Dr. Tommy Squires at [facility] in 2-3 weeks following discharge. ) Activity/Diet/Wound Care/Special Instructions: 1. Patient may shower with Tegaderm dressing intact. 2. Patient may remove Tegaderm dressing in 3 days and shower without a dressing at that time. 3. Patient should refrain from driving until at least after their first follow- up appointment in the office. 4. Patient should avoid excessive bending, twisting, and lifting; no lifting greater than 10 pounds 5. Take medications as prescribed 6. Do not soak in tub Patient will be discharged to [facility] for rehab
--- NOTE | 2020-06-08 14:46 | P.PN ---
Progress Note - Text Progress Note Date: 06/08/20 Orthopedic spine: History of present illness: Patient is a very pleasant 70-year-old male who seems at the bedside for follow up evaluation for his lumbar spine. He has not had any change in his symptoms since being seen and examined yesterday. He is known have an L4 compression fracture deformity. He underwent an L4 kyphoplasty with biopsy and culture yesterday. Preliminary results for Gram stain showed no organisms. Results are not finalized. Since that time, he states he has not had any significant improvement of his symptoms. He continues to experience back pain more towards the right side. He states he has not been out of bed since being seen and examined yesterday. Nursing states he was out of bed with physical therapy. He is not currently experiencing any significant lower extremity radiculopathy or weakness. He states he has not been out of bed much due to his pain. He does have difficulties with activities due to his pain. His LSO brace is not currently intact. He continues to be seen by multiple medical providers. He has been seen by pulmonology, medicine, etiology and infectious disease. Patient was previously seen by Dr. Kan to discuss inpatient rehab does not feel the patient is currently ready for inpatient rehab. Patient's medical history includes diabetes mellitus, hypertension, and dyslipidemia. Patient continues to have a Singh catheter intact. Patient is currently being treated for acute renal insufficiency and altered mental status secondary to diabetic ketoacidosis. He is awake, alert, and oriented the bedside. He has had some constipation and is on narcotic medications. His abdomen continues to be soft nontender. He does have evidence of changes over the anterior bilateral lower extremities which he states is due to infection of the bilateral lower extremities after a previous fishing trip. During his admission to the emergency department patient was found to be an SVT and was cardioverted. Physical exam: Postoperative day #2 Patient is awake, alert, and oriented 3 Vital signs stable Good chest excursion with deep inspiration and expiration Abdomen soft nontender Examination of lumbar spine reveals skin is intact with no abrasions, lacerations, or bruises; no erythema, purulence or signs of infection Wrestling over the surgical site at the L4 kyphoplasty site is clean, dry, and intact Patient does have difficulty rolling over in bed due to his back pain No specific pain with palpation over the lumbar spine Dorsiflexion, plantarflexion, and extensor hallucis longus positive sustained bilaterally Evidence of skin changes over the anterior lower extremities bilaterally Patient is able to perform some active range of motion in bilateral lower extremities but generally slower No signs or symptoms of DVT; no calf pain No pain with internal and external rotation of the hips bilaterally Neurovascularly intact Singh catheter intact Assessment: Status post L4 kyphoplasty with biopsy and culture L4 subacute compression fracture deformity status post fall Right-sided low back pain Increased signal at the L4 vertebral body near the psoas without evidence of obvious abscess Diabetic ketoacidosis Diabetes mellitus Hypertension Dyslipidemia Status post cardioversion for SVT Constipation Plan: 1. Patient underwent L4 kyphoplasty with biopsy and culture performed , 06/06/2020. We discussed his fracture site is stable following the kyphoplasty. He does continue to experience significant right-sided low back pain. We again discussed we need to work to increase his mobility and ambulation. He did have difficulty getting out of bed this morning with assistance. We discussed he should attempt to work with physical therapy again later today to try to at least get to a bedside chair. Patient may ambulate to his tolerance. He may wear his LSO brace for comfort support as needed. 2. We will continue to follow patient closely. Culture and biopsy results are still pending. 3. Continue pain control medications as needed as prescribed 4. Patient may be planning for discharge to inpatient rehabilitation pending meeting inpatient criteria; medicine is planning for discharge today 5. Patient will continue seeing him by multiple other medical providers including medicine, pulmonology, infectious disease, and cardiology
[2020-06-08 14:54] VITALS: BMI 30.5
[2020-06-08 16:26] LABS: Glucose,Whole Blood 113 mg/dL (75-99)
[2020-06-08 20:54] LABS: Glucose,Whole Blood 150 mg/dL (75-99)
[2020-06-09 06:03] LABS: Glucose,Whole Blood 206 mg/dL (75-99)
[2020-06-09] MEDS: PANTOPRAZOLE 40 MG TABLET PO SCH (06:29)
[2020-06-09] MEDS: INSULIN DETEMIR (LEVEMIR) 100 UNIT/ML SYR SQ SCH ×2 (06:29→06:30)
[2020-06-09] MEDS: INSULIN ASPART (NovoLOG) 100 UNIT/ML VIAL SQ SCH ×4 (06:30→21:04)
[2020-06-09] MEDS: traMADol 50 MG TAB PO PRN (08:40)
[2020-06-09] MEDS: METOPROLOL TARTRATE 50 MG TAB PO SCH ×2 (08:41→21:04)
[2020-06-09] MEDS: ATORVASTATIN 10 MG TAB PO SCH (08:41)
[2020-06-09] MEDS: ASPIRIN 81 MG PO SCH (08:41)
--- NOTE | 2020-06-09 10:19 | P.PN ---
Progress Note - Text Progress Note Date: 06/09/20 Postoperative day #3 Patient is seen and examined today at bedside. The patient has some pain around the surgical site as expected. Pain is being controlled with medication. He has been doing very limited mobility thus far. He still has complaints around his bilateral hips. He feels his back is making some progress. Physical Exam Afebrile with stable vital signs Abdomen is soft nontender. Chest has good excursion deep and space expiration The incision site is clean dry and intact. No erythema there is no purulence.The wound sites clean and dry Extremities have not had neurologic change from prior to surgery. He has sustained dorsal flexion plantar flexion and EHL intact Calves and thighs were soft nontender without evidence of DVT. Assessment/Plan Postoperative day #3 status post kyphoplasty and biopsy of L4 vertebral compression fracture Cultures from the L4 vertebral body of all been negative for any growth Deconditioning with limited mobility Patient is progressing very slowly despite stabilizing L4 vertebral body. With an sourcing assistant today I was able to get him up out of his bed and up to a chair. He is moving better in terms of his back but still has some hip pain when he stands. I think that he needs to really work hard to mobilize to try to regain strength as he continues to deconditioning more he is in bed. From an orthopedic standpoint is okay for him to increase his mobility as tolerated. His spine appears stable at this point and is not having neurologic decline. I do not have any further plans of orthopedic or spinal intervention at this point. We will continue to increase the patient's mobilization with therapy. We will continue pain control with oral or IV medications. We'll continue to follow patient closely.
[2020-06-09 11:52] LABS: Glucose,Whole Blood 196 mg/dL (75-99)
[2020-06-09] MEDS: HYDROcodone/APAP 5-325MG 1 EACH TAB PO PRN (12:30)
--- NOTE | 2020-06-09 15:37 | PN ---
PROGRESS NOTE DATE OF SERVICE: 06/09/2020 REASON FOR FOLLOWUP: Abnormal MRI and a question of possible . INTERVAL HISTORY: The patient is currently afebrile, has been complaining of more pain to the lower back area, especially with movement. No chest pain, shortness of breath or cough and no diarrhea. PHYSICAL EXAMINATION: Blood pressure 165/86, pulse of 75, temperature 98.2. He is 98% on room air. General description is an elderly male lying in bed in no distress. RESPIRATORY SYSTEM: Unlabored breathing. Clear to auscultation anteriorly. HEART: S1, S2. Regular rate and rhythm. ABDOMEN: Soft. No tenderness. LABS: No new labs have been obtained. All his cultures are negative. DIAGNOSTIC IMPRESSION AND PLAN: Patient with a fall with subsequent fracture to the lumbar vertebra, status post kyphoplasty. MRI was suspicious for infection, but no purulence was noticed. The patient is afebrile. White count is normal and culture has been negative. Recommend no antibiotic on discharge. MMODL / IJN: [id number] /
[2020-06-09 16:49] LABS: Glucose,Whole Blood 122 mg/dL (75-99)
--- NOTE | 2020-06-09 16:56 | P.PN ---
Subjective Progress Note Date: 06/09/20 This is a 70-year-old male patient of Dr. Egan. Patient presented to the ER via ambulance when neighbor found patient on the ground with altered mental status. According to ER record patient's blood glucose was found to be 600 upon arrival. Patient does have a past medical history of diabetes mellitus, hyperlipidemia and essential hypertension. Upon arrival to the ER patient was found to be in SVT. Patient was cardioverted in ER and started on amiodarone per cardiology services. Patient was also started on insulin drip. Patient had noted to have significant bruising around hip right side. Pelvis x-ray completed showing no acute abnormality of the pelvis. Chest x-ray completed showing pulmonary fibrotic changes noted failure. Head and cervical spine CT completed showing normal computed tomography scan of the cervical spine cerebral atrophy no acute intracranial abnormality. Upon arrival CO2 8 and anion gap 25. Patient managed to ICU Dr. Crow consulted for critical care. Cardiology services following 2-D echo ordered . Upon exam patient unable to remember events leading to incident. Patient denies any recent illness that he can remember. This time patient denies chest pain or shortness breath. Patient denies nausea vomiting or diarrhea. Patient denies any urinary burning or frequency. White blood cell count significantly elevated. Will order blood and culture and urine culture On 05/30/2020 patient was seen and examined in the ICU he is alert and oriented 3 in no apparent distress he is complaining of mid and low back pain otherwise he denies any complaint, there is no fever or chills no headache or dizziness no chest pain no shortness of breath no cough no nausea or vomiting no abdominal pain no diarrhea no blood in the stools no burning with urination no frequency or urgency and no hematuria. On 05/31/2020 patient was seen and examined in the ICU, is alert and oriented in no distress, is still complaining of back pain otherwise he denies any c omplaints there is no fever or chills no headache or dizziness no chest pain no shortness of breath no cough no nausea or vomiting no diarrhea no blood in the stools no burning with urination no frequency or urgency and no hematuria, glucose level is better controlled on insulin, patient was counseled in length in regards to importance of taking medication and insulin injections at home to avoid recurrence of his symptoms and readmission. On 06/01/2020 patient alert and oriented 3 patient remains in the intensive care unit. Patient remains on Cardizem drip. Blood sugars have improved. At this time patient denies chest pain or shortness of breath. Patient denies nausea vomiting or diarrhea. Patient denies any urinary burning or frequency On 06/02/2020 patient was seen and examined on the medical floor he is alert and oriented 3 in no apparent distress he is complaining of back pain otherwise he denies any complaints there is no fever or chills no headache or dizziness no chest pain no shortness of breath no cough no nausea or vomiting no abdominal pain no diarrhea no blood in the stools no burning with urination no frequency or urgency and no hematuria. Lumbar spine MRI results reviewed, awaiting further recommendation from neurosurgery and infectious disease. On 06/03/2020 patient was seen and examined on the medical floor, he is alert and oriented 3 in no apparent distress he is still complaining of back pain otherwise no complaints there is no fever or chills no headache or dizziness no chest pain no shortness of breath no cough no nausea or vomiting no abdominal pain no diarrhea and no urinary symptoms, MRI of the lumbar spine raises the possibility of acute infection, patient remains on IV Rocephin, infectious disease following, awaiting culture results and further recommendation from infectious disease. On 06/04/2020 patient was seen and examined on the telemetry floor he is alert and oriented 3 in no apparent distress, he is complaining of back pain and is complaining of difficulty standing and walking otherwise he denies any complaints there is no fever or chills no headache or dizziness no chest pain no shortness of breath no cough no nausea or vomiting no abdominal pain no diarrhea no blood in the stools no burning with urination no frequency or urgency and no hematuria on 06/05/2020 patient was seen and examined on the telemetry floor he is alert and oriented 3 in no distress, he is still complaining of back pain, complaining of difficulty standing and walking, and complaining of constipation, otherwise he denies any complaints there is no fever or chills no headache or dizziness no chest pain no shortness of breath no cough no nausea or vomiting no abdominal pain no diarrhea no blood in the stools no burning with urination no frequency or urgency and no hematuria, at this time will continue was physical therapy continue with back brace, consult Dr. Kan for possible rehab admission. On 06/06/2020 patient was seen and examined on the medical floor he is alert and oriented 3 in no distress he is still complaining of back pain and difficulty standing and walking otherwise he denies any complaints there is no fever or chills no headache or dizziness no chest pain no shortness of breath no cough no nausea or vomiting no abdominal pain no diarrhea no blood in the stools no burning with urination no frequency or urgency no hematuria. He is scheduled for L4 kyphoplasty was possible biopsy for culture today. n 06/07/2020 patient was seen and examined on the medical floor he is alert and oriented 3 in no apparent distress he is complaining of back pain otherwise he denies any complaints at this time there is no fever or chills no headache or dizziness no chest pain no shortness of breath no cough no nausea or vomiting no diarrhea no blood in the stools no burning with urination no frequency or urgency and no hematuria. Yesterday patient underwent L4 aspiration for culture, biopsy and kyphoplasty. On 06/08/2020 patient is alert and oriented 3. Did discuss case with infectious disease no need for antibiotics back culture currently negative. Patient will be discharged to [facility] for rehab at this time patient denies chest pain or shortness breath. Patient denies nausea vomiting or diarrhea. P atient denies any urinary burning or frequency. On 06/09/2020 patient was seen and examined on the medical floor he is alert and oriented 3 in no apparent distress he is still complaining of back pain and complaining of difficulty standing up and walking otherwise he denies any complaints there is no fever or chills no headache or dizziness no chest pain no shortness of breath no cough no nausea or vomiting no abdominal pain no diarrhea and no urinary symptoms Objective - Vital Signs Vital signs: Vital Signs Temp 98.2 F 06/09/20 08:45 Pulse 75 06/09/20 08:45 Resp 16 06/09/20 11:33 BP 165/86 06/09/20 08:45 Pulse Ox 98 06/09/20 08:45 Intake & Output 06/08/20 06/09/20 06/09/20 18:59 06:59 18:59 Intake Total 780 600 Output Total 800 1400 400 Balance -20 -1400 200 Weight 105 kg 100 kg Intake: Oral 780 600 Output: Urine 800 1400 400 Other: Voiding Method Indwelling Catheter Indwelling Catheter Urinal # Voids 2 - Exam In general patient is alert and oriented 3 in no apparent distress HEENT head normocephalic and atraumatic Neck is supple no JVD no goiter no lymphadenopathy Chest exam reveals a scattered crackles in both lung bases no wheezing Cardiac exam reveals regular heart sounds S1 and S2 no gallops no murmurs Abdomen is soft nontender no organomegaly with normal bowel sounds Extremity exam reveals no edema no cyanosis or clubbing Neurological examination reveals no gross focal deficit - Labs CBC & Chem 7: 06/08/20 06:47 06/08/20 12:48 Labs: Abnormal Lab Results - Last 24 Hours (Table) 06/08/20 06/08/20 06/08/20 Range/Units 12:48 16:25 20:52 Sodium 130 L (137-145) mmol/L Chloride 97 L (98-107) mmol/L Creatinine 0.56 L (0.66-1.25) mg/dL Glucose 191 H (74-99) mg/dL POC Glucose (mg/dL) 113 H 150 H (75-99) mg/dL Calcium 7.9 L (8.4-10.2) mg/dL Alkaline Phosphatase 127 H (38-126) U/L Total Protein 4.9 L (6.3-8.2) g/dL Albumin 2.5 L (3.5-5.0) g/dL 06/09/20 06/09/20 Range/Units 06:02 11:51 Sodium (137-145) mmol/L Chloride (98-107) mmol/L Creatinine (0.66-1.25) mg/dL Glucose (74-99) mg/dL POC Glucose (mg/dL) 206 H 196 H (75-99) mg/dL Calcium (8.4-10.2) mg/dL Alkaline Phosphatase (38-126) U/L Total Protein (6.3-8.2) g/dL Albumin (3.5-5.0) g/dL Microbiology - Last 24 Hours (Table) 06/03/20 07:33 Blood Culture - Final Blood No Growth after 144 hours 06/02/20 22:18 Blood Culture - Final Blood No Growth after 144 hours 06/06/20 18:29 Anaerobic Culture - Preliminary Back 06/06/20 18:30 Anaerobic Culture - Preliminary Back 06/06/20 18:29 Gram Stain - Final Back Wound Culture - Final 06/06/20 18:30 Gram Stain - Final Back Wound Culture - Final Assessment and Plan Plan: 1. Altered mental status likely secondary to DKA. Patient currently on insulin drip. Patient has been admitted to the intensive care unit critical care following. Initial CO2 13 and anion gap 25. Patient improved, currently maintained on Levemir and sliding scale glucose is well-controlled, mental status is back to normal. 2. Supraventricular tachycardia. Patient was cardioverted in emergency room. Cardiology services following. 3. Acute Renal insufficiency. Initial creatinine 1.66 and bun 41. This has resolved, creatinine now is 0.6 4. Elevated white blood cell count. Urine and blood cultures ordered, patient is maintained on ceftriaxone infectious disease following 5. History of diabetes mellitus, patient stopped taking all medications at home, glucose now is well-controlled on Levemir and insulin sliding scale 6. History of Hyperlipidemia 7. Essential hypertension 8. low back pain, MRI reveals subacute fracture in L4 neurosurgery following day ordered a brace and physical therapy patient is still having significant pain and inability to stand or walk physical therapy consulted, patient will need to go to a rehab unit at the time of discharge. Possibility of vertebral infection raised by the radiologist, Dr. Salinas is aware patient is maintained on IV Rocephin awaiting further recommendation. DVT prophylaxis Patient is on Eliquis. GI prophylaxis Protonix Patient was discharged yesterday, at this time we are awaiting auterization from insurance for rehab at the half-way
[2020-06-09 20:50] VITALS: RESP 18
[2020-06-09 20:53] LABS: Glucose,Whole Blood 169 mg/dL (75-99)
[2020-06-10 03:43] LABS: Glucose,Whole Blood 115 mg/dL (75-99)
[2020-06-10] MEDS: traMADol 50 MG TAB PO PRN ×2 (04:03→11:58)
[2020-06-10 04:06] VITALS: BP 122/97; PULSE 67; TEMP 97.8
[2020-06-10 06:30] LABS: Glucose,Whole Blood 121 mg/dL (75-99)
[2020-06-10] MEDS: INSULIN ASPART (NovoLOG) 100 UNIT/ML VIAL SQ SCH ×2 (06:44→11:55)
[2020-06-10] MEDS: PANTOPRAZOLE 40 MG TABLET PO SCH (06:45)
[2020-06-10] MEDS: METOPROLOL TARTRATE 50 MG TAB PO SCH (07:56)
[2020-06-10] MEDS: ASPIRIN 81 MG PO SCH (07:56)
[2020-06-10] MEDS: ATORVASTATIN 10 MG TAB PO SCH (07:57)
[2020-06-10] MEDS: HYDROcodone/APAP 5-325MG 1 EACH TAB PO PRN ×2 (07:57→15:32)
--- NOTE | 2020-06-10 08:35 | P.PN ---
Progress Note - Text Progress Note Date: 06/10/20 Orthopedic spine: History of present illness: Patient is a very pleasant 70-year-old male who seems at the bedside for follow up evaluation for his lumbar spine. He continues to experience right-sided low back pain. He is known have an L4 compression fracture deformity. He underwent an L4 kyphoplasty with biopsy and culture yesterday. Cultures have been negative for growth. Since that time, he states he has not had any significant improvement of his symptoms. He was able to transfer out of the bed yesterday and states he said in a chair for approximately an hour and a half. He is not currently experiencing any significant lower extremity radiculopathy or weakness. He states he has not been out of bed much due to his pain. He does have difficulties with activities due to his pain. His LSO brace is not currently intact. He continues to be seen by multiple medical providers. He has been seen by pulmonology, medicine, etiology and infectious disease. Patient was previously seen by Dr. Kan to discuss inpatient rehab does not feel the patient is currently ready for inpatient rehab. Patient's medical history includes diabetes mellitus, hypertension, and dyslipidemia. Patient continues to have a Singh catheter intact. Patient has been treated treated for acute renal insufficiency and altered mental status secondary to diabetic ketoacidosis during his admission. He is awake, alert, and oriented the bedside. He has had some constipation and is on narcotic medications. His abdomen continues to be soft nontender. Patient states he is experiencing some coldness in his feet today. His pneumatic cuffs are intact. He does have evidence of changes over the anterior bilateral lower extremities which he states is due to infection of the bilateral lower extremities after a previous fishing trip. During his admission to the emergency department patient was found to be an SVT and was cardioverted. Physical exam: Postoperative day #4 Patient is awake, alert, and oriented 3 Vital signs stable Good chest excursion with deep inspiration and expiration Abdomen soft nontender Examination of lumbar spine reveals skin is intact with no abrasions, lacerations, or bruises; no erythema, purulence or signs of infection Dressing over the surgical site at the L4 kyphoplasty site is clean, dry, and intact Patient is able to roll over better in bed today No specific pain with palpation over the lumbar spine Dorsiflexion, plantarflexion, and extensor hallucis longus positive sustained bilaterally Patient is able to perform some active range of motion in bilateral lower extremities but generally slower No signs or symptoms of DVT; no calf pain Pneumatic cuffs intact bilateral lower extremities No pain with internal and external rotation of the hips bilaterally Neurovascularly intact Patient's feet are cold to palpation as compared to his thighs and knees bilaterally Palpable dorsalis pedis pulse bilateral lower extremity Assessment: Status post L4 kyphoplasty with biopsy and culture L4 subacute compression fracture deformity status post fall Right-sided low back pain Increased signal at the L4 vertebral body near the psoas without evidence of obvious abscess Diabetic ketoacidosis Diabetes mellitus Hypertension Dyslipidemia Status post cardioversion for SVT Constipation Plan: 1. Patient underwent L4 kyphoplasty with biopsy and culture performed on 06/06/2020. We discussed his fracture site is stable following the kyphoplasty. He does continue to experience significant right-sided low back pain. We again discussed we need to work to increase his mobility and ambulation. He was able to increase his mobility to it bedside chair yesterday. We discussed the importance of continued to increase his mobility. Patient may ambulate to his tolerance. He may wear his LSO brace for comfort support as needed. 2. Continue pain control medications as needed as prescribed 3. Patient is experiencing some coldness of the bilateral lower extremities this morning most specifically at the feet. He is neurovascularly intact at the bilateral lower extremities. He is not experiencing any calf pain. He may need further evaluation from a vascular standpoint. 4. Patient will plan to be discharged to a rehabilitation facility the time of discharge; patient is clear for discharge from orthopedic spine standpoint following discharge, patient may follow-up with Patrick Rivera PA-C or Dr. Tommy Squires at [facility] in approximately 2-3 weeks for follow-up evaluation 5. Patient will continue seeing him by multiple other medical providers including medicine, pulmonology, infectious disease, and cardiology
[2020-06-10] MEDS ORDERED: bisacodyL 10 MG SUPP RECTAL STA (10:10)
--- NOTE | 2020-06-10 10:59 | P.DS ---
Providers Date of admission: 05/28/20 23:06 Expected date of discharge: 06/10/20 Attending physician: Mey Butler Consults: 05/28/20 23:13 Consult Physician Urgent Consulting Provider: Pierre Crow Consult Reason/Comments: DKA Do you want consulting provider notified?: Already Contacted 05/28/20 23:14 Consult Physician Urgent Consulting Provider: Silvia Martel Consult Reason/Comments: SVT Do you want consulting provider notified?: Already Contacted 05/29/20 12:01 Consult Physician Routine Consulting Provider: Sobia Salinas Consult Reason/Comments: Elevated white count Do you want consulting provider notified?: Yes 06/01/20 13:41 Consult Physician Routine Consulting Provider: Tirso Squires Consult Reason/Comments: Compression fracture of L4 Do you want consulting provider notified?: Yes 06/05/20 10:57 Consult Physician Routine Consulting Provider: Chandra Kan Consult Reason/Comments: possible rehab admission Do you want consulting provider notified?: Yes Primary care physician: Lacie Egan Hospital Course: Discharge diagnosis 1. Altered mental status likely secondary to DKA. Patient currently on insulin drip. Patient has been admitted to the intensive care unit critical care following. Initial CO2 13 and anion gap 25. Patient improved, currently maintained on Levemir and sliding scale glucose is well-controlled, mental status is back to normal. 2. Multifocal atrial tachycardia . Patient was cardioverted in emergency room. Cardiology services following. Patient was started on eliquis during hosp italization per cardiology 3. Acute Renal insufficiency. Initial creatinine 1.66 and bun 41. This has resolved, creatinine now is 0.6 4. Elevated white blood cell count. Urine and blood cultures ordered, patient is maintained on ceftriaxone infectious disease following 5. History of diabetes mellitus, patient stopped taking all medications at home, glucose now is well-controlled on Levemir and insulin sliding scale 6. History of Hyperlipidemia 7. Essential hypertension 8. low back pain, MRI reveals subacute fracture in L4 neurosurgery following day ordered a brace and physical therapy patient is still having significant pain and inability to stand or walk physical therapy consulted, patient will need to go to a rehab unit at the time of discharge. Possibility of vertebral infection raised by the radiologist, Dr. Salinas is aware patient is maintained on IV Rocephin awaiting further recommendation. That culture showing no growth after 24 hours. Discussed case with infectious disease. No need for antibiotics 9. Constipation. Suppository and colace ordered Hospital course This is a 70-year-old male patient of Dr. Egan. Patient presented to the ER via ambulance when neighbor found patient on the ground with altered mental status. According to ER record patient's blood glucose was found to be 600 upon arrival. Patient does have a past medical history of diabetes mellitus, hyperlipidemia and essential hypertension. Upon arrival to the ER patient was found to be in SVT. Patient was cardioverted in ER and started on amiodarone per cardiology services. Patient was also started on insulin drip. Patient had noted to have significant bruising around hip right side. Pelvis x-ray completed showing no acute abnormality of the pelvis. Chest x-ray completed showing pulmonary fibrotic changes noted failure. Head and cervical spine CT completed showing normal computed tomography scan of the cervical spine cerebral atrophy no acute intracranial abnormality. Upon arrival CO2 8 and anion gap 25. Patient managed to ICU Dr. Crow consulted for critical care. Cardiology services following 2-D echo ordered . Upon exam patient unable to remember events leading to incident. Patient denies any recent illness that he can remember. This time patient denies chest pain or shortness breath. Patient denies nausea vomiting or diarrhea. Patient denies any urinary burning or frequency. White blood cell count significantly elevated. Will order blood and culture and urine culture On 05/30/2020 patient was seen and examined in the ICU he is alert and oriented 3 in no apparent distress he is complaining of mid and low back pain otherwise he denies any complaint, there is no fever or chills no headache or dizziness no chest pain no shortness of breath no cough no nausea or vomiting no abdominal pain no diarrhea no blood in the stools no burning with urination no frequency or urgency and no hematuria. On 05/31/2020 patient was seen and examined in the ICU, is alert and oriented in no distress, is still complaining of back pain otherwise he denies any complaints there is no fever or chills no headache or dizziness no chest pain no shortness of breath no cough no nausea or vomiting no diarrhea no blood in the stools no burning with urination no frequency or urgency and no hematuria, glucose level is better controlled on insulin, patient was counseled in length in regards to importance of taking medication and insulin injections at home to avoid recurrence of his symptoms and readmission. On 06/01/2020 patient alert and oriented 3 patient remains in the intensive care unit. Patient remains on Cardizem drip. Blood sugars have improved. At this time patient denies chest pain or shortness of breath. Patient denies nausea vomiting or diarrhea. Patient denies any urinary burning or frequency On 06/02/2020 patient was seen and examined on the medical floor he is alert and oriented 3 in no apparent distress he is complaining of back pain otherwise he denies any complaints there is no fever or chills no headache or dizziness no chest pain no shortness of breath no cough no nausea or vomiting no abdominal pain no diarrhea no blood in the stools no burning with urination no frequency or urgency and no hematuria. Lumbar spine MRI results reviewed, awaiting further recommendation from neurosurgery and infectious disease. On 06/03/2020 patient was seen and examined on the medical floor, he is alert and oriented 3 in no apparent distress he is still complaining of back pain otherwise no complaints there is no fever or chills no headache or dizziness no chest pain no shortness of breath no cough no nausea or vomiting no abdominal pain no diarrhea and no urinary symptoms, MRI of the lumbar spine raises the possibility of acute infection, patient remains on IV Rocephin, infectious disease following, awaiting culture results and further recommendation from infectious disease. On 06/04/2020 patient was seen and examined on the telemetry floor he is alert and oriented 3 in no apparent distress, he is complaining of back pain and is complaining of difficulty standing and walking otherwise he denies any complaints there is no fever or chills no headache or dizziness no chest pain no shortness of breath no cough no nausea or vomiting no abdominal pain no diarrhea no blood in the stools no burning with urination no frequency or urgency and no hematuria on 06/05/2020 patient was seen and examined on the telemetry floor he is alert and oriented 3 in no distress, he is still complaining of back pain, complaining of difficulty standing and walking, and complaining of constipation, otherwise he denies any complaints there is no fever or chills no headache or dizziness no chest pain no shortness of breath no cough no nausea or vomiting no abdominal pain no diarrhea no blood in the stools no burning with urination no frequency or urgency and no hematuria, at this time will continue was physical therapy continue with back brace, consult Dr. Kan for possible rehab admission. On 06/06/2020 patient was seen and examined on the medical floor he is alert and oriented 3 in no distress he is still complaining of back pain and difficulty standing and walking otherwise he denies any complaints there is no fever or chills no headache or dizziness no chest pain no shortness of breath no cough no nausea or vomiting no abdominal pain no diarrhea no blood in the stools no burning with urination no frequency or urgency no hematuria. He is scheduled for L4 kyphoplasty was possible biopsy for culture today. n 06/07/2020 patient was seen and examined on the medical floor he is alert and oriented 3 in no apparent distress he is complaining of back pain otherwise he denies any complaints at this time there is no fever or chills no headache or dizziness no chest pain no shortness of breath no cough no nausea or vomiting no diarrhea no blood in the stools no burning with urination no frequency or urgency and no hematuria. Yesterday patient underwent L4 aspiration for culture, biopsy and kyphoplasty. On 06/08/2020 patient is alert and oriented 3. Did discuss case with infectious disease no need for antibiotics back culture currently negative. Patient will be discharged to [facility] for rehab at this time patient denies chest pain or shortness breath. Patient denies nausea vomiting or diarrhea. Patient denies any urinary burning or frequency. On 06/09/2020 patient was seen and examined on the medical floor he is alert and oriented 3 in no apparent distress he is still complaining of back pain and complaining of difficulty standing up and walking otherwise he denies any complaints there is no fever or chills no headache or dizziness no chest pain no shortness of breath no cough no nausea or vomiting no abdominal pain no diarrhea and no urinary symptoms On 06/10/2020 patient alert and oriented 3. Prior off to [facility] facility per social work patient will likely be discharged today to [facility]. No antibiotics per infectious disease. Colace and suppositories ordered for constipation. The patient denies chest pain or shortness breath. Patient denies nausea vomiting or diarrhea. Patient denies any urinary burning or frequency I performed an examination of the patient and discussed their management with the Nurse Practitioner. I have reviewed the Nurse Practitioner's notes and agree with the documented findings and plan of care Patient Condition at Discharge: Stable Plan - Discharge Summary Discharge Rx Participant: Yes New Discharge Prescriptions: New Aspirin 81 mg PO DAILY chew Insulin Detemir (Levemir) [Levemir] 29 unit SQ DAILY@0700 syr Atorvastatin [Lipitor] 10 mg PO DAILY tab Metoprolol Tartrate [Lopressor] 50 mg PO BID tab HYDROcodone/APAP 5-325MG [[place] 5-325] 1 each PO Q4HR PRN 3 Days #18 tab PRN Reason: Moderate Pain INSULIN ASPART (NovoLOG) [NovoLOG (formulary)] 0 unit SQ ACHS vial traMADol HCl [Ultram] 50 mg PO QID PRN 3 Days #12 tab PRN Reason: Mild To Moderate Pain Apixaban [Eliquis] 5 mg PO BID 30 Days #60 tab Discharge Medication List Apixaban [Eliquis] 5 mg PO BID 30 Days #60 tab 06/08/20 [Rx] Aspirin 81 mg PO DAILY chew 06/08/20 [Rx] Atorvastatin [Lipitor] 10 mg PO DAILY tab 06/08/20 [Rx] HYDROcodone/APAP 5-325MG [[place] 5-325] 1 each PO Q4HR PRN 3 Days #18 tab 06/08/20 [Rx] INSULIN ASPART (NovoLOG) [NovoLOG (formulary)] 0 unit SQ ACHS vial 06/08/20 [Rx] Insulin Detemir (Levemir) [Levemir] 29 unit SQ DAILY@0700 syr 06/08/20 [Rx] Metoprolol Tartrate [Lopressor] 50 mg PO BID tab 06/08/20 [Rx] traMADol HCl [Ultram] 50 mg PO QID PRN 3 Days #12 tab 06/08/20 [Rx] Follow up Appointment(s)/Referral(s): Silvia Martel MD [STAFF PHYSICIAN] - 2 Weeks Lacie Egan MD [Primary Care Provider] - 1-2 days Patrick Rivera PAC [PHYSICIAN STEM [facility]ZER] - 2 Weeks (Patient may follow-up with Patrick Rivera PA-C or Dr. Tommy Squires at [facility] in 2-3 weeks following discharge. ) Activity/Diet/Wound Care/Special Instructions: 1. Patient may shower with Tegaderm dressing intact. 2. Patient may remove Tegaderm dressing in 3 days and shower without a dressing at that time. 3. Patient should refrain from driving until at least after their first follow- up appointment in the office. 4. Patient should avoid excessive bending, twisting, and lifting; no lifting greater than 10 pounds 5. Take medications as prescribed 6. Patient may wear LSO brace for comfort support as needed 7. Do not soak in tub Patient will be discharged to [facility] for rehab Discharge Disposition: TRANSFER TO SNF/ECF
[2020-06-10 11:47] LABS: Glucose,Whole Blood 185 mg/dL (75-99)
--- NOTE | 2020-06-10 16:56 | PN ---
PROGRESS NOTE DATE OF SERVICE: 06/10/2020 REASON FOR FOLLOWUP: Abnormal MRI and a question of osteomyelitis. INTERVAL HISTORY: The patient is currently afebrile. The patient is breathing comfortably. The patient denies having any chest pain or shortness of breath or cough. The patient's lower back pain has slightly improved. No nausea, vomiting or diarrhea. PHYSICAL EXAMINATION: Blood pressure 122/97, pulse of 67, temperature 97.8. He is 99% on room air. General description is an elderly male lying in bed in no distress. RESPIRATORY SYSTEM: Unlabored breathing. Clear to auscultation anteriorly. HEART: S1, S2. Regular rate and rhythm. ABDOMEN: Soft. No tenderness. LABS: Culture remains negative. DIAGNOSTIC IMPRESSION AND PLAN: Patient with a fall with MRI with subsequent low back pain. MRI was suspicious for possible infection of the L4 vertebral area. Clinically he behaved as more of a fracture and is status post kyphoplasty, though no purulence at the time of surgery and culture negative. The patient has been off antibiotic for about a week. Recommend no antibiotic on discharge. His questions and concerns were answered. MMODL / IJN: [id number] /
[2020-06-10] MEDS ORDERED: APIXABAN 5 MG TAB PO SCH (21:00)
[2020-06-10] MEDS ORDERED: DOCUSATE 100 MG CAP PO SCH (21:00)
== END 2020-06-10 16:20 | DRG 628 ==
LOC: EC 19:52 → 2SICU 23:06 → 3SCARD 06-02 12:28 → UNDODISIN 06-03 15:23 → 3SCARD 06-08 19:50
PROVIDERS: ADMIT Internal Medicine; ATTEND Internal Medicine
PROC: 5A2204Z Restoration of Cardiac Rhythm, Single (ICD-10-PCS; 2020-05-28)
PROC: 0QB00ZX Excision of Lumbar Vertebra, Open Approach, Diagnostic (ICD-10-PCS; principal; 2020-06-06 07:30)
PROC: 0QU03JZ Supplement Lumbar Vertebra with Synthetic Substitute, Percutaneous Approach (ICD-10-PCS; principal; 2020-06-06 07:30)
PROC: 0QS03ZZ Reposition Lumbar Vertebra, Percutaneous Approach (ICD-10-PCS; principal; 2020-06-06 07:30)
DX: E11.10 Type 2 diabetes mellitus with ketoacidosis without coma (principal); G93.41 Metabolic encephalopathy; S32.049A Unspecified fracture of fourth lumbar vertebra, initial encounter for closed fracture; I47.1 Supraventricular tachycardia; N17.9 Acute kidney failure, unspecified; E78.5 Hyperlipidemia, unspecified; I10 Essential (primary) hypertension; G20 Parkinson's disease; K59.00 Constipation, unspecified; Z20.828 Contact with and (suspected) exposure to other viral communicable diseases; E11.42 Type 2 diabetes mellitus with diabetic polyneuropathy; I48.0 Paroxysmal atrial fibrillation; Z90.89 Acquired absence of other organs; Z98.41 Cataract extraction status, right eye; Z80.8 Family history of malignant neoplasm of other organs or systems; Z79.899 Other long term (current) drug therapy; Z79.82 Long term (current) use of aspirin; Z79.4 Long term (current) use of insulin; Z79.01 Long term (current) use of anticoagulants; Z87.891 Personal history of nicotine dependence; Z91.81 History of falling; Z98.890 Other specified postprocedural states
CPT/HCPCS: 36415; 70450; 71045; 72020; 72072; 72100; 72125; 72158; 72170; 80048; 80051; 80053; 80306; 80320; 81001; 82009; 82140; 82550; 82565; 82805; 82947; 83036; 83735; 83880; 84100; 84443; 84484; 84520; 85025; 85027; 85610; 85652; 85730; 86140; 87040; 87070; 87075; 87086; 87205; 87635; 88307; 88311; 90715; 93005; 93306; 94760; 96361; 96365; 96366; 96375; 96376; 99291; 99292

== ENCOUNTER 2020-06-11 15:05 | Inpatient (IN) | payer MEDICARE ==
[2020-06-11] MEDS ORDERED: SODIUM CHLORIDE 0.9% 1,000 ML IV STA (15:16)
[2020-06-11 15:29] LABS: Basophils # (A) 0.1 k/uL (0-0.2); Basophils % (A) 1 %; Eosinophils # (A) 0.3 k/uL (0-0.7); Eosinophils % (A) 2 %; HCT 43.3 % (39.0-53.0); HGB 14.6 gm/dL (13.0-17.5); Lymphocytes # (A) 2.1 k/uL (1.0-4.8); Lymphocytes % (A) 21 %; MCH 30.9 pg (25.0-35.0); MCHC 33.6 g/dL (31.0-37.0); Mean Platelet Volume 6.9; Monocytes # (A) 0.7 k/uL (0-1.0); Monocytes % (A) 7 %; Neutrophils % (A) 68 %; Platelet Count 383 k/uL (150-450); RBC 4.71 m/uL (4.30-5.90); RDW 13.5 % (11.5-15.5); WBC 10.3 k/uL (3.8-10.6)
--- NOTE | 2020-06-11 15:32 | ED ---
Recheck HPI - General Chief Complaint: GI Bleed Stated Complaint: Coughing up blood Time Seen by Provider: 06/11/20 15:16 Source: patient, RN notes reviewed, old records reviewed Mode of arrival: ambulatory Limitations: no limitations - History of Present Illness Initial Comments: This is a 62-year-old male DF for evaluation patient Dese for evaluation of coughing up blood. Patient had episode of hemoptysis at home significant no- cost is bright red blood, patient has no significant shortness of breath. No recent travel history or sick contacts he does have recent inpatient hospitalization diagnosed with atrial fibrillation and started on Aniyah. Chest pain but he does have pain in his back MD Complaint: other (Hemoptysis) -: hour(s) Returns Today for: other (Coughing up blood on blood thinners) Symptoms Since Prior Visit: no new symptoms Context: other (None) Associated Symptoms: none - Related Data Home Medications Medication Instructions Recorded Confirmed Apixaban [Eliquis] 5 mg PO BID@0800,2000 06/11/20 06/11/20 Atorvastatin [Lipitor] 10 mg PO HS 06/11/20 06/11/20 HYDROcodone/APAP 5-325MG [[place] 1 tab PO Q4HR PRN 06/11/20 06/11/20 5-325] INSULIN ASPART (NovoLOG) [NovoLOG See Protocol SQ ACHS 06/11/20 06/11/20 (formulary)] traMADol HCl [Ultram] 50 mg PO Q6H PRN 06/11/20 06/11/20 Previous Rx's Medication Instructions Recorded Aspirin 81 mg PO DAILY chew 06/08/20 Insulin Detemir (Levemir) [Levemir] 29 unit SQ DAILY@0700 syr 06/08/20 Metoprolol Tartrate [Lopressor] 50 mg PO BID tab 06/08/20 Allergies Allergy/AdvReac Type Severity Reaction Status Date / Time No Known Allergies Allergy Verified 06/11/20 15:42 Review of Systems ROS Statement: Those systems with pertinent positive or pertinent negative responses have been documented in the HPI. ROS Other: All systems not noted in ROS Statement are negative. Past Medical History Past Medical History: Diabetes Mellitus, Hyperlipidemia, Hypertension Additional Past Medical History / Comment(s): Neuropathy History of Any Multi-Drug Resistant Organisms: None Reported Past Surgical History: Adenoidectomy Additional Past Surgical History / Comment(s): Circumcision 2016. Right catara ct removal Past Anesthesia/Blood Transfusion Reactions: No Reported Reaction Past Psychological History: No Psychological Hx Reported Smoking Status: Former smoker Past Alcohol Use History: None Reported Past Drug Use History: None Reported - Past Family History Father Family Medical History: Cancer Mother Family Medical History: Cancer Additional Family Medical History / Comment(s): skin CA General Exam General appearance: alert, in no apparent distress Head exam: Present: atraumatic, normocephalic, normal inspection Eye exam: Present: normal appearance, PERRL, EOMI. Absent: scleral icterus, conjunctival injection, periorbital swelling ENT exam: Present: normal exam, mucous membranes moist Neck exam: Present: normal inspection. Absent: tenderness, meningismus, lymphadenopathy Respiratory exam: Present: normal lung sounds bilaterally. Absent: respiratory distress, wheezes, rales, rhonchi, stridor Cardiovascular Exam: Present: tachycardia, irregular rhythm, normal heart sounds. Absent: systolic murmur, diastolic murmur, rubs, gallop, clicks GI/Abdominal exam: Present: soft, normal bowel sounds. Absent: distended, tenderness, guarding, rebound, rigid Extremities exam: Present: normal inspection, full ROM, normal capillary refill. Absent: tenderness, pedal edema, joint swelling, calf tenderness Back exam: Present: normal inspection Neurological exam: Present: alert, oriented X3, CN II-XII intact Psychiatric exam: Present: normal affect, normal mood Skin exam: Present: warm, dry, intact, normal color. Absent: rash Course Vital Signs 06/11/20 06/11/20 06/11/20 15:06 16:03 17:43 Temperature 98.2 F Pulse Rate 101 H 101 H 109 H Respiratory 18 18 18 Rate Blood Pressure 103/83 101/73 102/70 O2 Sat by Pulse 98 99 97 Oximetry 06/11/20 18:19 Temperature 99.0 F Pulse Rate 110 H Respiratory 18 Rate Blood Pressure 90/55 O2 Sat by Pulse 93 L Oximetry - Reevaluation(s) Reevaluation #1: 06/11/20 18:29 Medical records reviewed Reevaluation #2: 06/11/20 18:29 Patient does have episode of hemoptysis here in the ER Reevaluation #3: 06/11/20 18:30 No shortness of breath risk for distress Reevaluation #4: 06/11/20 18:30 Patient is informed of results and questions are answered - Consultations Consultation #1: Spoke with Dr. Butler who agrees to admit the patient Medical Decision Making - Medical Decision Making 70 male DF for evaluation patient Dese for evaluation hemoptysis, patient has gross hemoptysis here in the ER, not massive, chest x-rays negative no distress and respiratory, patient will be admitted for evaluation - Lab Data Result diagrams: 06/11/20 15:21 06/11/20 15:21 Lab Results 06/11/20 06/11/20 06/11/20 Range/Units 15:21 15:21 15:21 WBC 10.3 (3.8-10.6) k/uL RBC 4.71 (4.30-5.90) m/uL Hgb 14.6 (13.0-17.5) gm/dL Hct 43.3 (39.0-53.0) % MCV 92.0 (80.0-100.0) fL MCH 30.9 (25.0-35.0) pg MCHC 33.6 (31.0-37.0) g/dL RDW 13.5 (11.5-15.5) % Plt Count 383 (150-450) k/uL Neutrophils % 68 % Lymphocytes % 21 % Monocytes % 7 % Eosinophils % 2 % Basophils % 1 % Neutrophils # 7.0 (1.3-7.7) k/uL Lymphocytes # 2.1 (1.0-4.8) k/uL Monocytes # 0.7 (0-1.0) k/uL Eosinophils # 0.3 (0-0.7) k/uL Basophils # 0.1 (0-0.2) k/uL PT 11.9 (9.0-12.0) sec INR 1.2 H (<1.2) APTT 25.4 (22.0-30.0) sec D-Dimer 1.32 H (<0.60) mg/L FEU Sodium 131 L (137-145) mmol/L Potassium 3.8 (3.5-5.1) mmol/L Chloride 101 (98-107) mmol/L Carbon Dioxide 23 (22-30) mmol/L Anion Gap 7 mmol/L BUN 22 H (9-20) mg/dL Creatinine 0.55 L (0.66-1.25) mg/dL Est GFR (CKD-EPI)AfAm >90 (>60 ml/min/1.73 sqM) Est GFR (CKD-EPI)NonAf >90 (>60 ml/min/1.73 sqM) Glucose 340 H (74-99) mg/dL Calcium 8.5 (8.4-10.2) mg/dL Phosphorus 3.0 (2.5-4.5) mg/dL Magnesium 1.7 (1.6-2.3) mg/dL Total Bilirubin 1.2 (0.2-1.3) mg/dL AST 18 (17-59) U/L ALT 11 (4-49) U/L Alkaline Phosphatase 157 H (38-126) U/L Creatine Kinase 28 L (55-170) U/L Troponin I (0.000-0.034) ng/mL NT-Pro-B Natriuret Pep pg/mL Total Protein 5.1 L (6.3-8.2) g/dL Albumin 2.7 L (3.5-5.0) g/dL 06/11/20 06/11/20 Range/Units 15:21 15:21 WBC (3.8-10.6) k/uL RBC (4.30-5.90) m/uL Hgb (13.0-17.5) gm/dL Hct (39.0-53.0) % MCV (80.0-100.0) fL MCH (25.0-35.0) pg MCHC (31.0-37.0) g/dL RDW (11.5-15.5) % Plt Count (150-450) k/uL Neutrophils % % Lymphocytes % % Monocytes % % Eosinophils % % Basophils % % Neutrophils # (1.3-7.7) k/uL Lymphocytes # (1.0-4.8) k/uL Monocytes # (0-1.0) k/uL Eosinophils # (0-0.7) k/uL Basophils # (0-0.2) k/uL PT (9.0-12.0) sec INR (<1.2) APTT (22.0-30.0) sec D-Dimer (<0.60) mg/L FEU Sodium (137-145) mmol/L Potassium (3.5-5.1) mmol/L Chloride (98-107) mmol/L Carbon Dioxide (22-30) mmol/L Anion Gap mmol/L BUN (9-20) mg/dL Creatinine (0.66-1.25) mg/dL Est GFR (CKD-EPI)AfAm (>60 ml/min/1.73 sqM) Est GFR (CKD-EPI)NonAf (>60 ml/min/1.73 sqM) Glucose (74-99) mg/dL Calcium (8.4-10.2) mg/dL Phosphorus (2.5-4.5) mg/dL Magnesium (1.6-2.3) mg/dL Total Bilirubin (0.2-1.3) mg/dL AST (17-59) U/L ALT (4-49) U/L Alkaline Phosphatase (38-126) U/L Creatine Kinase (55-170) U/L Troponin I <0.012 (0.000-0.034) ng/mL NT-Pro-B Natriuret Pep 319 pg/mL Total Protein (6.3-8.2) g/dL Albumin (3.5-5.0) g/dL - EKG Data -: EKG Interpreted by Me (EKG is sinus tachycardia 101 OH 146 QRS 80 QTc 521) - Radiology Data Radiology results: report reviewed (Chest x-rays negative for acute disease), image reviewed Disposition Clinical Impression: Hemoptysis, Coagulopathy Disposition: ADMITTED IP TO THIS [facility] Condition: Fair Is patient prescribed a controlled substance at d/c from ED?: No
[2020-06-11 15:43] LABS: ALT 11 U/L (4-49); AST 18 U/L (17-59); African American GFR (CKD) >90 (>60 ml/min/1.73 sqM); Albumin 2.7 g/dL (3.5-5.0); Alkaline Phosphatase 157 U/L (38-126); Anion Gap 7 mmol/L; Blood Urea Nitrogen 22 mg/dL (9-20); Calcium 8.5 mg/dL (8.4-10.2); Carbon Dioxide 23 mmol/L (22-30); Chloride 101 mmol/L (98-107); Creatine Kinase 28 U/L (55-170); Glucose 340 mg/dL (74-99); Magnesium 1.7 mg/dL (1.6-2.3); Non-African American GFR(CKD) >90 (>60 ml/min/1.73 sqM); Potassium 3.8 mmol/L (3.5-5.1); Sodium 131 mmol/L (137-145); Total Bilirubin 1.2 mg/dL (0.2-1.3); Total Protein 5.1 g/dL (6.3-8.2)
[2020-06-11 15:44] LABS: INR 1.2 (<1.2); Partial Thromboplastin Time 25.4 sec (22.0-30.0); Prothrombin Time 11.9 sec (9.0-12.0)
[2020-06-11 15:48] LABS: D-Dimer 1.32 mg/L FEU (<0.60)
--- NOTE | 2020-06-11 16:03 | XR ---
EXAMINATION TYPE: XR chest 1V DATE OF EXAM: 06/11/2020 COMPARISON: 06/02/2020 HISTORY: Weakness TECHNIQUE: Single view FINDINGS: There is no heart failure nor confluent pneumonic infiltrate. Costophrenic angles are clear. There ar e no hilar masses. There are chest leads. IMPRESSION: No active cardiopulmonary disease. No adverse change.
[2020-06-11] MEDS ORDERED: HYDROmorphone 1 MG/ML 1 ML SYRINGE IVP PRN (16:11)
[2020-06-11] MEDS ORDERED: HYDROmorphone 1 MG/ML 1 ML SYRINGE IVP STA (16:11)
[2020-06-11] MEDS ORDERED: SODIUM CHLORIDE 0.9% 1,000 ML IV ONE (18:23)
[2020-06-11 20:18] LABS: Glucose,Whole Blood 304 mg/dL (75-99)
[2020-06-11] MEDS ORDERED: traMADol 50 MG TAB PO PRN (21:06)
[2020-06-11] MEDS: ATORVASTATIN 10 MG TAB PO SCH (21:49)
[2020-06-11] MEDS: METOPROLOL TARTRATE 50 MG TAB PO SCH (21:49)
[2020-06-11] MEDS: INSULIN ASPART (NovoLOG) 100 UNIT/ML VIAL SQ SCH (21:50)
[2020-06-12 06:34] LABS: Appearance,Urine Clear (Clear); Bilirubin,Urine Negative (Negative); Blood,Urine Trace (Negative); Color,Urine Yellow; Glucose,Urine (UA) 4+ (Negative); Ketones,Urine 1+ (Negative); Leukocyte Esterase,Urine Negative (Negative); Mucus,Urine Occasional /hpf; Nitrite,Urine Negative (Negative); Protein,Urine Trace (Negative); RBC,Urine 1 /hpf (0-5); Specific Gravity,Urine 1.027 (1.001-1.035); Squamous Epithelial Cell,Urine <1 /hpf (0-4); WBC,Urine 3 /hpf (0-5)
[2020-06-12 07:12] LABS: Glucose,Whole Blood 287 mg/dL (75-99)
[2020-06-12] MEDS: INSULIN ASPART (NovoLOG) 100 UNIT/ML VIAL SQ SCH ×4 (08:07→21:02)
[2020-06-12] MEDS: ASPIRIN 81 MG PO SCH (08:07)
[2020-06-12] MEDS: INSULIN DETEMIR (LEVEMIR) 100 UNIT/ML SYR SQ SCH (08:07)
[2020-06-12] MEDS: METOPROLOL TARTRATE 50 MG TAB PO SCH ×2 (08:07→21:02)
--- NOTE | 2020-06-12 08:20 | XR ---
EXAMINATION TYPE: XR chest 1V DATE OF EXAM: 06/12/2020 COMPARISON: 06/11/2020 HISTORY: 70-year-old male, hemoptysis TECHNIQUE: Single frontal view of the chest is obtained. FINDINGS: Heart normal size. Aorta and pulmonary vasculature within normal limits. Mild hyperinflati on. No consolidation or pleural effusion. IMPRESSION: Possible underlying COPD. No acute process seen.
[2020-06-12 08:24] LABS: Basophils # (A) 0.1 k/uL (0-0.2); Basophils % (A) 1 %; Eosinophils # (A) 0.2 k/uL (0-0.7); Eosinophils % (A) 4 %; HCT 38.6 % (39.0-53.0); HGB 12.6 gm/dL (13.0-17.5); Lymphocytes # (A) 2.1 k/uL (1.0-4.8); Lymphocytes % (A) 33 %; MCH 30.8 pg (25.0-35.0); MCHC 32.5 g/dL (31.0-37.0); MCV 94.6 fL (80.0-100.0); Mean Platelet Volume 6.9; Monocytes # (A) 0.7 k/uL (0-1.0); Monocytes % (A) 11 %; Neutrophils % (A) 48 %; Platelet Count 314 k/uL (150-450); RBC 4.08 m/uL (4.30-5.90); RDW 13.6 % (11.5-15.5); WBC 6.3 k/uL (3.8-10.6)
[2020-06-12 11:25] LABS: Glucose,Whole Blood 240 mg/dL (75-99)
--- NOTE | 2020-06-12 12:39 | P.HPIM ---
History of Present Illness H&P Date: 06/12/20 Adria Cruz, is a 70-year-old male, who was recently admitted to [facility] with multiple medical problems, last admission patient presented with atrial arrhythmias he also had evidence of L4 vertebral fracture and possible infection he underwent aspiration culture of L4 and underwent kyphoplasty he was started on Elequis and [facility] patient started having episodes of cough with hemoptysis, patient had large amount of blood over a 3 hour period and he was sent back to emergency room, he was evaluated in the emergency room his vital examination on presentation revealed a temperature of 98.2 pulse 101 respiration 18 blood pressure 103/83 pulse ox 98% on room air his white blood count was 10.3 hemoglobin 14.6 platelet count 383 INR 1.2 d-dimer was elevated at 1.3 to sodium 131 potassium 3.3 BUN 22 creatinine 0.5 by glucose level was 340 EKG revealed sinus tachycardia with fusion complexes and prolonged QT , patient was admitted to telemetry floor for further evaluation pulmonary and cardiology consultation were requested. His past medical history is significant for COPD, insulin-dependent diabetes mellitus, hyperlipidemia, and recent admission with L4 vertebral fracture and episodes of atrial arrhythmia. On review of systems at this time patient is alert and oriented 3 in no apparent distress there is no fever or chills no headache or dizziness no chest pain no shortness of breath he has occasional cough no further bleeding since admission no nausea or vomiting no abdominal pain no diarrhea no blood in the stools no burning with urination no frequency or urgency and no hematuria Past Medical History Past Medical History: Diabetes Mellitus, Hyperlipidemia, Hypertension Additional Past Medical History / Comment(s): Neuropathy History of Any Multi-Drug Resistant Organisms: None Reported Past Surgical History: Adenoidectomy Additional Past Surgical History / Comment(s): Circumcision 2015. Right cataract removal. back surgery may 2020 Past Anesthesia/Blood Transfusion Reactions: No Reported Reaction Past Psychological History: No Psychological Hx Reported Smoking Status: Former smoker Past Alcohol Use History: None Reported Additional Past Alcohol Use History / Comment(s): smoked from 1969 to 1975 3 ppd Past Drug Use History: None Reported - Past Family History Father Family Medical History: Cancer Mother Family Medical History: Cancer Additional Family Medical History / Comment(s): skin CA Medications and Allergies Home Medications Medication Instructions Recorded Confirmed Type Aspirin 81 mg PO DAILY chew 06/08/20 06/11/20 Rx Insulin Detemir (Levemir) [Levemir] 29 unit SQ DAILY@0700 syr 06/08/20 06/11/20 Rx Metoprolol Tartrate [Lopressor] 50 mg PO BID tab 06/08/20 06/11/20 Rx Apixaban [Eliquis] 5 mg PO BID@0800,2000 06/11/20 06/11/20 History Atorvastatin [Lipitor] 10 mg PO HS 06/11/20 06/11/20 History HYDROcodone/APAP 5-325MG [[place] 1 tab PO Q4HR PRN 06/11/20 06/11/20 History 5-325] INSULIN ASPART (NovoLOG) [NovoLOG See Protocol SQ ACHS 06/11/20 06/11/20 History (formulary)] traMADol HCl [Ultram] 50 mg PO Q6H PRN 06/11/20 06/11/20 History Allergies Allergy/AdvReac Type Severity Reaction Status Date / Time No Known Allergies Allergy Verified 06/11/20 15:42 Physical Exam Vitals: Vital Signs Temp Pulse Pulse Resp BP BP Pulse Ox 06/12/20 12:03 98.2 F 67 17 121/72 100 06/12/20 11:20 97 06/12/20 07:00 97.6 F 83 17 113/69 96 06/11/20 19:08 98.6 F 103 H 17 92/60 96 06/11/20 18:40 101 H 18 109/66 96 06/11/20 18:30 103 H 18 106/67 94 L 06/11/20 18:19 99.0 F 110 H 18 90/55 93 L 06/11/20 17:43 109 H 18 102/70 97 06/11/20 16:03 101 H 18 101/73 99 06/11/20 15:06 98.2 F 101 H 18 103/83 98 Intake and Output 06/11/20 06/12/20 06/12/20 22:59 06:59 14:59 Intake Total 720 160 Output Total 300 Balance 720 -140 Intake: IV 160 ns@20 160 Intake, IV Titration 520 Amount Sodium Chloride 0.9% 1, 520 000 ml @ 130 mls/hr IV . Q7H42M STA Rx#:[id number] Oral 200 Output: Urine 300 Other: Weight 97.5 kg In general patient is alert and oriented 3 in no apparent distress HEENT head normocephalic and atraumatic Neck is supple no JVD no goiter no lymphadenopathy Chest exam reveals a few scattered crackles no wheezing Cardiac exam reveals regular heart sounds S1 and S2 no gallops no murmurs Abdomen is soft nontender no organomegaly with normal bowel sounds Extremity exam reveals no edema no cyanosis or clubbing Results CBC & Chem 7: 06/12/20 06:00 06/11/20 15:21 Labs: Abnormal Lab Results - Last 24 Hours (Table) 06/11/20 06/11/20 06/11/20 Range/Units 15:21 15:21 20:15 RBC (4.30-5.90) m/uL Hgb (13.0-17.5) gm/dL Hct (39.0-53.0) % INR 1.2 H (<1.2) D-Dimer 1.32 H (<0.60) mg/L FEU Sodium 131 L (137-145) mmol/L BUN 22 H (9-20) mg/dL Creatinine 0.55 L (0.66-1.25) mg/dL Glucose 340 H (74-99) mg/dL POC Glucose (mg/dL) 304 H (75-99) mg/dL Alkaline Phosphatase 157 H (38-126) U/L Creatine Kinase 28 L (55-170) U/L Total Protein 5.1 L (6.3-8.2) g/dL Albumin 2.7 L (3.5-5.0) g/dL Urine Protein (Negative) Urine Glucose (UA) (Negative) Urine Ketones (Negative) Urine Blood (Negative) Urine Mucus (None) /hpf 06/12/20 06/12/20 06/12/20 Range/Units 06:00 06:18 07:04 RBC 4.08 L (4.30-5.90) m/uL Hgb 12.6 L (13.0-17.5) gm/dL Hct 38.6 L (39.0-53.0) % INR (<1.2) D-Dimer (<0.60) mg/L FEU Sodium (137-145) mmol/L BUN (9-20) mg/dL Creatinine (0.66-1.25) mg/dL Glucose (74-99) mg/dL POC Glucose (mg/dL) 287 H (75-99) mg/dL Alkaline Phosphatase (38-126) U/L Creatine Kinase (55-170) U/L Total Protein (6.3-8.2) g/dL Albumin (3.5-5.0) g/dL Urine Protein Trace H (Negative) Urine Glucose (UA) 4+ H (Negative) Urine Ketones 1+ H (Negative) Urine Blood Trace H (Negative) Urine Mucus Occasional H (None) /hpf 06/12/20 Range/Units 11:24 RBC (4.30-5.90) m/uL Hgb (13.0-17.5) gm/dL Hct (39.0-53.0) % INR (<1.2) D-Dimer (<0.60) mg/L FEU Sodium (137-145) mmol/L BUN (9-20) mg/dL Creatinine (0.66-1.25) mg/dL Glucose (74-99) mg/dL POC Glucose (mg/dL) 240 H (75-99) mg/dL Alkaline Phosphatase (38-126) U/L Creatine Kinase (55-170) U/L Total Protein (6.3-8.2) g/dL Albumin (3.5-5.0) g/dL Urine Protein (Negative) Urine Glucose (UA) (Negative) Urine Ketones (Negative) Urine Blood (Negative) Urine Mucus (None) /hpf Thrombosis Risk Factor Assmnt - Choose All That Apply Each Factor Represents 1 point: History of prior major surgery (<1month), Obesity (BMI >25) Other Risk Factors: Yes Each Risk Factor Represents 2 Points: Age 61-74 years Other congenital or acquired thrombophilia - If yes, enter type in comment: No Thrombosis Risk Factor Assessment Total Risk Factor Score: 4 Thrombosis Risk Factor Assessment Level: Moderate Risk Assessment and Plan Plan: 1. Episodes of cough with hemoptysis lasting about 3 hours with large amount of blood [facility] 2. Elevated d-dimer 3. Underlying history of COPD 4. Recent admission was cardiac arrhythmia patient was started on Eliquis 5. Recent history of L4 fracture with kyphoplasty 6. Underlying history of insulin-dependent diabetes mellitus At this time patient is admitted to telemetry floor Will check computed tomography scan of the chest angiogram Consultation for cardiology was requested to reassess anticoagulation Consultation for pulmonary was requested Will recheck labs in a.m. Will follow closely
[2020-06-12 12:52] VITALS: BMI 29.1
--- NOTE | 2020-06-12 13:53 | P.CRDCN ---
History of Present Illness Consult date: 06/12/20 History of present illness: This is a 70-year-old gentleman who recently underwentback surgery, including kyphoplastyand were discharged home on anticoagulation therapy. Patient also had history of SVT requiring cardioversion in the past. Patient is now admitted to the hospital with complaints of cough and hemoptysis. Patient is also complaining of weakness and tiredness Denies any chest pain. Denies any acute shortness of breath. Patient has chronic COPD, insulin-dependent diabetes mellitus. Hyperlipidemia Recently had L4 vertebral fracture. He is off anti- cognition therapy at this time. Waiting to be valuated by pulmonary. Current EKG showed sinus rhythm and sinus tachycardia Review of Systems As per the chart Past Medical History Past Medical History: Diabetes Mellitus, Hyperlipidemia, Hypertension Additional Past Medical History / Comment(s): Neuropathy History of Any Multi-Drug Resistant Organisms: None Reported Past Surgical History: Adenoidectomy Additional Past Surgical History / Comment(s): Circumcision 2015. Right cataract removal. back surgery may 2020 Past Anesthesia/Blood Transfusion Reactions: No Reported Reaction Past Psychological History: No Psychological Hx Reported Smoking Status: Former smoker Past Alcohol Use History: None Reported Additional Past Alcohol Use History / Comment(s): smoked from 1969 to 1975 3 ppd Past Drug Use History: None Reported - Past Family History Father Family Medical History: Cancer Mother Family Medical History: Cancer Additional Family Medical History / Comment(s): skin CA Medications and Allergies Home Medications Medication Instructions Recorded Confirmed Type Aspirin 81 mg PO DAILY chew 06/08/20 06/11/20 Rx Insulin Detemir (Levemir) [Levemir] 29 unit SQ DAILY@0700 syr 06/08/20 06/11/20 Rx Metoprolol Tartrate [Lopressor] 50 mg PO BID tab 06/08/20 06/11/20 Rx Apixaban [Eliquis] 5 mg PO BID@0800,2000 06/11/20 06/11/20 History Atorvastatin [Lipitor] 10 mg PO HS 06/11/20 06/11/20 History HYDROcodone/APAP 5-325MG [[place] 1 tab PO Q4HR PRN 06/11/20 06/11/20 History 5-325] INSULIN ASPART (NovoLOG) [NovoLOG See Protocol SQ ACHS 06/11/20 06/11/20 History (formulary)] traMADol HCl [Ultram] 50 mg PO Q6H PRN 06/11/20 06/11/20 History Allergies Allergy/AdvReac Type Severity Reaction Status Date / Time No Known Allergies Allergy Verified 06/11/20 15:42 Physical Exam Vitals: Vital Signs Temp Pulse Pulse Resp BP BP Pulse Ox 06/12/20 12:03 98.2 F 67 17 121/72 100 06/12/20 11:20 97 06/12/20 07:00 97.6 F 83 17 113/69 96 06/11/20 19:08 98.6 F 103 H 17 92/60 96 06/11/20 18:40 101 H 18 109/66 96 06/11/20 18:30 103 H 18 106/67 94 L 06/11/20 18:19 99.0 F 110 H 18 90/55 93 L 06/11/20 17:43 109 H 18 102/70 97 06/11/20 16:03 101 H 18 101/73 99 06/11/20 15:06 98.2 F 101 H 18 103/83 98 Intake and Output 06/11/20 06/12/20 06/12/20 22:59 06:59 14:59 Intake Total 720 160 Output Total 300 Balance 720 -140 Intake: IV 160 ns@20 160 Intake, IV Titration 520 Amount Sodium Chloride 0.9% 1, 520 000 ml @ 130 mls/hr IV . Q7H42M STA Rx#:[id number] Oral 200 Output: Urine 300 Other: Weight 97.5 kg 97.5 kg GENERAL EXAM: Patient is alert and oriented and doesn't appear to be in any acute distress HEENT: Normocephalic. Normal reaction of pupils, equal size, normal range of ex traocular motion. No erythema or exudates in the throat. NECK: No masses, no nuchal rigidity. CHEST: No chest wall deformity. LUNGS: Equal air entry with no crackles or wheeze. HEART: S1 and S2 normal with no audible mumurs or gallops. Regular rhythm, femorals equal on both sides.. ABDOMEN:Soft SKIN: No rashes CENTRAL NERVOUS SYSTEM: No focal deficits. EXTREMITIES: No cyanosis, clubbing or edema. Results 06/12/20 06:00 06/11/20 15:21 Cardiac Enzymes 10/17/20 10/17/20 Range/Units 15:21 15:21 AST 18 (17-59) U/L Troponin I <0.012 (0.000-0.034) ng/mL Coagulation 06/11/20 Range/Units 15:21 PT 11.9 (9.0-12.0) sec APTT 25.4 (22.0-30.0) sec CBC 06/11/20 06/12/20 Range/Units 15:21 06:00 WBC 10.3 6.3 (3.8-10.6) k/uL RBC 4.71 4.08 L (4.30-5.90) m/uL Hgb 14.6 12.6 L (13.0-17.5) gm/dL Hct 43.3 38.6 L (39.0-53.0) % Plt Count 383 314 (150-450) k/uL Comprehensive Metabolic Panel 06/11/20 Range/Units 15:21 Sodium 131 L (137-145) mmol/L Potassium 3.8 (3.5-5.1) mmol/L Chloride 101 (98-107) mmol/L Carbon Dioxide 23 (22-30) mmol/L BUN 22 H (9-20) mg/dL Creatinine 0.55 L (0.66-1.25) mg/dL Glucose 340 H (74-99) mg/dL Calcium 8.5 (8.4-10.2) mg/dL AST 18 (17-59) U/L ALT 11 (4-49) U/L Alkaline Phosphatase 157 H (38-126) U/L Total Protein 5.1 L (6.3-8.2) g/dL Albumin 2.7 L (3.5-5.0) g/dL Current Medications Generic Name Dose Route Start Last Admin Trade Name Freq PRN Reason Stop Dose Admin Hydrocodone Bitart/Acetaminophen 1 each 06/11/20 21:06 Hydrocodone/Apap 5-325mg 1 Each Tab PO Q4HR PRN Moderate Pain Aspirin 81 mg 06/12/20 09:00 06/12/20 08:07 Aspirin 81 Mg PO 81 mg DAILY HILDA Administration Atorvastatin Calcium 10 mg 06/11/20 21:07 06/11/20 21:49 Atorvastatin 10 Mg Tab PO 10 mg HS HILDA Administration Hydromorphone HCl 1 mg 06/11/20 16:11 Hydromorphone 1 Mg/Ml 1 Ml Syringe IVP Q4HR PRN Pain Insulin Aspart 0 unit 06/12/20 07:30 06/12/20 13:02 Insulin Aspart (Novolog) 100 Unit/Ml Vial SQ 3 unit ACHS HILDA Administration Protocol Insulin Detemir 29 unit 06/12/20 07:00 06/12/20 08:07 Insulin Detemir (Levemir) 100 Unit/Ml Syr SQ 29 unit DAILY@0700 HILDA Administration Metoprolol Tartrate 50 mg 06/11/20 21:15 06/12/20 08:07 Metoprolol Tartrate 50 Mg Tab PO 50 mg BID HILDA Administration Tramadol HCl 50 mg 06/11/20 21:06 Tramadol 50 Mg Tab PO Q6H PRN Mild to Moderate Pain Intake and Output 06/11/20 06/12/20 06/12/20 22:59 06:59 14:59 Intake Total 720 160 Output Total 300 Balance 720 -140 Intake: IV 160 ns@20 160 Intake, IV Titration 520 Amount Sodium Chloride 0.9% 1, 520 000 ml @ 130 mls/hr IV . Q7H42M STA Rx#:[id number] Oral 200 Output: Urine 300 Other: Weight 97.5 kg 97.5 kg Patient Weight 06/13/20 06:59 Weight 97.5 kg 06/12/20 06:00 06/11/20 15:21 EKG Interpretations (text) Sinus tachycardia Assessment and Plan (1) History of back surgery Current Visit: Yes Status: Acute Code(s): Z98.890 - OTHER SPECIFIED POSTPROCEDURAL STATES SNOMED Code(s): 262993494 (2) Hemoptysis Current Visit: Yes Status: Acute Code(s): R04.2 - HEMOPTYSIS SNOMED Code(s): 15882363 (3) SVT (supraventricular tachycardia) Current Visit: No Status: Acute Code(s): I47.1 - SUPRAVENTRICULAR TACHYCARDIA SNOMED Code(s): 1158864 Plan: Hold anticoagulation therapy. Pulmonary consult. Continue to monitor for cardiac arrhythmias. We'll follow
[2020-06-12] MEDS: HYDROcodone/APAP 5-325MG 1 EACH TAB PO PRN (13:56)
--- NOTE | 2020-06-12 15:26 | CT ---
EXAMINATION TYPE: CT angio chest DATE OF EXAM: 06/12/2020 COMPARISON: None HISTORY: Elevated d-dimer and hemoptysis x2 days. CT DLP: 447.4 mGycm Automated exposure control for dose reduction was used. CONTRAST: Performed with IV Contrast, patient injected with 70ml mL of Isovue 370. There are 3-D post processed images. There is some infiltrate and atelectasis left posterior lung base. There is small left pleural effusi on. Heart size is normal. There is no pericardial effusion. Thoracic aorta is intact. There is no ane urysm or dissection. There is no mediastinal adenopathy. There are no hilar masses. There is no evidence of a pulmonary ma ss. There is normal contrast opacification of the pulmonary arteries. There are no filling defects. There is deformity of the T3 vertebral body with depression of the inferior endplate. IMPRESSION: No evidence of pulmonary embolism. Left pleural effusion and left basilar mild pulmonary infiltrate a nd atelectasis. Minimal atelectasis right lung base.
[2020-06-12 17:04] LABS: Glucose,Whole Blood 178 mg/dL (75-99)
[2020-06-12 20:39] LABS: Glucose,Whole Blood 150 mg/dL (75-99)
[2020-06-12] MEDS: ATORVASTATIN 10 MG TAB PO SCH (21:02)
[2020-06-13] MEDS: HYDROcodone/APAP 5-325MG 1 EACH TAB PO PRN ×4 (01:30→21:08)
[2020-06-13 05:39] LABS: Basophils # (A) 0.1 k/uL (0-0.2); Basophils % (A) 1 %; Eosinophils # (A) 0.6 k/uL (0-0.7); Eosinophils % (A) 8 %; HCT 32.9 % (39.0-53.0); HGB 10.9 gm/dL (13.0-17.5); Lymphocytes # (A) 2.9 k/uL (1.0-4.8); Lymphocytes % (A) 41 %; MCH 30.6 pg (25.0-35.0); MCHC 33.1 g/dL (31.0-37.0); MCV 92.4 fL (80.0-100.0); Mean Platelet Volume 7.1; Monocytes # (A) 0.6 k/uL (0-1.0); Monocytes % (A) 8 %; Neutrophils # (A) 2.8 k/uL (1.3-7.7); Neutrophils % (A) 39 %; Platelet Count 315 k/uL (150-450); RBC 3.56 m/uL (4.30-5.90); RDW 13.5 % (11.5-15.5); WBC 7.2 k/uL (3.8-10.6)
[2020-06-13 07:03] LABS: Glucose,Whole Blood 141 mg/dL (75-99)
[2020-06-13] MEDS: ASPIRIN 81 MG PO SCH (09:11)
[2020-06-13] MEDS: INSULIN ASPART (NovoLOG) 100 UNIT/ML VIAL SQ SCH ×4 (09:11→21:07)
[2020-06-13] MEDS: METOPROLOL TARTRATE 50 MG TAB PO SCH ×2 (09:11→21:07)
[2020-06-13] MEDS: INSULIN DETEMIR (LEVEMIR) 100 UNIT/ML SYR SQ SCH (09:11)
[2020-06-13 11:45] LABS: African American GFR (CKD) 119.7 (60.0-200.0); Albumin 2.7 g/dL (3.80-4.90); Albumin/Globulin Ratio 1.69 (1.60-3.17); Anion Gap 9.9 mmol/L (4.00-12.00); BUN/Creat Ratio 41.67 Ratio (12.00-20.00); Calcium 8.3 mg/dL (8.7-10.3); Carbon Dioxide 24.1 mmol/L (21.6-31.8); Globulin 1.6 g/dL (1.6-3.3); Non-African American GFR(CKD) 103.3 (60.0-200.0); Potassium 3.5 mmol/L (3.5-5.5); Total Bilirubin 0.6 mg/dL (0.3-1.2); Total Protein 4.3 g/dL (6.2-8.2)
[2020-06-13 12:12] LABS: Glucose,Whole Blood 214 mg/dL (75-99)
--- NOTE | 2020-06-13 14:43 | P.PN ---
<Rossana Garrison - Last Filed: 06/13/20 14:36> Subjective Progress Note Date: 06/13/20 HISTORY OF PRESENT ILLNESS: Patient examined at the bedside. He denies chest pain or pressure. Denies shortness of breath. He reports hemoptysis two days ago, but denies any further hemoptysis since coming to the hospital. Hemoglobin 10.9. Vital signs stable. PHYSICAL EXAM: VITAL SIGNS: Reviewed. GENERAL: Well-developed in no acute distress. NECK: Supple. No JVD or thyromegaly LUNGS: Respirations even and unlabored. Lungs essentially clear to auscultation bilaterally. HEART: Regular rate and rhythm. S1 and S2 heard. EXTREMITIES: Normal range of motion. No clubbing or cyanosis. Peripheral pulses intact. No lower extremity edema ASSESSMENT: Hemoptysis History of multifocal atrial tachycardia, could not exclude atrial fibrillation (Per cardiology consult 05/29/2020) Hypertension Hyperlipidemia Diabetes mellitus, type II PLAN: Begin telemetry monitoring to assess for any cardiac arrhythmias Continue to hold Eliquis until evaluated by pulmonary. If not intervention from a pulmonary standpoint, may resume anticoagulation from a cardiac standpoint Nurse practitioner note has been reviewed by physician. Signing provider agrees with the documented findings, assessment, and plan of care. Objective - Vital Signs Vital signs: Vital Signs Temp 99.1 F 06/13/20 12:31 Pulse 61 06/13/20 12:31 Resp 17 06/13/20 12:31 BP 125/73 06/13/20 12:31 Pulse Ox 99 06/13/20 12:31 Intake & Output 06/12/20 06/13/20 06/13/20 18:59 06:59 18:59 Intake Total 300 Balance 300 Weight 97.5 kg Intake: Oral 300 Other: Voiding Method Urinal Urinal # Voids 4 # Bowel Movements 2 - Labs CBC & Chem 7: 06/13/20 05:04 06/13/20 05:04 Labs: Abnormal Lab Results - Last 24 Hours (Table) 06/12/20 06/12/20 06/13/20 Range/Units 17:04 20:26 05:04 RBC 3.56 L (4.30-5.90) m/uL Hgb 10.9 L (13.0-17.5) gm/dL Hct 32.9 L (39.0-53.0) % BUN/Creatinine Ratio (12.00-20.00) Ratio Glucose (70-110) mg/dL POC Glucose (mg/dL) 178 H 150 H (75-99) mg/dL Calcium (8.7-10.3) mg/dL AST (14-35) U/L ALT (10-49) U/L Alkaline Phosphatase (41-126) U/L Total Protein (6.2-8.2) g/dL Albumin (3.80-4.90) g/dL 06/13/20 06/13/20 06/13/20 Range/Units 05:04 07:00 12:03 RBC (4.30-5.90) m/uL Hgb (13.0-17.5) gm/dL Hct (39.0-53.0) % BUN/Creatinine Ratio 41.67 H (12.00-20.00) Ratio Glucose 143 H (70-110) mg/dL POC Glucose (mg/dL) 141 H 214 H (75-99) mg/dL Calcium 8.3 L (8.7-10.3) mg/dL AST 12 L (14-35) U/L ALT 8 L (10-49) U/L Alkaline Phosphatase 160 H (41-126) U/L Total Protein 4.3 L (6.2-8.2) g/dL Albumin 2.70 L (3.80-4.90) g/dL <Tima Gunter - Last Filed: 06/13/20 17:40> Subjective Continue to reassess anticoagulation risks and benefits. Await pulm recs. We will attempt to review prior admission telemetry. Apparently no obvious source of AFib and therefore may consider monitoring off of anticoagulation especially if having significant hemoptysis. Continue to follow with you. Tima Gunter DO Objective - Vital Signs Vital signs: Vital Signs Temp 99.1 F 06/13/20 12:31 Pulse 61 06/13/20 12:31 Resp 17 06/13/20 12:31 BP 125/73 06/13/20 12:31 Pulse Ox 99 06/13/20 12:31 Intake & Output 06/12/20 06/13/20 06/13/20 18:59 06:59 18:59 Intake Total 300 Balance 300 Weight 97.5 kg Intake: Oral 300 Other: Voiding Method Urinal Urinal # Voids 4 # Bowel Movements 2 - Labs CBC & Chem 7: 06/13/20 05:04 06/13/20 05:04 Labs: Abnormal Lab Results - Last 24 Hours (Table) 06/12/20 06/13/20 06/13/20 Range/Units 20:26 05:04 05:04 RBC 3.56 L (4.30-5.90) m/uL Hgb 10.9 L (13.0-17.5) gm/dL Hct 32.9 L (39.0-53.0) % BUN/Creatinine Ratio 41.67 H (12.00-20.00) Ratio Glucose 143 H (70-110) mg/dL POC Glucose (mg/dL) 150 H (75-99) mg/dL Calcium 8.3 L (8.7-10.3) mg/dL AST 12 L (14-35) U/L ALT 8 L (10-49) U/L Alkaline Phosphatase 160 H (41-126) U/L Total Protein 4.3 L (6.2-8.2) g/dL Albumin 2.70 L (3.80-4.90) g/dL 06/13/20 06/13/20 06/13/20 Range/Units 07:00 12:03 17:26 RBC (4.30-5.90) m/uL Hgb (13.0-17.5) gm/dL Hct (39.0-53.0) % BUN/Creatinine Ratio (12.00-20.00) Ratio Glucose (70-110) mg/dL POC Glucose (mg/dL) 141 H 214 H 255 H (75-99) mg/dL Calcium (8.7-10.3) mg/dL AST (14-35) U/L ALT (10-49) U/L Alkaline Phosphatase (41-126) U/L Total Protein (6.2-8.2) g/dL Albumin (3.80-4.90) g/dL
--- NOTE | 2020-06-13 16:42 | CONS ---
CONSULTATION REASON FOR CONSULTATION: Hemoptysis. This is a 70-year-old gentleman, somewhat of a poor historian, who apparently came into the emergency room on June 11, complaining of an episode of coughing up blood. He states that he was not really having any other symptoms. He has had a couple of episodes of bright red hemoptysis. He denies any fever, chills, chest pain, chest discomfort, chest congestion, difficulty breathing, chest tightness, wheezing, or any phlegm mixed in with the blood. Since he has been here in the hospital, he has had no further episodes. I asked whether or not he was on the blood thinners and he said he was not, but it appears that his home medications include Eliquis. Anyway, the patient is feeling back to baseline right now. He is not on any supplemental oxygen. He does have a history of atrial fibrillation and for that reason was given the factor Xa inhibitor. HOME MEDICATIONS: Reviewed. They include Eliquis, Lipitor, [place], insulin, and Tramadol. He is also on metoprolol, insulin, and aspirin. ALLERGIES: Denied. MEDICAL HISTORY: Includes hyperlipidemia, hypertension, diabetes, and atrial fibrillation. Other medical history includes neuropathy. SURGICAL HISTORY: Includes adenoidectomy, circumcision, and right cataract surgery. SOCIAL HISTORY: Positive for previous tobacco use, many years back. Denies any alcohol use or illicit drug use. FAMILY HISTORY: Positive for father with cancer and mother with skin cancer. REVIEW OF SYSTEMS: CONSTITUTIONAL: Negative. NEUROLOGIC: Negative. HEENT: Negative. CARDIOVASCULAR: Negative, pulmonary hemoptysis with no further episodes since being hospitalized. GI: Negative. : Negative. RHEUMATOLOGIC: Negative. IMMUNOLOGIC: Negative. ENDOCRINOLOGIC: Negative. DERMATOLOGIC: Negative. I did ask the patient specifically as to whether or not this episode is actually hemoptysis versus hematemesis. He is convinced he actually was coughing up blood. I also asked about him having a nosebleed and he did not. Current vital signs are reviewed. His temperature is 99.1, heart rate 61, respiratory rate 16, blood pressure 125/73 mean 90, room air saturation 99%. He appears in no acute distress whatsoever. No respiratory distress. No audible wheezing, use of accessory muscles or conversational dyspnea. HEENT: Examination is grossly unremarkable. NECK: Supple, full range of motion. No adenopathy. Neck veins are flat. CARDIOVASCULAR: Examination reveals a regular rhythm and rate. S1, S2 normal. LUNGS: Reveal clear breath sounds. No wheezes, rhonchi, or crackles. ABDOMEN: Soft, bowel sounds are heard. EXTREMITIES: Intact. No cyanosis, clubbing, or edema. SKIN: Without rash. NEUROLOGIC: Examination is brief but nonfocal. A chest x-ray on the of the day of admission showed no acute cardiopulmonary disease. Likewise, the chest done on 06/12 shows no acute cardiopulmonary disease with possible underlying COPD. A CT angiogram was done on 06/12. It showed no evidence of pulmonary embolism, left-sided pleural effusion and left basilar pulmonary infiltrate and atelectasis. There is also minimal atelectasis at the right lung base. He is currently on aspirin, Lipitor, [place], Dilaudid, insulin, metoprolol, and Tramadol. ASSESSMENT: 1. Brief episode of hemoptysis, of unclear etiology. This could relate to underlying mild bronchitis and/or left lower lobe bronchopneumonia. The hemoptysis may have been aggravated by the patient's use of Eliquis. 2. No further episodes of hemoptysis since admission. 3. Diabetes mellitus. 4. History of hypertension. 5. Hyperlipidemia. 6. History of diabetic neuropathy. PLAN: Medications are reviewed. No additional recommendations made at this time. Will continue to follow. Should he have any additional episodes, bronchoscopy may be warranted. Could probably end up treating the patient with an oral antibiotic for a short period of time. Also, antitussive might be beneficial. MMODL / IJN: [id number] /
[2020-06-13 17:29] LABS: Glucose,Whole Blood 255 mg/dL (75-99)
[2020-06-13] MEDS: BENZONATATE 100 MG CAP PO SCH ×2 (18:28→21:57)
--- NOTE | 2020-06-13 18:54 | P.PN ---
Subjective Progress Note Date: 06/13/20 Adria Cruz, is a 70-year-old male, who was recently admitted to [facility] with multiple medical problems, last admission patient presented with atrial arrhythmias he also had evidence of L4 vertebral fracture and possible infection he underwent aspiration culture of L4 and underwent kyphoplasty he was started on Elequis and was discharged to detention for rehab. At the detention patient started having episodes of cough with hemoptysis, patient had large amount of blood over a 3 hour period and he was sent back to emergency room, he was evaluated in the emergency room his vital examination on presentation revealed a temperature of 98.2 pulse 101 respiration 18 blood pressure 103/83 pulse ox 98% on room air his white blood count was 10.3 hemoglobin 14.6 platelet count 383 INR 1.2 d-dimer was elevated at 1.3 to sodium 131 potassium 3.3 BUN 22 creatinine 0.5 by glucose level was 340 EKG revealed sinus tachycardia with fusion complexes and prolonged QT , patient was admitted to telemetry floor for further evaluation pulmonary and cardiology consultation were requested. His past medical history is significant for COPD, insulin-dependent diabetes mellitus, hyperlipidemia, and recent admission with L4 vertebral fracture and episodes of atrial arrhythmia. On 06/13/2020 patient was seen and examined on the medical floor he is alert and oriented 3 in no apparent distress he is still having episodes of cough but no new episodes of hemoptysis, computed tomography scan of the chest was negative for pulmonary embolism however he had evidence of left pleural effusion and left basilar mild pulmonary infiltrate at this time pulmonary consultation is pending, patient was seen by cardiology yesterday and recommendation were to hold anticoagulation at this time we are awaiting for further recommendation Objective - Vital Signs Vital signs: Vital Signs Temp 99.1 F 06/13/20 12:31 Pulse 61 06/13/20 16:00 Resp 17 06/13/20 16:00 BP 125/73 06/13/20 12:31 Pulse Ox 99 06/13/20 12:31 Intake & Output 06/12/20 06/13/20 06/13/20 18:59 06:59 18:59 Intake Total 300 400 Output Total 600 Balance 300 -200 Weight 97.5 kg Intake: Oral 300 400 Output: Urine 600 Other: Voiding Method Urinal Urinal # Voids 4 4 # Bowel Movements 2 2 - Exam In general patient is alert and oriented 3 in no apparent distress HEENT head normocephalic and atraumatic Neck is supple no JVD no goiter no lymphadenopathy Chest exam reveals a few scattered crackles no wheezing Cardiac exam reveals regular heart sounds S1 and S2 no gallops no murmurs Abdomen is soft nontender no organomegaly with normal bowel sounds Extremity exam reveals no edema no cyanosis or clubbing - Labs CBC & Chem 7: 06/13/20 05:04 06/13/20 05:04 Labs: Abnormal Lab Results - Last 24 Hours (Table) 06/12/20 06/13/20 06/13/20 Range/Units 20:26 05:04 05:04 RBC 3.56 L (4.30-5.90) m/uL Hgb 10.9 L (13.0-17.5) gm/dL Hct 32.9 L (39.0-53.0) % BUN/Creatinine Ratio 41.67 H (12.00-20.00) Ratio Glucose 143 H (70-110) mg/dL POC Glucose (mg/dL) 150 H (75-99) mg/dL Calcium 8.3 L (8.7-10.3) mg/dL AST 12 L (14-35) U/L ALT 8 L (10-49) U/L Alkaline Phosphatase 160 H (41-126) U/L Total Protein 4.3 L (6.2-8.2) g/dL Albumin 2.70 L (3.80-4.90) g/dL 06/13/20 06/13/20 06/13/20 Range/Units 07:00 12:03 17:26 RBC (4.30-5.90) m/uL Hgb (13.0-17.5) gm/dL Hct (39.0-53.0) % BUN/Creatinine Ratio (12.00-20.00) Ratio Glucose (70-110) mg/dL POC Glucose (mg/dL) 141 H 214 H 255 H (75-99) mg/dL Calcium (8.7-10.3) mg/dL AST (14-35) U/L ALT (10-49) U/L Alkaline Phosphatase (41-126) U/L Total Protein (6.2-8.2) g/dL Albumin (3.80-4.90) g/dL Assessment and Plan Plan: 1. Episodes of cough with hemoptysis lasting about 3 hours with large amount of blood at the detention 2. Elevated d-dimer 3. Underlying history of COPD 4. Recent admission was cardiac arrhythmia patient was started on Eliquis, no clear evidence of atrial fibrillation we are awaiting cardiology recommendation in regard to need to continue anticoagulation especially in view of episode of hemoptysis 5. Recent history of L4 fracture with kyphoplasty 6. Underlying history of insulin-dependent diabetes mellitus At this time patient is admitted to telemetry floor Will check computed tomography scan of the chest angiogram Consultation for cardiology was requested to reassess anticoagulation Consultation for pulmonary was requested Will recheck labs in a.m. Will follow closely
[2020-06-13] MEDS: ATORVASTATIN 10 MG TAB PO SCH (21:07)
[2020-06-13 21:09] LABS: Glucose,Whole Blood 240 mg/dL (75-99)
[2020-06-13 23:03] VITALS: RESP 18
[2020-06-14 05:12] LABS: Basophils # (A) 0.1 k/uL (0-0.2); Basophils % (A) 1 %; Eosinophils # (A) 0.6 k/uL (0-0.7); Eosinophils % (A) 8 %; HCT 34.9 % (39.0-53.0); HGB 11.5 gm/dL (13.0-17.5); Lymphocytes # (A) 2.2 k/uL (1.0-4.8); Lymphocytes % (A) 30 %; MCH 30.8 pg (25.0-35.0); MCHC 33.1 g/dL (31.0-37.0); MCV 93.1 fL (80.0-100.0); Monocytes # (A) 0.6 k/uL (0-1.0); Monocytes % (A) 8 %; Neutrophils # (A) 3.5 k/uL (1.3-7.7); Neutrophils % (A) 50 %; Platelet Count 260 k/uL (150-450); RBC 3.74 m/uL (4.30-5.90); RDW 13.6 % (11.5-15.5); WBC 7.2 k/uL (3.8-10.6)
[2020-06-14 06:47] LABS: Glucose,Whole Blood 175 mg/dL (75-99)
[2020-06-14] MEDS: INSULIN ASPART (NovoLOG) 100 UNIT/ML VIAL SQ SCH ×2 (08:19→12:06)
[2020-06-14] MEDS: METOPROLOL TARTRATE 50 MG TAB PO SCH (08:19)
[2020-06-14] MEDS: BENZONATATE 100 MG CAP PO SCH (08:19)
[2020-06-14] MEDS: INSULIN DETEMIR (LEVEMIR) 100 UNIT/ML SYR SQ SCH (08:19)
[2020-06-14] MEDS: ASPIRIN 81 MG PO SCH (08:19)
[2020-06-14] MEDS ORDERED: AZITHROMYCIN 500 MG TAB PO SCH (09:00)
[2020-06-14 09:23] LABS: African American GFR (CKD) 119.7 (60.0-200.0); Albumin 2.8 g/dL (3.80-4.90); Albumin/Globulin Ratio 1.75 (1.60-3.17); Anion Gap 8.7 mmol/L (4.00-12.00); Calcium 8.2 mg/dL (8.7-10.3); Carbon Dioxide 26.3 mmol/L (21.6-31.8); Globulin 1.6 g/dL (1.6-3.3); Non-African American GFR(CKD) 103.3 (60.0-200.0); Potassium 3.7 mmol/L (3.5-5.5); Total Bilirubin 0.5 mg/dL (0.2-1.2); Total Protein 4.4 g/dL (6.2-8.2)
[2020-06-14] MEDS: HYDROcodone/APAP 5-325MG 1 EACH TAB PO PRN ×2 (09:28→14:33)
--- NOTE | 2020-06-14 10:32 | P.PN ---
Subjective Progress Note Date: 06/14/20 HISTORY OF PRESENT ILLNESS: Patient examined at the bedside. He denies chest pain or pressure. Denies shortness of breath. No further episodes of hemoptysis. No arrhythmias noted on telemetry. PHYSICAL EXAM: VITAL SIGNS: Reviewed. GENERAL: Well-developed in no acute distress. NECK: Supple. No JVD or thyromegaly LUNGS: Respirations even and unlabored. Lungs essentially clear to auscultation bilaterally. HEART: Regular rate and rhythm. S1 and S2 heard. EXTREMITIES: Normal range of motion. No clubbing or cyanosis. Peripheral pulses intact. No lower extremity edema ASSESSMENT: Hemoptysis History of multifocal atrial tachycardia, could not exclude atrial fibrillation (Per cardiology consult 05/29/2020) Hypertension Hyperlipidemia Diabetes mellitus, type II PLAN: Dr. Gunter spoke with the patient at the bedside. No arrhythmias noted on telemetry overnight. Dr. Gunter recommends holding Eliquis at the time of discharge. Patient may follow-up outpatient. May benefit from an event monitor outpatient to assess for any cut clear evidence of atrial fibrillation. Nurse practitioner note has been reviewed by physician. Signing provider agrees with the documented findings, assessment, and plan of care. Objective - Vital Signs Vital signs: Vital Signs Temp 98.6 F 06/14/20 05:00 Pulse 77 06/14/20 05:00 Resp 18 06/14/20 05:00 BP 144/75 06/14/20 05:00 Pulse Ox 100 06/14/20 05:00 Intake & Output 06/13/20 06/14/20 06/14/20 18:59 06:59 18:59 Intake Total 400 900 Output Total 600 Balance -200 900 Intake: Oral 400 900 Output: Urine 600 Other: Voiding Method Urinal Urinal # Voids 4 2 # Bowel Movements 2 - Labs CBC & Chem 7: 06/14/20 04:48 06/14/20 04:48 Labs: Abnormal Lab Results - Last 24 Hours (Table) 06/13/20 06/13/20 06/13/20 Range/Units 05:04 12:03 17:26 RBC (4.30-5.90) m/uL Hgb (13.0-17.5) gm/dL Hct (39.0-53.0) % BUN/Creatinine Ratio 41.67 H (12.00-20.00) Ratio Glucose 143 H (70-110) mg/dL POC Glucose (mg/dL) 214 H 255 H (75-99) mg/dL Calcium 8.3 L (8.7-10.3) mg/dL AST 12 L (14-35) U/L ALT 8 L (10-49) U/L Alkaline Phosphatase 160 H (41-126) U/L Total Protein 4.3 L (6.2-8.2) g/dL Albumin 2.70 L (3.80-4.90) g/dL 06/13/20 06/14/20 06/14/20 Range/Units 20:59 04:48 04:48 RBC 3.74 L (4.30-5.90) m/uL Hgb 11.5 L (13.0-17.5) gm/dL Hct 34.9 L (39.0-53.0) % BUN/Creatinine Ratio 30.00 H (12.00-20.00) Ratio Glucose 133 H (70-110) mg/dL POC Glucose (mg/dL) 240 H (75-99) mg/dL Calcium 8.2 L (8.7-10.3) mg/dL AST (14-35) U/L ALT (10-49) U/L Alkaline Phosphatase 174 H (41-126) U/L Total Protein 4.4 L (6.2-8.2) g/dL Albumin 2.80 L (3.80-4.90) g/dL 06/14/20 Range/Units 06:45 RBC (4.30-5.90) m/uL Hgb (13.0-17.5) gm/dL Hct (39.0-53.0) % BUN/Creatinine Ratio (12.00-20.00) Ratio Glucose (70-110) mg/dL POC Glucose (mg/dL) 175 H (75-99) mg/dL Calcium (8.7-10.3) mg/dL AST (14-35) U/L ALT (10-49) U/L Alkaline Phosphatase (41-126) U/L Total Protein (6.2-8.2) g/dL Albumin (3.80-4.90) g/dL
[2020-06-14 11:43] LABS: Glucose,Whole Blood 188 mg/dL (75-99)
[2020-06-14 11:48] VITALS: BP 98/61; PULSE 56; TEMP 98.3
--- NOTE | 2020-06-14 12:43 | P.DS ---
Providers Date of admission: 06/13/20 18:34 Expected date of discharge: 06/14/20 Attending physician: Mey Butler Consults: 06/12/20 11:52 Consult Physician Routine Consulting Provider: Annabel Olmstead Consult Reason/Comments: hemoptysis Do you want consulting provider notified?: Yes Consult Physician Routine Consulting Provider: Silvia Martel Consult Reason/Comments: anticoagulation Do you want consulting provider notified?: Yes 06/13/20 14:04 Consult Physician Routine Consulting Provider: Guilherme Shearer V Consult Reason/Comments: recommendation for anticoagulation Do you want consulting provider notified?: Yes Primary care physician: [facility] Course: Diagnoses on discharge: 1. Episodes of cough with hemoptysis lasting about 3 hours with large amount of blood at the residential 2. Elevated d-dimer 3. Underlying history of COPD 4. Recent admission was cardiac arrhythmia patient was started on Eliquis, no clear evidence of atrial fibrillation we are awaiting cardiology recommendation in regard to need to continue anticoagulation especially in view of episode of hemoptysis 5. Recent history of L4 fracture with kyphoplasty 6. Underlying history of insulin-dependent diabetes mellitus Hospital course: Adria Cruz, is a 70-year-old male, who was recently admitted to [facility] with multiple medical problems, last admission patient presented with atrial arrhythmias he also had evidence of L4 vertebral fracture and possible infection he underwent aspiration culture of L4 and underwent kyphoplasty he was started on Elequis and was discharged to residential for rehab. At the residential patient started having episodes of cough with hemoptysis, patient had large amount of blood over a 3 hour period and he was sent back to emergency room, he was evaluated in the emergency room his vital examination on presentation revealed a temperature of 98.2 pulse 101 respiration 18 blood pressure 103/83 pulse ox 98% on room air his white blood count was 10.3 hemoglobin 14.6 platelet count 383 INR 1.2 d-dimer was elevated at 1.3 to sodium 131 potassium 3.3 BUN 22 creatinine 0.5 by glucose level was 340 EKG revealed sinus tachycardia with fusion complexes and prolonged QT , patient was admitted to telemetry floor for further evaluation pulmonary and cardiology consultation were requested. His past medical history is significant for COPD, insulin-dependent diabetes mellitus, hyperlipidemia, and recent admission with L4 vertebral fracture and episodes of atrial arrhythmia. On 06/13/2020 patient was seen and examined on the medical floor he is alert and oriented 3 in no apparent distress he is still having episodes of cough but no new episodes of hemoptysis, computed tomography scan of the chest was negative for pulmonary embolism however he had evidence of left pleural effusion and left basilar mild pulmonary infiltrate at this time pulmonary consultation is pending, patient was seen by cardiology yesterday and recommendation were to hold anticoagulation at this time we are awaiting for further recommendation On 06/14/2020 patient was seen and examined on the medical floor he is alert and oriented in no distress there is no fever or chills no headache or dizziness he has occasional cough but no hemoptysis, no chest pain or shortness of breath, no nausea or vomiting no abdominal pain no diarrhea no blood in the stools no burning with urination no frequency or urgency no hematuria. Recommendation from cardiology is to hold Eliquis at the time of discharge and follow-up with Dr. Gunter to assess if there is any clear cut evidence of atrial fibrillation prior to restarting any anticoagulation. Recommendation from pulmonary is to give a course of oral antibiotic, if patient has any new episodes of hemoptysis he would need to follow-up with pulmonary for bronchoscopy. Patient Condition at Discharge: Fair Plan - Discharge Summary Discharge Rx Participant: Yes New Discharge Prescriptions: New Benzonatate [Tessalon Perles] 200 mg PO TID cap Azithromycin [Zithromax] 500 mg PO DAILY 5 Days #5 tab Continue Aspirin 81 mg PO DAILY chew Insulin Detemir (Levemir) [Levemir] 29 unit SQ DAILY@0700 syr Metoprolol Tartrate [Lopressor] 50 mg PO BID tab Atorvastatin [Lipitor] 10 mg PO HS INSULIN ASPART (NovoLOG) [NovoLOG (formulary)] See Protocol SQ ACHS HYDROcodone/APAP 5-325MG [[place] 5-325] 1 tab PO Q4HR PRN PRN Reason: Moderate Pain traMADol HCl [Ultram] 50 mg PO Q6H PRN PRN Reason: Mild To Moderate Pain Discontinued Apixaban [Eliquis] 5 mg PO BID@0800,1999 Discharge Medication List Aspirin 81 mg PO DAILY chew 06/08/20 [Rx] Insulin Detemir (Levemir) [Levemir] 29 unit SQ DAILY@0700 syr 06/08/20 [Rx] Metoprolol Tartrate [Lopressor] 50 mg PO BID tab 06/08/20 [Rx] Atorvastatin [Lipitor] 10 mg PO HS 06/11/20 [History] HYDROcodone/APAP 5-325MG [[place] 5-325] 1 tab PO Q4HR PRN 06/11/20 [History] INSULIN ASPART (NovoLOG) [NovoLOG (formulary)] See Protocol SQ ACHS 06/11/20 [History] traMADol HCl [Ultram] 50 mg PO Q6H PRN 06/11/20 [History] Azithromycin [Zithromax] 500 mg PO DAILY 5 Days #5 tab 06/14/20 [Rx] Benzonatate [Tessalon Perles] 200 mg PO TID cap 06/14/20 [Rx] Follow up Appointment(s)/Referral(s): Mey Butler MD [Primary Care Provider] - 1-2 days
--- NOTE | 2020-06-14 13:43 | P.PN ---
Subjective Progress Note Date: 06/14/20 Principal diagnosis: Hemoptysis This 70-year-old white male patient of Dr. Butler, who was admitted to the hospital on 06/11/2020 when she came in for evaluation of hemoptysis, patient is on blood thinners, she did not have any other symptoms, no fever chills, no chest pain, no chest congestion, no shortness of breath. He is on Eliquis for history of atrial fibrillation. CTA chest showed no evidence of pulmonary embolism, he did not left-sided pleural effusion and left basilar pulmonary infiltrate and atelectasis. Patient was diagnosed with possibility of mild bronchitis and over left lower lobe bronchopneumonia. His Eliquis has been on hold, as had no more hemoptysis overnight, his vital signs have been stable. Patient was placed on antitussives, his cough has improved. He is on an oral antibiotic in the form of azithromycin. Today's blood work has been reviewed showing no evidence of leukocytosis, with a white blood cell count of 7.2, hemoglobin of 11.5, electrolytes and renal profile were well within normal limits, has had no fever or chills, room air pulse ox is 98% Objective - Vital Signs Vital signs: Vital Signs Temp 98.3 F 06/14/20 11:47 Pulse 56 L 06/14/20 11:47 Resp 18 06/14/20 11:47 BP 98/61 06/14/20 11:47 Pulse Ox 98 06/14/20 11:47 Intake & Output 06/13/20 06/14/20 06/14/20 18:59 06:59 18:59 Intake Total 400 900 Output Total 600 Balance -200 900 Intake: Oral 400 900 Output: Urine 600 Other: Voiding Method Urinal Urinal Urinal # Voids 4 2 # Bowel Movements 2 - Exam GENERAL EXAM: Alert, very pleasant, 70-year-old white female, on room air, with pulse ox of 98-100% comfortable in no apparent distress. HEAD: Normocephalic/atraumatic. EYES: Normal reaction of pupils, equal size. Conjunctiva pink, sclera white. NOSE: Clear with pink turbinates. THROAT: No erythema or exudates. NECK: No masses, no JVD, no thyroid enlargement, no adenopathy. CHEST: No chest wall deformity. Symmetrical expansion. LUNGS: Equal air entry with no crackles, wheeze, rhonchi or dullness. CVS: Regular rate and rhythm, normal S1 and S2, no gallops, no murmurs, no rubs ABDOMEN: Soft, nontender. No hepatosplenomegaly, normal bowel sounds, no guarding or rigidity. EXTREMITIES: No clubbing, no edema, no cyanosis, 2+ pulses and upper and lower extremities. MUSCULOSKELETAL: Muscle strength and tone normal. SPINE: No scoliosis or deformity SKIN: No rashes CENTRAL NERVOUS SYSTEM: Alert and oriented -3. No focal deficits, tone is normal in all 4 extremities. PSYCHIATRIC: Alert and oriented -3. Appropriate affect. Intact judgment and insight. - Labs CBC & Chem 7: 06/14/20 04:48 06/14/20 04:48 Labs: Abnormal Lab Results - Last 24 Hours (Table) 06/13/20 06/13/20 06/14/20 Range/Units 17:26 20:59 04:48 RBC 3.74 L (4.30-5.90) m/uL Hgb 11.5 L (13.0-17.5) gm/dL Hct 34.9 L (39.0-53.0) % BUN/Creatinine Ratio (12.00-20.00) Ratio Glucose (70-110) mg/dL POC Glucose (mg/dL) 255 H 240 H (75-99) mg/dL Calcium (8.7-10.3) mg/dL Alkaline Phosphatase (41-126) U/L Total Protein (6.2-8.2) g/dL Albumin (3.80-4.90) g/dL 06/14/20 06/14/20 06/14/20 Range/Units 04:48 06:45 11:41 RBC (4.30-5.90) m/uL Hgb (13.0-17.5) gm/dL Hct (39.0-53.0) % BUN/Creatinine Ratio 30.00 H (12.00-20.00) Ratio Glucose 133 H (70-110) mg/dL POC Glucose (mg/dL) 175 H 188 H (75-99) mg/dL Calcium 8.2 L (8.7-10.3) mg/dL Alkaline Phosphatase 174 H (41-126) U/L Total Protein 4.4 L (6.2-8.2) g/dL Albumin 2.80 L (3.80-4.90) g/dL 06/14/20 Range/Units 11:41 RBC (4.30-5.90) m/uL Hgb (13.0-17.5) gm/dL Hct (39.0-53.0) % BUN/Creatinine Ratio (12.00-20.00) Ratio Glucose (70-110) mg/dL POC Glucose (mg/dL) 188 H (75-99) mg/dL Calcium (8.7-10.3) mg/dL Alkaline Phosphatase (41-126) U/L Total Protein (6.2-8.2) g/dL Albumin (3.80-4.90) g/dL Assessment and Plan Plan: Assessment: #1. Brief episode of hemoptysis, unclear etiology, possibly related to mild bronchitis and over left lower lobe bronchopneumonia, and this was probably aggravated by chronic oral anticoagulation the form of Eliquis #2. No further episodes of hemoptysis since admission #3. Diabetes mellitus type 2 #4. History of hypertension #5. Hyperlipidemia #6. History of diabetic neuropathy #7. Chronic atrial fibrillation on Eliquis #8. History of COPD Plan: Patient has had no recurrence of hemoptysis, vital signs have been stable, no fever or chills, no chest pain, doing well, increase activity as tolerated, from pulmonary perspective patient is stable for discharge home today he can finish outpatient course of oral antibiotics, continuous in follow-up in the office in 7-10 days I performed a history & physical examination of the patient and discussed their management with my nurse practitioner, Carmen Morales. I reviewed the nurse practitioner's note and agree with the documented findings and plan of care. Lung sounds are positive for diminished breath sounds. The findings and the impression was discussed with the patient. I attest to the documentation by the nurse practitioner. Time with Patient: Less than 30
--- NOTE | 2020-06-15 07:46 | CDI ---
Documentation Clarification Form Date: 06/15/20 From: Lorin Cabrera Phone: If you have a question about this query, please contact Melvina Amin, Solar Mechanical Engineer at [phone] between 8am and 5pm. Admit Date: 06/11/20 Discharge Date:06/14/20 Patient Name: Aleksey Cruz Visit Number: [id number] ATTENTION: The Clinical Documentation Specialists (CDI) and [facility] Coding Staff appreciate your assistance in clarifying documentation. Please respond to the clarification below the line at the bottom and electronically sign. The CDI & [facility] Coding staff will review the response and follow-up if needed. Please note: Queries are made part of the Legal Health Record. If you have any questions, please contact the author of this message via ITS. Dear Dr. Butler The patient presented with the following: hemoptysis Pulmonology Consult - hemoptysis of unclear etiology. This could related to underlying mild bronchitis and/or left lower lobe bronchopneumonia. History/Risk Factors: Patient on Eliquis therapy, Htn, SVT, atrial fib Clinical Indicators: Hemoptysis Lab findings: WBC 10.3 Radiology findings: CT angio chest: No evidence of pulmonary embolism. Left pleural effusion and left basilar mild pulmonary infiltrate and atelectasis. Minimal atelectasis right lung base. Vital Signs: T. 98.2, P. 101, R. 18, BP 103/83, Pulse ox. 98% on room air. Lung/breathing assessment: Few scattered crackles no wheezing. Treatment: Eliquis discontinued, PO Zithromax, Tessalon suellen, Consults: In your professional opinion, can you please clarify is hemoptysis is? Associated with bronchopneumonia Associated with bronchitis specify acuity of bronchitis (acute, chronic, other): Other, please specify Unable to determine hemoptysis associated with acute bronchitis Acute bronchitis MTDD
== END 2020-06-14 15:15 | DRG 202 ==
LOC: EC 15:05 → 6NMEDSUR 17:43 → OBSVTOIN 06-13 18:34
PROVIDERS: ADMIT Internal Medicine; ATTEND Internal Medicine
DX: J20.9 Acute bronchitis, unspecified (principal); J18.0 Bronchopneumonia, unspecified organism; R04.2 Hemoptysis; I47.1 Supraventricular tachycardia; I48.20 Chronic atrial fibrillation, unspecified; J90 Pleural effusion, not elsewhere classified; D68.32 Hemorrhagic disorder due to extrinsic circulating anticoagulants; E11.40 Type 2 diabetes mellitus with diabetic neuropathy, unspecified; J44.9 Chronic obstructive pulmonary disease, unspecified; R79.89 Other specified abnormal findings of blood chemistry; E78.5 Hyperlipidemia, unspecified; I10 Essential (primary) hypertension; S32.049D Unspecified fracture of fourth lumbar vertebra, subsequent encounter for fracture with routine healing; T50.995A Adverse effect of other drugs, medicaments and biological substances, initial encounter; Y92.129 Unspecified place in nursing home as the place of occurrence of the external cause; E66.9 Obesity, unspecified; Z68.29 Body mass index [BMI] 29.0-29.9, adult; Z79.01 Long term (current) use of anticoagulants; Z79.4 Long term (current) use of insulin; Z79.82 Long term (current) use of aspirin; Z79.899 Other long term (current) drug therapy; Z87.891 Personal history of nicotine dependence; Z98.41 Cataract extraction status, right eye; Z90.89 Acquired absence of other organs; Z98.890 Other specified postprocedural states; Z80.8 Family history of malignant neoplasm of other organs or systems
CPT/HCPCS: 36415; 71045; 71275; 80053; 81001; 82550; 83735; 83880; 84100; 84484; 85025; 85379; 85610; 85730; 93005; 94760; 96361; 96374; 99285

== ENCOUNTER → 2021-08-09 | Outpatient (CLI) | payer MEDICARE, OTHER ==
--- NOTE | 2021-08-16 10:33 | P.ARTDOP ---
Arterial Doppler LOWER EXTREMITY ARTERIAL DOPPLER: DATE OF SERVICE: 08/09/2021 Reason for study: Right heel ulcer. Doppler waveforms: The only real waveforms on the right was a dorsalis pedis which is atypical and digital waveforms are somewhat blunted. Doppler waveforms are multiphasic at the left dorsalis pedis but everything else is very blunted to flat line.. Pulse volume recording: []. Pressure gradients: None recorded. Ankle-brachial indices: Elevated bilaterally. Toe brachial indices: [] on the right, [] on the left Impression: Incomplete study. What we have suggests calcific wall disease. Circulation of the left is probably adequate for healing given the excellent dorsalis pedis waveforms. On the right it is more difficult to ascertain suspect adequate circulation for healing but clinical correlation strongly recommended..
== END | disposition home or self-care (01) ==
LOC: RADUSWWP 09:57
PROVIDERS: ATTEND Thoracic Surgery (Cardiothoracic Vascular Surgery)
DX: L97.412 Non-pressure chronic ulcer of right heel and midfoot with fat layer exposed (principal); E08.621 Diabetes mellitus due to underlying condition with foot ulcer
CPT/HCPCS: 93922

== ENCOUNTER → 2021-11-27 | Outpatient (CLI) | payer MEDICARE, OTHER ==
--- NOTE | 2021-11-27 11:45 | XR ---
EXAMINATION TYPE: XR foot complete RT DATE OF EXAM: 11/27/2021 CLINICAL HISTORY: Nonhealing wound. Pain and swelling. TECHNIQUE: Frontal, lateral, and oblique images of the right foot are obtained. COMPARISON: None FINDINGS: Osseous structures are markedly demineralized which is noted to lower radiographic sensitiv ity. Flexion of the toes makes evaluation of this level suboptimal. Overlying small vessel arterial v ascular calcification is seen consistent with long-standing medical renal disease. Overlying clothing or blanket material is present. There are moderate-sized superior and inferior calcaneal spurs. Ther e are soft tissue defect consistent with known ulcer over the posterior inferior calcaneus. No adjace nt bony destruction or abnormal periosteal reaction clearly seen to suggest acute osteomyelitis. Mild to moderate midfoot narrowing and spurring incidentally noted. IMPRESSION: As above. If clinical concern for acute osteomyelitis persists further investigation with 3 phase bone scan and/or MRI may be warranted.
== END | disposition home or self-care (01) ==
LOC: RADXRMAIN 11:07
PROVIDERS: ATTEND Nurse Practitioner Family
DX: S91.301A Unspecified open wound, right foot, initial encounter (principal); M77.31 Calcaneal spur, right foot

== ENCOUNTER 2023-01-18 09:02 | Day surgery (SDC) | payer MEDICARE, OTHER ==
[2023-01-17 12:10] VITALS: BMI 37.0
[2023-01-18 10:13] VITALS: TEMP 97.2
[2023-01-18 10:23] LABS: Glucose,Whole Blood 261 mg/dL (70-110)
[2023-01-18] MEDS: LACTATED RINGERS 1,000 ML IV SCH ×2 (10:26→10:47)
[2023-01-18] MEDS ORDERED: INSULIN ASPART (NovoLOG) 100 UNIT/ML VIAL SQ ONE (10:27)
[2023-01-18] MEDS ORDERED: LIDOCAINE 2% INJ 20 MG/ML (2 ML VIAL) ONE (10:48)
[2023-01-18] MEDS ORDERED: PROPOFOL 10 MG/ML 20 ML VIAL IV ONE (10:48)
--- NOTE | 2023-01-18 10:57 | P.PCN ---
Date of Procedure: 01/18/23 Procedure(s) Performed: BRIEF HISTORY: Patient is a 72-year-old, pleasant, 8 male scheduled for an upper endoscopy as a part of evaluation of long-standing history of GERD and presently on Protonix 40 mg daily. He is been having intermittent episodes of nausea vomiting and some coffee-ground emesis a few weeks ago.. PROCEDURE PERFORMED: Esophagogastroduodenoscopy. PREOPERATIVE DIAGNOSIS: Long-standing history of GERD/intermittent episodes of nausea vomiting. IV sedation per anesthesia. PROCEDURE: After informed consent was obtained, the patient was brought into the endoscopy unit. IV sedation was administered by Anesthesia under continuous monitoring. Initially the Olympus GIF-140 video endoscope was inserted into the mouth. Esophagus intubated without any difficulty. It was gradually advanced into the stomach and duodenum and carefully examined. The second part of the duodenum appeared normal. In the bulb of the duodenum just distal to the pylorus there was a 1 cm polyp that was biopsied. The scope at this time was withdrawn to the stomach, adequately insufflated with air, and upon careful examination, mucosa of the antrum, had mild gastritis and biopsies were done from this area. There was significant amount of retained food noted in the antrum and fundus of the stomach suggestive of gastroparesis. Mucosa of the body, cardia and the fundus appeared normal. The scope was then withdrawn into the esophagus. The GE junction was located at 39 cm from the incisors. The esoph vianca appeared normal. There were no erosions or ulcerations seen and the patient tolerated the procedure well. IMPRESSION: 1. Retained food in the stomach suggestive of gastroparesis. 2. 1 cm duodenal bulbar polyp status post biopsy 3. Mild antral gastritis. RECOMMENDATIONS: The findings of this examination were discussed with the patient as well as his family. He was advised to follow with the biopsy results and continue with Protonix 40 mg daily and follow antireflux measures. He was advised to consider small frequent meals and follow antireflux measures. Follow up in office in 3-4 weeks .
[2023-01-18 11:35] VITALS: PULSE 50; RESP 16
[2023-01-18 11:36] VITALS: BP 113/74
== END 2023-01-18 12:12 ==
LOC: ORWHC2ENDO 09:02
PROVIDERS: ATTEND Internal Medicine Gastroenterology
DX: K29.50 Unspecified chronic gastritis without bleeding (principal); K31.7 Polyp of stomach and duodenum; K21.9 Gastro-esophageal reflux disease without esophagitis; I10 Essential (primary) hypertension; E78.5 Hyperlipidemia, unspecified; J44.9 Chronic obstructive pulmonary disease, unspecified; G62.9 Polyneuropathy, unspecified; Z79.899 Other long term (current) drug therapy; Z98.890 Other specified postprocedural states
CPT/HCPCS: 88305; 43239; J2704; J2001

== ENCOUNTER 2023-07-03 14:34 | Emergency (ER) | payer MEDICARE, OTHER ==
[2023-07-03 14:52] VITALS: RESP 18
[2023-07-03] MEDS ORDERED: SODIUM CHLORIDE 0.9% 1,000 ML IV STA (15:03)
[2023-07-03] MEDS ORDERED: PANTOPRAZOLE 40 MG/10 ML VIAL IVP STA (15:03)
--- NOTE | 2023-07-03 15:07 | ED ---
General Adult HPI - General Chief complaint: Nausea/Vomiting/Diarrhea Stated complaint: Vomiting Time Seen by Provider: 07/03/23 14:44 Source: patient, RN notes reviewed Mode of arrival: ambulatory Limitations: no limitations - History of Present Illness Initial comments: Patient is a pleasant 73-year-old male presenting to emergency department with nausea vomiting. Onset of symptoms was yesterday. Patient does present from retirement. Patient states he feels nauseous still. Patient questions if he has a virus. No abdominal pain. half-way was concerned that emesis appear dark. Patient is unclear on this. Patient denies any rectal bleeding or black tarry stools. - Related Data Home Medications Medication Instructions Recorded Confirmed Atorvastatin [Lipitor] 10 mg PO HS 06/11/20 07/03/23 traMADol HCl [Ultram] 50 - 100 mg PO Q6H PRN 06/11/20 07/03/23 Escitalopram [Lexapro] 10 mg PO DAILY 01/17/23 07/03/23 Gabapentin [Neurontin] 200 mg PO Q8H 01/17/23 07/03/23 Melatonin [Melatonin ER] 10 mg PO HS PRN 01/17/23 07/03/23 ALPRAZolam [Xanax] 0.25 mg PO Q6H PRN 07/03/23 07/03/23 Ammonium Lactate Lotion 1 applic TOPICAL HS 07/03/23 07/03/23 [Lac-Hydrin 12% Lotion] Artificial Tears-Hypromellose 1 drops BOTH EYES TID PRN 07/03/23 07/03/23 [Artificial Tear Drops] Diclofenac Sodium Gel [Voltaren 1% 4 gm TOPICAL BID 07/03/23 07/03/23 Gel] Insulin Glargine,Hum.rec.anlog 27 units SQ HS 07/03/23 07/03/23 [Lantus Solostar Pen] Metoprolol Tartrate [Lopressor] 25 mg PO BID 07/03/23 07/03/23 Ondansetron [Zofran] 4 mg PO Q6H PRN 07/03/23 07/03/23 Pantoprazole Sodium [Protonix] 40 mg PO DAILY@0600 07/03/23 07/03/23 Psyllium Husk 100% [Metamucil 1 packet PO DAILY PRN 07/03/23 07/03/23 Packet] metFORMIN HCL [Glucophage] 500 mg PO BID 07/03/23 07/03/23 Previous Rx's Medication Instructions Recorded Aspirin 81 mg PO DAILY chew 06/08/20 Allergies Allergy/AdvReac Type Severity Reaction Status Date / Time No Known Allergies Allergy Verified 07/03/23 15:36 Review of Systems ROS Statement: Those systems with pertinent positive or pertinent negative responses have been documented in the HPI. ROS Other: All systems not noted in ROS Statement are negative. Constitutional: Denies: fever Eyes: Denies: eye pain ENT: Denies: ear pain Respiratory: Denies: cough Cardiovascular: Denies: chest pain Endocrine: Denies: fatigue Gastrointestinal: Reports: as per HPI, nausea, vomiting Genitourinary: Denies: dysuria Musculoskeletal: Denies: back pain Past Medical History Past Medical History: COPD, Diabetes Mellitus, Hyperlipidemia, Hypertension Additional Past Medical History / Comment(s): Neuropathy, CHRONIC PAIN SYNDROME, DOES NOT WALK, COAGULATION DEFECT UNSPECIFIED, History of Any Multi-Drug Resistant Organisms: None Reported Past Surgical History: Adenoidectomy Additional Past Surgical History / Comment(s): Circumcision 2015. Right catarac t removal. back surgery may 2020 Past Anesthesia/Blood Transfusion Reactions: No Reported Reaction Past Psychological History: No Psychological Hx Reported Smoking Status: Former smoker Past Alcohol Use History: None Reported Past Drug Use History: None Reported - Past Family History Father Family Medical History: Cancer Mother Family Medical History: Cancer Additional Family Medical History / Comment(s): skin CA General Exam Limitations: no limitations General appearance: alert, in no apparent distress Head exam: Present: normocephalic Eye exam: Present: normal appearance ENT exam: Present: normal oropharynx Neck exam: Present: normal inspection Respiratory exam: Present: normal lung sounds bilaterally Cardiovascular Exam: Present: regular rate, normal rhythm GI/Abdominal exam: Present: soft. Absent: tenderness Rectal exam: Present: normal inspection. Absent: black stool, bloody stool Extremities exam: Present: pedal edema (+2 bilaterally) Neurological exam: Present: alert Psychiatric exam: Present: normal affect, normal mood Skin exam: Present: normal color Course Vital Signs 07/03/23 07/03/23 07/03/23 14:38 15:31 16:30 Temperature 99.1 F Pulse Rate 80 82 82 Respiratory 18 18 18 Rate Blood Pressure 187/92 170/93 171/87 O2 Sat by Pulse 100 100 99 Oximetry EKG Findings - EKG Results: EKG: interpreted by ERMD (Left axis. Septal Q waves. Poor R-wave progression. Borderline lateral T wave inversion.), sinus rhythm Medical Decision Making - Medical Decision Making Was pt. sent in by a medical professional or institution (TEDDY Blas, INDUCTION HEATING EQUIPMENT SETTER, urgent care, hospital, or retirement...) When possible be specific @ -Patient sent from nursing facility Did you speak to anyone other than the patient for history (EMS, parent, family, police, friend...)? What history was obtained from this source @ -No Did you review nursing and triage notes (agree or disagree)? Why? @ -I reviewed and agree with nursing and triage notes Were old charts reviewed (outside hosp., previous admission, EMS record, old EKG, old radiological studies, urgent care reports/EKG's, retirement records)? Report findings @ -Limited chart reviewed Differential Diagnosis (chest pain, altered mental status, abdominal pain women, abdominal pain men, vaginal bleeding, weakness, fever, dyspnea, syncope, headache, dizziness, GI bleed, back pain, seizure, CVA, palpatations, mental health, musculoskeletal)? @ -Differential Abdominal Pain Men: Appendicitis, cholecystitis, diverticulosis, ischemic bowel, pancreatitis, hepa titis, UTI, gastroenteritis, AAA, incarcerated hernia, bowel obstruction, constipation, inflammatory bowel, hepatitis, peptic ulcer disease, splenic infarction, perforated viscus, testicular torsion, this is not meant to be an all-inclusive list EKG interpreted by me (3pts min.). @ -As above X-rays interpreted by me (1pt min.). @ -Chest x-ray shows no acute process CT interpreted by me (1pt min.). @ -None done U/S interpreted by me (1pt. min.). @ -None done What testing was considered but not performed or refused? (CT, X-rays, U/S, labs)? Why? @ -None What meds were considered but not given or refused? Why? @ -None Did you discuss the management of the patient with other professionals (professionals i.e. TEDDY Blas, INDUCTION HEATING EQUIPMENT SETTER, lab, RT, psych nurse, sexual assault social worker, fructose loader, teacher, giving officer, home health care case manager)? Give summary @ -No Was smoking cessation discussed for >3mins.? @ -No Was critical care preformed (if so, how long)? @ -No Were there social determinants of health that impacted care today? How? (Homelessness, low income, unemployed, alcoholism, drug addiction, transportation, low edu. Level, literacy, decrease access to med. care, detention, rehab)? @ -No Was there de-escalation of care discussed even if they declined (Discuss DNR or withdrawal of care, Hospice)? DNR status @ -No What co-morbidities impacted this encounter? (DM, HTN, Smoking, COPD, CAD, Cancer, CVA, ARF, Chemo, Hep., AIDS, mental health diagnosis, sleep apnea, morbid obesity)? @ -None Was patient admitted / discharged? Hospital course, mention meds given and route, prescriptions, significant lab abnormalities, going to OR and other pertinent info. @ -Patient reevaluated and feeling much better. No emesis in the emergency department. Patient is tolerating oral intake 2. Abdomen remained soft and nontender. Patient states he feels much better and is comfortable with discharge home. No evidence of GI bleed at this time. Patient will be discharged back to retirement. Undiagnosed new problem with uncertain prognosis? @ -No Drug Therapy requiring intensive monitoring for toxicity (Heparin, Nitro, Insulin, Cardizem)? @ -No Were any procedures done? @ -No Diagnosis/symptom? @ -Vomiting Acute, or Chronic, or Acute on Chronic? @ -Acute Uncomplicated (without systemic symptoms) or Complicated (systemic symptoms)? @ -default Side effects of treatment? @ -No Exacerbation, Progression, or Severe Exacerbation? @ -No Poses a threat to life or bodily function? How? (Chest pain, USA, [place], pneumonia, PE, COPD, DKA, ARF, appy, cholecystitis, CVA, Diverticulitis, Homicidal, Suicidal, threat to staff... and all critical care pts) @ -No - Lab Data Result diagrams: 07/03/23 15:05 07/03/23 15:05 Lab Results 07/03/23 07/03/23 07/03/23 Range/Units 15:05 15:05 15:05 WBC 10.9 H (3.8-10.6) k/uL RBC 5.09 (4.30-5.90) m/uL Hgb 15.5 (13.0-17.5) gm/dL Hct 46.3 (39.0-53.0) % MCV 90.9 (80.0-100.0) fL MCH 30.5 (25.0-35.0) pg MCHC 33.5 (31.0-37.0) g/dL RDW 13.7 (11.5-15.5) % Plt Count 192 (150-450) k/uL MPV 8.6 Neutrophils % 82 % Lymphocytes % 10 % Monocytes % 7 % Eosinophils % 0 % Basophils % 0 % Neutrophils # 8.9 H (1.3-7.7) k/uL Lymphocytes # 1.1 (1.0-4.8) k/uL Monocytes # 0.8 (0-1.0) k/uL Eosinophils # 0.0 (0-0.7) k/uL Basophils # 0.0 (0-0.2) k/uL PT 12.3 (10.0-12.5) sec INR 1.2 H (<1.2) APTT 20.7 L (22.0-30.0) sec Sodium (137-145) mmol/L Potassium (3.5-5.1) mmol/L Chloride (98-107) mmol/L Carbon Dioxide (22-30) mmol/L Anion Gap mmol/L BUN (9-20) mg/dL Creatinine (0.66-1.25) mg/dL Est GFR (CKD-EPI)AfAm (>60 ml/min/1.73 sqM) Est GFR (CKD-EPI)NonAf (>60 ml/min/1.73 sqM) Glucose (74-99) mg/dL Calcium (8.4-10.2) mg/dL Magnesium (1.6-2.3) mg/dL Total Bilirubin (0.2-1.3) mg/dL AST (17-59) U/L ALT (4-49) U/L Alkaline Phosphatase (38-126) U/L Total Protein (6.3-8.2) g/dL Albumin (3.5-5.0) g/dL Stool Occult Blood Negative (Negative) 07/03/23 Range/Units 15:05 WBC (3.8-10.6) k/uL RBC (4.30-5.90) m/uL Hgb (13.0-17.5) gm/dL Hct (39.0-53.0) % MCV (80.0-100.0) fL MCH (25.0-35.0) pg MCHC (31.0-37.0) g/dL RDW (11.5-15.5) % Plt Count (150-450) k/uL MPV Neutrophils % % Lymphocytes % % Monocytes % % Eosinophils % % Basophils % % Neutrophils # (1.3-7.7) k/uL Lymphocytes # (1.0-4.8) k/uL Monocytes # (0-1.0) k/uL Eosinophils # (0-0.7) k/uL Basophils # (0-0.2) k/uL PT (10.0-12.5) sec INR (<1.2) APTT (22.0-30.0) sec Sodium 139 (137-145) mmol/L Potassium 3.1 L (3.5-5.1) mmol/L Chloride 100 (98-107) mmol/L Carbon Dioxide 22 (22-30) mmol/L Anion Gap 17 mmol/L BUN 27 H (9-20) mg/dL Creatinine 0.67 (0.66-1.25) mg/dL Est GFR (CKD-EPI)AfAm >90 (>60 ml/min/1.73 sqM) Est GFR (CKD-EPI)NonAf >90 (>60 ml/min/1.73 sqM) Glucose 340 H (74-99) mg/dL Calcium 8.6 (8.4-10.2) mg/dL Magnesium 1.9 (1.6-2.3) mg/dL Total Bilirubin 1.8 H (0.2-1.3) mg/dL AST 23 (17-59) U/L ALT 18 (4-49) U/L Alkaline Phosphatase 99 (38-126) U/L Total Protein 6.7 (6.3-8.2) g/dL Albumin 3.7 (3.5-5.0) g/dL Stool Occult Blood (Negative) Disposition Clinical Impression: Vomiting Disposition: HOME SELF-CARE Condition: Stable Instructions (If sedation given, give patient instructions): Acute Nausea and Vomiting (ED) Additional Instructions: Please do follow-up with primary care physician in the next one or 2 days for recheck. Return for fevers, pain, vomiting, vomiting black, black stools or red stools, worsening or change in symptoms or any other concerns. Continue Protonix. Is patient prescribed a controlled substance at d/c from ED?: No Referrals: Mey Butler MD [Primary Care Provider] - 1-2 days Time of Disposition: 17:42
--- NOTE | 2023-07-03 15:32 | XR ---
EXAMINATION TYPE: XR chest 1V portable DATE OF EXAM: 07/03/2023 3:28 PM COMPARISON: Chest radiographs from 06/12/2020 TECHNIQUE: XR chest 1V portable Portable AP radiograph of the chest. CLINICAL INDICATION:Male, 73 years old with history of pain; FINDINGS: Lungs/Pleura: There is no evidence of pleural effusion, focal consolidation, or pneumothorax. Left ba silar linear atelectasis. Pulmonary vascularity: Unremarkable. Heart/mediastinum: Cardiomediastinal silhouette is prominent in size. Musculoskeletal: No acute osseous pathology. IMPRESSION: No acute cardiopulmonary disease/process.
[2023-07-03 15:34] LABS: Basophils % (A) 0 %; Eosinophils % (A) 0 %; HCT 46.3 % (39.0-53.0); HGB 15.5 gm/dL (13.0-17.5); Lymphocytes # (A) 1.1 k/uL (1.0-4.8); Lymphocytes % (A) 10 %; MCH 30.5 pg (25.0-35.0); MCHC 33.5 g/dL (31.0-37.0); MCV 90.9 fL (80.0-100.0); Mean Platelet Volume 8.6; Monocytes # (A) 0.8 k/uL (0-1.0); Monocytes % (A) 7 %; Neutrophils # (A) 8.9 k/uL (1.3-7.7); Neutrophils % (A) 82 %; Platelet Count 192 k/uL (150-450); RBC 5.09 m/uL (4.30-5.90); RDW 13.7 % (11.5-15.5); WBC 10.9 k/uL (3.8-10.6)
[2023-07-03 15:55] LABS: ALT 18 U/L (4-49); AST 23 U/L (17-59); African American GFR (CKD) >90 (>60 ml/min/1.73 sqM); Albumin 3.7 g/dL (3.5-5.0); Alkaline Phosphatase 99 U/L (38-126); Anion Gap 17 mmol/L; Blood Urea Nitrogen 27 mg/dL (9-20); Calcium 8.6 mg/dL (8.4-10.2); Carbon Dioxide 22 mmol/L (22-30); Chloride 100 mmol/L (98-107); Glucose 340 mg/dL (74-99); Magnesium 1.9 mg/dL (1.6-2.3); Non-African American GFR(CKD) >90 (>60 ml/min/1.73 sqM); Potassium 3.1 mmol/L (3.5-5.1); Sodium 139 mmol/L (137-145); Total Bilirubin 1.8 mg/dL (0.2-1.3); Total Protein 6.7 g/dL (6.3-8.2)
[2023-07-03 15:59] LABS: INR 1.2 (<1.2); Prothrombin Time 12.3 sec (10.0-12.5)
[2023-07-03] MEDS ORDERED: POTASSIUM CHLORIDE 10 MEQ in WATER FOR INJECTION 1 100ML.BAG IVPB ONE (16:12)
[2023-07-03 16:34] LABS: Partial Thromboplastin Time 20.7 sec (22.0-30.0)
[2023-07-03] MEDS ORDERED: POTASSIUM CHLORIDE ER 20 MEQ TAB.ER PO STA (17:36)
[2023-07-03 17:53] VITALS: BP 155/95; PULSE 92
[2023-07-03 18:36] VITALS: TEMP 98.7
== END 2023-07-03 18:31 | disposition home or self-care (01) ==
LOC: EC 14:34
DX: R11.2 Nausea with vomiting, unspecified (principal); E11.40 Type 2 diabetes mellitus with diabetic neuropathy, unspecified; I10 Essential (primary) hypertension; J44.9 Chronic obstructive pulmonary disease, unspecified; E78.5 Hyperlipidemia, unspecified; Z79.4 Long term (current) use of insulin; Z79.84 Long term (current) use of oral hypoglycemic drugs; Z79.899 Other long term (current) drug therapy; Z87.891 Personal history of nicotine dependence
CPT/HCPCS: 36415; 93005; 80053; 83735; 85025; 85610; 85730; 82272; 71045; 99285; 96374; C9113

== ENCOUNTER 2023-08-01 10:48 | Emergency (ER) | payer MEDICARE, OTHER ==
[2023-08-01] MEDS ORDERED: PANTOPRAZOLE 40 MG/10 ML VIAL IVP STA (11:33)
[2023-08-01] MEDS ORDERED: METOCLOPRAMIDE 5 MG/ML 2 ML VIAL IVP STA (11:33)
[2023-08-01] MEDS ORDERED: SODIUM CHLORIDE 0.9% 1,000 ML IV STA (11:33)
--- NOTE | 2023-08-01 11:37 | ED ---
GI Bleed HPI - General Chief complaint: GI Bleed Stated complaint: GI Bleed Time Seen by Provider: 08/01/23 11:12 Source: patient, RN notes reviewed Mode of arrival: ambulatory Limitations: no limitations - History of Present Illness Initial comments: 73-year-old male presents emergency Department chief complaint of nausea. [facility] has been there for a year and a half after a CVA. Patient is bedbound. Patient has been evaluated for similar complaint approximately one month ago staff spit up was dark in color he denies abdominal pain denies chest pain denies shortness breath states he is thirsty he denies any blood thinners and offers no other complaints. - Related Data Home Medications Medication Instructions Recorded Confirmed Atorvastatin [Lipitor] 10 mg PO HS 06/11/20 08/01/23 traMADol HCl [Ultram] 50 - 100 mg PO Q6H PRN 06/11/20 08/01/23 Escitalopram [Lexapro] 10 mg PO DAILY 01/17/23 08/01/23 Gabapentin [Neurontin] 200 mg PO Q8H 01/17/23 08/01/23 Melatonin [Melatonin ER] 10 mg PO HS PRN 01/17/23 08/01/23 ALPRAZolam [Xanax] 0.25 mg PO Q6H PRN 07/03/23 08/01/23 Ammonium Lactate Lotion 1 applic TOPICAL HS 07/03/23 08/01/23 [Lac-Hydrin 12% Lotion] Artificial Tears-Hypromellose 1 drops BOTH EYES TID PRN 07/03/23 08/01/23 [Artificial Tear Drops] Diclofenac Sodium Gel [Voltaren 1% 4 gm TOPICAL BID 07/03/23 08/01/23 Gel] Insulin Glargine,Hum.rec.anlog 27 units SQ DAILY 07/03/23 08/01/23 [Lantus Solostar Pen] Metoprolol Tartrate [Lopressor] 25 mg PO BID 07/03/23 08/01/23 Ondansetron [Zofran] 4 mg PO Q6H PRN 07/03/23 08/01/23 Pantoprazole Sodium [Protonix] 40 mg PO DAILY 07/03/23 08/01/23 Psyllium Husk 100% [Metamucil 1 packet PO DAILY PRN 07/03/23 08/01/23 Packet] metFORMIN HCL [Glucophage] 500 mg PO BID 07/03/23 08/01/23 Loperamide [Imodium] 2 - 4 mg PO QID PRN 08/01/23 08/01/23 Previous Rx's Medication Instructions Recorded Aspirin 81 mg PO DAILY chew 06/08/20 Allergies Allergy/AdvReac Type Severity Reaction Status Date / Time No Known Allergies Allergy Verified 08/01/23 13:42 Review of Systems ROS Statement: Those systems with pertinent positive or pertinent negative responses have been documented in the HPI. ROS Other: All systems not noted in ROS Statement are negative. Past Medical History Past Medical History: COPD, Diabetes Mellitus, Hyperlipidemia, Hypertension Additional Past Medical History / Comment(s): Neuropathy, CHRONIC PAIN SYNDROME, DOES NOT WALK, COAGULATION DEFECT UNSPECIFIED, History of Any Multi-Drug Resistant Organisms: None Reported Past Surgical History: Adenoidectomy Additional Past Surgical History / Comment(s): Circumcision 2015. Right cataract removal. back surgery may 2020 Past Anesthesia/Blood Transfusion Reactions: No Reported Reaction Past Psychological History: No Psychological Hx Reported Smoking Status: Former smoker Past Alcohol Use History: None Reported Past Drug Use History: None Reported - Past Family History Father Family Medical History: Cancer Mother Family Medical History: Cancer Additional Family Medical History / Comment(s): skin CA General Exam Limitations: no limitations General appearance: alert, in no apparent distress Head exam: Present: atraumatic, normocephalic, normal inspection Eye exam: Present: normal appearance, PERRL, EOMI. Absent: scleral icterus, conjunctival injection, periorbital swelling ENT exam: Present: normal exam, normal oropharynx, mucous membranes moist Neck exam: Present: normal inspection, full ROM. Absent: tenderness, meningismus, lymphadenopathy Respiratory exam: Present: normal lung sounds bilaterally. Absent: respiratory distress, wheezes, rales, rhonchi, stridor Cardiovascular Exam: Present: regular rate, normal rhythm, normal heart sounds. Absent: systolic murmur, diastolic murmur, rubs, gallop, clicks GI/Abdominal exam: Present: soft, normal bowel sounds. Absent: distended, tenderness, guarding, rebound, rigid Neurological exam: Present: alert, oriented X3 Course Vital Signs 08/01/23 08/01/23 08/01/23 10:57 11:02 11:30 Temperature 98.5 F Pulse Rate 107 H 101 H Respiratory 18 20 Rate Blood Pressure 127/70 127/70 127/70 O2 Sat by Pulse 99 99 99 Oximetry 08/01/23 08/01/23 08/01/23 12:00 13:30 13:48 Temperature Pulse Rate 88 92 Respiratory 18 Rate Blood Pressure 136/83 106/64 134/63 O2 Sat by Pulse 99 95 95 Oximetry 08/01/23 08/01/23 08/01/23 14:00 14:18 14:26 Temperature Pulse Rate 105 H 106 H Respiratory Rate Blood Pressure 114/71 O2 Sat by Pulse 97 Oximetry 08/01/23 08/01/23 08/01/23 14:30 15:00 15:30 Temperature Pulse Rate 88 Respiratory 18 Rate Blood Pressure 113/62 105/78 118/62 O2 Sat by Pulse 97 100 98 Oximetry 08/01/23 08/01/23 16:00 16:17 Temperature 98.8 F Pulse Rate 92 108 H Respiratory 19 18 Rate Blood Pressure 109/62 109/62 O2 Sat by Pulse 97 97 Oximetry Medical Decision Making - Medical Decision Making Was pt. sent in by a medical professional or institution (, PA, TODDLER GUIDE, urgent care, hospital, or jail...) When possible be specific @ -[facility] Did you speak to anyone other than the patient for history (EMS, parent, family, police, friend...)? What history was obtained from this source @ -No Did you review nursing and triage notes (agree or disagree)? Why? @ -I reviewed and agree with nursing and triage notes Were old charts reviewed (outside hosp., previous admission, EMS record, old EKG, old radiological studies, urgent care reports/EKG's, jail records)? Report findings @ -No old charts were reviewed Differential Diagnosis (chest pain, altered mental status, abdominal pain women, abdominal pain men, vaginal bleeding, weakness, fever, dyspnea, syncope, headache, dizziness, GI bleed, back pain, seizure, CVA, palpatations, mental health, musculoskeletal)? @ -Differential Abdominal Pain Men: Appendicitis, cholecystitis, diverticulosis, ischemic bowel, pancreatitis, hepatitis, UTI, gastroenteritis, AAA, incarcerated hernia, bowel obstruction, constipation, inflammatory bowel, hepatitis, peptic ulcer disease, splenic infarction, perforated viscus, testicular torsion, this is not meant to be an all-inclusive list EKG interpreted by me (3pts min.). @ -None X-rays interpreted by me (1pt min.). @ -None done CT interpreted by me (1pt min.). @ -None done U/S interpreted by me (1pt. min.). @ -None done What testing was considered but not performed or refused? (CT, X-rays, U/S, labs)? Why? @ -None What meds were considered but not given or refused? Why? @ -None Did you discuss the management of the patient with other professionals (professionals i.e. , PA, TODDLER GUIDE, lab, RT, psych nurse, social insurance specialist, automobile upholsterer, teacher, amphibious operations officer, case aide)? Give summary @ -No Was smoking cessation discussed for >3mins.? @ -No Was critical care preformed (if so, how long)? @ -No Were there social determinants of health that impacted care today? How? (Homelessness, low income, unemployed, alcoholism, drug addiction, transportation, low edu. Level, literacy, decrease access to med. care, halfway, rehab)? @ -No Was there de-escalation of care discussed even if they declined (Discuss DNR or withdrawal of care, Hospice)? DNR status @ -No What co-morbidities impacted this encounter? (DM, HTN, Smoking, COPD, CAD, Cancer, CVA, ARF, Chemo, Hep., AIDS, mental health diagnosis, sleep apnea, morbid obesity)? @ -Chronic nausea, CVA Was patient admitted / discharged? Hospital course, mention meds given and route, prescriptions, significant lab abnormalities, going to OR and other pertinent info. @ -Discharge patient is having recent ER visits for similar complaints and workup. Patient had some watery emesis. He's had no melanotic stools he complaint of nausea without abdominal pain or abdominal tenderness. Patient does have mild hypokalemia and which this is been an ongoing issue. Patient was given Reglan had resolution of nausea but didn't drink a large amount of water and vomited. He refused other antiemetics patient will be discharged back to jail. Undiagnosed new problem with uncertain prognosis? @ -No Drug Therapy requiring intensive monitoring for toxicity (Heparin, Nitro, Insulin, Cardizem)? @ -No Were any procedures done? @ -No Diagnosis/symptom? @ -Nausea vomiting Acute, or Chronic, or Acute on Chronic? @ -Acute Uncomplicated (without systemic symptoms) or Complicated (systemic symptoms)? @ -Uncomplicated Side effects of treatment? @ -No Exacerbation, Progression, or Severe Exacerbation? @ -No Poses a threat to life or bodily function? How? (Chest pain, [place], [place], pneumonia, PE, COPD, DKA, ARF, appy, cholecystitis, CVA, Diverticulitis, Homicidal, Suicidal, threat to staff... and all critical care pts) @ -No - Lab Data Result diagrams: 08/01/23 11:57 08/01/23 11:57 Lab Results 08/01/23 08/01/23 08/01/23 Range/Units 11:57 11:57 11:57 WBC 10.1 (3.8-10.6) k/uL RBC 5.93 H (4.30-5.90) m/uL Hgb 17.9 H (13.0-17.5) gm/dL Hct 52.8 (39.0-53.0) % MCV 89.1 (80.0-100.0) fL MCH 30.2 (25.0-35.0) pg MCHC 33.9 (31.0-37.0) g/dL RDW 13.3 (11.5-15.5) % Plt Count 294 (150-450) k/uL MPV 8.3 Neutrophils % 81 % Lymphocytes % 11 % Monocytes % 7 % Eosinophils % 0 % Basophils % 0 % Neutrophils # 8.1 H (1.3-7.7) k/uL Lymphocytes # 1.1 (1.0-4.8) k/uL Monocytes # 0.8 (0-1.0) k/uL Eosinophils # 0.0 (0-0.7) k/uL Basophils # 0.0 (0-0.2) k/uL PT 12.8 H (10.0-12.5) sec INR 1.2 H (<1.2) APTT 22.7 (22.0-30.0) sec Sodium 138 (137-145) mmol/L Potassium 3.0 L (3.5-5.1) mmol/L Chloride 92 L (98-107) mmol/L Carbon Dioxide 27 (22-30) mmol/L Anion Gap 19 mmol/L BUN 27 H (9-20) mg/dL Creatinine 0.53 L (0.66-1.25) mg/dL Est GFR (CKD-EPI)AfAm >90 (>60 ml/min/1.73 sqM) Est GFR (CKD-EPI)NonAf >90 (>60 ml/min/1.73 sqM) Glucose 252 H (74-99) mg/dL Calcium 8.9 (8.4-10.2) mg/dL Magnesium 2.0 (1.6-2.3) mg/dL Total Bilirubin 1.8 H (0.2-1.3) mg/dL AST 27 (17-59) U/L ALT 20 (4-49) U/L Alkaline Phosphatase 101 (38-126) U/L Total Protein 6.5 (6.3-8.2) g/dL Albumin 3.7 (3.5-5.0) g/dL Disposition Clinical Impression: Vomiting Disposition: HOME SELF-CARE Condition: Stable Instructions (If sedation given, give patient instructions): Acute Nausea and Vomiting (ED) Additional Instructions: Please return to the Emergency Department if symptoms worsen or any other concerns. Is patient prescribed a controlled substance at d/c from ED?: No Referrals: Mey Butler MD [Primary Care Provider] - 1-2 days Time of Disposition: 15:21
[2023-08-01 12:33] LABS: INR 1.2 (<1.2); Partial Thromboplastin Time 22.7 sec (22.0-30.0); Prothrombin Time 12.8 sec (10.0-12.5)
[2023-08-01 12:35] LABS: ALT 20 U/L (4-49); African American GFR (CKD) >90 (>60 ml/min/1.73 sqM); Albumin 3.7 g/dL (3.5-5.0); Anion Gap 19 mmol/L; Blood Urea Nitrogen 27 mg/dL (9-20); Calcium 8.9 mg/dL (8.4-10.2); Carbon Dioxide 27 mmol/L (22-30); Chloride 92 mmol/L (98-107); Glucose 252 mg/dL (74-99); Non-African American GFR(CKD) >90 (>60 ml/min/1.73 sqM); Sodium 138 mmol/L (137-145); Total Bilirubin 1.8 mg/dL (0.2-1.3); Total Protein 6.5 g/dL (6.3-8.2)
[2023-08-01 12:36] LABS: AST 27 U/L (17-59); Alkaline Phosphatase 101 U/L (38-126)
[2023-08-01 12:58] LABS: Basophils % (A) 0 %; Eosinophils % (A) 0 %; HCT 52.8 % (39.0-53.0); HGB 17.9 gm/dL (13.0-17.5); Lymphocytes # (A) 1.1 k/uL (1.0-4.8); Lymphocytes % (A) 11 %; MCH 30.2 pg (25.0-35.0); MCHC 33.9 g/dL (31.0-37.0); MCV 89.1 fL (80.0-100.0); Mean Platelet Volume 8.3; Monocytes # (A) 0.8 k/uL (0-1.0); Monocytes % (A) 7 %; Neutrophils # (A) 8.1 k/uL (1.3-7.7); Neutrophils % (A) 81 %; Platelet Count 294 k/uL (150-450); RBC 5.93 m/uL (4.30-5.90); RDW 13.3 % (11.5-15.5); WBC 10.1 k/uL (3.8-10.6)
[2023-08-01] MEDS ORDERED: ONDANSETRON 4 MG/2 ML VIAL IVP STA (13:09)
[2023-08-01] MEDS ORDERED: IPRATROPIUM-ALBUTEROL 3 ML NEB INHALATION STA (13:41)
[2023-08-01 13:51] VITALS: RESP 18
[2023-08-01] MEDS ORDERED: PROCHLORPERAZINE INJ 10 MG/2 ML VIAL IVP STA (14:48)
[2023-08-01 16:35] VITALS: BP 109/62; PULSE 108; TEMP 98.8
== END 2023-08-01 18:11 | disposition home or self-care (01) ==
LOC: EC 10:48
DX: R11.2 Nausea with vomiting, unspecified (principal); E11.40 Type 2 diabetes mellitus with diabetic neuropathy, unspecified; J44.9 Chronic obstructive pulmonary disease, unspecified; E78.5 Hyperlipidemia, unspecified; I10 Essential (primary) hypertension; Z87.891 Personal history of nicotine dependence; Z79.4 Long term (current) use of insulin; Z79.84 Long term (current) use of oral hypoglycemic drugs; Z79.899 Other long term (current) drug therapy
CPT/HCPCS: 36415; 94640; 80053; 83735; 85025; 85610; 85730; 99285; 96374; 96375 ×2; 96361; J0780; J2765; C9113; 96372

== ENCOUNTER 2023-11-08 04:16 | Emergency (ER) | payer MEDICARE ==
--- NOTE | 2023-11-08 04:22 | ED ---
Nausea/Vomiting/Diarrhea HPI - General Stated complaint: VOMITING Time Seen by Provider: 11/08/23 04:21 Source: RN notes reviewed, old records reviewed, Caregiver Mode of arrival: EMS Limitations: altered mental status, physical limitation - History of Present Illness Initial comments: This is a 73-year-old male to the ER for evaluation today. Patient has no complaints here in the ER himself. Complaints per staff and EMS states that patient had vomiting and diarrhea concern for blood. Patient is not on blood thinners, has no abdominal pain. Does not feel lightheaded dizzy or weak with normal vital signs. Patient is a poor historian MD complaint: nausea, vomiting, diarrhea -: unknown Description of Diarrhea: water Associated Abdominal Pain: Yes Location: diffuse Radiation: none Severity: mild Severity scale (1-10): 3 Quality: aching Consistency: constant Improves with: none Worsens with: none Associated Symptoms: loss of appetite, nausea/vomiting, weakness - Related Data Home Medications Medication Instructions Recorded Confirmed Atorvastatin [Lipitor] 10 mg PO HS 06/11/20 08/01/23 traMADol HCl [Ultram] 50 - 100 mg PO Q6H PRN 06/11/20 08/01/23 Escitalopram [Lexapro] 10 mg PO DAILY 01/17/23 08/01/23 Gabapentin [Neurontin] 200 mg PO Q8H 01/17/23 08/01/23 Melatonin [Melatonin ER] 10 mg PO HS PRN 01/17/23 08/01/23 ALPRAZolam [Xanax] 0.25 mg PO Q6H PRN 07/03/23 08/01/23 Ammonium Lactate Lotion 1 applic TOPICAL HS 07/03/23 08/01/23 [Lac-Hydrin 12% Lotion] Artificial Tears-Hypromellose 1 drops BOTH EYES TID PRN 07/03/23 08/01/23 [Artificial Tear Drops] Diclofenac Sodium Gel [Voltaren 1% 4 gm TOPICAL BID 07/03/23 08/01/23 Gel] Insulin Glargine,Hum.rec.anlog 27 units SQ DAILY 07/03/23 08/01/23 [Lantus Solostar Pen] Metoprolol Tartrate [Lopressor] 25 mg PO BID 07/03/23 08/01/23 Ondansetron [Zofran] 4 mg PO Q6H PRN 07/03/23 08/01/23 Pantoprazole Sodium [Protonix] 40 mg PO DAILY 07/03/23 08/01/23 Psyllium Husk 100% [Metamucil 1 packet PO DAILY PRN 07/03/23 08/01/23 Packet] metFORMIN HCL [Glucophage] 500 mg PO BID 07/03/23 08/01/23 Loperamide [Imodium] 2 - 4 mg PO QID PRN 08/01/23 08/01/23 Previous Rx's Medication Instructions Recorded Aspirin 81 mg PO DAILY chew 06/08/20 Allergies Allergy/AdvReac Type Severity Reaction Status Date / Time No Known Allergies Allergy Verified 11/08/23 04:25 Review of Systems ROS Statement: Those systems with pertinent positive or pertinent negative responses have been documented in the HPI. ROS Other: All systems not noted in ROS Statement are negative. Past Medical History Past Medical History: COPD, Diabetes Mellitus, Hyperlipidemia, Hypertension Additional Past Medical History / Comment(s): Neuropathy, CHRONIC PAIN SYNDROME, DOES NOT WALK, COAGULATION DEFECT UNSPECIFIED, History of Any Multi-Drug Resistant Organisms: None Reported Past Surgical History: Adenoidectomy Additional Past Surgical History / Comment(s): Circumcision 2016. Right cataract removal. back surgery may 2020 Past Anesthesia/Blood Transfusion Reactions: No Reported Reaction Past Psychological History: No Psychological Hx Reported Smoking Status: Former smoker Past Alcohol Use History: None Reported Past Drug Use History: None Reported - Past Family History Father Family Medical History: Cancer Mother Family Medical History: Cancer Additional Family Medical History / Comment(s): skin CA General Exam General appearance: alert, in no apparent distress Head exam: Present: atraumatic, normocephalic, normal inspection Eye exam: Present: normal appearance, PERRL, EOMI. Absent: scleral icterus, conjunctival injection, periorbital swelling ENT exam: Present: normal exam, mucous membranes moist Neck exam: Present: normal inspection. Absent: tenderness, meningismus, lymphadenopathy Respiratory exam: Present: normal lung sounds bilaterally. Absent: respiratory distress, wheezes, rales, rhonchi, stridor Cardiovascular Exam: Present: regular rate, normal rhythm, normal heart sounds. Absent: systolic murmur, diastolic murmur, rubs, gallop, clicks GI/Abdominal exam: Present: soft, normal bowel sounds. Absent: distended, tenderness, guarding, rebound, rigid Extremities exam: Present: normal inspection, full ROM, normal capillary refill. Absent: tenderness, pedal edema, joint swelling, calf tenderness Back exam: Present: normal inspection Neurological exam: Present: alert, oriented X3, CN II-XII intact Psychiatric exam: Present: normal affect, normal mood Skin exam: Present: warm, dry, intact, normal color. Absent: rash Course Vital Signs 11/08/23 11/08/23 11/08/23 04:21 05:06 06:51 Temperature 98.3 F Pulse Rate 75 76 80 Respiratory 17 18 16 Rate Blood Pressure 129/80 114/65 136/84 O2 Sat by Pulse 97 95 100 Oximetry - Reevaluation(s) Reevaluation #1: 11/08/23 06:36 Medical record is reviewed Reevaluation #2: 11/08/23 06:36 Patient symptoms are improved Reevaluation #3: 11/08/23 06:36 Patient informed of results and questions answered Reevaluation #4: Was pt. sent in by a medical professional or institution (, PA, DISCHARGE PLANNER, urgent care, hospital, or usp...) When possible be specific @ -no Did you speak to anyone other than the patient for history (EMS, parent, family, police, friend...)? What history was obtained from this source @ -no Did you review nursing and triage notes (agree or disagree)? Why? @ -agree Are old charts reviewed (outside hosp., previous admission, EMS record, old EKG, old radiological studies, urgent care reports/EKG's, usp records)? Report findings @ -yes Differential Diagnosis (chest pain, altered mental status, abdominal pain women, abdominal pain men, vaginal bleeding, weakness, fever, dyspnea, syncope, headache, dizziness, GI bleed, back pain, seizure, CVA, palpatations, mental health, musculoskeletal)? @ -prior EKG interpreted by me (3pts min.). @ -yes X-rays interpreted by me (1pt min.). @ -no CT interpreted by me (1pt min.). @ -no U/S interpreted by me (1pt. min.). @ -no What testing was considered but not performed or refused? (CT, X-rays, U/S, labs)? Why? @ -none What meds were considered but not given or refused? Why? @ -none Did you discuss the management of the patient with other professionals (professionals i.e. , PA, DISCHARGE PLANNER, lab, RT, psych nurse, social services manager, ground layer, teacher, biological technical officer, supportive employment case manager)? Give summary @ -no Was smoking cessation discussed for >3mins.? @ -no Was critical care preformed (if so, how long)? @ -no Were there social determinants of health that impacted care today? How? (Homelessness, low income, unemployed, alcoholism, drug addiction, transportation, low edu. Level, literacy, decrease access to med. care, senior living, rehab)? @ -none Was there de-escalation of care discussed even if they declined (Discuss DNR or withdrawal of care, Hospice)? DNR status @ -no What co-morbidities impacted this encounter? (DM, HTN, Smoking, COPD, CAD, Cancer, CVA, ARF, Chemo, Hep., AIDS, mental health diagnosis, sleep apnea, m orbid obesity)? @ -none Was patient admitted / discharged? Hospital course, mention meds given and route, prescriptions, significant lab abnormalities, going to OR and other pertinent info. @ - 73 male to ER for evaluation of possible GI bleed. Patient has normal hemoglobin with normal and stable vital signs here in the ER no active bleeding noted no vomiting of blood and no diarrhea or blood. Patient can be discharged home Discharge Undiagnosed new problem with uncertain prognosis? @ -no Drug Therapy requiring intensive monitoring for toxicity (Heparin, Nitro, Insulin, Cardizem)? @ -no Were any procedures done? @ -no Diagnosis/symptom? @ -Normal exam Acute, or Chronic, or Acute on Chronic? @ -Acute Uncomplicated (without systemic symptoms) or Complicated (systemic symptoms)? @ -Complicated Side effects of treatment? @ -no Exacerbation, Progression, or Severe Exacerbation? @ -exacerbation Poses a threat to life or bodily function? How? (Chest pain, [place], [place], pneumonia, PE, COPD, DKA, ARF, appy, cholecystitis, CVA, Diverticulitis, Homicidal, Suicidal, threat to staff... and all critical care pts) @ -yes with extremes of age Reevaluation #5: Differential Abdominal Pain Men: Appendicitis, cholecystitis, diverticulosis, ischemic bowel, pancreatitis, hepatitis, UTI, gastroenteritis, AAA, incarcerated hernia, bowel obstruction, constipation, inflammatory bowel, hepatitis, peptic ulcer disease, splenic infarction, perforated viscus, testicular torsion, this is not meant to be an all-inclusive list Medical Decision Making - Medical Decision Making 73 male to ER for evaluation of possible GI bleed. Patient has normal hemoglobin with normal and stable vital signs here in the ER no active bleeding noted no vomiting of blood and no diarrhea or blood. Patient can be discharged home - Lab Data Result diagrams: 11/08/23 04:25 11/08/23 04:25 Lab Results 11/08/23 11/08/23 11/08/23 Range/Units 04:25 04:25 04:25 WBC 11.7 H (3.8-10.6) k/uL RBC 5.11 (4.30-5.90) m/uL Hgb 15.5 (13.0-17.5) gm/dL Hct 46.6 (39.0-53.0) % MCV 91.3 (80.0-100.0) fL MCH 30.3 (25.0-35.0) pg MCHC 33.2 (31.0-37.0) g/dL RDW 14.7 (11.5-15.5) % Plt Count 208 (150-450) k/uL MPV 8.2 Neutrophils % 71 % Lymphocytes % 17 % Monocytes % 9 % Eosinophils % 2 % Basophils % 1 % Neutrophils # 8.3 H (1.3-7.7) k/uL Lymphocytes # 2.0 (1.0-4.8) k/uL Monocytes # 1.0 (0-1.0) k/uL Eosinophils # 0.2 (0-0.7) k/uL Basophils # 0.1 (0-0.2) k/uL PT 11.9 (10.0-12.5) sec INR 1.1 (<1.2) APTT 24.5 (22.0-30.0) sec Sodium 139 (137-145) mmol/L Potassium 3.5 (3.5-5.1) mmol/L Chloride 101 (98-107) mmol/L Carbon Dioxide 28 (22-30) mmol/L Anion Gap 10 mmol/L BUN 23 H (9-20) mg/dL Creatinine 0.57 L (0.66-1.25) mg/dL Est GFR (CKD-EPI)AfAm >90 (>60 ml/min/1.73 sqM) Est GFR (CKD-EPI)NonAf >90 (>60 ml/min/1.73 sqM) Glucose 186 H (74-99) mg/dL Plasma Lactic Acid Navdeep (0.7-2.0) mmol/L Calcium 8.6 (8.4-10.2) mg/dL Phosphorus 3.9 (2.5-4.5) mg/dL Magnesium 2.0 (1.6-2.3) mg/dL Total Bilirubin 1.8 H (0.2-1.3) mg/dL AST 28 (17-59) U/L ALT 19 (4-49) U/L Alkaline Phosphatase 93 (38-126) U/L Troponin I (0.000-0.034) ng/mL NT-Pro-B Natriuret Pep 369 pg/mL Total Protein 5.9 L (6.3-8.2) g/dL Albumin 3.4 L (3.5-5.0) g/dL TSH 1.530 (0.465-4.680) mIU/L 11/08/23 11/08/23 Range/Units 04:25 04:25 WBC (3.8-10.6) k/uL RBC (4.30-5.90) m/uL Hgb (13.0-17.5) gm/dL Hct (39.0-53.0) % MCV (80.0-100.0) fL MCH (25.0-35.0) pg MCHC (31.0-37.0) g/dL RDW (11.5-15.5) % Plt Count (150-450) k/uL MPV Neutrophils % % Lymphocytes % % Monocytes % % Eosinophils % % Basophils % % Neutrophils # (1.3-7.7) k/uL Lymphocytes # (1.0-4.8) k/uL Monocytes # (0-1.0) k/uL Eosinophils # (0-0.7) k/uL Basophils # (0-0.2) k/uL PT (10.0-12.5) sec INR (<1.2) APTT (22.0-30.0) sec Sodium (137-145) mmol/L Potassium (3.5-5.1) mmol/L Chloride (98-107) mmol/L Carbon Dioxide (22-30) mmol/L Anion Gap mmol/L BUN (9-20) mg/dL Creatinine (0.66-1.25) mg/dL Est GFR (CKD-EPI)AfAm (>60 ml/min/1.73 sqM) Est GFR (CKD-EPI)NonAf (>60 ml/min/1.73 sqM) Glucose (74-99) mg/dL Plasma Lactic Acid Navdeep 1.4 (0.7-2.0) mmol/L Calcium (8.4-10.2) mg/dL Phosphorus (2.5-4.5) mg/dL Magnesium (1.6-2.3) mg/dL Total Bilirubin (0.2-1.3) mg/dL AST (17-59) U/L ALT (4-49) U/L Alkaline Phosphatase (38-126) U/L Troponin I <0.012 (0.000-0.034) ng/mL NT-Pro-B Natriuret Pep pg/mL Total Protein (6.3-8.2) g/dL Albumin (3.5-5.0) g/dL TSH (0.465-4.680) mIU/L - EKG Data -: EKG Interpreted by Me (EKG is sinus rhythm 75 WA 171 QRS 121 QTc 446) Disposition Clinical Impression: Nausea and vomiting, Diarrhea, Gastritis Disposition: HOME SELF-CARE Condition: Fair Instructions (If sedation given, give patient instructions): Acute Nausea and Vomiting (ED) Is patient prescribed a controlled substance at d/c from ED?: No Referrals: Mey Butler MD [Primary Care Provider] - 1-2 days Time of Disposition: 06:20
[2023-11-08 04:36] LABS: Basophils # (A) 0.1 k/uL (0-0.2); Basophils % (A) 1 %; Eosinophils # (A) 0.2 k/uL (0-0.7); Eosinophils % (A) 2 %; HCT 46.6 % (39.0-53.0); HGB 15.5 gm/dL (13.0-17.5); Lymphocytes % (A) 17 %; MCH 30.3 pg (25.0-35.0); MCHC 33.2 g/dL (31.0-37.0); MCV 91.3 fL (80.0-100.0); Mean Platelet Volume 8.2; Monocytes % (A) 9 %; Neutrophils # (A) 8.3 k/uL (1.3-7.7); Neutrophils % (A) 71 %; Platelet Count 208 k/uL (150-450); RBC 5.11 m/uL (4.30-5.90); RDW 14.7 % (11.5-15.5); WBC 11.7 k/uL (3.8-10.6)
[2023-11-08] MEDS: SODIUM CHLORIDE 0.9% 500 ML 500 ML IV STA (04:44)
[2023-11-08 04:46] LABS: INR 1.1 (<1.2); Partial Thromboplastin Time 24.5 sec (22.0-30.0); Prothrombin Time 11.9 sec (10.0-12.5)
[2023-11-08 04:47] LABS: ALT 19 U/L (4-49); AST 28 U/L (17-59); African American GFR (CKD) >90 (>60 ml/min/1.73 sqM); Albumin 3.4 g/dL (3.5-5.0); Alkaline Phosphatase 93 U/L (38-126); Anion Gap 10 mmol/L; Blood Urea Nitrogen 23 mg/dL (9-20); Calcium 8.6 mg/dL (8.4-10.2); Carbon Dioxide 28 mmol/L (22-30); Chloride 101 mmol/L (98-107); Glucose 186 mg/dL (74-99); Non-African American GFR(CKD) >90 (>60 ml/min/1.73 sqM); Phosphorus 3.9 mg/dL (2.5-4.5); Potassium 3.5 mmol/L (3.5-5.1); Sodium 139 mmol/L (137-145); Total Bilirubin 1.8 mg/dL (0.2-1.3); Total Protein 5.9 g/dL (6.3-8.2)
[2023-11-08 04:56] LABS: NT-Pro-B-Type Natriuretic Pept 369 pg/mL
[2023-11-08 05:06] VITALS: TEMP 98.3
[2023-11-08 07:23] VITALS: BP 136/84; PULSE 80; RESP 16
== END 2023-11-08 07:44 | disposition home or self-care (01) ==
LOC: EC 04:16
DX: K29.70 Gastritis, unspecified, without bleeding (principal); I44.30 Unspecified atrioventricular block; Z87.891 Personal history of nicotine dependence
CPT/HCPCS: 36415; 80053; 83605; 83735; 83880; 84100; 84443; 84484; 85025; 85610; 85730; 93005; 99285

== ENCOUNTER 2025-01-05 18:49 | Inpatient (IN) | payer MEDICARE, OTHER ==
--- NOTE | 2025-01-05 19:10 | ED ---
Abdominal Pain HPI - General Chief Complaint: Abdominal Pain Stated Complaint: Constipation Time Seen by Provider: 01/05/25 18:54 Source: patient, EMS, RN notes reviewed Mode of arrival: EMS Limitations: physical limitation - History of Present Illness Initial Comments: This is a 74-year-old male to the ER for evaluation abdominal pain severe abdominal distention sent in for likely small bowel obstruction severe abdominal pain here in the ER, patient had outpatient x-ray showing what they believe may be small bowel obstruction MD Complaint: abdominal pain -: days(s) Location: diffuse, periumbilical, epigastric, suprapubic Radiation: epigastric, suprapubic Migration to: periumbilical, epigastric, suprapubic Severity: severe Severity scale (1-10): 10 Quality: aching Consistency: constant Improves With: nothing Associated Symptoms: denies other symptoms Treatments Prior to Arrival: other (0) - Related Data Home Medications Medication Instructions Recorded Confirmed Atorvastatin [Lipitor] 10 mg PO HS 06/11/20 01/06/25 Gabapentin [Neurontin] 200 mg PO TID@0600,1400,2200 01/17/23 01/06/25 Melatonin [Melatonin Tr] 10 mg PO HS PRN 01/17/23 01/06/25 Insulin Glargine,Hum.rec.anlog 27 units SQ HS 07/03/23 01/06/25 [Lantus Solostar Pen] Metoprolol Tartrate [Lopressor] 25 mg PO BID 07/03/23 01/06/25 metFORMIN HCL [Glucophage] 500 mg PO BID 07/03/23 01/06/25 Loperamide [Imodium] 2 mg PO QID PRN 08/01/23 01/06/25 Cholecalciferol (Vitamin D3) 50 mcg PO DAILY 12/24/24 01/06/25 [Vitamin D3 (50 Mcg = 2000 Iu)] Dapagliflozin Propanediol [Farxiga] 10 mg PO DAILY 12/24/24 01/06/25 HYDROcodone/APAP 5-325MG [[place] 1 tab PO Q8HR PRN 12/24/24 01/06/25 5-325] buPROPion XL [Wellbutrin XL] 300 mg PO DAILY 12/24/24 01/06/25 Bismuth Subsalicylate 524 mg PO Q4H PRN 01/06/25 01/06/25 [Pepto-Bismol] Escitalopram [Lexapro] 20 mg PO DAILY 01/06/25 01/06/25 Pantoprazole Sodium [Protonix] 20 mg PO DAILY@0600 01/06/25 01/06/25 Previous Rx's Medication Instructions Recorded Aspirin 81 mg PO DAILY chew 06/08/20 Allergies Allergy/AdvReac Type Severity Reaction Status Date / Time No Known Allergies Allergy Verified 01/06/25 07:55 Review of Systems ROS Statement: Those systems with pertinent positive or pertinent negative responses have been documented in the HPI. ROS Other: All systems not noted in ROS Statement are negative. Past Medical History Past Medical History: Atrial Fibrillation, COPD, Diabetes Mellitus, Hyperlipidemia, Hypertension Additional Past Medical History / Comment(s): Neuropathy, CHRONIC PAIN SYNDROME, DOES NOT WALK-uses jose lift, COAGULATION DEFECT UNSPECIFIED, see scanned doc from [facility] in EMR. History of Any Multi-Drug Resistant Organisms: None Reported Past Surgical History: Adenoidectomy Additional Past Surgical History / Comment(s): Circumcision 2015. Right cataract removal. back surgery may 2020 Past Anesthesia/Blood Transfusion Reactions: No Reported Reaction Past Psychological History: Depression Smoking Status: Former smoker Past Alcohol Use History: None Reported Past Drug Use History: None Reported - Past Family History Father Family Medical History: Cancer Mother Family Medical History: Cancer Additional Family Medical History / Comment(s): skin CA General Exam Limitations: physical limitation General appearance: alert, in no apparent distress Head exam: Present: atraumatic, normocephalic, normal inspection Eye exam: Present: normal appearance, PERRL, EOMI. Absent: scleral icterus, c onjunctival injection, periorbital swelling ENT exam: Present: normal exam, mucous membranes moist Neck exam: Present: normal inspection. Absent: tenderness, meningismus, lymphadenopathy Respiratory exam: Present: normal lung sounds bilaterally. Absent: respiratory distress, wheezes, rales, rhonchi, stridor Cardiovascular Exam: Present: regular rate, normal rhythm, normal heart sounds. Absent: systolic murmur, diastolic murmur, rubs, gallop, clicks GI/Abdominal exam: Present: distended, tenderness, guarding, normal bowel sounds. Absent: rebound, rigid Extremities exam: Present: normal inspection, full ROM, normal capillary refill. Absent: tenderness, pedal edema, joint swelling, calf tenderness Back exam: Present: normal inspection Neurological exam: Present: alert, oriented X3, CN II-XII intact Psychiatric exam: Present: normal affect, normal mood Skin exam: Present: warm, dry, intact, normal color. Absent: rash Course Vital Signs 01/05/25 01/05/25 01/06/25 18:53 22:29 00:05 Temperature 98.2 F 98.3 F 98.4 F Pulse Rate 77 72 71 Respiratory 18 17 17 Rate Blood Pressure 109/71 121/76 133/72 O2 Sat by Pulse 97 94 L 95 Oximetry - Reevaluation(s) Reevaluation #1: 01/05/25 19:15 Medical records reviewed Reevaluation #2: 01/05/25 21:30 Patient has improved pain here in the ER abdomen still significant bloated, no active vomiting Reevaluation #3: 01/05/25 21:30 Patient informed of results questions answered Reevaluation #4: Was pt. sent in by a medical professional or institution (, PA, ULTRASONIC SEAMING MACHINE OPERATOR, urgent care, hospital, or fdc...) When possible be specific @ -no Did you speak to anyone other than the patient for history (EMS, parent, family, police, friend...)? What history was obtained from this source @ -no Did you review nursing and triage notes (agree or disagree)? Why? @ -agree Are old charts reviewed (outside hosp., previous admission, EMS record, old EKG, old radiological studies, urgent care reports/EKG's, fdc records)? Report findings @ -yes Differential Diagnosis (chest pain, altered mental status, abdominal pain women, abdominal pain men, vaginal bleeding, weakness, fever, dyspnea, syncope, headache, dizziness, GI bleed, back pain, seizure, CVA, palpatations, mental health, musculoskeletal)? @ -prior EKG interpreted by me (3pts min.). @ -yes X-rays interpreted by me (1pt min.). @ -no CT interpreted by me (1pt min.). @ -Yes positive for ileus U/S interpreted by me (1pt. min.). @ -no What testing was considered but not performed or refused? (CT, X-rays, U/S, labs)? Why? @ -none What meds were considered but not given or refused? Why? @ -none Did you discuss the management of the patient with other professionals (professionals i.e. , PA, ULTRASONIC SEAMING MACHINE OPERATOR, lab, RT, psych nurse, social media designer, solar panel installer, teacher, health officer, geriatric case manager)? Give summary @ -no Was smoking cessation discussed for >3mins.? @ -no Was critical care preformed (if so, how long)? @ -no Were there social determinants of health that impacted care today? How? (Homelessness, low income, unemployed, alcoholism, drug addiction, transportation, low edu. Level, literacy, decrease access to med. care, alf, r ehab)? @ -none Was there de-escalation of care discussed even if they declined (Discuss DNR or withdrawal of care, Hospice)? DNR status @ -no What co-morbidities impacted this encounter? (DM, HTN, Smoking, COPD, CAD, Cancer, CVA, ARF, Chemo, Hep., AIDS, mental health diagnosis, sleep apnea, morbid obesity)? @ -none Was patient admitted / discharged? Hospital course, mention meds given and route , prescriptions, significant lab abnormalities, going to OR and other pertinent info. @ - 74 male for severe abdominal pain positive ileus on CT scan, patient will admit for n.p.o. status symptom management Admitted Undiagnosed new problem with uncertain prognosis? @ -no Drug Therapy requiring intensive monitoring for toxicity (Heparin, Nitro, Insulin, Cardizem)? @ -no Were any procedures done? @ -no Diagnosis/symptom? @ -Abdominal pain with ileus Acute, or Chronic, or Acute on Chronic? @ -Acute Uncomplicated (without systemic symptoms) or Complicated (systemic symptoms)? @ -Complicated Side effects of treatment? @ -no Exacerbation, Progression, or Severe Exacerbation? @ -exacerbation Poses a threat to life or bodily function? How? (Chest pain, [place], [place], pneumonia, PE, COPD, DKA, ARF, appy, cholecystitis, CVA, Diverticulitis, Homicidal, Suicidal, threat to staff... and all critical care pts) @ -yes extremes of age Reevaluation #5: Differential Abdominal Pain Men: Appendicitis, cholecystitis, diverticulosis, ischemic bowel, pancreatitis, hepatitis, UTI, gastroenteritis, AAA, incarcerated hernia, bowel obstruction, constipation, inflammatory bowel, hepatitis, peptic ulcer disease, splenic infarction, perforated viscus, testicular torsion, this is not meant to be an all-inclusive list - Consultations Consultation #1: Spoke with [facility] who agrees to admit this patient Medical Decision Making - Medical Decision Making 74 male for severe abdominal pain positive ileus on CT scan, patient will admit for n.p.o. status symptom management - Lab Data Result diagrams: 01/09/25 05:28 01/09/25 05:28 Lab Results 01/05/25 01/05/25 01/05/25 Range/Units 19:55 19:55 19:55 WBC 13.18 H (4.50-10.00) 10*3/uL RBC 5.58 (4.40-5.60) 10*6/uL Hgb 16.0 (13.0-17.0) g/dL Hct 49.0 (39.6-50.0) % MCV 87.8 (80.0-97.0) fL MCH 28.7 (27.0-32.0) pg MCHC 32.7 (32.0-37.0) g/dL Plt Count 221 (140-440) 10*3/uL MPV 10.7 (9.5-12.2) fL Immature Gran % (Auto) 0.5 % Neutrophils % 80.3 % Lymphocytes % 8.9 % Monocytes % 9.6 % Eosinophils % 0.2 % Basophils % 0.5 % Immature Gran # 0.06 H (0.00-0.04) 10*3/uL Neutrophils # 10.61 H (1.80-7.70) 10*3/uL Lymphocytes # 1.17 (0.90-5.00) 10*3/uL Monocytes # 1.26 H (0.20-1.00) 10*3/uL Eosinophils # 0.02 L (0.04-0.35) 10*3/uL Basophils # 0.06 (0.00-0.10) 10*3/uL Sodium 136 L (137-145) mmol/L Potassium 4.0 (3.5-5.1) mmol/L Chloride 103 (98-107) mmol/L Carbon Dioxide 18 L (22-30) mmol/L Anion Gap 15 mmol/L BUN 27 H (9-20) mg/dL Creatinine 1.44 H (0.66-1.25) mg/dL Est GFR (CKD-EPI)AfAm 56 (>60 ml/min/1.73 sqM) Est GFR (CKD-EPI)NonAf 48 (>60 ml/min/1.73 sqM) Glucose 187 H (74-99) mg/dL Plasma Lactic Acid Navdeep 1.3 (0.7-2.0) mmol/L Calcium 9.5 (8.4-10.2) mg/dL Phosphorus 5.8 H (2.5-4.5) mg/dL Magnesium 2.0 (1.6-2.3) mg/dL Total Bilirubin 1.3 (0.2-1.3) mg/dL AST 24 (17-59) U/L ALT 15 (4-49) U/L Alkaline Phosphatase 111 (38-126) U/L Total Protein 7.3 (6.3-8.2) g/dL Albumin 4.2 (3.5-5.0) g/dL Amylase 46 (30-110) U/L Lipase 45 (23-300) U/L - Radiology Data Radiology results: report reviewed (CT of the abdomen and pelvis positive ileus), image reviewed Disposition Clinical Impression: Abdominal pain, Ileus, Altered mental status, Low back pain, Leukocytosis, Renal insufficiency Disposition: ADMITTED IP TO THIS [facility] Condition: Serious Is patient prescribed a controlled substance at d/c from ED?: No Time of Disposition: 21:30
[2025-01-05] MEDS: ONDANSETRON 4 MG/2 ML VIAL IVP STA (19:52)
[2025-01-05] MEDS: MORPHINE SULFATE 4 MG/ML SYRINGE IVP STA (19:53)
[2025-01-05] MEDS: PANTOPRAZOLE 40 MG/10 ML VIAL IVP STA (19:53)
[2025-01-05] MEDS: SODIUM CHLORIDE 0.9% 1,000 ML IV ONE (19:53)
[2025-01-05 20:05] LABS: Basophils # (A) 0.06 10*3/uL (0.00-0.10); Basophils % (A) 0.5 %; Eosinophils # (A) 0.02 10*3/uL (0.04-0.35); Eosinophils % (A) 0.2 %; Lymphocytes # (A) 1.17 10*3/uL (0.90-5.00); Lymphocytes % (A) 8.9 %; MCH 28.7 pg (27.0-32.0); MCHC 32.7 g/dL (32.0-37.0); MCV 87.8 fL (80.0-97.0); Mean Platelet Volume 10.7 fL (9.5-12.2); Monocytes # (A) 1.26 10*3/uL (0.20-1.00); Monocytes % (A) 9.6 %; Neutrophils # (A) 10.61 10*3/uL (1.80-7.70); Neutrophils % (A) 80.3 %; Platelet Count 221 10*3/uL (140-440); RBC 5.58 10*6/uL (4.40-5.60); RDW 15.4 % (11.5-14.5); WBC 13.18 10*3/uL (4.50-10.00)
--- NOTE | 2025-01-05 20:08 | CT ---
EXAMINATION TYPE: CT abdomen pelvis wo con CT DLP: 1695.4 mGycm, Automated exposure control for dose reduction was used. DATE OF EXAM: 01/05/2025 7:40 PM COMPARISON: MRI lumbar spine 06/02/2020 CLINICAL INDICATION:Male, 74 years old with history of abdominal pain; abominable distention, abdomin al pain, constipation, small amount of diarrhea today. Typically has irregular bowel movements. Prio rs in pacs DLP: 1695.4 JG TECHNIQUE: Standard CT of the abdomen and pelvis without IV or oral contrast. Lack of IV or oral co ntrast limits evaluation of solid and hollow organ viscera. Coronal and sagittal reformats were perfo rmed. FINDINGS: LOWER CHEST: Cardiomegaly. Aortic valvular and mitral annulus calcifications. Partial visualization o f right gynecomastia. Mild bilateral lower lobe dependent subsegmental atelectasis with additional re gions of linear atelectasis. ABDOMEN LIVER: Scattered calcific granulomas. GALLBLADDER AND BILE DUCTS: Hydropic gallbladder measuring up to 10.7 x 5.1 cm. No surrounding inflam matory changes. No biliary ductal dilatation. PANCREAS: Moderate fatty infiltration of the pancreas most prominent within the head and uncinate pro cess. SPLEEN: Scattered calcified granulomas. ADRENAL GLANDS: Unremarkable noncontrast appearance. KIDNEYS AND URETERS: No evidence of hydronephrosis or renal calculus. PELVIS BLADDER: Unremarkable REPRODUCTIVE: Coarse calcifications of the prostate gland are identified. ABDOMEN & PELVIS STOMACH AND BOWEL: Gas and fluid filled dilated large and small bowel extending to the rectum without transition point. No wall thickening or surrounding inflammatory changes. The small bowel measures u p to 3.6 centers in diameter. The transverse colon measures up to 6.0 cm in diameter. No focal transi tion point is identified. PERITONEUM: No evidence of pneumoperitoneum. Trace amount of ascites within the right paracolic gutte r. VASCULATURE: Mild atherosclerotic calcifications are present throughout the abdominal aorta and its b ranches. No evidence of aortic aneurysm. Several pelvic phleboliths. MUSCULOSKELETAL: No acute osseous abnormalities. Diffuse bone demineralization which limits evaluatio n. Mild superior endplate compression deformities of the L2 and L3 vertebral bodies with approximatel y 5% height loss and retropulsion. Vertebral augmentation changes from prior compression fracture of the L4 vertebral body. DISH of the thoracic spine. Mild multilevel degenerative disc disease of the t horacolumbar spine. Mild levoscoliotic curvature of the thoracolumbar spine. Mild osteophytic changes of both hips. Mild degenerative changes of the pubic symphysis. LYMPH NODES: No gross evidence for lymphadenopathy. SOFT TISSUE/ABDOMINAL WALL: Unremarkable IMPRESSION: 1. Fluid and gas filled diffusely dilated colon and small bowel. This extends to the rectum without f ocal transition point. Findings suggest ileus. 2. Age-indeterminate mild superior endplate compression deformities of the L2 and L3 vertebral bodies with vertebral augmentation changes of the L4 vertebral body. Correlate with point tenderness. 3. Hydropic gallbladder. This can be further evaluated with ultrasound as clinically indicated. 4. Sequelae of prior granulomatous disease. [facility], , 01/05/2025 8:06 PM
[2025-01-05 20:16] LABS: ALT 15 U/L (4-49); African American GFR (CKD) 56 (>60 ml/min/1.73 sqM); Albumin 4.2 g/dL (3.5-5.0); Amylase 46 U/L (30-110); Anion Gap 15 mmol/L; Blood Urea Nitrogen 27 mg/dL (9-20); Calcium 9.5 mg/dL (8.4-10.2); Carbon Dioxide 18 mmol/L (22-30); Chloride 103 mmol/L (98-107); Glucose 187 mg/dL (74-99); Lipase 45 U/L (23-300); Non-African American GFR(CKD) 48 (>60 ml/min/1.73 sqM); Sodium 136 mmol/L (137-145); Total Bilirubin 1.3 mg/dL (0.2-1.3); Total Protein 7.3 g/dL (6.3-8.2)
[2025-01-05 20:19] LABS: AST 24 U/L (17-59); Alkaline Phosphatase 111 U/L (38-126); Phosphorus 5.8 mg/dL (2.5-4.5)
[2025-01-05] MEDS ORDERED: NALOXONE 0.4 MG/ML 1 ML VIAL IV PRN (21:27)
[2025-01-05] MEDS ORDERED: HYDROmorphone 1 MG/ML 1 ML SYRINGE IVP PRN (21:27)
[2025-01-05] MEDS: SODIUM CHLORIDE 0.9% 1,000 ML IV SCH (21:40)
[2025-01-06] MEDS: ONDANSETRON 4 MG/2 ML VIAL IVP PRN (01:34)
[2025-01-06 02:08] LABS: Glucose,Whole Blood 165 mg/dL (70-110)
[2025-01-06] MEDS: MORPHINE SULFATE 4 MG/ML SYRINGE IV STA (05:24)
[2025-01-06 05:29] LABS: Basophils # (A) 0.04 10*3/uL (0.00-0.10); Basophils % (A) 0.3 %; Eosinophils # (A) 0.02 10*3/uL (0.04-0.35); Eosinophils % (A) 0.2 %; HCT 49.8 % (39.6-50.0); HGB 16.2 g/dL (13.0-17.0); Lymphocytes # (A) 0.98 10*3/uL (0.90-5.00); Lymphocytes % (A) 7.4 %; MCH 29.1 pg (27.0-32.0); MCHC 32.5 g/dL (32.0-37.0); MCV 89.6 fL (80.0-97.0); Mean Platelet Volume 10.4 fL (9.5-12.2); Monocytes # (A) 1.37 10*3/uL (0.20-1.00); Monocytes % (A) 10.4 %; Neutrophils # (A) 10.73 10*3/uL (1.80-7.70); Neutrophils % (A) 81.2 %; Platelet Count 226 10*3/uL (140-440); RBC 5.56 10*6/uL (4.40-5.60); RDW 15.3 % (11.5-14.5)
[2025-01-06 05:55] LABS: ALT 13 U/L (4-49); AST 21 U/L (17-59); African American GFR (CKD) 60 (>60 ml/min/1.73 sqM); Alkaline Phosphatase 112 U/L (38-126); Anion Gap 14 mmol/L; Blood Urea Nitrogen 31 mg/dL (9-20); Calcium 9.2 mg/dL (8.4-10.2); Carbon Dioxide 18 mmol/L (22-30); Chloride 105 mmol/L (98-107); Glucose 202 mg/dL (74-99); Magnesium 2.1 mg/dL (1.6-2.3); Non-African American GFR(CKD) 52 (>60 ml/min/1.73 sqM); Phosphorus 5.4 mg/dL (2.5-4.5); Potassium 4.1 mmol/L (3.5-5.1); Sodium 137 mmol/L (137-145); Total Bilirubin 1.1 mg/dL (0.2-1.3); Total Protein 6.8 g/dL (6.3-8.2)
[2025-01-06 07:58] LABS: Glucose,Whole Blood 191 mg/dL (70-110)
[2025-01-06] MEDS: PANTOPRAZOLE 40 MG/10 ML VIAL IV SCH (08:53)
--- NOTE | 2025-01-06 11:28 | P.GSCN ---
History of Present Illness Consult date: 01/06/25 History of present illness: CHIEF COMPLAINT: Abdominal pain HISTORY OF PRESENT ILLNESS: This is a 74-year-old male who presented to the hospital with complaints of abdominal pain and abdominal distention. Patient did have vomiting this morning. He has report feeling nauseous. Patient is a poor historian. He reports having a bad memory. He is from [facility]. Per n [facility] staff he is unable to ambulate. CT scan had showed evidence of abdominal ileus. Surgical consult requested in regards to abdominal ileus. Patient did have loose bowel movement. PAST MEDICAL HISTORY: See below PAST SURGICAL HISTORY: See below MEDICATIONS: See below ALLERGIES: See below SOCIAL HISTORY: No illicit drug use. REVIEW OF SYSTEMS: CONSTITUTIONAL: Denies fever or chills. HEENT: Denies blurred vision, vision changes, or eye pain. Denies hemoptysis CARDIOVASCULAR: Denies chest pain or pressure. RESPIRATORY: No shortness of breath. GASTROINTESTINAL: See HPI for pertinent findings HEMATOLOGIC: Denies bleeding disorders. GENITOURINARY: Denies any blood in urine or increased urinary frequency. SKIN: Denies pruitis. Denies rash. PHYSICAL EXAM: VITAL SIGNS: Reviewed GENERAL: no acute distress. HEENT: No sclera icterus. Extraocular movements grossly intact. Moist buccal mucosa. Head is atraumatic, normocephalic. No nasal drainage. ABDOMEN: Soft. Distended. NEUROLOGIC: Awake and alert LABORATORY DATA: WBC 13.2 Hgb 16.2 platelets 226 Sodium is 137 potassium 4.1 creatinine 1.36 Glucose 191 Lactic acid 1.3 IMAGING: CT scan abdomen pelvis reports fluid and gas filled diffusely dilated colon and small bowel. This extends to rectum without focal transition point findings suggest ileus. Hydropic gallbladder. Age-indeterminate mild superior endplate compression deformities of L2 and L3. Sequelae of prior granulomatous disease. ASSESSMENT: 1. Abdominal ileus 2. Possible gastroenteritis PLAN: - Keep patient n.p.o. - Continue IV fluids - Continue to monitor Physician Information Systems Manager note has been reviewed by physician. Signing provider agrees with the documented findings, assessment, and plan of care. Past Medical History Past Medical History: Atrial Fibrillation, COPD, Diabetes Mellitus, Hyperlipi demia, Hypertension Additional Past Medical History / Comment(s): Neuropathy, CHRONIC PAIN SYNDROME, DOES NOT WALK-uses jose lift, COAGULATION DEFECT UNSPECIFIED, see scanned doc from [facility] in EMR. History of Any Multi-Drug Resistant Organisms: None Reported Past Surgical History: Adenoidectomy Additional Past Surgical History / Comment(s): Circumcision 2016. Right cataract removal. back surgery may 2020 Past Anesthesia/Blood Transfusion Reactions: No Reported Reaction Past Psychological History: Depression Smoking Status: Never smoker Past Alcohol Use History: None Reported Additional Past Alcohol Use History / Comment(s): smoked from 1970 to 1975 3 ppd Past Drug Use History: None Reported - Past Family History Father Family Medical History: Cancer Mother Family Medical History: Cancer Additional Family Medical History / Comment(s): skin CA Medications and Allergies Home Medications Medication Instructions Recorded Confirmed Type Aspirin 81 mg PO DAILY chew 06/08/20 01/06/25 Rx Atorvastatin [Lipitor] 10 mg PO HS 06/11/20 01/06/25 History Gabapentin [Neurontin] 200 mg PO TID@0600,1400,2200 01/17/23 01/06/25 History Melatonin [Melatonin Tr] 10 mg PO HS PRN 01/17/23 01/06/25 History Insulin Glargine,Hum.rec.anlog 27 units SQ HS 07/03/23 01/06/25 History [Lantus Solostar Pen] Metoprolol Tartrate [Lopressor] 25 mg PO BID 07/03/23 01/06/25 History metFORMIN HCL [Glucophage] 500 mg PO BID 07/03/23 01/06/25 History Loperamide [Imodium] 2 mg PO QID PRN 08/01/23 01/06/25 History Cholecalciferol (Vitamin D3) 50 mcg PO DAILY 12/24/24 01/06/25 History [Vitamin D3 (50 Mcg = 2000 Iu)] Dapagliflozin Propanediol [Farxiga] 10 mg PO DAILY 12/24/24 01/06/25 History HYDROcodone/APAP 5-325MG [[place] 1 tab PO Q8HR PRN 12/24/24 01/06/25 History 5-325] buPROPion XL [Wellbutrin XL] 300 mg PO DAILY 12/24/24 01/06/25 History Bismuth Subsalicylate 524 mg PO Q4H PRN 01/06/25 01/06/25 History [Pepto-Bismol] Escitalopram [Lexapro] 20 mg PO DAILY 01/06/25 01/06/25 History Pantoprazole Sodium [Protonix] 20 mg PO DAILY@0600 01/06/25 01/06/25 History Allergies Allergy/AdvReac Type Severity Reaction Status Date / Time No Known Allergies Allergy Verified 01/06/25 07:55 Surgical - Exam Osteopathic Statement: *. No significant issues noted on an osteopathic structural exam other than those noted in the History and Physical/Consult. Vital Signs Temp Pulse Resp BP Pulse Ox 98.2 F 77 18 109/71 97 01/05/25 18:53 01/05/25 18:53 01/05/25 18:53 01/05/25 18:53 01/05/25 18:53 Results - Labs 01/06/25 05:01 01/06/25 05:01 Abnormal Lab Results - Last 24 Hours (Table) 01/05/25 01/05/25 01/06/25 Range/Units 19:55 19:55 02:07 WBC 13.18 H (4.50-10.00) 10*3/uL Immature Gran # 0.06 H (0.00-0.04) 10*3/uL Neutrophils # 10.61 H (1.80-7.70) 10*3/uL Monocytes # 1.26 H (0.20-1.00) 10*3/uL Eosinophils # 0.02 L (0.04-0.35) 10*3/uL Sodium 136 L (137-145) mmol/L Carbon Dioxide 18 L (22-30) mmol/L BUN 27 H (9-20) mg/dL Creatinine 1.44 H (0.66-1.25) mg/dL Glucose 187 H (74-99) mg/dL POC Glucose (mg/dL) 165 H (70-110) mg/dL Phosphorus 5.8 H (2.5-4.5) mg/dL 01/06/25 01/06/25 01/06/25 Range/Units 05:01 05:01 07:57 WBC 13.20 H (4.50-10.00) 10*3/uL Immature Gran # 0.06 H (0.00-0.04) 10*3/uL Neutrophils # 10.73 H (1.80-7.70) 10*3/uL Monocytes # 1.37 H (0.20-1.00) 10*3/uL Eosinophils # 0.02 L (0.04-0.35) 10*3/uL Sodium (137-145) mmol/L Carbon Dioxide 18 L (22-30) mmol/L BUN 31 H (9-20) mg/dL Creatinine 1.36 H (0.66-1.25) mg/dL Glucose 202 H (74-99) mg/dL POC Glucose (mg/dL) 191 H (70-110) mg/dL Phosphorus 5.4 H (2.5-4.5) mg/dL Diabetes panel 01/05/25 01/06/25 Range/Units 19:55 05:01 Sodium 136 L 137 (137-145) mmol/L Potassium 4.0 4.1 (3.5-5.1) mmol/L Chloride 103 105 (98-107) mmol/L Carbon Dioxide 18 L 18 L (22-30) mmol/L BUN 27 H 31 H (9-20) mg/dL Creatinine 1.44 H 1.36 H (0.66-1.25) mg/dL Glucose 187 H 202 H (74-99) mg/dL Calcium 9.5 9.2 (8.4-10.2) mg/dL AST 24 21 (17-59) U/L ALT 15 13 (4-49) U/L Alkaline Phosphatase 111 112 (38-126) U/L Total Protein 7.3 6.8 (6.3-8.2) g/dL Albumin 4.2 4.0 (3.5-5.0) g/dL Calcium panel 01/05/25 01/06/25 Range/Units 19:55 05:01 Calcium 9.5 9.2 (8.4-10.2) mg/dL Phosphorus 5.8 H 5.4 H (2.5-4.5) mg/dL Albumin 4.2 4.0 (3.5-5.0) g/dL Pituitary panel 01/05/25 01/06/25 Range/Units 19:55 05:01 Sodium 136 L 137 (137-145) mmol/L Potassium 4.0 4.1 (3.5-5.1) mmol/L Chloride 103 105 (98-107) mmol/L Carbon Dioxide 18 L 18 L (22-30) mmol/L BUN 27 H 31 H (9-20) mg/dL Creatinine 1.44 H 1.36 H (0.66-1.25) mg/dL Glucose 187 H 202 H (74-99) mg/dL Calcium 9.5 9.2 (8.4-10.2) mg/dL Adrenal panel 01/05/25 01/06/25 Range/Units 19:55 05:01 Sodium 136 L 137 (137-145) mmol/L Potassium 4.0 4.1 (3.5-5.1) mmol/L Chloride 103 105 (98-107) mmol/L Carbon Dioxide 18 L 18 L (22-30) mmol/L BUN 27 H 31 H (9-20) mg/dL Creatinine 1.44 H 1.36 H (0.66-1.25) mg/dL Glucose 187 H 202 H (74-99) mg/dL Calcium 9.5 9.2 (8.4-10.2) mg/dL Total Bilirubin 1.3 1.1 (0.2-1.3) mg/dL AST 24 21 (17-59) U/L ALT 15 13 (4-49) U/L Alkaline Phosphatase 111 112 (38-126) U/L Total Protein 7.3 6.8 (6.3-8.2) g/dL Albumin 4.2 4.0 (3.5-5.0) g/dL Assessment and Plan Assessment: ileus of unknown origin patient admits to persistent diarrhea monitor bowel function advance diet once patient passing flatus/or having bowel movement Time with Patient: Less than 30
[2025-01-06 13:18] LABS: Glucose,Whole Blood 204 mg/dL (70-110)
[2025-01-06] MEDS: BISMUTH SUBSALICYLATE 4,192 MG/240 ML BOTTLE PO PRN (17:06)
[2025-01-06 17:09] VITALS: BMI 47.5
[2025-01-06 20:20] LABS: Glucose,Whole Blood 244 mg/dL (70-110)
[2025-01-06] MEDS: INSULIN GLARGINE (LANTUS) 100 UNIT/ML SYR SQ SCH (21:51)
[2025-01-06] MEDS: ATORVASTATIN 10 MG TAB PO SCH (21:51)
[2025-01-06] MEDS: METOPROLOL TARTRATE 25 MG TAB PO SCH (21:51)
[2025-01-06] MEDS ORDERED: DEXTROSE 50% SYRINGE 50 ML IVP PRN ×2 (22:52)
--- NOTE | 2025-01-06 22:55 | P.HPIM ---
History of Present Illness H&P Date: 01/06/25 Chief Complaint: Abdominal pain Patient is a 74-year-old male with a past medical history of atrial fibrillation, diabetes type 2 insulin-dependent, hypertension, hyperlipidemia, chronic pain, diabetic neuropathy, depression and other medical problems presents to ER with complaints of abdominal pain and distention. Patient has been having diffuse abdominal pain mainly periumbilical and radiating upwards. Did have vomiting this morning. Also feeling nauseous. Denied any diarrhea. No fever no chills. Patient is a poor historian. Does not remember what happened. Patient is from [facility]. CT of the abdomen pelvis showed fluid and gas-filled diffusely dilated colon and small bowel. This extends to the rectum without focal transition point. Findings suggest ileus. Age-indeterminate mild superior endplate compression deformities of the L2 and L3 vertebral bodies with vertebral augmentation changes of the L4 vertebral body. Hydropic gallbladder. Sequela of prior granulomatous disease. Laboratory data showed WBC 13.2 hemoglobin 16.2 and platelets 221 sodium 136 potassium 4.0 chloride 103 bicarb is 18 BUN 27 creatinine 1.44 and blood sugar 187 lactic acid 1.3 liver enzymes are not elevated. Lipase 45 Review of Systems Complete review of systems could not be obtained from the patient except as per HPI ROS unobtainable: due to mental status Past Medical History Past Medical History: Atrial Fibrillation, COPD, Diabetes Mellitus, Hyperlipidemia, Hypertension Additional Past Medical History / Comment(s): Neuropathy, CHRONIC PAIN SYNDROME, DOES NOT WALK-uses jose lift, COAGULATION DEFECT UNSPECIFIED, see scanned doc from [facility] in EMR. History of Any Multi-Drug Resistant Organisms: None Reported Past Surgical History: Adenoidectomy Additional Past Surgical History / Comment(s): Circumcision 2015. Right cataract removal. back surgery may 2020 Past Anesthesia/Blood Transfusion Reactions: No Reported Reaction Past Psychological History: Depression Smoking Status: Never smoker Past Alcohol Use History: None Reported Additional Past Alcohol Use History / Comment(s): smoked from 1970 to 1975 3 ppd Past Drug Use History: None Reported - Past Family History Father Family Medical History: Cancer Mother Family Medical History: Cancer Additional Family Medical History / Comment(s): skin CA Medications and Allergies Home Medications Medication Instructions Recorded Confirmed Type Aspirin 81 mg PO DAILY chew 06/08/20 01/06/25 Rx Atorvastatin [Lipitor] 10 mg PO HS 06/11/20 01/06/25 History Gabapentin [Neurontin] 200 mg PO TID@0600,1400,2200 01/17/23 01/06/25 History Melatonin [Melatonin Tr] 10 mg PO HS PRN 01/17/23 01/06/25 History Insulin Glargine,Hum.rec.anlog 27 units SQ HS 07/03/23 01/06/25 History [Lantus Solostar Pen] Metoprolol Tartrate [Lopressor] 25 mg PO BID 07/03/23 01/06/25 History metFORMIN HCL [Glucophage] 500 mg PO BID 07/03/23 01/06/25 History Loperamide [Imodium] 2 mg PO QID PRN 08/01/23 01/06/25 History Cholecalciferol (Vitamin D3) 50 mcg PO DAILY 12/24/24 01/06/25 History [Vitamin D3 (50 Mcg = 2000 Iu)] Dapagliflozin Propanediol [Farxiga] 10 mg PO DAILY 12/24/24 01/06/25 History HYDROcodone/APAP 5-325MG [[place] 1 tab PO Q8HR PRN 12/24/24 01/06/25 History 5-325] buPROPion XL [Wellbutrin XL] 300 mg PO DAILY 12/24/24 01/06/25 History Bismuth Subsalicylate 524 mg PO Q4H PRN 01/06/25 01/06/25 History [Pepto-Bismol] Escitalopram [Lexapro] 20 mg PO DAILY 01/06/25 01/06/25 History Pantoprazole Sodium [Protonix] 20 mg PO DAILY@0600 01/06/25 01/06/25 History Allergies Allergy/AdvReac Type Severity Reaction Status Date / Time No Known Allergies Allergy Verified 01/06/25 07:55 Physical Exam Vitals: Vital Signs Temp Pulse Pulse Resp BP BP Pulse Ox 01/06/25 07:09 98.1 F 80 18 138/80 96 01/06/25 01:50 98 F 73 16 153/74 94 L 01/06/25 00:05 98.4 F 71 17 133/72 95 01/05/25 22:29 98.3 F 72 17 121/76 94 L 01/05/25 18:53 98.2 F 77 18 109/71 97 Intake and Output 01/05/25 01/06/25 01/06/25 22:59 06:59 14:59 Output Total 600 Balance -600 Output: Emesis 600 Other: Voiding Method Diaper Diaper # Voids 1 # Bowel Movements 1 Weight 158.757 kg 158.757 kg PHYSICAL EXAMINATION: Patient is lying in the bed comfortably, no acute distress, awake alert and oriented.. HEENT: Normocephalic. Neck is supple. Pupils reactive. Nostrils clear. Oral cavity is moist. Neck reveals no JVD, carotid bruits, or thyromegaly. CHEST EXAMINATION: Trachea is central. Symmetrical expansion. Lung costello clear to auscultation and percussion. CARDIAC: Normal S1, S2 with no gallops. No murmurs ABDOMEN: Soft. Bowel sounds present. Mild distention and tenderness. No guarding or rigidity.. No organomegaly. No abdominal bruits. Extremities: reveal no edema. No clubbing or cyanosis Neurologically awake, alert, oriented x 1-2. Memory impairment. No gross focal deficits noted Skin: No rash or skin lesions. Psychiatric: Coperative. Could not be assessed completely Musculoskeletal: No joint swelling or deformity. Normal range of motion. Results CBC & Chem 7: 01/06/25 05:01 01/06/25 05:01 Labs: Abnormal Lab Results - Last 24 Hours (Table) 01/05/25 01/05/25 01/06/25 Range/Units 19:55 19:55 02:07 WBC 13.18 H (4.50-10.00) 10*3/uL Immature Gran # 0.06 H (0.00-0.04) 10*3/uL Neutrophils # 10.61 H (1.80-7.70) 10*3/uL Monocytes # 1.26 H (0.20-1.00) 10*3/uL Eosinophils # 0.02 L (0.04-0.35) 10*3/uL Sodium 136 L (137-145) mmol/L Carbon Dioxide 18 L (22-30) mmol/L BUN 27 H (9-20) mg/dL Creatinine 1.44 H (0.66-1.25) mg/dL Glucose 187 H (74-99) mg/dL POC Glucose (mg/dL) 165 H (70-110) mg/dL Phosphorus 5.8 H (2.5-4.5) mg/dL 01/06/25 01/06/25 01/06/25 Range/Units 05:01 05:01 07:57 WBC 13.20 H (4.50-10.00) 10*3/uL Immature Gran # 0.06 H (0.00-0.04) 10*3/uL Neutrophils # 10.73 H (1.80-7.70) 10*3/uL Monocytes # 1.37 H (0.20-1.00) 10*3/uL Eosinophils # 0.02 L (0.04-0.35) 10*3/uL Sodium (137-145) mmol/L Carbon Dioxide 18 L (22-30) mmol/L BUN 31 H (9-20) mg/dL Creatinine 1.36 H (0.66-1.25) mg/dL Glucose 202 H (74-99) mg/dL POC Glucose (mg/dL) 191 H (70-110) mg/dL Phosphorus 5.4 H (2.5-4.5) mg/dL Thrombosis Risk Factor Assmnt - DVT/VTE Prophylaxis DVT/VTE Prophylaxis: Pharmacologic Prophylaxis ordered - Choose All That Apply Any of the Below Risk Factors Present?: No Each Risk Factor Represents 2 Points: Age 61-74 years Other congenital or acquired thrombophilia - If yes, enter type in comment: Yes Thrombosis Risk Factor Assessment Total Risk Factor Score: 2 Thrombosis Risk Factor Assessment Level: Low Risk Assessment and Plan Assessment: Severe abdominal pain and distention due to ileus. Acute kidney injury likely vasomotor nephropathy Mild hyperglycemia with uncontrolled diabetes type 2 insulin-dependent Hypovolemic hyponatremia History of atrial fibrillation Hypertension Hyperlipidemia Chronic pain Diabetic neuropathy Depression Memory impairment DVT prophylaxis with Lovenox subcu Plan: Patient will be continued on IV hydration with normal saline. Continue with pain management. Nothing by mouth. Continue with insulin sliding scale and x 1 for better blood sugar control. Monitor renal function. General surgery is on board. Follow-up closely. Time with Patient: Greater than 30
[2025-01-07 01:29] LABS: Glucose,Whole Blood 227 mg/dL (70-110)
[2025-01-07] MEDS ORDERED: NON FORMULARY DRUG (Pantoprazole Sodium [Protonix] 20 MG Tablet) PO SCH (06:00)
[2025-01-07 06:11] LABS: Glucose,Whole Blood 224 mg/dL (70-110)
[2025-01-07] MEDS: INSULIN LISPRO (HumaLOG) 100 UNIT/ML 10 mL VL SQ SCH (06:32)
[2025-01-07] MEDS ORDERED: INSULIN LISPRO (HumaLOG) 100 UNIT/ML 10 mL VL SQ SCH (07:30)
[2025-01-07] MEDS: ENOXAPARIN 40 MG/0.4 ML SYRINGE SQ SCH (08:14)
[2025-01-07] MEDS: ESCITALOPRAM 20 MG TAB PO SCH (08:14)
[2025-01-07] MEDS: buPROPion XL 300 MG TAB.ER.24H PO SCH (08:14)
[2025-01-07 08:19] LABS: BUN/Creat Ratio 35.75 Ratio (12.00-20.00); Blood Urea Nitrogen 42.9 mg/dL (9.0-27.0); Glucose 265 mg/dL (70-110)
[2025-01-07 08:20] LABS: Calcium 8.7 mg/dL (8.7-10.3); Carbon Dioxide 19.6 mmol/L (21.6-31.8); Chloride 106 mmol/L (96-109); Potassium 3.6 mmol/L (3.5-5.5); Sodium 141 mmol/L (135-145)
[2025-01-07 08:22] LABS: HCT 47.9 % (39.6-50.0); HGB 15.5 g/dL (13.0-17.0); MCH 28.3 pg (27.0-32.0); MCHC 32.4 g/dL (32.0-37.0); MCV 87.6 FL (80.0-97.0); NRBC Per 100 WBC 0 X 10*3/uL (0.00-0.01); Platelet Count 271 X 10*3/uL (140-440); RBC 5.47 X 10*6/uL (4.40-5.60); RDW 15.5 % (11.5-14.5); WBC 5.48 X 10*3/uL (4.50-10.00)
[2025-01-07 09:22] LABS: Basophils # (A) 0.02 X 10*3/uL (0.00-0.10); Basophils % (A) 0.4 %; Eosinophils # (A) 0 X 10*3/uL (0.04-0.35); Eosinophils % (A) 0 %; Lymphocytes # (A) 0.68 X 10*3/uL (0.90-5.00); Lymphocytes % (A) 12.4 %; Monocytes # (A) 1.41 X 10*3/uL (0.20-1.00); Monocytes % (A) 25.7 %; Neutrophils # (A) 3.35 X 10*3/uL (1.80-7.70); Neutrophils % (A) 61.1 %
[2025-01-07 12:01] LABS: Glucose,Whole Blood 224 mg/dL (70-110)
--- NOTE | 2025-01-07 12:03 | P.PN ---
Subjective Progress Note Date: 01/07/25 SURGICAL PROGRESS NOTE CHIEF COMPLAINT: Ileus HISTORY OF PRESENT ILLNESS: Patient had vomiting last night and this morning. He denies any abdominal pain. He had 2 bowel movements yesterday that were kartik dannie consistency. Patient is a poor historian. Afebrile. WBC is down from 13.2-5.48 Hgb 15.5 creatinine 1.2. PHYSICAL EXAM: VITAL SIGNS: Reviewed. GENERAL: Well-developed in no acute distress. ABDOMEN: Soft. Distended. Nontender NEUROLOGIC: Awake and alert. ASSESSMENT: 1. Ileus with abdominal distention PLAN: - Discussed starting Reglan with medicine service. They agreed that the Wellbutrin and Lexapro can be discontinued so that Reglan can be started for the ileus - Will have nursing staff elevate head of bed - Keep patient n.p.o. - Check abdominal x-ray - If patient continues to have vomiting, he may need NG tube placed Physician Incinerator Plant Laborer note has been reviewed by physician. Signing provider agrees with the documented findings, assessment, and plan of care. Attestation Patient seen and examined at bedside on 01/07/2025. Did have emesis episode earlier in the morning, however had 3 watery bowel movements as well. Abdominal x-ray to be performed for further evaluation on ileus. Patient was started on Reglan and appears to be doing better. Leukocytosis has resolved. Cause of ileus currently unknown. If patient continues to vomit, recommend placing nasogastric tube. Quinten Ash, DO Objective - Vital Signs Vital signs: Vital Signs Temp 98.5 F 01/07/25 07:10 Pulse 101 H 01/07/25 07:10 Resp 16 01/07/25 07:10 BP 134/75 01/07/25 07:10 Pulse Ox 96 01/07/25 07:10 FiO2 Intake & Output 01/06/25 01/07/25 01/07/25 18:59 06:59 18:59 Intake Total 900 Output Total 550 Balance 900 -550 Weight 158.757 kg Intake: Intake, IV Titration 900 Amount Sodium Chloride 0.9% 1, 900 000 ml @ 75 mls/hr IV . [id number] HILDA Rx#:[id number] Output: Emesis 550 Other: Voiding Method Diaper Diaper # Voids 3 3 # Bowel Movements 1 - Labs CBC & Chem 7: 01/09/25 05:28 01/08/25 06:22 Labs: Abnormal Lab Results - Last 24 Hours (Table) 01/06/25 01/06/25 01/07/25 Range/Units 13:16 20:18 01:27 RDW (11.5-14.5) % Lymphocytes # (0.90-5.00) X 10*3/uL Monocytes # (0.20-1.00) X 10*3/uL Eosinophils # (0.04-0.35) X 10*3/uL Carbon Dioxide (21.6-31.8) mmol/L Anion Gap (4.00-12.00) mmol/L BUN (9.0-27.0) mg/dL BUN/Creatinine Ratio (12.00-20.00) Ratio Glucose (70-110) mg/dL POC Glucose (mg/dL) 204 H 244 H 227 H (70-110) mg/dL Hemoglobin A1c (<=6.0) % 01/07/25 01/07/25 01/07/25 Range/Units 05:53 05:53 05:53 RDW 15.5 H (11.5-14.5) % Lymphocytes # 0.68 L (0.90-5.00) X 10*3/uL Monocytes # 1.41 H (0.20-1.00) X 10*3/uL Eosinophils # 0 L (0.04-0.35) X 10*3/uL Carbon Dioxide 19.6 L (21.6-31.8) mmol/L Anion Gap 15.40 H (4.00-12.00) mmol/L BUN 42.9 H (9.0-27.0) mg/dL BUN/Creatinine Ratio 35.75 H (12.00-20.00) Ratio Glucose 265 H (70-110) mg/dL POC Glucose (mg/dL) (70-110) mg/dL Hemoglobin A1c 6.9 H (<=6.0) % 01/07/25 Range/Units 06:09 RDW (11.5-14.5) % Lymphocytes # (0.90-5.00) X 10*3/uL Monocytes # (0.20-1.00) X 10*3/uL Eosinophils # (0.04-0.35) X 10*3/uL Carbon Dioxide (21.6-31.8) mmol/L Anion Gap (4.00-12.00) mmol/L BUN (9.0-27.0) mg/dL BUN/Creatinine Ratio (12.00-20.00) Ratio Glucose (70-110) mg/dL POC Glucose (mg/dL) 224 H (70-110) mg/dL Hemoglobin A1c (<=6.0) %
[2025-01-07] MEDS: METOCLOPRAMIDE 5 MG/ML 2 ML VIAL IVP SCH (12:12)
--- NOTE | 2025-01-07 13:27 | XR ---
EXAMINATION TYPE: XR abdomen 2V DATE OF EXAM: 01/07/2025 12:39 PM COMPARISON: CT CLINICAL INDICATION: Male, 74 years old with history of vomiting, distended, f/up on ileus; [facility] TECHNIQUE: Two views of the abdomen were obtained. FINDINGS: Underpenetrated film with gaseous dilation of small bowel up to 4.9 cm. Osseous structures are grossly intact. I discussed the arterial vascular 2. Mild degeneration changes spine and hips. IMPRESSION: Dilated gaseous loops of small bowel throughout the abdomen. Underpenetrated film limits evaluation. Findings similar to 01/05/2025 CT findings [facility], , 01/07/2025 1:24 PM
--- NOTE | 2025-01-07 15:59 | P.PN ---
Subjective Progress Note Date: 01/07/25 Patient is a 74-year-old male with a past medical history of atrial fibrillation, diabetes type 2 insulin-dependent, hypertension, hyperlipidemia, chronic pain, diabetic neuropathy, depression and other medical problems presents to ER with complaints of abdominal pain and distention. Patient has been having diffuse abdominal pain mainly periumbilical and radiating upwards. Did have vomiting this morning. Also feeling nauseous. Denied any diarrhea. No fever no chills. Patient is a poor historian. Does not remember what happened. Patient is from [facility]. CT of the abdomen pelvis showed fluid and gas-filled diffusely dilated colon and small bowel. This extends to the rectum without focal transition point. Findings suggest ileus. Age-indeterminate mild superior endplate compression deformities of the L2 and L3 vertebral bodies with vertebral augmentation changes of the L4 vertebral bod y. Hydropic gallbladder. Sequela of prior granulomatous disease. Laboratory data showed WBC 13.2 hemoglobin 16.2 and platelets 221 sodium 136 potassium 4.0 chloride 103 bicarb is 18 BUN 27 creatinine 1.44 and blood sugar 187 lactic acid 1.3 liver enzymes are not elevated. Lipase 45 01/07/2025 Patient is seen in follow-up today with general surgery Dr. Salguero following. Patient remains n.p.o. and on exam is actively vomiting and having severe nausea and reports is not passing gas. Abdomen is morbidly obese although appears somewhat distended. Patient is high risk for aspiration as he is laying at 30 degrees in the bed and continuing to vomit. IV was accidentally removed and will need to to have IV access. Continue n.p.o. and IV hydration. Abdominal x- ray is ordered and pending at this time. Labs reviewed and reveal a normal white count at 5.48, hemoglobin is 15.5, platelets are 271, sodium 141 with a potassium of 3.6, BUN is 42.9 with a creatinine of 1.2, blood sugars are lynsey vated and will adjust insulins accordingly, hemoglobin A1c is 6.9. Review of systems: Constitutional: No reports of fatigue, fever, or chills Cardiovascular: No reports of chest pain or palpitations Respiratory: No reports of shortness of breath or cough GI: reports of nausea, reports continued vomiting, or diarrhea, reports not passing gas or having bowel movements and continued abdominal discomfort : No reports of dysuria or retention Neurovascular: reports of weakness or numbness All medications have been reviewed PHYSICAL EXAMINATION: Patient is lying in the bed comfortably, no acute distress, awake alert and oriented.. HEENT: Normocephalic. Neck is supple. Pupils reactive. Nostrils clear. Oral cavity is moist. Neck reveals no JVD, carotid bruits, or thyromegaly. CHEST EXAMINATION: Trachea is central. Symmetrical expansion. Lung costello clear to auscultation and percussion. CARDIAC: Normal S1, S2 with no gallops. No murmurs ABDOMEN: Soft. Bowel sounds present. Mild distention and tenderness. No guarding or rigidity.. No organomegaly. No abdominal bruits. Extremities: reveal no edema. No clubbing or cyanosis Neurologically awake, alert, oriented x 1-2. Memory impairment. No gross focal deficits noted Skin: No rash or skin lesions. Psychiatric: Coperative. Could not be assessed completely Musculoskeletal: No joint swelling or deformity. Normal range of motion. Assessment: Severe abdominal pain and distention due to ileus. Acute kidney injury likely vasomotor nephropathy, improving and creatinine is 1.2 Mild hyperglycemia with uncontrolled diabetes type 2 insulin-dependent Hypovolemic hyponatremia secondary to poor oral intake and continued vomiting History of atrial fibrillation Hypertension Hyperlipidemia Chronic pain Diabetic neuropathy Depression Memory impairment Morbid obesity with a BMI of 47.5 DVT prophylaxis with Lovenox subcu GI prophylaxis Full code Plan: Patient will be continued on IV hydration with normal saline. Continue with pain management. Nothing by mouth. Continue with insulin sliding scale with continued Accu-Cheks and close blood sugar monitoring as patient is n.p.o. Will adjust insulins accordingly, [facility] A1c is 6.9 monitor renal function. Creatinine slightly improved at 1.2 and sodium is 141 with a potassium of 3.6. Will follow-up on repeat labs General surgery is on board. Patient continues to have active vomiting and adjusting medications adding Reglan along with Zofran and will continue n.p.o. for now. Abdominal x-ray obtained showing dilated gaseous loops of small bowel throughout the abdomen underpenetrated film limits evaluation findings similar to the CT from 01/05/2025. Strongly recommend aspiration precautions and head of the bed elevated at 45 degrees at all times Case management/social work following and will be returning to [facility] once stabilized and discharged where he resides. Due to multiple complex medical issues, overall prognosis is guarded The impression and plan of care has been dictated by Anastasia Agosto, Nurse Practitioner as directed. Dr. Tenzin MD I have performed a history and examination and MDM of this patient, discussed the same with the dictator, and agree with the dictator's assessment and plan as written ,documented as a scribe. Based on total visit time, I have performed more than 50% of the visit. Objective - Vital Signs Vital signs: Vital Signs Temp 98.5 F 01/07/25 07:10 Pulse 101 H 01/07/25 07:10 Resp 16 01/07/25 07:10 BP 134/75 01/07/25 07:10 Pulse Ox 96 01/07/25 07:10 FiO2 Intake & Output 01/06/25 01/07/25 01/07/25 18:59 06:59 18:59 Intake Total 900 Output Total 550 Balance 900 -550 Weight 158.757 kg Intake: Intake, IV Titration 900 Amount Sodium Chloride 0.9% 1, 900 000 ml @ 75 mls/hr IV . [id number] [facility] Rx#:[id number] Output: Emesis 550 Other: Voiding Method Diaper Diaper # Voids 3 3 # Bowel Movements 1 - Labs CBC & Chem 7: 01/07/25 05:53 01/07/25 05:53 Labs: Abnormal Lab Results - Last 24 Hours (Table) 01/06/25 01/06/25 01/07/25 Range/Units 13:16 20:18 01:27 RDW (11.5-14.5) % Lymphocytes # (0.90-5.00) X 10*3/uL Monocytes # (0.20-1.00) X 10*3/uL Eosinophils # (0.04-0.35) X 10*3/uL Carbon Dioxide (21.6-31.8) mmol/L Anion Gap (4.00-12.00) mmol/L BUN (9.0-27.0) mg/dL BUN/Creatinine Ratio (12.00-20.00) Ratio Glucose (70-110) mg/dL POC Glucose (mg/dL) 204 H 244 H 227 H (70-110) mg/dL Hemoglobin A1c (<=6.0) % 01/07/25 01/07/25 01/07/25 Range/Units 05:53 05:53 05:53 RDW 15.5 H (11.5-14.5) % Lymphocytes # 0.68 L (0.90-5.00) X 10*3/uL Monocytes # 1.41 H (0.20-1.00) X 10*3/uL Eosinophils # 0 L (0.04-0.35) X 10*3/uL Carbon Dioxide 19.6 L (21.6-31.8) mmol/L Anion Gap 15.40 H (4.00-12.00) mmol/L BUN 42.9 H (9.0-27.0) mg/dL BUN/Creatinine Ratio 35.75 H (12.00-20.00) Ratio Glucose 265 H (70-110) mg/dL POC Glucose (mg/dL) (70-110) mg/dL Hemoglobin A1c 6.9 H (<=6.0) % 01/07/25 Range/Units 06:09 RDW (11.5-14.5) % Lymphocytes # (0.90-5.00) X 10*3/uL Monocytes # (0.20-1.00) X 10*3/uL Eosinophils # (0.04-0.35) X 10*3/uL Carbon Dioxide (21.6-31.8) mmol/L Anion Gap (4.00-12.00) mmol/L BUN (9.0-27.0) mg/dL BUN/Creatinine Ratio (12.00-20.00) Ratio Glucose (70-110) mg/dL POC Glucose (mg/dL) 224 H (70-110) mg/dL Hemoglobin A1c (<=6.0) %
[2025-01-07 17:09] LABS: Glucose,Whole Blood 189 mg/dL (70-110)
[2025-01-07 23:45] LABS: Glucose,Whole Blood 168 mg/dL (70-110)
[2025-01-08] MEDS ORDERED: ZINC OXIDE PASTE (Z-GUARD) 1 APPLIC TOPICAL PRN (03:14)
[2025-01-08 06:04] LABS: Glucose,Whole Blood 178 mg/dL (70-110)
[2025-01-08 10:38] LABS: HCT 46.9 % (39.6-50.0); HGB 14.8 g/dL (13.0-17.0); MCHC 31.6 g/dL (32.0-37.0); MCV 88.8 FL (80.0-97.0); Mean Platelet Volume 10.9 FL (9.5-12.2); NRBC Per 100 WBC 0 X 10*3/uL (0.00-0.01); Platelet Count 254 X 10*3/uL (140-440); RBC 5.28 X 10*6/uL (4.40-5.60); RDW 15.7 % (11.5-14.5); WBC 5.86 X 10*3/uL (4.50-10.00)
--- NOTE | 2025-01-08 10:49 | XR ---
EXAMINATION TYPE: XR abdomen 2V DATE OF EXAM: 01/08/2025 10:24 AM COMPARISON: CT CLINICAL INDICATION: Male, 74 years old with history of abdominal distention, f/up ileus; [facility] TECHNIQUE: Two views of the abdomen were obtained. FINDINGS: Gaseous distention of colon now present. Evaluation limited of the abdomen due to patient b anthony habitus. High-density material seen in the mid abdomen possibly oral contrast from prior study. IMPRESSION: Limited evaluation due to patient body habitus. There is gaseous distention of colon which may be inc reased from prior. [facility], , 01/08/2025 10:47 AM
[2025-01-08 10:58] LABS: BUN/Creat Ratio 42.44 Ratio (12.00-20.00); Blood Urea Nitrogen 38.2 mg/dL (9.0-27.0); Calcium 8.5 mg/dL (8.7-10.3); Carbon Dioxide 20.8 mmol/L (21.6-31.8); Chloride 108 mmol/L (96-109); Glucose 188 mg/dL (70-110); Potassium 3.5 mmol/L (3.5-5.5); Sodium 144 mmol/L (135-145)
[2025-01-08 12:34] LABS: Basophils # (A) 0.02 X 10*3/uL (0.00-0.10); Basophils % (A) 0.3 %; Eosinophils # (A) 0.01 X 10*3/uL (0.04-0.35); Eosinophils % (A) 0.2 %; Lymphocytes # (A) 0.99 X 10*3/uL (0.90-5.00); Lymphocytes % (A) 16.9 %; Monocytes # (A) 1.76 X 10*3/uL (0.20-1.00); Neutrophils # (A) 3.06 X 10*3/uL (1.80-7.70); Neutrophils % (A) 52.3 %
--- NOTE | 2025-01-08 13:12 | P.PN ---
Subjective Progress Note Date: 01/08/25 SURGICAL PROGRESS NOTE CHIEF COMPLAINT: Ileus HISTORY OF PRESENT ILLNESS: Patient had no further vomiting. Denies any abdominal pain. He is having multiple liquidy stools. He was started on a clear liquid diet. Abdominal x-ray reports limited evaluation to patient body habitus. There is gaseous distention of the colon which may be increased from prior. Afebrile. WBC 5.86 PHYSICAL EXAM: VITAL SIGNS: Reviewed. GENERAL: no acute distress. ABDOMEN: Soft. Distended. Nontender. Tympanic NEUROLOGIC: Awake and alert. ASSESSMENT: 1. Ileus with abdominal distention PLAN: -Check stool for c.diff -Continue IV Reglan -Advance to clear liquid diet -Keep head of bed elevated at 45 degrees -Continue to monitor Physician [employer]acc[employer] Dealer note has been reviewed by physician. Signing provider agrees with the documented findings, assessment, and plan of care. Objective - Vital Signs Vital signs: Vital Signs Temp 98.1 F 01/08/25 11:53 Pulse 80 01/08/25 11:53 Resp 16 01/08/25 11:53 BP 158/73 01/08/25 11:53 Pulse Ox 94 L 01/08/25 11:53 FiO2 Intake & Output 01/07/25 01/08/25 01/08/25 18:59 06:59 18:59 Other: Voiding Method Diaper Diaper Diaper # Voids 5 3 # Bowel Movements 2 2 - Labs CBC & Chem 7: 01/08/25 06:22 01/08/25 06:22 Labs: Abnormal Lab Results - Last 24 Hours (Table) 01/07/25 01/07/25 01/08/25 Range/Units 17:08 23:44 06:02 MCHC (32.0-37.0) g/dL RDW (11.5-14.5) % Monocytes # (0.20-1.00) X 10*3/uL Eosinophils # (0.04-0.35) X 10*3/uL Carbon Dioxide (21.6-31.8) mmol/L Anion Gap (4.00-12.00) mmol/L BUN (9.0-27.0) mg/dL BUN/Creatinine Ratio (12.00-20.00) Ratio Glucose (70-110) mg/dL POC Glucose (mg/dL) 189 H 168 H 178 H (70-110) mg/dL Calcium (8.7-10.3) mg/dL 01/08/25 01/08/25 Range/Units 06:22 06:22 MCHC 31.6 L (32.0-37.0) g/dL RDW 15.7 H (11.5-14.5) % Monocytes # 1.76 H (0.20-1.00) X 10*3/uL Eosinophils # 0.01 L (0.04-0.35) X 10*3/uL Carbon Dioxide 20.8 L (21.6-31.8) mmol/L Anion Gap 15.20 H (4.00-12.00) mmol/L BUN 38.2 H (9.0-27.0) mg/dL BUN/Creatinine Ratio 42.44 H (12.00-20.00) Ratio Glucose 188 H (70-110) mg/dL POC Glucose (mg/dL) (70-110) mg/dL Calcium 8.5 L (8.7-10.3) mg/dL
[2025-01-08 17:05] LABS: Glucose,Whole Blood 172 mg/dL (70-110)
[2025-01-09 05:45] LABS: Glucose,Whole Blood 123 mg/dL (70-110)
[2025-01-09 07:17] LABS: Glucose,Whole Blood 159 mg/dL (70-110)
[2025-01-09 07:29] VITALS: BP 158/95; PULSE 102; RESP 17; TEMP 98.5
--- NOTE | 2025-01-09 08:47 | P.PN ---
Progress Note - Text Progress Note Date: 01/09/25 CHIEF COMPLAINT: Ileus HISTORY OF PRESENT ILLNESS: Patient vomiting all night per nursing. PHYSICAL EXAM: VITAL SIGNS: Reviewed. GENERAL: no acute distress. ABDOMEN: Soft. Distended. Nontender. Tympanic NEUROLOGIC: Awake and alert. ASSESSMENT: 1. Ileus with abdominal distention PLAN: -Patient made NPO -If continues to vomit will need nasogastric tube -C.diff negative -Continue IV Reglan -Keep head of bed elevated at 45 degrees -Continue to monitor Henok Armstrong [facility] [phone]
[2025-01-09] MEDS ORDERED: SODIUM BICARB 8.4% 50 ML SYR (1 MEQ/ML) ONE (08:55)
[2025-01-09] MEDS ORDERED: EPINEPHrine 10 ML SYRINGE (0.1 MG/ML) ONE (08:55)
[2025-01-09] MEDS ORDERED: CALCIUM CHLORIDE 100 MG/ML 10 ML SYRINGE ONE (08:55)
[2025-01-09 09:06] LABS: Glucose,Whole Blood 232 mg/dL (70-110)
--- NOTE | 2025-01-09 09:12 | P.PN ---
Progress Note - Text Progress Note Date: 01/09/25 Patient with a cardiac arrest, CODE BLUE was activated by the nursing staff, CPR was started by the internal medicine team, patient was intubated succinylcholine 100 mg intravenous was given, intubated using MAC 3-1/2 and oral ET tube 8, oral pharynx is full of gastric secretion, which was suctioned and patient intubated after 1 attempt only, positive color change on the monitor, tube secured at 22 [place], CPR was continued as per internal medicine team
--- NOTE | 2025-01-09 09:19 | P.PN ---
Subjective Progress Note Date: 01/08/25 Patient is a 74-year-old male with a past medical history of atrial fibrillation, diabetes type 2 insulin-dependent, hypertension, hyperlipidemia, chronic pain, diabetic neuropathy, depression and other medical problems presents to ER with complaints of abdominal pain and distention. Patient has been having diffuse abdominal pain mainly periumbilical and radiating upwards. Did have vomiting this morning. Also feeling nauseous. Denied any diarrhea. No fever no chills. Patient is a poor historian. Does not remember what happened. Patient is from [facility]. CT of the abdomen pelvis showed fluid and gas-filled diffusely dilated colon and small bowel. This extends to the rectum without focal transition point. Findings suggest ileus. Age-indeterminate mild superior endplate compression deformities of the L2 and L3 vertebral bodies with vertebral augmentation changes of the L4 vertebral bod y. Hydropic gallbladder. Sequela of prior granulomatous disease. Laboratory data showed WBC 13.2 hemoglobin 16.2 and platelets 221 sodium 136 potassium 4.0 chloride 103 bicarb is 18 BUN 27 creatinine 1.44 and blood sugar 187 lactic acid 1.3 liver enzymes are not elevated. Lipase 45 01/07/2025 Patient is seen in follow-up today with general surgery Dr. Salguero following. Patient remains n.p.o. and on exam is actively vomiting and having severe nausea and reports is not passing gas. Abdomen is morbidly obese although appears somewhat distended. Patient is high risk for aspiration as he is laying at 30 degrees in the bed and continuing to vomit. IV was accidentally removed and will need to to have IV access. Continue n.p.o. and IV hydration. Abdominal x- ray is ordered and pending at this time. Labs reviewed and reveal a normal white count at 5.48, hemoglobin is 15.5, platelets are 271, sodium 141 with a potassium of 3.6, BUN is 42.9 with a creatinine of 1.2, blood sugars are lynsey vated and will adjust insulins accordingly, hemoglobin A1c is 6.9. 01/08/2025 Patient is seen in follow-up today with general surgery following. Patient's nausea has improved and is passing gas with no bowel movement as of yet although now maintained on clear liquids and will slowly advance per surgical recommendations. No plans for surgical intervention at this time continuing with conservative management for ileus. Patient clinically appears improved and does report to feeling better today. Abdominal x-ray was performed showing more gas. Will continue slowly advancing as tolerated and recommend increased activity as tolerated and sitting up. Follow-up on repeat labs and monitor kidney functions. Review of systems: Constitutional: No reports of fatigue, fever, or chills Cardiovascular: No reports of chest pain or palpitations Respiratory: No reports of shortness of breath or cough GI: No further reports of nausea, no reports of vomiting today, or diarrhea, reports passing gas with no bowel movements, patient reports improved abdominal discomfort : No reports of dysuria or retention Neurovascular: reports of weakness or numbness All medications have been reviewed PHYSICAL EXAMINATION: Patient is lying in the bed comfortably, no acute distress, awake alert and oriented.. Well-developed, elderly appearing, morbidly obese HEENT: Normocephalic. Neck is supple. Pupils reactive. Nostrils clear. Oral cavity is moist. Neck reveals no JVD, carotid bruits, or thyromegaly. CHEST EXAMINATION: Trachea is central. Symmetrical expansion. Lung costello clear to auscultation and percussion. CARDIAC: Normal S1, S2 with no gallops. No murmurs ABDOMEN: Soft. Bowel sounds present. Mild distention and no further tenderness. No guarding or rigidity.. No organomegaly. No abdominal bruits. Extremities: reveal no edema. No clubbing or cyanosis Neurologically awake, alert, oriented x 1-2. Memory impairment. No gross focal deficits noted, diffusely weak Skin: No rash or skin lesions. Psychiatric: Cooperative. Much more awake and alert Musculoskeletal: No joint swelling or deformity. Normal range of motion. Assessment: Severe abdominal pain and distention due to ileus. Acute kidney injury likely vasomotor nephropathy, improving and creatinine is 1.2 Mild hyperglycemia with uncontrolled diabetes type 2 insulin-dependent Hypovolemic hyponatremia secondary to poor oral intake and continued vomiting History of atrial fibrillation Hypertension Hyperlipidemia Chronic pain Diabetic neuropathy Depression Memory impairment Morbid obesity with a BMI of 47.5 DVT prophylaxis with Lovenox subcu GI prophylaxis Full code Plan: Patient will be continued on IV hydration with normal saline. Continue with pain management. Patient has been started on clear liquids per general surgery and will continue with conservative management Continue with insulin sliding scale with continued Accu-Cheks and close blood sugar monitoring. Will adjust insulins accordingly, hemoglobin A1c is 6.9 Repeat labs ordered for a.m. and will follow-up, replace electrolytes per prot ocol General surgery is on board. Repeat abdominal x-ray ordered noted to have limited evaluation due to body habitus with gaseous distention of the colon that may be increased from prior. Patient is clinically improving and reports to feeling much improved. Strongly recommend aspiration precautions and head of the bed elevated at 45 degrees at all times Case management/social work following and will be returning to [facility] once stabilized and discharged where he resides. Due to multiple complex medical issues, overall prognosis is guarded The impression and plan of care has been dictated by Anastasia Agosto, Nurse Practitioner as directed. Dr. Tenzin MD I have performed a history and examination and MDM of this patient, discussed the same with the dictator, and agree with the dictator's assessment and plan as written ,documented as a scribe. Based on total visit time, I have performed more than 50% of the visit. Objective - Vital Signs Vital signs: Vital Signs Temp 98.5 F 01/09/25 07:15 Pulse 102 H 01/09/25 07:15 Resp 17 01/09/25 07:15 BP 158/95 01/09/25 07:15 Pulse Ox 95 01/09/25 07:15 FiO2 Intake & Output 01/08/25 01/09/25 01/09/25 18:59 06:59 18:59 Intake Total 3280 120 Balance 3280 120 Weight 158.757 kg Intake: Oral 3280 120 Other: Voiding Method Diaper Diaper # Voids 5 1 # Bowel Movements 5 - Labs CBC & Chem 7: 01/08/25 06:22 01/08/25 06:22 Labs: Abnormal Lab Results - Last 24 Hours (Table) 01/08/25 01/08/25 01/08/25 Range/Units 06:22 06:22 17:03 MCHC 31.6 L (32.0-37.0) g/dL RDW 15.7 H (11.5-14.5) % Monocytes # 1.76 H (0.20-1.00) X 10*3/uL Eosinophils # 0.01 L (0.04-0.35) X 10*3/uL Carbon Dioxide 20.8 L (21.6-31.8) mmol/L Anion Gap 15.20 H (4.00-12.00) mmol/L BUN 38.2 H (9.0-27.0) mg/dL BUN/Creatinine Ratio 42.44 H (12.00-20.00) Ratio Glucose 188 H (70-110) mg/dL POC Glucose (mg/dL) 172 H (70-110) mg/dL Calcium 8.5 L (8.7-10.3) mg/dL 01/09/25 01/09/25 01/09/25 Range/Units 05:38 07:16 08:54 MCHC (32.0-37.0) g/dL RDW (11.5-14.5) % Monocytes # (0.20-1.00) X 10*3/uL Eosinophils # (0.04-0.35) X 10*3/uL Carbon Dioxide (21.6-31.8) mmol/L Anion Gap (4.00-12.00) mmol/L BUN (9.0-27.0) mg/dL BUN/Creatinine Ratio (12.00-20.00) Ratio Glucose (70-110) mg/dL POC Glucose (mg/dL) 123 H 159 H 232 H (70-110) mg/dL Calcium (8.7-10.3) mg/dL
--- NOTE | 2025-01-09 09:34 | P.EN ---
CODE BLUE Initial Rhythm: Asystole Description of Code: I responded to overhead code blue at 8:52 AM. CPR was initiated and conducted as per ACLS protocol. In total 6 cycles of CPR were performed with 6 rounds of epinephrine and 3 amps of bicarb and 2 calcium pushes were given. Intubation was performed by anesthesia team. Next of kin was notified Unable to achieve ROSC At 9:06 AM CODE BLUE ended Total duration of CPR: 15 minutes I saw and evaluated the patient during the alatorre and critical portions of this encounter, and discussed the case in detail with the resident author of this note, I agree with the Assessment and Plan, and my changes, if any, are highlighted in blue. In addition to the above, patient's initial rhythm was asystole, and continued to be asystole 3-4 rounds of CPR, during the fifth round of CPR, patient was noted to be in ventricular tachycardia and did receive 1 defibrillation at 200 J, with return to asystole. Patient was pronounced at 0909 after family request to discontinue CPR.
[2025-01-09 09:56] LABS: HCT 51.8 % (39.6-50.0); HGB 16.7 g/dL (13.0-17.0); MCH 28.9 pg (27.0-32.0); MCHC 32.2 g/dL (32.0-37.0); MCV 89.8 FL (80.0-97.0); Mean Platelet Volume 10.6 FL (9.5-12.2); NRBC Per 100 WBC 0 X 10*3/uL (0.00-0.01); Platelet Count 251 X 10*3/uL (140-440); RBC 5.77 X 10*6/uL (4.40-5.60); RDW 15.5 % (11.5-14.5); WBC 10.97 X 10*3/uL (4.50-10.00)
[2025-01-09 10:41] LABS: Basophils # (A) 0.08 X 10*3/uL (0.00-0.10); Basophils % (A) 0.7 %; Eosinophils # (A) 0.01 X 10*3/uL (0.04-0.35); Eosinophils % (A) 0.1 %; Lymphocytes # (A) 0.83 X 10*3/uL (0.90-5.00); Lymphocytes % (A) 7.6 %; Monocytes # (A) 1.87 X 10*3/uL (0.20-1.00); Neutrophils % (A) 73.9 %
[2025-01-09 11:07] LABS: ALT 15 U/L (10-49); AST 19 U/L (14-35); Albumin 3.8 g/dL (3.8-4.9); Albumin/Globulin Ratio 1.52 Ratio (1.60-3.17); Alkaline Phosphatase 93 U/L (41-126); BUN/Creat Ratio 33.14 Ratio (12.00-20.00); Blood Urea Nitrogen 23.2 mg/dL (9.0-27.0); Calcium 8.6 mg/dL (8.7-10.3); Carbon Dioxide 19.5 mmol/L (21.6-31.8); Chloride 108 mmol/L (96-109); Globulin 2.5 g/dL (1.6-3.3); Glucose 134 mg/dL (70-110); Magnesium 2.2 mg/dL (1.5-2.4); Potassium 3.1 mmol/L (3.5-5.5); Sodium 143 mmol/L (135-145); Total Bilirubin 0.9 mg/dL (0.3-1.2); Total Protein 6.3 g/dL (6.2-8.2)
--- NOTE | 2025-01-09 11:39 | P.DS ---
Providers Date of admission: 01/05/25 21:27 Attending physician: Deep Palacios Consults: 01/05/25 21:27 Consult Physician Routine Consulting Provider: Clement Salguero Consult Reason/Comments: ileus Do you want consulting provider notified?: Yes Primary care physician: Nacho Salcedo Hospital Course: Discharge Diagnosis: #Bilateral leg swelling likely multifactorial including medication side effects, morbid, morbid obesity and venous stasis #Atypical chest pain, ACS was ruled out, troponins negative #Congestive heart failure with suspected, normal NT proBNP, echocardiogram with ejection fraction of 55%, CHF ruled out #Paroxysmal A-fib, on Eliquis, in sinus rhythm #History of hypertension #Morbid obesity Hospital Course: Patient is a 68-year-old male with history of A-fib on Eliquis, type 2 diabetes mellitus, GERD, hyperlipidemia, hypertension, presents to the ER with the ER chief complaint of feeling intermittent chest pain associated with leg swelling since 2 to 3 weeks. Patient reports that his chest pain is mainly on the left side under the left rib which has been intermittent since 3 weeks with no radiation and no alleviating or aggravating factors. He rates his pain 4 out of 10 and describes it as dull and achy associated with some soreness especially when he presses hard on that area. Patient also reports upper respiratory tract infection a month ago for which she has recovered completely. Patient is also reporting worsening swelling in his legs for which he is already on furosemide 40 mg once daily. However he did take Lasix twice a day after talking to his PCP recently. However leg swelling is not improving despite being on Lasix twice a day. Patient has been evaluated a year ago with concerns for chest pain and leg swelling and did have echocardiogram which revealed ejection fraction of 55 to 60% with mild to moderate increased left ventricle wall thickness. He also had a left heart catheterization with no PCI. Patient is also endorsing orthopnea and PND however at the time of the interview is not in any active chest pain and seems to be feeling better. Initial lab work in the ED showed WBC 7.34, hemoglobin 13.2, platelet count 261, sodium 141, potassium 3.7, BUN 20, creatinine 0.83, glucose 73, troponin I less than 0.012 and repeat is < 0.012, NT proBNP 105 Chest x-ray in the ER shows mild vascular congestion with mild left pleural ef fusion noted. Venous Doppler ultrasound is negative for DVT in bilateral lower extremities. EKG shows normal sinus rhythm with ventricular rate of 63 bpm, NC interval 184 ms, QRS duration of 106 ms, QTc of 339 ms. Left axis deviation is noted. T wave inversions noted in anteroseptal leads. Cardiology was consulted. Echocardiogram showed normal LV EF of 55 to 60%. Heart failure was ruled out based on echocardiogram chest x-ray and NT proBNP. Bilateral swelling seems to be multifactorial including medication side effects. Therefore pioglitazone and amlodipine has been discontinued. Patient has been advised to follow-up with PCP and cardiology for blood pressure and diabetes optimization. No new medications have been added. Leg swelling is improving. Patient otherwise hemodynamically stable and medically optimized for discharge. Discharge disposition: Home Vital signs reviewed. Gen: in no apparent distress, resting comfortably in bed Eyes: PERRLA, EOMI, no scleral injection or icterus HENT: normocephalic, atraumatic, good hearing acuity, moist mucous membranes Neck: full range of motion Resp: CTAB, no rales, rhonchi, or wheezes CVS: normal S1 and S2, no murmurs, rubs or gallops, 1+ bilateral pitting edema GI: soft, NTTP, ND, no hepatosplenomegaly : no suprapubic tenderness, no CVAT, daniel catheter [is/not] present MSK: no clubbing, no cyanosis, no noted contractures of extremities Skin: no noted rashes, petechiae; temperature of skin is appropriate Neuro: moving all extremities without signs of weakness, CN II-XII intact Psych: cooperative, euthymic mood, insight and judgment intact Dictation was produced using [employer] dictation software. Please excuse any grammatical, word or spelling errors. Patient Condition at Discharge: Fair Plan - Discharge Summary Discharge Rx Participant: No New Discharge Prescriptions: No Action Aspirin 81 mg PO DAILY chew Atorvastatin [Lipitor] 10 mg PO HS Gabapentin [Neurontin] 200 mg PO TID@0600,1400,2200 metFORMIN HCL [Glucophage] 500 mg PO BID Metoprolol Tartrate [Lopressor] 25 mg PO BID Insulin Glargine,Hum.rec.anlog [Lantus Solostar Pen] 27 units SQ HS buPROPion XL [Wellbutrin XL] 300 mg PO DAILY Cholecalciferol (Vitamin D3) [Vitamin D3 (50 Mcg = 2000 Iu)] 50 mcg PO DAILY Pantoprazole Sodium [Protonix] 20 mg PO DAILY@0600 Bismuth Subsalicylate [Pepto-Bismol] 524 mg PO Q4H PRN PRN Reason: UPSET STOMACH Melatonin [Melatonin Tr] 10 mg PO HS PRN PRN Reason: Insomnia Loperamide [Imodium] 2 mg PO QID PRN PRN Reason: Diarrhea HYDROcodone/APAP 5-325MG [[place] 5-325] 1 tab PO Q8HR PRN PRN Reason: Pain Dapagliflozin Propanediol [Farxiga] 10 mg PO DAILY Escitalopram [Lexapro] 20 mg PO DAILY Discharge Medication List Aspirin 81 mg PO DAILY chew 06/08/20 [Rx] Atorvastatin [Lipitor] 10 mg PO HS 06/11/20 [History] Gabapentin [Neurontin] 200 mg PO TID@0600,1400,2200 01/17/23 [History] Melatonin [Melatonin Tr] 10 mg PO HS PRN 01/17/23 [History] Insulin Glargine,Hum.rec.anlog [Lantus Solostar Pen] 27 units SQ HS 07/03/23 [History] Metoprolol Tartrate [Lopressor] 25 mg PO BID 07/03/23 [History] metFORMIN HCL [Glucophage] 500 mg PO BID 07/03/23 [History] Loperamide [Imodium] 2 mg PO QID PRN 08/01/23 [History] Cholecalciferol (Vitamin D3) [Vitamin D3 (50 Mcg = 2000 Iu)] 50 mcg PO DAILY 12/24/24 [History] Dapagliflozin Propanediol [Farxiga] 10 mg PO DAILY 12/24/24 [History] HYDROcodone/APAP 5-325MG [[place] 5-325] 1 tab PO Q8HR PRN 12/24/24 [History] buPROPion XL [Wellbutrin XL] 300 mg PO DAILY 12/24/24 [History] Bismuth Subsalicylate [Pepto-Bismol] 524 mg PO Q4H PRN 01/06/25 [History] Escitalopram [Lexapro] 20 mg PO DAILY 01/06/25 [History] Pantoprazole Sodium [Protonix] 20 mg PO DAILY@0600 01/06/25 [History] Follow up Appointment(s)/Referral(s): Nacho Salcedo MD [Primary Care Provider] - 1-2 days
[2025-01-10 12:12] LABS: Glucose,Whole Blood 143 mg/dL (70-110)
[2025-01-10 12:12] LABS: Glucose,Whole Blood 123 mg/dL (70-110)
[2025-01-10 12:12] LABS: Glucose,Whole Blood 161 mg/dL (70-110)
--- NOTE | 2025-01-10 12:21 | P.DS ---
Providers Date of admission: 01/05/25 21:27 Expected date of discharge: 01/09/25 Attending physician: Deep Palacios Consults: 01/05/25 21:27 Consult Physician Routine Consulting Provider: Clement Salguero Consult Reason/Comments: ileus Do you want consulting provider notified?: Yes Primary care physician: Nacho [place] Hospital Course: Preliminary cause of Aspiration Final diagnoses Severe abdominal pain and distention due to ileus. Nausea with vomiting, high risk for aspiration Coffee-ground emesis noted prior to CODE BLUE, concern for possible GI bleed, unknown as patient . No previous bleeding or hematemesis noted and hemoglobin stable at 16.7 Acute kidney injury likely vasomotor nephropathy, improving and creatinine is 1.2 Mild hyperglycemia with uncontrolled diabetes type 2 insulin-dependent Hypovolemic hyponatremia secondary to poor oral intake and continued vomiting History of atrial fibrillation Hypertension Hyperlipidemia Chronic pain Diabetic neuropathy Depression Memory impairment Morbid obesity with a BMI of 47.5 DVT prophylaxis with Lovenox subcu GI prophylaxis no code Discharge disposition Patient has . According to nursing documentation, time of was 909 on 01/09/2025. Patient had no close relatives only friends and did have a legal guardian Carmelo harrison who was contacted and told to stop the code and patient was DNR at [facility]. Again time of was 909 on 01/09/2025. Total time taken greater than 35 minutes Hospital course Patient is a 74-year-old male with a past medical history of atrial fibrill ation, diabetes type 2 insulin-dependent, hypertension, hyperlipidemia, chronic pain, diabetic neuropathy, depression and other medical problems presents to ER with complaints of abdominal pain and distention. Patient has been having diffuse abdominal pain mainly periumbilical and radiating upwards. Did have vomiting this morning. Also feeling nauseous. Denied any diarrhea. No fever no chills. Patient is a poor historian. Does not remember what happened. Patient is from [facility]. CT of the abdomen pelvis showed fluid and gas-filled diffusely dilated colon and small bowel. This extends to the rectum without focal transition point. Findings suggest ileus. Age-indeterminate mild superior endplate compression deformities of the L2 and L3 vertebral bodies with vertebral augmentation changes of the L4 vertebral body. Hydropic gallbladder. Sequela of prior granulomatous disease. Laboratory data showed WBC 13.2 hemoglobin 16.2 and platelets 221 sodium 136 potassium 4.0 chloride 103 bicarb is 18 BUN 27 creatinine 1.44 and blood sugar 187 lactic acid 1.3 liver enzymes are not elevated. Lipase 45 01/07/2025 Patient is seen in follow-up today with general surgery Dr. Salguero following. Patient remains n.p.o. and on exam is actively vomiting and having severe nausea and reports is not passing gas. Abdomen is morbidly obese although appears somewhat distended. Patient is high risk for aspiration as he is laying at 30 degrees in the bed and continuing to vomit. IV was accidentally removed and will need to to have IV access. Continue n.p.o. and IV hydration. Abdominal x-ray is ordered and pending at this time. Labs reviewed and reveal a normal white count at 5.48, hemoglobin is 15.5, platelets are 271, sodium 141 with a potassium of 3.6, BUN is 42.9 with a creatinine of 1.2, blood sugars are elevated and will adjust insulins accordingly, hemoglobin A1c is 6.9. 01/08/2025 Patient is seen in follow-up today with general surgery following. Patient's nausea has improved and is passing gas with no bowel movement as of yet although now maintained on clear liquids and will slowly advance per surgical recommendations. No plans for surgical intervention at this time continuing with conservative management for ileus. Patient clinically appears improved and does report to feeling better today. Abdominal x-ray was performed showing more gas. Will continue slowly advancing as tolerated and recommend increased activity as tolerated and sitting up. Follow-up on repeat labs and monitor kidney functions. 01/09/2025 According to nursing staff, patient had been vomiting at night and was maintained on clear liquids and was reportedly eating breakfast and was being checked on for med Pass and aide noticed coffee-ground emesis and patient unresponsive. CODE BLUE was activated and CPR was started per protocol as patient was documented as full code in the computer here although was found to be no code at [facility] with a legal public guardian. ACLS protocol followed with no ROSC and notified guardian and instructed to discontinue coding the patient. No ROSC and patient's time of was 909. Please refer to event documentation. The impression and plan of care has been dictated as a scribe by Anastasia Agosto, Nurse Practitioner as directed. Dr. Tenzin MD I have performed a history and examination and MDM of this patient, discussed th e same with the dictator, and agree with the dictator's assessment and plan as written ,documented as a scribe. Based on total visit time, I have performed more than 50% of the visit. Patient Condition at Discharge: Undetermined Plan - Discharge Summary Discharge Rx Participant: No New Discharge Prescriptions: No Action Aspirin 81 mg PO DAILY chew Atorvastatin [Lipitor] 10 mg PO HS Gabapentin [Neurontin] 200 mg PO TID@0600,1400,2200 metFORMIN HCL [Glucophage] 500 mg PO BID Metoprolol Tartrate [Lopressor] 25 mg PO BID Insulin Glargine,Hum.rec.anlog [Lantus Solostar Pen] 27 units SQ HS buPROPion XL [Wellbutrin XL] 300 mg PO DAILY Cholecalciferol (Vitamin D3) [Vitamin D3 (50 Mcg = 2000 Iu)] 50 mcg PO DAILY Pantoprazole Sodium [Protonix] 20 mg PO DAILY@0600 Bismuth Subsalicylate [Pepto-Bismol] 524 mg PO Q4H PRN PRN Reason: UPSET STOMACH Melatonin [Melatonin Tr] 10 mg PO HS PRN PRN Reason: Insomnia Loperamide [Imodium] 2 mg PO QID PRN PRN Reason: Diarrhea HYDROcodone/APAP 5-325MG [[place] 5-325] 1 tab PO Q8HR PRN PRN Reason: Pain Dapagliflozin Propanediol [Farxiga] 10 mg PO DAILY Escitalopram [Lexapro] 20 mg PO DAILY Discharge Medication List Aspirin 81 mg PO DAILY chew 06/08/20 [Rx] Atorvastatin [Lipitor] 10 mg PO HS 06/11/20 [History] Gabapentin [Neurontin] 200 mg PO TID@0600,1400,2200 01/17/23 [History] Melatonin [Melatonin Tr] 10 mg PO HS PRN 01/17/23 [History] Insulin Glargine,Hum.rec.anlog [Lantus Solostar Pen] 27 units SQ HS 07/03/23 [History] Metoprolol Tartrate [Lopressor] 25 mg PO BID 07/03/23 [History] metFORMIN HCL [Glucophage] 500 mg PO BID 07/03/23 [History] Loperamide [Imodium] 2 mg PO QID PRN 12/07/23 [History] Cholecalciferol (Vitamin D3) [Vitamin D3 (50 Mcg = 2000 Iu)] 50 mcg PO DAILY 12/24/24 [History] Dapagliflozin Propanediol [Farxiga] 10 mg PO DAILY 12/24/24 [History] HYDROcodone/APAP 5-325MG [[place] 5-325] 1 tab PO Q8HR PRN 12/24/24 [History] buPROPion XL [Wellbutrin XL] 300 mg PO DAILY 12/24/24 [History] Bismuth Subsalicylate [Pepto-Bismol] 524 mg PO Q4H PRN 01/06/25 [History] Escitalopram [Lexapro] 20 mg PO DAILY 01/06/25 [History] Pantoprazole Sodium [Protonix] 20 mg PO DAILY@0600 01/06/25 [History] Follow up Appointment(s)/Referral(s): Nacho Salcedo MD [Primary Care Provider] - 1-2 days Discharge Disposition: - Preliminary Cause of Preliminary Cause of : Aspiration
== END 2025-01-09 15:56 | disposition expired | DRG 388 ==
LOC: EC 18:49 → 5NMEDONC 21:27
PROVIDERS: ADMIT Hospitalist; ATTEND Hospitalist
PROC: 5A12012 Performance of Cardiac Output, Single, Manual (ICD-10-PCS; principal; 2025-01-09)
PROC: 0BH17EZ Insertion of Endotracheal Airway into Trachea, Via Natural or Artificial Opening (ICD-10-PCS; 2025-01-09)
DX: K56.7 Ileus, unspecified (principal); N17.0 Acute kidney failure with tubular necrosis; I47.20 Ventricular tachycardia, unspecified; T17.918A Gastric contents in respiratory tract, part unspecified causing other injury, initial encounter; Z66 Do not resuscitate; E87.1 Hypo-osmolality and hyponatremia; E86.1 Hypovolemia; Z68.42 Body mass index [BMI] 45.0-49.9, adult; E11.40 Type 2 diabetes mellitus with diabetic neuropathy, unspecified; J44.9 Chronic obstructive pulmonary disease, unspecified; I10 Essential (primary) hypertension; F32.A Depression, unspecified; I48.91 Unspecified atrial fibrillation; E11.65 Type 2 diabetes mellitus with hyperglycemia; E66.01 Morbid (severe) obesity due to excess calories; I46.9 Cardiac arrest, cause unspecified; Z79.4 Long term (current) use of insulin; R41.3 Other amnesia; E78.5 Hyperlipidemia, unspecified; G89.4 Chronic pain syndrome; Z79.82 Long term (current) use of aspirin; Z79.899 Other long term (current) drug therapy; Z87.891 Personal history of nicotine dependence; Z79.84 Long term (current) use of oral hypoglycemic drugs
CPT/HCPCS: 36415; 74019; 74176; 80048; 80053; 82150; 83036; 83605; 83690; 83735; 84100; 84443; 85025; 87324; 92950; 96361; 96374; 96375; 99285